=== PATIENT | female | born 1995 | race Caucasian/White ===

== ENCOUNTER 2017-08-14 08:56 | Emergency (ER) | payer BC, SELFPAY ==
[2017-08-14 08:58] VITALS: BP 127/66; PULSE 123; RESP 14; TEMP 36; O2SAT 97; BMI 28.1
[2017-08-14 09:04] VITALS: BP 118/90; PULSE 96; RESP 22; O2SAT 96
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
[2017-08-14] MEDS: HYDROcodone Bitartrate/Apap 5/325 Tablet PO (09:23)
[2017-08-14] MEDS: Diphth,Pertuss(Acell),Tet Vac 0.5 ML Vial IM (09:25)
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
[2017-08-14 10:52] VITALS: BP 116/78; PULSE 70; RESP 14; RESP 16; O2SAT 100
== END 2017-08-14 10:53 | disposition home or self-care (01) ==
LOC: ED 10:16
PROVIDERS: Emergency Provider Emergency Medicine; Family Provider Student in an Organized Health Care Education/Training Program; PCP Student in an Organized Health Care Education/Training Program
DX: S00.03XA Contusion of scalp, initial encounter (principal); S80.12XA Contusion of left lower leg, initial encounter; V48.0XXA Car driver injured in noncollision transport accident in nontraffic accident, initial encounter; Y92.410 Unspecified street and highway as the place of occurrence of the external cause; Y93.89 Activity, other specified
CPT/HCPCS: 70450; 72125; 73590; 90471; 90715; 99283; A4216

== ENCOUNTER 2024-06-26 15:12 | Emergency (ER) | payer BC, SELFPAY ==
[2024-06-26 15:13] VITALS: BP 107/89; PULSE 91; RESP 18; TEMP 36; O2SAT 100; BMI 34.3
[2024-06-26 15:29] LABS: Red Blood Cells-Urine 0 SEEN /hpf (0-5)
[2024-06-26 15:52] LABS: Color, Urine Yellow (Yellow); Glucose, Dipstick Normal (Normal); Ketone-Dipstick 50 mg/dl (Negative); Leukocyte Esterase-Dipstick 25 /ul (Negative); Nitrite-Dipstick Negative (Negative); Occult Blood-Urine Negative /ul (Negative); Protein-Dipstick 30 mg/dl (Negative); Specific Gravity, Urine 1.015 (1.002-1.030); Urine Clarity Sl. Cloudy (Clear); Urine Urobilinogen 8 mg/dl (Normal)
[2024-06-26 15:54] LABS: Urine Bilirubin Dipstick 1 mg/dL (Negative)
[2024-06-26 16:07] LABS: Bacteria 2+ /hpf (None Seen); Mucous, Urine 2+ /hpf (<or=2+); Squamous Epithelial Cells - UA 0-5 SEEN /hpf (5-10)
[2024-06-26 16:08] LABS: White Blood Cells 0-5 SEEN /hpf (0-5)
[2024-06-26] MEDS: Ondansetron 4 MG/2 ML Vial IV (16:52)
[2024-06-26] MEDS: 0.9% Normal Saline (1000mL) 1,000 ML 1000 ML IV (16:53)
[2024-06-26] MEDS: Ceftriaxone 2 GM in 0.9% Normal Saline (50mL MB+) 50 ML IV (16:54)
--- NOTE | 2024-06-26 17:11 | EX.ED.DYSGE1 ---
HPI History of Present Illness Chief Complaint: Back Detail of Chief Complaint: Central low back pain and suprapubic discomfort Informant: patient Onset/Context/Timing Onset: Days and Weeks Timing: Intermittent Quality: Pain/pressure Location: Suprapubic central low back Current Severity: Mild Maximum Severity: Severe Worsened by: Nothing specific Relieved by: Nothing Associated Symptoms Associated Symptoms: Frequency, urgency, first trimester Narrative Narrative: Patient is a 28-year-old Ab0 female who presents with suprapubic discomfort. She also has central back pain. She has frequency and urgency. She denies hematuria. Question of discomfort with urination. She was seen in urgent care and told she does not have an infection. She denies vaginal bleeding or vaginal discharge. There is no history of STI. She has had nausea and vomiting for the past several days. She is not had vomiting today. She endorses thirst and dry mouth. She endorses orthostatic lightheadedness. Mother informed me that she has a relative that had similar presentation with early . There has been no documented fever but she does report chills. She had upper respiratory tract infectious symptoms that started over a week ago. These have essentially resolved. She denies rash. She denies swelling of her joints. Patient has allergy to Bactrim. Prior similar symptoms: No Recent Illness/Hospitalization: No PFSH PFSH Medical History no medical history Home Medications ?Medication ?Instructions ?Recorded ?Last Taken ?Type drospirenone 3 mg-ethinyl 1 tab PO DAILY 08/14/17 Unknown History estradiol 0.02 mg tablet (Loryna (28)) hydrocodone-acetaminophen 5-325mg 1 - 2 tab PO Q4H PRN PRN Pain #12 08/14/17 Unknown Rx 5mg-325mg tabs naproxen 500 mg tablet 500 mg PO BID PRN #20 tabs 08/14/17 Unknown Rx cephalexin 500 mg capsule 500 mg PO Q6 #28 CAPSULES 06/26/24 Unknown Rx ondansetron 4 mg disintegrating 4 mg PO Q8H PRN PRN Nausea #10 tabs 06/26/24 Unknown Rx tablet Allergy/AdvReac Type Severity Reaction Status Date / Time gabapentin Allergy Mild Rash Verified 06/26/24 15:18 sulfamethoxazole (From Allergy Mild Rash Verified 06/26/24 15:18 Bactrim) trimethoprim (From Bactrim) Allergy Mild Rash Verified 06/26/24 15:18 Surgical History no surgical history no surgical history Social History Smoking Status: Never smoker ROS ROS ED Constitutional Constitutional ED: Reports chills; Denies fever(s), subjective or sweats Eyes Eyes: Denies blurry vision or change in vision ENT ENT ED: Reports other Details: Did have symptoms a week ago. ; Denies ear pain, rhinorrhea or sore throat Cardiovascular Cardiovascular: Denies chest pain or palpitations Respiratory/Chest Respiratory/Chest: Denies cough, dyspnea or dyspnea on exertion Gastrointestinal Gastrointestinal: Reports abdominal pain, nausea and vomiting; Denies constipation, diarrhea or melena Genitourinary Genitourinary ED: Reports dysuria and urinary frequency; Denies hematuria Musculoskeletal Musculoskeletal: Reports back pain; Denies arthralgias, myalgias or neck pain Integumentary Denies rash Endocrine Endocrinology: Denies cold intolerance or heat intolerance EXAM Physical Exam Const Vital Signs: 06/26/24 15:13 06/26/24 17:12 06/26/24 18:35 Temperature 96.8 F L Temperature Source Temporal Pulse Rate 91 71 Pulse Rate [Lying] 84 Pulse Rate [Sitting (for 1 minute prior to obtaining)] 72 Pulse Rate [Standing (for 1 minute prior to obtaining)] 94 Respiratory Rate 18 18 Blood Pressure 107/89 H 96/57 L Blood Pressure [Lying] 121/70 H Blood Pressure [Sitting (for 1 minute prior to obtaining)] 114/72 Blood Pressure [Standing (for 1 minute prior to obtaining)] 124/76 H Blood Pressure Mean 95 70 Blood Pressure Mean [Lying] 87 Blood Pressure Mean [Sitting (for 1 minute prior to obtaining)] 86 Blood Pressure Mean [Standing (for 1 minute prior to obtaining)] 92 Pulse Ox 100 99 Oxygen Delivery Method Room Air Room Air 06/26/24 18:53 Temperature 98.2 F Temperature Source Pulse Rate 72 Pulse Rate [Lying] Pulse Rate [Sitting (for 1 minute prior to obtaining)] Pulse Rate [Standing (for 1 minute prior to obtaining)] Respiratory Rate 18 Blood Pressure 112/74 Blood Pressure [Lying] Blood Pressure [Sitting (for 1 minute prior to obtaining)] Blood Pressure [Standing (for 1 minute prior to obtaining)] Blood Pressure Mean 86 Blood Pressure Mean [Lying] Blood Pressure Mean [Sitting (for 1 minute prior to obtaining)] Blood Pressure Mean [Standing (for 1 minute prior to obtaining)] Pulse Ox 99 Oxygen Delivery Method Positive well nourished and well developed Constitutional Narrative: Vital signs are unremarkable. General Appearance ED: well developed, NAD and pallor; Negative for cyanotic or diaphoretic HEENT Reports dry mucous membranes HEENT Narrative: Head is atraumatic normocephalic. Ears normal. Nares patent. Posterior pharynx is normal. Mouth ED: Yes dry mucous membranes Mouth: dry mucous membranes Eyes PERRL and EOMs intact bilaterally General Eye ED: Negative for pale conjunctiva or scleral icterus Neck no lymphadenopathy, supple and no JVD Chest Wall inspection of chest normal and palpation of chest normal Resp normal respiratory effort and clear to auscultation bilaterally Cardio regular rate, regular rhythm, S1 normal heart sound, S2 normal heart sound and no murmurs GI normal to inspection, nondistended, normoactive bowel sounds, non-distended and no masses; Negative for non-tender or hepatosplenomegaly Palpation: tender suprapubic Back/Spine no CVA tenderness Thoracic Spine / Upper Back: Negative for thoracic spinal tenderness Lumbar Spine / Lower Back: Negative for lumbar spinal tenderness Extremity normal to inspection General Extremety ED: Negative for edema General Extremity: Negative for edema Neuro oriented x3 and CN's II-XII intact bilaterally Sensorium / Orientation: alert Psych mental status grossly normal Skin no rashes or lesions noted, no wounds and skin turgor normal General Skin Exam: elasticity normal and pallor; Negative for jaundice MDM MDM MDM Narrative Medical decision making narrative: Clinically patient is dehydrated. 1 L normal saline was ordered. UA was obtained per protocol. Patient does have bacteriuria. Urine culture was obtained. Also BMP was obtained to assess CO2 anion gap and electrolytes as well as renal function and light of the amount of vomiting she has had. She was treated with Zofran for her nausea and vomiting. Because she has bacteria and urine culture was sent and she was treated with antibiotics. She is seen through the [facility]. She mentioned Dr. Jennifer Fortune's name. Lab Data Attestation: I reviewed the patient's lab results. Lab results narrative: Urine macro is positive for ketones, bilirubin, urobilinogen, leukoesterase. Micro revealed 0-5 RBCs and WBCs. There is 2+ bacteria. Labs: Laboratory Results - last 24 hr 06/26/24 06/26/24 15:22 16:55 Sodium 134 L Potassium 3.4 L Chloride 100 Carbon Dioxide 27.0 Anion Gap 7 BUN 6 L Creatinine 0.60 Estim Creat Clear Calc 177.97 Est GFR (MDRD) Af Amer 155 Est GFR (MDRD) Non-Af 128 BUN/Creatinine Ratio 10.0 Glucose 89 Calcium 9.1 Urine Color Yellow Urine Clarity Sl. Cloudy Urine pH 6.0 Ur Specific [place] 1.015 Urine Protein 30 H Urine Glucose (UA) Normal Urine Ketones 50 H Urine Occult Blood Negative Urine Nitrite Negative Urine Bilirubin 1 H Urine Urobilinogen 8 H Ur Leukocyte Esterase 25 H Urine RBC 0 SEEN Urine WBC 0-5 SEEN Ur Squamous Epith Cells 0-5 SEEN Urine Bacteria 2+ Urine Mucus 2+ Treatment and Re-Evaluation :: Patient was reassessed at 181. She had marked improvement. She has color to her face. She states she feels markedly better. Discharge Plan Triage Chief Complaint: Back Other Complaint: ED Provider: Robert Cohn Dx/Rx/DC Orders Clinical Impression: Bacteriuria during in first trimester, Acute dehydration, Hyperemesis gravidarum Instructions: ED Cystitis Female Adult Prescriptions: New cephalexin 500 mg capsule 500 mg PO Q6 Qty: 28 0RF ondansetron 4 mg tablet,disintegrating 4 mg PO Q8H PRN PRN (Reason: Nausea) Qty: 10 0RF No Action drospirenone-ethinyl estradiol [Loryna (28)] 1 EACH tablet 1 tab PO DAILY Patient Comments: TAKE 1 TABLET BY MOUTH ONCE DAILY. naproxen 500 MG tablet 500 mg PO BID PRN Qty: 20 0RF hydrocodone-acetaminophen 1 TABLET tablet 1 - 2 tab PO Q4H PRN PRN (Reason: Pain) Qty: 12 0RF Primary Care Provider: Judson Weber Referrals: Judson Weber DO [Primary Care Provider] - Jennifer Fortune MD [Med Staff - Active Staff] - 3-5 Days Activity Restrictions/Additional Instructions: 1. Take antibiotics until gone. 2. Take Zofran oral dissolvable tablet as needed for nausea and vomiting Print Language: Tajik Disposition Disposition: Home, Self Care Discharge Date/Time: 06/26/24 18:54
[2024-06-26 17:12] VITALS: BP 96/57; PULSE 71; RESP 18; O2SAT 99
[2024-06-26 17:30] LABS: Anion Gap 7 (5-15); BUN 6 mg/dL (7-18); Calcium,Total 9.1 mg/dL (8.5-10.1); Chloride 100 mmol/L (98-107); EST Glomerular Filtration Rate 128 mL/min (>60); Est Glom Filt Rate - Afr Amer 155 mL/min (>60); Estimated Creatinine Clearance 177.97 ml/min; Glucose 89 mg/dL (74-106); Potassium 3.4 mmol/L (3.5-5.1); Sodium Level 134 mmol/L (136-145)
[2024-06-26 18:35] VITALS: BP 114/72; BP 121/70; BP 124/76; PULSE 72; PULSE 84; PULSE 94
[2024-06-26 18:53] VITALS: BP 112/74; PULSE 72; RESP 18; TEMP 36.8; O2SAT 99
== END 2024-06-26 18:54 | disposition home or self-care (01) ==
PROVIDERS: Emergency Provider Emergency Medicine; PCP Student in an Organized Health Care Education/Training Program; Visit Provider Emergency Medicine
DX: O99.891 Other specified diseases and conditions complicating pregnancy (principal); R82.71 Bacteriuria; O21.1 Hyperemesis gravidarum with metabolic disturbance; Z3A.00 Weeks of gestation of pregnancy not specified
CPT/HCPCS: 80048; 81001; 87086; 96365; 96375; 96376; 99285; A4216; J0696; J2405

== ENCOUNTER 2024-09-04 08:06 | Emergency (ER) | payer BC, SELFPAY ==
[2024-09-04 08:07] VITALS: BP 125/83; PULSE 85; RESP 19; TEMP 36.4; O2SAT 100; BMI 33.9
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
--- NOTE | 2024-09-04 08:27 | EDS_ITS ---
HPI History of Present Illness Chief Complaint: Flank Pain Informant: patient and parent Narrative Narrative: 29-year-old female with pain in her right low back/flank that started last night but intensified this morning. She states initially it was colicky but now it is just steady and severe. Associate with nausea and vomiting. She is 17 weeks . She has had no issues with the , has had prior ultrasound documenting IUP. She denies any acute urinary symptoms or fever/chills, cough or congestion or other respiratory symptoms, she denies any abdominal pain right now. Earlier in the , she did have some nonspecific urinary issues according to mom that was treated empirically with some antibiotics, it eventually went away and they are concerned maybe that was a kidney stone and that this may be 1 as well. She is never had any that she knows of. No other abdominal surgeries in the past. [facility] Medical History (Updated 09/04/24 @ 13:[address] Yosi Oliveira MD) Medical History no medical history no medical history Home Medications ?Medication ?Instructions ?Recorded ?Last Taken ?Type aspirin 81 mg tablet,delayed 81 mg PO DAILY 09/04/24 0 09/03/24 History release oxycodone-acetaminophen 5 mg-325 1 tab PO Q6H PRN PRN Pain 3 days 09/04/24 Unknown Rx mg tablet #12 TABLETS vit no.95-ferrous 1 tab PO DAILY 09/04/2404/20 History fumarate 28 mg-folic acid 800 mcg tablet () Allergy/AdvReac Type Severity Reaction Status Date / Time gabapentin Allergy Mild Rash Verified 06/26/24 15:18 sulfamethoxazole (From Allergy Mild Rash Verified 06/26/24 15:18 Bactrim) trimethoprim (From Bactrim) Allergy Mild Rash Verified 06/26/24 15:18 Social History Smoking Status: Never smoker ROS ROS ED Constitutional Constitutional ED: Denies chills or fever(s) Eyes Eyes: Denies change in vision or diplopia ENT ENT ED: Denies rhinorrhea or sore throat Cardiovascular Cardiovascular: Denies chest pain or palpitations Respiratory/Chest Respiratory/Chest: Denies cough or dyspnea Gastrointestinal Gastrointestinal: Reports nausea and vomiting; Denies abdominal pain or diarrhea Genitourinary Genitourinary ED: Denies dysuria or hematuria Musculoskeletal Musculoskeletal: Reports back pain; Denies neck pain Integumentary Denies abscess or rash Neurologic Neurologic: Denies headache(s), paresthesias or weakness EXAM Physical Exam Const Vital Signs: 09/04/24 08:07 09/04/24 10:06 09/04/24 12:00 Temperature 97.5 F L Temperature Source Temporal Pulse Rate 85 Respiratory Rate 19 H Blood Pressure 125/83 H 111/61 113/78 Blood Pressure Mean 97 77 89 Pulse Ox 100 100 Oxygen Delivery Method Room Air Room Air Positive well nourished and well developed Constitutional Narrative: Uncomfortable in pain but no distress General Appearance ED: well developed and NAD HEENT Reports moist mucous membranes normocephalic and atraumatic Eyes PERRL and EOMs intact bilaterally Neck full ROM and supple Resp normal respiratory effort and clear to auscultation bilaterally Cardio regular rate, regular rhythm and no murmurs GI non-tender and non-distended Auscultation: normoactive bowel sounds Palpation: soft Back/Spine General Back: CVA tenderness right and other FROM Extremity normal to inspection General Extremety ED: Negative for edema, pulses abnormal or tenderness General Extremity: Negative for edema or pulses abnormal Neuro oriented x3, CN's II-XII intact bilaterally and no sensory deficits noted Sensorium / Orientation: awake and alert Motor Exam: strength 5/5 throughout Skin no rashes or lesions noted and no wounds MDM MDM MDM Narrative Medical decision making narrative: My suspicion is that this is renal colic based on history and exam as opposed to biliary colic or musculoskeletal back pain. Given that she is , we will obtain an ultrasound of the kidney and bladder, as well as blood work and a urine to evaluate for the possibility of pyelonephritis. Nursing was unable to get an IV in the patient, the patient states she is always been a hard stick so we opted to give the medication to intramuscularly as far as morphine and Zofran which initially was going to be given orally but then she was actively vomiting, so was given intramuscularly. She still has significant pain, so then she was given IM Dilaudid and still was in severe pain later. In the meantime, workup shows normal labs and renal function, urine shows blood but no sign of infection, and ultrasound is consistent with nephrolithiasis and mild hydronephrosis both on the right with several stones being seen in the right kidney and the largest being 7 mm. The obstructing stone was not visualized but assumed to be present in the right ureter. I discussed with urology given all of the pain she was in, and ordered an IV along with a second dose of Dilaudid. Dr. Sifuentes advised a CT given the risks and benefits comparison of going to the OR when . I discussed this with the patient and she wanted to hold off on getting a CT at that time, and see if we can get her pain under better control even if being admitted to the hospital was necessary. I think that is reasonable and I discussed getting a KUB which we did, my interpretation there may be a very small punctate UVJ stone, 1 view, however radiology did not interpret this way. A little later, before she got the second dose of Dilaudid, the patient's pain suddenly became almost completely resolved and she did much better for observation in the next 1 to 2 hours without recurrent significant discomfort or need for other medication. Given this, I do not think she needs to be admitted anymore. I had her strain urine but she did not catch a stone, I suspect she passed it into her bladder. She is given urine strainers to go as well as a prescription for analgesics to use as needed, and to follow-up with urology at some point when she is done with her assuming that she does not have any issues with obstructing stones until then. She and family are comfortable with that plan. Lab Data Attestation: I reviewed the patient's lab results. Labs: Laboratory Results - last 24 hr 09/04/24 09/04/24 08:20 09:35 WBC 9.7 RBC 4.32 Hgb 11.5 L Hct 35.9 L MCV 83.1 MCH 26.6 L MCHC 32.0 RDW Std Deviation 42.3 RDW Coeff of [place]ar[place] 13.8 Plt Count 311 MPV 9.0 Immature Gran % (Auto) 0.400 Neut % (Auto) 72.2 H Lymph % (Auto) 19.6 [place] % (Auto) 5.7 Eos % (Auto) 1.7 Baso % (Auto) 0.4 Absolute Neuts (auto) 7.0 Absolute Lymphs (auto) 1.91 Nucleated RBC % 0 Sodium 136 Potassium 3.5 Chloride 104 Carbon Dioxide 17.4 L Anion Gap 15 BUN 7 Creatinine 0.64 L Estim Creat Clear Calc 164.25 Est GFR (MDRD) Non-Af 124 BUN/Creatinine Ratio 11.6 Glucose 92 Calcium 8.8 Urine Color Yellow Urine Clarity Clear Urine pH 6.0 Ur Specific [place] 1.020 Urine Protein 15 H Urine Glucose (UA) Normal Urine Ketones 5 H Urine Occult Blood 50 H Urine Nitrite Negative Urine Bilirubin Negative Urine Urobilinogen Normal Ur Leukocyte Esterase 25 H Urine RBC 0-5 SEEN Urine WBC 0-5 SEEN Ur Squamous Epith Cells 0-5 SEEN Urine Bacteria 3+ Urine Mucus 1+ Radiography Diagnostic Testing: Clinical Impression(s) from Imaging Studies Renal Ultrasound 09/04/24 08:20 IMPRESSION: Right nephrolithiasis with mild hydronephrosis. Reading Location: [facility] K[facility] X-Ray 09/04/24 11:20 IMPRESSION: Fecal retention in the colon consistent with constipation. Reading Location: [facility] Management Discussion w/another healthcare provider: [facility] (urology) Discharge Plan Triage Chief Complaint: Flank Pain ED Provider: Yosi Oliveira Dx/Rx/DC Orders Clinical Impression: Renal colic on right side, Ureterolithiasis during in second trimester, Right nephrolithiasis Instructions: ED Kidney Stone, Passed, ED Urine Strainer Prescriptions: New oxycodone-acetaminophen 5-325 mg tablet 1 tab PO Q6H PRN PRN (Reason: Pain) 3 Days Qty: 12 0RF No Action aspirin 81 mg tablet,delayed release (DR/EC) 81 mg PO DAILY PNV cmb#95-ferrous fumarate-FA [] 28 mg iron- 800 mcg tablet 1 tab PO DAILY Primary Care Provider: Judson Weber Referrals: Maria M Sifuentes MD [Med Staff - Active Staff] - As Needed Judson Weber DO [Primary Care Provider] - Print Language: [place] Disposition Disposition: Home, Self Care
[2024-09-04] MEDS: Morphine 4 MG/ML Syringe IM (08:31)
[2024-09-04] MEDS: Ondansetron 4 MG/2 ML Vial IM (08:31)
[2024-09-04 08:34] LABS: Absolute Lymphocyte Count 1.91 X10^3/uL (0.83-4.51); Basophil# 0.04 X10^3/uL; Basophil% 0.4 % (0-1); Eosinophil# 0.17 X10^3/uL; Eosinophils% 1.7 % (0-5); Hematocrit 35.9 % (37-47); Hemoglobin 11.5 g/dL (12.0-15.0); Lymphocyte # 1.91 X10^3/ul (0.83-4.51); Lymphocyte % 19.6 % (19-41); Mean Corpuscular Hgb 26.6 pg (27.0-32.0); Mean Corpuscular Volume 83.1 fL (81-99); Monocyte# 0.56 X10^3/uL; Monocyte% 5.7 % (0-10); NRBC Flagged by Analyzer 0 % (0-5); Neutrophil # 7.02 X10^3/uL (2.7-7.7); Neutrophil % 72.2 % (47-70); Platelet Count 311 K/mm3 (150-450); RBC Distribution Width CV 13.8 % (11.6-14.6); RBC Distribution Width SD 42.3 fl (35.1-43.9); Red Blood Count 4.32 M/mm3 (4.2-5.4); White Blood Count 9.7 K/mm3 (4.4-11.0)
[2024-09-04 08:59] LABS: Anion Gap 15 (5-15); BUN 7 mg/dL (4-19); BUN/Creat Ratio 11.6 RATIO (10-20); Calcium,Total 8.8 mg/dL (7.6-11.0); Carbon Dioxide 17.4 mmol/L (21.0-32.0); Chloride 104 mmol/L (98-108); Creatinine, Serum 0.64 mg/dL (0.70-1.20); EST Glomerular Filtration Rate 124 (>60); Estimated Creatinine Clearance 164.25 ml/min (50-250); Glucose 92 mg/dL (70-99); Potassium 3.5 mmol/L (3.3-5.1); Sodium Level 136 mmol/L (133-145)
[2024-09-04] MEDS: HYDROmorphone 1 MG/ML Syringe IM (09:41)
[2024-09-04 09:57] LABS: Color, Urine Yellow (Yellow); Glucose, Dipstick Normal (Normal); Ketone-Dipstick 5 mg/dl (Negative); Leukocyte Esterase-Dipstick 25 /ul (Negative); Nitrite-Dipstick Negative (Negative); Occult Blood-Urine 50 /ul (Negative); Protein-Dipstick 15 mg/dl (Negative); Urine Bilirubin Dipstick Negative (Negative); Urine Clarity Clear (Clear); Urine Urobilinogen Normal (Normal)
[2024-09-04 10:03] LABS: Bacteria 3+ /hpf (None Seen); Mucous, Urine 1+ /hpf (<or=2+); Red Blood Cells-Urine 0-5 SEEN /hpf (0-5); Squamous Epithelial Cells - UA 0-5 SEEN /hpf (5-10); White Blood Cells 0-5 SEEN /hpf (0-5)
[2024-09-04 10:06] VITALS: BP 111/61; O2SAT 100
--- NOTE | 2024-09-04 11:20 | RAD_ITS ---
EXAM: XR Abdomen, 1 View CLINICAL INDICATION: R FLANK PAIN TECHNIQUE: Frontal supine view of the abdomen/pelvis. COMPARISON: No relevant prior studies available. FINDINGS: GASTROINTESTINAL TRACT: Fecal retention in the colon consistent with constipation. No dilation. BONES/JOINTS: Unremarkable. No acute fracture. RAD/Abdomen Single View IMPRESSION: Fecal retention in the colon consistent with constipation. Reading Location: [facility]
[2024-09-04 12:00] VITALS: BP 113/78
[2024-09-04 13:22] VITALS: BP 115/70; PULSE 84; RESP 16; TEMP 36.4; O2SAT 99
== END 2024-09-04 13:27 | disposition home or self-care (01) ==
PROVIDERS: Emergency Provider Emergency Medicine; PCP Student in an Organized Health Care Education/Training Program; Visit Provider Emergency Medicine
DX: O99.891 Other specified diseases and conditions complicating pregnancy (principal); O26.832 Pregnancy related renal disease, second trimester; N23 Unspecified renal colic; N13.2 Hydronephrosis with renal and ureteral calculous obstruction; Z79.82 Long term (current) use of aspirin; Z3A.17 17 weeks gestation of pregnancy
CPT/HCPCS: 74018; 76770; 80048; 81001; 85025; 96372; 99284; A4216; J2405

== ENCOUNTER 2025-02-05 11:40 | Outpatient (CLI) | payer BC, SELFPAY ==
[2025-02-05] VITALS (9 sets, daily range): BP systolic 130–134; BP diastolic 75–92; PULSE 70–90; RESP 18; TEMP 36.4; O2SAT 98; BMI 39.5
[2025-02-05 12:27] LABS: Hematocrit 28.9 % (37-47); Hemoglobin 9.1 g/dL (12.0-15.0); Mean Corp Hgb Conc 31.5 g/dL (32-36); Mean Corpuscular Volume 76.3 fL (81-99); Mean Platelet Vol. 9.9 fl (6.2-12.0); Platelet Count 296 K/mm3 (150-450); RBC Distribution Width CV 15.8 % (11.6-14.6); RBC Distribution Width SD 42.9 fl (35.1-43.9); Red Blood Count 3.79 M/mm3 (4.2-5.4); White Blood Count 7.7 K/mm3 (4.4-11.0)
[2025-02-05 12:47] LABS: Creatinine, Urine (random) 207.00 mg/dL (28.00-217.00); Protein, Urine (Random) 28.1 mg/dL (0.0-12.0); Protein:Creat Ratio 136 mg/g CRE (0-200)
[2025-02-05 13:22] LABS: AST(SGOT) 32 U/L (<=31); Alanine Aminotransfer ALT/SGPT 7 U/L (<=34); Estimated Creatinine Clearance 178.30 ml/min (50-250); Uric Acid 5.1 mg/dL (2.6-6.0)
--- NOTE | 2025-02-06 19:36 | OB.TRI.HP_ITS ---
HPI - General General Date of Admission: 02/05/25 Date of Service: 02/05/25 Chief Complaint: elevated BP HPI Narrative ROBB GONZALEZ, is a 29 F who presents presents from office for evaluation of elevated BP. One BP >140/80s but was initial BP before she had been sitting 5 min. Denies GARNER, visual changes, epigastric pain, ctx, VB or LOF. Maternal Data Information Final [facility]: 02/14/25 Gestational age: 38 5/7 PFSH PENDING SALE TO [facility] Medical History (Updated 02/06/25 @ 19:[address] Jennifer Fortune MD) Home Medications ?Medication ?Instructions ?Recorded ?Last Taken ?Type aspirin 81 mg tablet,delayed 81 mg PO DAILY 09/04/24 0 02/04/25 22:00 History release 81 mg vit no.95-ferrous 1 tab PO DAILY 09/04/2405/21 12:00 History fumarate 28 mg-folic acid 800 mcg 1 TA B tablet () ferrous gluconate 324 mg (37.5 mg 324 mg PO QODAY anem ia 02/05/25 02/03/25 22:00 History iron) tablet 324 mg Allergy/AdvReac Type Severity Reaction Status Date / Time gabapentin Allergy Mild Rash Verified 02/05/25 12:18 sulfamethoxazole (From Allergy Mild Rash Verified 02/05/25 12:18 Bactrim) trimethoprim (From Bactrim) Allergy Mild Rash Verified 02/05/25 12:18 Social History Smoking Status: Never smoker NST FHR Rate Baby A Baseline: 140 Variability:: Moderate Accelerations:: 15 x 15 Decelerations:: None NST Reactive:: Yes Uterine Activity:: rare ctxs Assessment & Plan (1) 38 weeks gestation of : (2) Elevated blood pressure reading without diagnosis of hypertension: PLAN: Plan No evidence of preeclampsia. Only elevated blood pressure in the diagnostic range for gestational hypertension was initial 1 1 patient was somewhat anxious upon arrival. Labs are normal. No laboratory or clinical evidence of preeclampsia. Patient is to return for signs or symptoms of preeclampsia. Follow-up in the office in 3 days for blood pressure check or return as needed. Patient is comfortable with this plan. Recommend induction at 39-40 weeks gestation, patient consents and this is scheduled.
== END 2025-02-05 13:45 | disposition home or self-care (01) ==
LOC: WPOUT 11:43 → WP 11:43
PROVIDERS: Obstetrics & Gynecology; PCP Student in an Organized Health Care Education/Training Program; Referring Provider Obstetrics & Gynecology; Visit Provider Obstetrics & Gynecology
DX: O99.891 Other specified diseases and conditions complicating pregnancy (principal); R03.0 Elevated blood-pressure reading, without diagnosis of hypertension; Z3A.38 38 weeks gestation of pregnancy
CPT/HCPCS: 36415; 59025; 59050; 82565; 82570; 84156; 84450; 84460; 84550; 85027; 99221; G0378

== ENCOUNTER 2025-02-11 07:23 | Inpatient (IN) | payer BC, SELFPAY ==
[2025-02-11] VITALS (52 sets, daily range): BP systolic 121–154; BP diastolic 66–97; PULSE 70–109; RESP 16–19; TEMP 36.2–37; O2SAT 96–100; BMI 39.5
[2025-02-11] MEDS: Lactated Ringers 1,000 ML 50 ML IV (08:00)
[2025-02-11 08:13] LABS: Hematocrit 29.2 % (37-47); Hemoglobin 9.0 g/dL (12.0-15.0); Immature Granulocytes Count 0.040 X10^3/uL (0.0-0.0); Mean Corp Hgb Conc 30.8 g/dL (32-36); Mean Corpuscular Volume 76.4 fL (81-99); Mean Platelet Vol. 10.1 fl (6.2-12.0); NRBC Flagged by Analyzer 0 % (0-5); Platelet Count 319 K/mm3 (150-450); RBC Distribution Width CV 16.1 % (11.6-14.6); RBC Distribution Width SD 44.1 fl (35.1-43.9); Red Blood Count 3.82 M/mm3 (4.2-5.4); White Blood Count 9.1 K/mm3 (4.4-11.0)
[2025-02-11] MEDS: 0.9% Normal Saline Single 100 ML IV.SOLN. INTRA-UTER (08:27)
--- NOTE | 2025-02-11 08:39 | PCM.HP.OB ---
HPI - General General Date of Admission: 02/11/25 HPI Narrative ROBB MURRAY, is a 29 F who presents at [facility] 02/14/25 at 39w4d for induction of labor for increasing BP and pregravid BMI 34. Maternal Data Information [facility] Calculator Estimated Delivery Date Method Current WG Current Estimate 02/14/25 Manual 39w 4d PFSH PFSH Medical History (Updated 02/11/25 @ 08:55 by Molly Gallegos CNM) Thyroid disorder Home Medications ?Medication ?Instructions ?Recorded ?Last Taken ?Type aspirin 81 mg tablet,delayed 81 mg PO DAILY 09/04/24 02/04/25 22:00 History release 81 mg vit no.95-ferrous 1 tab PO DAILY 09/04/24 02/04/25 12:00 History fumarate 28 mg-folic acid 800 mcg 1 TAB tablet () ferrous gluconate 324 mg (37.5 mg 324 mg PO QODAY anemia 02/05/25 02/03/25 22:00 History iron) tablet 324 mg Allergy/AdvReac Type Severity Reaction Status Date / Time gabapentin Allergy Mild Rash Verified 02/05/25 12:18 sulfamethoxazole (From Allergy Mild Rash Verified 02/05/25 12:18 Bactrim) trimethoprim (From Bactrim) Allergy Mild Rash Verified 02/05/25 12:18 Surgical History (Updated 02/11/25 @ 08:38 by Elsie Fernando) Hx of adenoidectomy Hx of tonsillectomy Social History Smoking Status: Never smoker History Elective abortions Hx Para 0 Spontaneous abortions Hx # Term Pregnancies Ectopic pregnancies Hx # Pregnancies Multiple births # of living children NST FHR Rate Baby A Baseline: 140 Variability:: Moderate Accelerations:: 15 x 15 Decelerations:: Variable FHR Category:: Category II Uterine Activity:: None ROS Constitutional Constitutional: Reports systems reviewed and no addt'l complaints, except as documented; Denies headache(s) Eyes Eyes: Denies acute decrease in peripheral vision, blurry vision or change in vision ENT HEENT: Reports systems reviewed and no addt'l complaints, except as documented Cardiovascular Cardiovascular: Denies chest pain or dizziness Respiratory/Chest Respiratory/Chest: Denies cough, dyspnea, dyspnea on exertion, shortness of breath at rest or shortness of breath with exertion Gastrointestinal Gastrointestinal: Denies abdominal pain, diarrhea, nausea or vomiting Genitourinary Genitourinary: Denies abdominal discomfort Musculoskeletal Musculoskeletal: Denies limited range of motion Integumentary Integumentary: Reports systems reviewed and no addt'l complaints, except as documented Neurologic Neurologic: Reports systems reviewed and no addt'l complaints, except as documented Psychiatric Psychiatric: Reports systems reviewed and no addt'l complaints, except as documented Endocrine Endocrinology: Reports systems reviewed and no addt'l complaints, except as documented Hematologic/Lymphatic Hematologic/Lymphatic: Reports systems reviewed and no addt'l complaints, except as documented Allergic/Immunologic Allergic/Immunologic: Reports systems reviewed and no addt'l complaints, except as documented Vital Signs Vital Signs Vital Signs: 02/11/25 08:10 02/11/25 08:10 02/11/25 08:10 Temperature 98.6 F Pulse Rate 92 Blood Pressure 121/83 H BP Systolic 121 BP Diastolic 83 Pulse Ox 02/11/25 08:10 Temperature Pulse Rate Blood Pressure BP Systolic BP Diastolic Pulse Ox 98 Physical Exam Const alert and oriented x3 General Appearance: cooperative Orientation / Consciousness: awake, oriented to person, oriented to place and oriented to time Exam Limitations: no limitations HEENT normocephalic Head and Scalp: normal to inspection, normocephalic and atraumatic Face and Sinus: normal facial exam Eyes General Eye: normal appearance of both eyes Neck full ROM Chest Chest: symmetrical chest wall rise Resp normal respiratory effort and normal air movement Auscultation: clear to auscultation bilaterally Cardio regular rate, regular rhythm, S1 normal heart sound, S2 normal heart sound, no murmurs, no rub, no gallops and no clicks GI normal to inspection, nondistended, normoactive bowel sounds and non-tender appearance of the vagina normal Bladder / Kidney Exam: no CVA tenderness Manual OB Exam: estimated gestational size appropriate, presentation cephalic, dilated 1cm, effaced 50%, station -3 and other IBOW Back/Spine normal ROM Extremity normal to inspection and full ROM Skin no rashes or lesions noted Neuro oriented x3, CN's II-XII intact bilaterally and moves all extremities Sensorium / Orientation: awake, alert and oriented to person Motor Exam: clonus absent Deep Tendon Reflexes: Rt Patellar (L4): 2+ and Lt Patellar (L4): 2+ Labs Labs Labs: Blood Type Pending Antibody Screen Pending Hct 29.2 % (37-47) L Hgb 9.0 g/dL (12.0-15.0) L Syphilis Total Ab Pending GBS negative Rubella Immune RPR non reactive HIV negative HBsAG negative O positive GC/CT negative Assessment & Plan (1) 39 weeks gestation of : (2) Obesity affecting : (3) Category II heart rate tracing during labor and delivery: (4) Elective induction of labor planned: PLAN: Plan 1) Admit to labor and delivery 2) Routine labs 3) Continuous EFM. Uncertain of baseline, appears 140 with prolonged accelerations and variable decelerations. to review strip and ok to proceed with administration of cyctotec. Lynch for cervical ripening. 4) Pain management upon request 5) Dr. Fortune collaborative physician and notified of patient status, above assessment, and plan.
[2025-02-11 09:06] LABS: Syphilis Antibodies Nonreactive (Nonreactive)
[2025-02-11] MEDS: Oxytocin 15 Units/NS 250ml 15 UNITS/250 ML IV.SOLN 2 UNITS IV (13:00)
[2025-02-11] MEDS: Lactated Ringers 1,000 ML 999 ML IV (15:07)
[2025-02-11] MEDS: fentaNYL-bupivacaine (epidural) 100 ML BAG EPIDURAL ×2 (15:33→19:39)
[2025-02-11] MEDS: LACTATED RINGERS 500 ML 999 ML IV (17:42)
[2025-02-11] MEDS: Lactated Ringers 1,000 ML 200 ML IV (18:57)
[2025-02-11] MEDS: 0.9% Saline Lock 10 ML Syringe IV ×2 (19:39→20:38)
--- NOTE | 2025-02-11 22:49 | OB.VAGDELI_ITS ---
Assessment & Plan (1) Obesity affecting : QUALIFIERS: Trimester: third trimester Obesity type affecting : other obesity due to excess calories Qualified Code(s): O99.213 - Obesity complicating , third trimester; E66.09 - Other obesity due to excess calories (2) (spontaneous vaginal delivery): (3) Single live : Maternal Data Information [facility] Calculator Estimated Delivery Date Method Current WG Current Estimate 02/14/25 Manual 39w 4d Final [facility]: 02/14/25 Gestational age: 39 4/7 Vaginal Delivery Maternal Presentation Maternal Presentation: Elective Induction Type of Induction: Pitocin, Lynch Bulb, Amniotomy and Cytotec Vaginal Delivery Information Procedure Performed: Spontaneous Vaginal Delivery Surgeon/Practitioner: Jennifer Fortune Date of Procedure: 02/11/25 Pre-Procedure Diagnosis: labor Post-Procedure Diagnosis: same Type of anesthesia: Epidural Estimated Blood Loss: 300 Time of Delivery: 22:29 Findings Description of procedure: A vigorous female was delivered MARIELA over a second-degree perineal laceration. The remainder the infant was delivered with maternal pushing and gentle traction only in less than 15 seconds. The Pitocin infusion was initiated for active management of the third stage. The cord was clamped and cut after 1 minute. The infant was attended to by the waiting nursing staff. The placenta was delivered spontaneously and intact. The cervix and vagina were intact. The second-degree perineal laceration was repaired with 2-0 Vicryl suture in a running standard fashion. Sponge and needle counts were correct. A vaginal sweep was completed by me. Procedure findings: Vigorous female Presentation: MARIELA Amniotic Membrane Rupture Type: Artificial Amniotic Fluid Description: Moderate meconium Placental Delivery Description: Spontaneous Placenta Disposition: [facility] Specimen collected: No Cord Vessel Description: 3 Vessels Cord Entanglement: None A Gender: Female (Marija) (1 minute): 8 (5 minute): 9 Delayed Cord Clamping: Yes Invasive Cardiovascular Technologist internet site designer: No Post Vaginal Deli Medications given after delivery: IV Pitocin Episiotomy Description: None Laceration: 2nd degree Complication Complications: No
[2025-02-11] MEDS: Oxytocin 15 Units/NS 250ml 15 UNITS/250 ML IV.SOLN 83 UNITS IV (23:00)
[2025-02-12] VITALS (15 sets, daily range): BP systolic 121–152; BP diastolic 65–89; PULSE 70–98; RESP 14–16; TEMP 36.3–37.2; O2SAT 97–99
--- NOTE | 2025-02-12 08:45 | PCM.PN.OB ---
Objective Data Objective Data Vital Signs: Vital Signs Temp Pulse Resp BP Pulse Ox O2 Del Method 97.4 F L 70 16 121/65 H 97 Room Air 02/12/25 07:51 02/12/25 07:51 02/12/25 07:51 02/12/25 07:51 02/12/25 07:51 02/12/25 07:51 Oxygen Delivery Method Room Air Weight: 260 lb 2.327 oz Body Mass Index (BMI) 39.5 Intake & Output: Intake and Output for Last 24 Hours 02/10/25 02/11/25 02/12/25 23:59 23:59 23:59 Intake Total 3372.85 / 3372.85 250 / 250 Output Total 500 / 500 700 / 700 Balance 2872.85 / 2872.85 -450 / -450 Lab / Micro Data 02/11/25 08:00 Labs: Laboratory Results - last 24 hr 02/11/25 08:00: Syphilis Total Ab Nonreactive, Blood Type O POSITIVE, Antibody Screen NEGATIVE Physical Exam Const alert, oriented x3 and no apparent distress HEENT normocephalic GI soft to palpation, non-tender and non-distended GI Narrative: fundus firm, mid & below umbilicus Extremity normal to inspection and no calf tenderness Assessment & Plan (1) (spontaneous vaginal delivery): (2) Elevated blood pressure reading without diagnosis of hypertension: PLAN: Plan Routine PP care
[2025-02-12] MEDS: Senna/Docusate Sodium 1 Tablet PO (16:04)
[2025-02-13 01:42] VITALS: BP 123/91; PULSE 80; RESP 16; TEMP 36.8; O2SAT 98
[2025-02-13 08:22] VITALS: BP 142/98; PULSE 79; RESP 16; TEMP 36.6
--- NOTE | 2025-02-13 08:28 | PCM.DC.SUM ---
Providers Date of Admission: 02/11/25 Primary Care Physician: Dr. Judson Weber DO Reason For Visit: INDUCTION Diagnosis Discharge Diagnosis (1) (spontaneous vaginal delivery): Status: Acute Code(s): O80 - Encounter for full-term uncomplicated delivery (2) Obesity affecting : Status: Acute Code(s): O99.210 - Obesity complicating , unspecified trimester Qualifiers: Trimester: third trimester Obesity type affecting : other obesity due to excess calories Qualified Code(s): O99.213 - Obesity complicating , third trimester; E66.09 - Other obesity due to excess calories (3) Single live : Status: Acute Code(s): Z37.0 - Single live (4) Mother currently breast-feeding: Status: Acute Code(s): Z39.1 - Encounter for care and examination of lactating mother Medications at Discharge Home Medications vit no.95-ferrous fumarate 28 mg-folic acid 800 mcg tablet () 1 tab PO DAILY 09/04/24 ferrous gluconate 324 mg (37.5 mg iron) tablet 324 mg PO QODAY anemia 02/05/25 ibuprofen 600 mg tablet 600 mg PO Q6H PRN PRN Pain Score 1-10 #0 tabs 02/13/25 Hospital Course Operations None Procedures None Summary of Care Provided Minutes Spent on Discharge: 15 Hospital Course: Patient had vaginal delivery. Hospital course was uneventful. Physical Exam Narrative Patient seen at bedside. Denies pain. Ambulating and voiding without difficulty. Lochia decreased. Desires discharge home today. Const alert and oriented x3 General Appearance: Negative for in distress HEENT normocephalic Eyes General Eye: normal appearance of both eyes Neck General: normal visual inspection Chest Chest: symmetrical chest wall rise Resp normal respiratory effort and normal air movement Effort and Inspection: symmetric chest movement; Negative for tachypneic Auscultation: clear to auscultation bilaterally Cardio regular rate and regular rhythm Peripheral Pulses: pulses 2+ throughout GI normal to inspection, nondistended, normoactive bowel sounds Narrative: Ice to perineum OB / External & Speculum: vaginal bleeding and other Lochia decreasing Uterus Palpation: uterus fundus firm (Below U) Extremity normal to inspection, full ROM and normal capillary refill Skin no rashes or lesions noted Neuro oriented x3, CN's II-XII intact bilaterally and gait normal Psych mental status grossly normal, thought process normal and activity/motor behavior normal Weight / BMI Weight Weight: 260 lb 2.327 oz Body Mass Index (BMI) 39.5 ABG / Lab / Microbiology Data 02/11/25 08:00 D/C Instructions Discharge Activity: Return to Normal Activity, No Restrictions, May Drive, May Shower and May Take a Tub Bath (Warm water only. No bath salts, soaps, bubbles) May resume sexual activity in: 6-8 weeks Weight Bearing Status: Weight bearing as tolerated Call your doctor if you observe: Fever of 101 or Higher, Inability to urinate, Using more than 1 pad per hour, Shortness of breath, Dizziness, Chest pain, Calf discomfort and Uncontrolled pain DC O2, CPAP, BIPAP Needs Home O2 Discharge instructions: No Please Follow Up With: [facility] Karen GILLETTE When: 2 weeks in office or virtual Meaningful Use Info Meaningful Use Meaningful Use Diagnoses (Choose all that apply): None applicable Discharge Plan Admission Admit Date/Time: 02/11/25 07:23 Primary Reason for Your Visit: Labor and Delivery Attending Provider: Jennifre Fortune Primary Care Provider: Judson Weber Discharge Orders/Prescriptions Prescriptions: New ibuprofen 600 mg Tablet 600 mg PO Q6H PRN PRN (Reason: Pain Score 1-10) Qty: 0 0RF Continued ferrous gluconate 324 mg (37.5 mg iron) tablet 324 mg PO QODAY PNV cmb#95-ferrous fumarate-FA [] 28 mg iron- 800 mcg tablet 1 tab PO DAILY Discontinued aspirin 81 mg tablet,delayed release (DR/EC) 81 mg PO DAILY Referrals / Follow Up: Judson Weber DO [Primary Care Provider] - Disposition Disposition (needs filled in before D/C Order can be placed): Home, Self Care
== END 2025-02-13 11:25 | disposition home or self-care (01) | DRG 807 ==
PROVIDERS: Admitting Provider Advanced Practice Midwife; PCP Student in an Organized Health Care Education/Training Program; Visit Provider Obstetrics & Gynecology
DX: O76 Abnormality in fetal heart rate and rhythm complicating labor and delivery (principal); Z37.0 Single live birth; E66.09 Other obesity due to excess calories; O99.214 Obesity complicating childbirth; O70.1 Second degree perineal laceration during delivery; O77.0 Labor and delivery complicated by meconium in amniotic fluid; Z3A.39 39 weeks gestation of pregnancy
CPT/HCPCS: 59025; 59050; 85025; 86780; 86850; 86900; 86901; 99221; A4216; G0378; J2405

== ENCOUNTER 2025-05-09 06:55 | Emergency (ER) | payer BC, SELFPAY ==
[2025-05-09 06:55] VITALS: BP 119/69; PULSE 85; RESP 18; TEMP 36.6; O2SAT 99; BMI 35.0
--- NOTE | 2025-05-09 07:09 | EX.ED.DYSGE1 ---
HPI History of Present Illness Chief Complaint: Abd Pain Narrative Narrative: Chief complaint and HPI: 29-year-old female with past medical history of urolithiasis presents for evaluation of right lower abdominal/flank pain. Onset this morning 4 AM. Describes it as sharp. States it slightly similar to her previous kidney stones. Denies any fever, shortness of breath, chest pain, diarrhea, constipation, dysuria. States she is not . Associated symptom is nausea and vomiting. Review of systems: See HPI Medications: As listed on the chart Allergies: As listed on the chart PFSH: Per chart Vital signs: As listed on the chart. Reviewed. Physical exam: Gen: A&O x3, NAD Head: Normocephalic, atraumatic Eyes: No sclera icterus, conjunctiva clear ENT: Moist mucous membranes CV: RRR, no murmurs Resp: Lungs CTA BL, no w/r/c GI: Abd soft, non-distended, mildly tender to palpation in the right lower quadrant/flank, no r/r/g : No CVA tenderness Musc: Full ROM, no deformity Skin: Warm, dry Neuro: Alert, oriented, grossly intact Psych: Cooperative, appropriate mood and affect PFS PFS Medical History (Updated 02/21/25 @ 00:01 by Shannen Riggs) Mother currently breast-feeding Single live (spontaneous vaginal delivery) Obesity affecting Elevated blood pressure reading without diagnosis of hypertension Thyroid disorder Home Medications Medication Instructions Recorded Last Taken Type NK 05/09/25 Unknown History Allergy/AdvReac Type Severity Reaction Status Date / Time gabapentin Allergy Mild Rash Verified 05/09/25 06:55 sulfamethoxazole (From Allergy Mild Rash Verified 05/09/25 06:55 Bactrim) trimethoprim (From Bactrim) Allergy Mild Rash Verified 05/09/25 06:55 Surgical History (Updated 02/11/25 @ 08:38 by Elsie Fernando) Hx of adenoidectomy Hx of tonsillectomy Social History Smoking Status: Never smoker EXAM Physical Exam Const Vital Signs: 05/09/25 06:55 05/09/25 08:55 Temperature 97.9 F Temperature Source Temporal Pulse Rate 85 88 Respiratory Rate 18 18 Blood Pressure 119/69 125/97 H Blood Pressure Mean 85 106 Pulse Ox 99 96 Oxygen Delivery Method Room Air MDM MDM MDM Narrative Medical decision making narrative: 29-year-old female with past medical history of urolithiasis presents for evaluation of right lower abdominal/flank pain. Onset this morning 4 AM States it slightly similar to her previous kidney stones. On presentation, patient no acute distress. Vitals are stable. Afebrile. Differential diagnosis includes but is not limited to acute appendicitis, urolithiasis, gastroenteritis, UTI, electrolyte abnormality, EDITH, , pancreatitis. NS bolus, morphine, Reglan ordered for symptoms. Abdominal pain workup ordered. CBC without leukocytosis. Patient has baseline anemia of 10.7. Platelets unremarkable. CMP unremarkable. Lipase unremarkable. Serum negative. It was reported that patient's IV infiltrated and it was not believed that she received her morphine or Reglan. Dilaudid and Zofran ordered. UA positive for blood and ketones. Negative for UTI. CT abdomen pelvis shows right upper pole and right lower pole renal calculi. Hydronephrosis and hydroureter on the right side related to calculus at the UVJ junction. IUD in place. UVJ stone approximately 3 mm. On reevaluation, patient's pain has improved. Patient is comfortable discharging home. She has history of urolithiasis in the past which she does not follow with a urologist. Will refer her to urology. Return precautions explained. Patient will be given prescription for narcotics, Zofran, Flomax. She confirmed understand the plan. Patient able to discharge home. Impression: 1. Right urolithiasis with hydronephrosis and hydroureter 2. Right kidney stone Lab Data Labs: Laboratory Results - last 24 hr 05/09/25 05/09/25 07:11 08:20 WBC 8.9 RBC 4.30 Hgb 10.7 L Hct 34.3 L MCV 79.8 L MCH 24.9 L MCHC 31.2 L RDW Std Deviation 43.2 RDW Coeff of Yaritza 14.9 H Plt Count 315 MPV 9.2 Immature Gran % (Auto) 0.300 Neut % (Auto) 78.8 H Lymph % (Auto) 15.1 L Emery % (Auto) 4.4 Eos % (Auto) 1.1 Baso % (Auto) 0.3 Absolute Neuts (auto) 7.0 Absolute Lymphs (auto) 1.34 Nucleated RBC % 0 Sodium 139 Potassium 3.3 Chloride 105 Carbon Dioxide 21.0 Anion Gap 13 BUN 14 Creatinine 0.92 Estim Creat Clear Calc 116.21 Est GFR (MDRD) Non-Af 88 BUN/Creatinine Ratio 15.6 Glucose 150 H Calcium 9.5 Total Bilirubin 0.40 AST 17 ALT 11 Alkaline Phosphatase 89 Total Protein 7.7 Albumin 4.4 Globulin 3.3 Albumin/Globulin Ratio 1.3 Lipase 25 Serum , Qual NEGATIVE Urine Color Yellow Urine Clarity Clear Urine pH 8.0 Ur Specific Fellows 1.015 Urine Protein 30 H Urine Glucose (UA) Normal Urine Ketones 5 H Urine Occult Blood 50 H Urine Nitrite Negative Urine Bilirubin 1 H Urine Urobilinogen 4 H Ur Leukocyte Esterase 25 H Urine RBC 5-10 SEEN Urine WBC 0-5 SEEN Ur Squamous Epith Cells 5-10 SEEN Urine Bacteria RARE Urine Mucus 1+ Radiography Diagnostic Testing: Clinical Impression(s) from Imaging Studies Abdomen/Pelvis CT 05/09/25 08:07 IMPRESSION: 1. Right upper pole and right lower pole renal calculi. Hydronephrosis and hydroureter on the right side related to a calculus at the ureterovesical junction, UVJ. 2. [address]UD [address]. Reading Location: [facility] Discharge Plan Triage Chief Complaint: Abd Pain ED Provider: Keyur Soto Dx/Rx/DC Orders Prescriptions: No Action NK Primary Care Provider: Judson Weber Referrals: Judson Weber DO [Primary Care Provider, Medical] Print Language: Kyrgyz D/C Safety Score for UGIB Assessment Susi-Blatchford Bleeding Score (GBS): Stratifies upper GI bleeding patients who are "low-risk" and candidates for outpatient management. Hemoglobin, BUN, Recent Vital Signs: Hgb 10.7 g/dL (12.0-15.0) L 05/09/25 07:11 BUN 14 mg/dL (4-19) 05/09/25 07:11 Pulse Rate 88 Blood Pressure 125/97 Score Interpretation: Score of 0: A GBS of 0 is a “Low Risk” GI bleed, and is highly sensitive (99.6% in a 2007 retrospective study) for predicting which patients did not require any “medical intervention”: blood transfusion, endoscopy, or surgery. This was confirmed in a 2009 Lancet study where patients with a score of 0 were actually discharged and had no GI bleeding mortality at 6 month followup Score above 0: A GBS greater than zero suggests a “High Risk” GI bleed that is likely to require “medical intervention”: transfusion, endoscopy, or surgery. A higher GBS also correlated with a higher likelihood of needing intervention Scores >/= 6 are associated with >50% risk of needing intervention D/C Safety Score for LGIB Assessment Assessment Tool: Readmission and adverse event risk in patients with acute lower GI bleeding. Hemoglobin and Recent Vital Signs: Hgb 10.7 g/dL (12.0-15.0) L 05/09/25 07:11 Pulse Rate 88 05/09/25 08:55 Blood Pressure 125/97 05/09/25 08:55 Score Interpretation: Probability Percentage of safe discharge (absence of rebleeding, blood transfusion, therapeutic intervention, 28 day readmission, or ) Score of 8 or below: Consider discharge, with appropriate precautions. Score of 9 or above: Discharge NOT recommended. Consider admission with further workup and resuscitation as necessary.
[2025-05-09] MEDS: 0.9% Normal Saline (1000mL) 1,000 ML 999 ML IV (07:13)
[2025-05-09 07:20] LABS: Hematocrit 34.3 % (37-47); Hemoglobin 10.7 g/dL (12.0-15.0); Immature Granulocytes Count 0.030 X10^3/uL (0.0-0.0); Mean Corp Hgb Conc 31.2 g/dL (32-36); Mean Corpuscular Volume 79.8 fL (81-99); Mean Platelet Vol. 9.2 fl (6.2-12.0); NRBC Flagged by Analyzer 0 % (0-5); Platelet Count 315 K/mm3 (150-450); RBC Distribution Width CV 14.9 % (11.6-14.6); RBC Distribution Width SD 43.2 fl (35.1-43.9); Red Blood Count 4.30 M/mm3 (4.2-5.4); White Blood Count 8.9 K/mm3 (4.4-11.0)
[2025-05-09 07:35] LABS: Internal QC Validated? YES +Cl - CLEAR BKGD; Pregnancy, Serum, hCG Quali. NEGATIVE Negative; Record Kit Lot#, Serum Preg. 980607
--- OUTSIDE RECORDS SUMMARY | 2025-05-09 07:41 | XMS RPT_ITS | CCD ---
Author Organization [facility] Care Team Providers [place] Name Role Phone Judson Weber DO Primary Care Provider MOLLY TRAN PA-C Attending Unavailabl e Judson Weber DO Primary Care Provider [place] BOBBIN TRUCKER.OFFSET PRESS OPERATOR APPRENTICEStephanie Unavailable Batsheva BOBBIN TRUCKER.Franci LO Unavailable Dr. Judson Weber DO Primary Care Provider Dr. Robert Cohn MD Attending Provider Dr. Robert Cohn MD Emergency Provider Tee GARDNER, Dr. Deluca Emergency Provider [place] BOBBIN TRUCKER.OFFSET PRESS OPERATOR APPRENTICEStephanie Unavailable Ankit BOBBIN TRUCKER.Lisette LO Unavailable Dr. Judson Weber DO Primary Care Provider Dr. Morena Limon MD Attending Provider Dr. Morena Limon MD Referring Provider Molly Gallegos CNM Admit Provider Tong GARDNER, Dr. Rodriguez Attending Provider Judson Weber Primary Care Unavailable Morena Limon Attending Unavailable Morena Limon Referring Unavailable Judson Weber Primary Care Unavailable Robert Cohn Attending Unavailable Judson Weber Primary Care Unavailable Yosi Oliveira Attending Unavailable Judson Weber Primary Care Unavailable Molly Gallegos Admitting Unavailable Molly Gallegos Referring Unavailable Марина Hebert Attending Unavailable WEBER, JUDSON L Primary Care Unavailable МАРИНА HEBERT Attending Unavailable WEBER, JUDSON L Primary Care Unavailable JESSIE SANTOS Attending Unavailable WEBER, JUDSON L Primary Care Unavailable STEPHANIE TIDWELL Referring Unavailabl e WEBER, JUDSON L Primary Care Unavailable PLOTLEONARDA, SRAVANI Attending Unavailable WEBER, JUDSON L Primary Care Unavailable STEPHANIE TIDWELL Referring Unavailabl e WEBER, JUDSON L Primary Care Unavailable SELF Referring Unavailable WEBER, JUDSON L Attending Unavailable WEBER, JUDSON L Primary Care Unavailable МАРИНА HEBERT Attending Unavailable WEBER, JUDSON L Primary Care Unavailable STEPHANIE TIDWELL Attending Unavailabl e WEBER, JUDSON L Primary Care Unavailable JESSIE SANTOS Attending Unavailable WEBER, JUDSON L Primary Care Unavailable МАРИНА HEBERT Attending Unavailable MORENA LIMON Attending Unavailable WEBER, JUDSON L Primary Care Unavailable WEBER, JUDSON L Primary Care Unavailable JOSÉ MIGUEL DELCID Attending Unavailable WEBER, JUDSON L Primary Care Unavailable PLOTLEONARDA, SRAVANI Attending Unavailable WEBER, JUDSON L Primary Care Unavailable МАРИНА HEBERT Attending Unavailable WEBER, JUDSON L Primary Care Unavailable SELF Referring Unavailable WEBER, JUDSON L Primary Care Unavailable JESSIE SANTOS Attending Unavailable WEBER, JUDSON L Primary Care Unavailable PLOTLEONARDA, SRAVANI Referring Unavailable WEBER, JUDSON L Primary Care Unavailable МАРИНА HEBERT Attending Unavailable WEBER, JUDSON L Primary Care Unavailable МАРИНА HEBERT Attending Unavailable WEBER, JUDSON L Primary Care Unavailable MORENA LIMON Attending Unavailable WEBER, JUDSON L Primary Care Unavailable PLOTLEONARDA, SRAVANI Referring Unavailable JOSÉ MIGUEL DELCID Attending Unavailable WEBER, JUDSON L Primary Care Unavailable МАРИНА HEBERT Referring Unavailable WEBER, JUDSON L Primary Care Unavailable JESSIE SANTOS Attending Unavailable WEBER, JUDSON L Primary Care Unavailable МАРИНА HEBERT Attending Unavailable WEBER, JUDSON L Primary Care Unavailable PLOTTS, SRAVANI Referring Unavailable WEBER, JUDSON L Primary Care Unavailable PLOTTS, SRAVANI Referring Unavailable PLOTTS, SRAVANI Attending Unavailable WEBER, JUDSON L Primary Care Unavailable МАРИНА HEBERT Referring Unavailable МАРИНА HEBERT Attending Unavailable WEBER, JUDSON L Primary Care Unavailable МАРИНА HEBERT Referring Unavailable WEBER, JUDSON L Primary Care Unavailable МАРИНА HEBERT Referring Unavailable JUDSON WEBER Primary Care Unavailable SRAVANI SORIA Referring Unavailable Allergies Allergy Classification Reported Allergen(s) Allergy Type Date of Onset Reaction(s) Facility (20 sources) gabapentin; Translations: [GABAPENTIN] Drug Allergy 9 [facility] (20 sources) Sulfamethoxazole / Trimethoprim; Translations: [SULFAMETHOXAZOLE-TR IMETHOPRIM] Drug Allergy 9 [facility] (20 sources) Sulfamethoxazole; Translations: [SULFAMETHOXAZOLE] Drug Allergy 4 [facility] (3 sources) Trimethoprim Drug Allergy 4 [facility] (1 source) gabapentin Drug Allergy 5 [facility] (1 source) Sulfamethoxazole Drug Allergy 5 [facility] (1 source) Trimethoprim Drug Allergy 5 [facility] Medications Current Medications Medication Drug Class(es) Dates Sig (Normalized) Sig (Original) amoxicillin 875 mg / clavulanate 125 mg oral tablet (3 sources) Penicillin-class Antibacterial Start: 02-21-2025 End: 03-03-2025 take 1 tablet by mouth twice daily amoxicillin-clavula benja potassium (AUGMENTIN) 875-125 mg per tablet Take 1 tablet by mouth two times a day for 10 days. 20 tablet 02/21/2025 03/03/2025 Active ferrous gluconate 324 mg oral tablet (2 sources) Start: 02-05-2025 take 1 tablet by mouth every other day Ferrous Gluconate 324 mg (37.5 mg iron) tablet Active 324 mg PO EVERY OTHER DAY February 05, 2025 12:00am anemia ibuprofen 600 mg oral tablet (1 source) Nonsteroidal Anti-inflammatory Drug Start: 02-13-2025 take 1 tablet by mouth every six hours as needed for pain Ibuprofen 600 mg Tablet Active 600 mg PO EVERY 6 HOURS NEEDED as needed for Pain Score 1-10 0 0 February 13, 2025 12:00am nitrofurantoin, macrocrystals 25 mg / nitrofurantoin, monohydrate 75 mg oral capsule (9 sources) Nitrofuran Antibacterial Start: 07-02-2024 End: 07-09-2024 take 1 capsule by mouth twice daily nitrofurantoin monohydrate and macrocrystal (MACROBID) 100 mg capsule Indications: Urinary tract infection without hematuria, site unspecified Take 1 capsule by mouth two times a day for 7 days. 14 capsule 07/02/2024 07/09/2024 Active Start: 06-23-2024 End: 06-30-2024 take 1 capsule by mouth twice daily nitrofurantoin monohydrate and macrocrystal (MACROBID) 100 mg capsule Indications: Urinary tract infection without hematuria, site unspecified Take 1 capsule by mouth two times a day for 7 days. 14 capsule 06/23/2024 06/30/2024 Active ondansetron 4 mg oral tablet (11 sources) Serotonin-3 Receptor Antagonist Start: 06-26-2024 End: 2024 take 1 tablet by mouth every eight hours as needed ondansetron (ZOFRAN) 4 mg tablet Take 1 tablet by mouth every 8 hours as needed for nausea/vomiting. 90 tablet 1 06/26/2024 2024 Discontinued (Discontinued by Patient) Start: 06-26-2024 End: 09-04-2024 take 1 tablet by mouth every eight hours as needed for nausea Ondansetron 4 mg tablet,disintegrating Discontinued 4 mg PO EVERY 8 HOURS NEEDED as needed for Nausea 10 June 26, 2024 1:00am September 04, 2024 11:00am Pnv Cmb#95-Ferrous Fumarate- Fa () 28 mg iron- 800 mcg tablet (3 sources) Start: 09-04-2024 Pnv Cmb#95-Jordan jose Fumarate-Fa () 28 mg iron- 800 mcg tablet Active 1 {tbl} PO DAILY September 04, 2024 12:00am no115/iron/folic ac id ( 19 ORAL) (20 sources) no115/i adam/folic acid ( 19 ORAL) Take by mouth once daily. Active Completed/Discontinued Medications Medication Drug Class(es) Dates Sig (Normalized) Sig (Original) acetaminophen 325 mg / HYDROcodone bitartrate 5 mg oral tablet (3 sources) Opioid Agonist Start: 08-14-2017 End: 09-04-2024 Hydrocodone-Acetam inophen 1 TABLET tablet Discontinued 1 - 2 {tbl} PO EVERY 4 HOURS NEEDED as needed for Pain 12 August 14, 2017 1:00am September 04, 2024 10:59am Pain in left leg acetaminophen 325 mg / oxyCODONE hydrochloride 5 mg oral tablet (3 sources) Opioid Agonist Start: 09-04-2024 End: 02-05-2025 Oxycodone-Acetamin ophen 5-325 mg tablet Discontinued 1 {tbl} PO EVERY 6 HOURS NEEDED as needed for Pain 12 3 0 September 04, 2024 February 05, 2025 12:22pm Renal colic on right side Unspecified renal colic aspirin 81 mg delayed release oral tablet (20 sources) Platelet Aggregation Inhibitor, Nonsteroidal Anti-inflammatory Drug Start: 07-05-2024 End: 02-26-2025 take 1 tablet by mouth once daily aspirin, enteric coated (ECOTRIN LOW STRENGTH) 81 mg EC tablet Indications: with uncertain dates, antepartum (HCC) Take 1 tablet by mouth once daily. 90 tablet 3 07/05/2024 02/26/2025 Discontinued cephalexin 500 mg oral capsule (3 sources) Cephalosporin Antibacterial Start: 06-26-2024 End: 09-04-2024 take 1 capsule by mouth every six hours Cephalexin 500 mg capsule Discontinued 500 mg PO EVERY 6 HOURS 28 0 June 26, 2024 1:00am September 04, 2024 10:59am Drospirenone-Ethinyl Estradiol (3 sources) Progestin, Estrogen Start: 08-14-2017 End: 09-04-2024 take 3 tablets by mouth once daily Drospirenone-Ethin yl Estradiol (Loryna 3 Mg-0.02 Mg Tablet) 1 EACH tablet Discontinued 1 {tbl} PO DAILY August 14, 2017 1:00am September 04, 2024 10:59am Ethinyl Estradiol / Levonorgestrel (17 sources) Progestin, Estrogen, Progestin-containin g Intrauterine Device Start: 11-11-2022 End: 07-02-2024 take 1 tablet by mouth once daily L-Norgest and E Estradiol-E Estrad 0.15 mg-30 mcg (84)/10 mcg (7) Indications: Encounter for surveillance of contraceptive pills Take 1 tablet by mouth once daily. 91 tablet 2 11/11/2022 07/02/2024 Discontinued Start: 11-11-2022 take 1 tablet by constanza th once daily L-Norgest and E Estradiol-E Estrad 0.15 mg-30 mcg (84)/10 mcg (7) Indications: Encounter for surveillance of contraceptive pills Take 1 tablet by mouth once daily. 91 tablet 2 11/11/2022 Active Start: 06-04-2022 take 1 tablet by constanza th once daily L-Norgest and E Estradiol-E Estrad 0.15 mg-30 mcg (84)/10 mcg (7) Indications: Encounter for surveillance of contraceptive pills Take 1 tablet by mouth once daily. 91 tablet 2 06/04/2022 Active Start: 05-07-2022 End: 06-04-2022 take 1 tablet by mouth once daily L-Norgest and E Estradiol-E Estrad 0.15 mg-30 mcg (84)/10 mcg (7) Take 1 tablet by mouth once daily. 91 tablet 2 05/07/2022 06/04/2022 Discontinued Start: 05-07-2022 take 1 tablet by constanza th once daily L-Norgest and E Estradiol-E Estrad 0.15 mg-30 mcg (84)/10 mcg (7) Take 1 tablet by mouth once daily. 91 tablet 2 05/07/2022 Active Start: 07-13-2021 End: 05-06-2022 take 1 tablet by mouth once daily L-Norgest and E Estradiol-E Estrad 0.15 mg-30 mcg (84)/10 mcg (7) TAKE 1 TABLET BY MOUTH EVERY DAY 91 tablet 2 07/13/2021 05/06/2022 Discontinued Start: 07-13-2021 take 1 tablet by constanza th once daily L-Norgest and E Estradiol-E Estrad 0.15 mg-30 mcg (84)/10 mcg (7) TAKE 1 TABLET BY MOUTH EVERY DAY 91 tablet 2 07/13/2021 Active Comment on above: TAKE 1 TABLET BY CONSTANZA TH EVERY DAY Take 1 tablet by constanza th once daily. famotidine 20 mg oral tablet (6 sources) Histamine-2 Receptor Antagonist Start: End: take 1 tablet by mouth twice daily famotidine (PEPCID) 20 mg tablet Indications: 12 weeks gestation of (HCC) , related nausea, antepartum (HCC) Take 1 tablet by mouth two times a day. 60 tablet 1 08/02/2024 09/27/2024 Discontinued ferrous sulfate 325 mg delayed release oral tablet (13 sources) End: ferrous sulfate 325 mg (65 mg iron) EC tablet Take 325 mg by mouth. 02/26/2025 Discontinued metoclopramide 5 mg oral tablet (9 sources) Dopamine-2 Receptor Antagonist Start: End: take 1 tablet by mouth four times daily metoclopramide HCl (REGLAN) 5 mg tablet Take 1 tablet by mouth four times daily. 30 tablet 07/26/2024 09/27/2024 Discontinued metroNIDAZOLE 500 mg oral tablet (3 sources) Nitroimidazole Antimicrobial Start: End: take 1 tablet by mouth twice daily metroNIDAZOLE (FLAGYL) 500 mg tablet Take 1 tablet by mouth two times a day for 7 days. 14 tablet 02/22/2025 02/26/2025 Discontinued naproxen 500 mg oral tablet (3 sources) Nonsteroidal Anti-inflammatory Drug Start: 018 End: take 1 tablet by mouth twice daily as needed Naproxen 500 MG tablet Discontinued 500 mg PO TWICE DAILY NEEDED August 14, 2017 1:00am September 04, 2024 11:00am Problems Active Problems Problem Classification Problem Date Documented Date Episodic/Chronic Calculus of urinary tract (6 sources) Renal colic; Translations: [Unspecified renal colic] 09-04-2024 Episodic Contraceptive and procreative management (2 sources) Oral contraception; Translations: [Encounter for surveillance of contraceptive pills] Onset: 03-28-2025 Episodic Fluid and electrolyte disorders (3 sources) Dehydration; Translations: [Dehydration] 07-04-2024 Episodic Genitourinary symptoms and ill-defined conditions (9 sources) Vesical tenesmus; Translations: [Vesical tenesmus] Onset: 07-05-2024 07-05-2024 Episodic Nausea and vomiting (1 source) Nausea and vomiting; Translations: [Nausea with vomiting, unspecified] 07-02-2024 Episodic Other circulatory disease (5 sources) Elevated blood-pressure reading without diagnosis of hypertension; Translations: [Elevated blood-pressure reading, without diagnosis of hypertension] 02-05-2025 Episodic Other circulatory disease (1 source) Elevated blood-pressure reading, without diagnosis of hypertension; Translations: [Elevated blood pressure reading without diagnosis of hypertension] Onset: 02-08-2025 Episodic Other complications of ; puerperium affecting management of mother (2 sources) Cardiotochogram finding; Translations: [Abnormality in heart rate and rhythm complicating labor and delivery] 02-11-2025 Episodic Other complications of ; puerperium affecting management of mother (1 source) Complication of , childbirth and/or the puerperium; Translations: [Other complications of the puerperium, not elsewhere classified] 02-21-2025 Episodic Other complications of ; puerperium affecting management of mother (2 sources) Puerperal endometritis; Translations: [Endometritis following delivery] 02-21-2025 Episodic Other complications of ; puerperium affecting management of mother (1 source) Other complications of the puerperium, not elsewhere classified; Translations: [ pain (HCC)] Onset: 02-21-2025 Episodic Other complications of ; puerperium affecting management of mother (1 source) Endometritis following delivery; Translations: [ endometritis (HCC)] Onset: 02-21-2025 Episodic Other complications of (1 source) Anemia complicating , third trimester; Translations: [Anemia during in third trimester (HCC)] Onset: 01-24-2025 Chronic Other complications of (1 source) Pain in female pelvis; Translations: [Other specified related conditions, unspecified trimester] 06-26-2024 Episodic Other complications of (1 source) Morning sickness; Translations: [Other specified related conditions, unspecified trimester] 08-02-2024 Episodic Other complications of (3 sources) Hyperemesis gravidarum; Translations: [Mild hyperemesis gravidarum] 07-04-2024 Episodic Other complications of (3 sources) Bacteriuria; Translations: [Bacteriuria during in first trimester] 07-04-2024 Episodic Other complications of (3 sources) Ureteric stone; Translations: [Calculus of ureter during in second trimester] 09-04-2024 Episodic Other complications of (1 source) High risk ; Translations: [Supervision of high risk , unspecified, third trimester] 02-08-2025 Episodic Other complications of (1 source) Supervision of high risk , unspecified, third trimester; Translations: [Supervision of high risk in third trimester (HCC)] Onset: 02-08-2025 Episodic Other diseases of bladder and urethra (20 sources) Painful bladder spasm; Translations: [Other specified disorders of bladder] Onset: 07-05-2024 07-05-2024 Chronic Other female genital disorders (1 source) Vaginal odor; Translations: [Other specified noninflammatory disorders of vagina] 02-21-2025 Episodic Other female genital disorders (1 source) Other specified noninflammatory disorders of vagina; Translations: [Vaginal odor] Onset: 02-21-2025 Episodic Other and delivery including normal (20 sources) with uncertain dates; Translations: [Encounter for supervision of normal , unspecified, unspecified trimester] Onset: 07-05-2024 Resolved: 02-21-2025 07-05-2024 Episodic Other screening for suspected conditions (not mental disorders or infectious disease) (14 sources) Patient encounter status; Translations: [Encounter for screening for diabetes mellitus] Onset: 08-02-2024 Episodic Residual codes; unclassified (1 source) First trimester ; Translations: [Less than 8 weeks gestation of ] 07-02-2024 Episodic Residual codes; unclassified (1 source) Gestation period, 8 weeks; Translations: [8 weeks gestation of ] 07-05-2024 Episodic Residual codes; unclassified (2 sources) Gestation period, 12 weeks; Translations: [12 weeks gestation of ] 08-02-2024 Episodic Residual codes; unclassified (1 source) Gestation period, 16 weeks; Translations: [16 weeks gestation of ] 08-30-2024 Episodic Residual codes; unclassified (2 sources) Gestation period, 20 weeks; Translations: [20 weeks gestation of ] 09-27-2024 Episodic Residual codes; unclassified (1 source) Gestation period, 24 weeks; Translations: [24 weeks gestation of ] 10-25-2024 Episodic Residual codes; unclassified (1 source) Gestation period, 27 weeks; Translations: [27 weeks gestation of ] 11-20-2024 Episodic Residual codes; unclassified (1 source) Gestation period, 30 weeks; Translations: [30 weeks gestation of ] 12-06-2024 Episodic Residual codes; unclassified (1 source) Gestation period, 32 weeks; Translations: [32 weeks gestation of ] 12-20-2024 Episodic Residual codes; unclassified (1 source) Gestation period, 34 weeks; Translations: [34 weeks gestation of ] 01-03-2025 Episodic Residual codes; unclassified (1 source) Gestation period, 36 weeks; Translations: [36 weeks gestation of ] 01-17-2025 Episodic Residual codes; unclassified (1 source) Gestation period, 37 weeks; Translations: [37 weeks gestation of ] 01-24-2025 Episodic Residual codes; unclassified (3 sources) Gestation period, 38 weeks; Translations: [38 weeks gestation of ] 02-05-2025 Episodic Residual codes; unclassified (3 sources) Gestation period, 39 weeks; Translations: [39 weeks gestation of ] 02-08-2025 Episodic Residual codes; unclassified (1 source) Pain, unspecified; Translations: [ pain (HCC)] Onset: 02-21-2025 Episodic Residual codes; unclassified (1 source) 39 weeks gestation of ; Translations: [39 weeks gestation of (HCC)] Onset: 02-08-2025 Episodic Residual codes; unclassified (1 source) 38 weeks gestation of ; Translations: [38 weeks gestation of (HCC)] Onset: 02-01-2025 Episodic Residual codes; unclassified (1 source) 37 weeks gestation of ; Translations: [37 weeks gestation of (HCC)] Onset: 01-24-2025 Episodic Residual codes; unclassified (1 source) 36 weeks gestation of ; Translations: [36 weeks gestation of (HCC)] Onset: 01-17-2025 Episodic Screening and history of mental health and substance abuse codes (2 sources) Encounter for screening for depression; Translations: [Encounter for screening examination for other mental health and behavioral disorders] Onset: 02-01-2025 Episodic Thyroid disorders (1 source) Goiter; Translations: [Nontoxic goiter, unspecified] Chronic Unclassified (20 sources) [facility] - [facility]ON Onset: 07-05-2024 07-05-2024 Unclassified (20 sources) Education - [place] Onset: 07-05-2024 07-05-2024 Unclassified (2 sources) Planned procedure 02-11-2025 Unclassified (1 source) Other specified diseases and conditions complicating ; Translations: [Other specified diseases and conditions complicating ] Onset: 02-15-2025 Unclassified (1 source) Low back pain, unspecified; Translations: [Low back pain, unspecified] Onset: 07-17-2024 Urinary tract infections (2 sources) Urinary tract infectious disease; Translations: [Urinary tract infection, site not specified] 06-23-2024 Episodic Past or Other Problems Problem Classification Problem Date Documented Da te Episodic/Chronic Abdominal pain (4 sources) Lower abdominal pain; Translations: [Lower abdominal pain, unspecified] Onset: 07-02-2024 07-02-2024 Episodic Immunizations and screening for infectious disease (8 sources) Vaccination needed; Translations: [Encounter for immunization] Onset: 11-20-2024 Episodic Menstrual disorders (20 sources) Dysmenorrhea; Translations: [Dysmenorrhea, unspecified] Onset: 05-08-2013 Resolved: 07-27-2017 07-27-2017 Chronic Other complications of (20 sources) Maternal obesity complicating , childbirth and the puerperium, antepartum; Translations: [Obesity complicating , first trimester] Onset: 07-05-2024 Resolved: 02-21-2025 07-05-2024 Chronic Other complications of (20 sources) Anemia of ; Translations: [Anemia complicating , third trimester] Onset: 11-21-2024 Resolved: 02-21-2025 11-21-2024 Chronic Other complications of (20 sources) Vomiting of , unspecified; Translations: [Unspecified vomiting of , unspecified as to episode of care or not applicable] Onset: 07-05-2024 Resolved: 12-20-2024 06-26-2024 Episodic Other complications of (20 sources) Heartburn; Translations: [Other specified related conditions, second trimester] Onset: 08-02-2024 Resolved: 12-20-2024 08-02-2024 Episodic Other skin disorders (20 sources) Acne; Translations: [Acne, unspecified] Onset: 05-08-2013 Resolved: 07-27-2017 07-27-2017 Episodic Residual codes; unclassified (1 source) 34 weeks gestation of ; Translations: [34 weeks gestation of (HCC)] Onset: 01-03-2025 Episodic Residual codes; unclassified (1 source) 32 weeks gestation of ; Translations: [32 weeks gestation of (HCC)] Onset: 12-20-2024 Episodic Residual codes; unclassified (1 source) 30 weeks gestation of ; Translations: [30 weeks gestation of (HCC)] Onset: 12-06-2024 Episodic Residual codes; unclassified (1 source) 27 weeks gestation of ; Translations: [27 weeks gestation of (HCC)] Onset: 11-20-2024 Episodic Residual codes; unclassified (1 source) 12 weeks gestation of ; Translations: [12 weeks gestation of ] Onset: 08-02-2024 Episodic NEGATED: Highlighted row has been ruled out!Unclassified (3 sources) No known active problems 07-02-2024 Results Test Name Value Interpretation Reference Range Facility OV 04-10-2025 CNOV Office Visit (OBGYWM ) ROBB WASHINGTON ([id number]) 1995 F Date Time Provider Department 04/10/25 11:10 AM МАРИНА HEBERT [facility]BG[facility]ie During your visit today, we recorded the following information about you: Blood pressure Weight 106/60 102.5 kg Марина Hebert MD 04/10/2025 11:39 AM Signed Robb presents today for IUD insertion for contraception. Patient's last menstrual period was 05/10/2024 (exact date). GC/chlamydia: Not done: no risk factors and/or patient declines screening test: negative Side effects including irregular bleeding were discussed with the patient. The patient understands that it should be removed in 8 years or sooner if the patient desires a . IUD source: office provided IUD lot #: [id number] Exp date: 04/26/2027 [facility] [id number] UNIVERSAL PROTOCOL / SAFETY CHECKLIST Procedure to be Performed: Mirena IUD insertion Sign In: A Moment of CARE was completed. Appropriate PPE (Personal Protective Equipment) worn by all providers involved with the procedure. Special equipment not required. Patient/Surrogate Stated/Verified: Patient name, Date of , Relevant allergies, and The intended procedure Time Out: Relevant labs, photos, and/or imaging studies have been reviewed. Intended patient and procedure match the source document(s) (e.g. consent, HANDP, associated studies [imaging, pathology]) are not applicable. Consent obtained and matches the intended procedure. Yes. Correct side/site is not applicable. Medications required for this procedure are verified. Fire risk assessed and interventions discussed. Implants: are not applicable. Sign Out: Specimens are all correctly labeled and sent. All instruments, equipment, possible retained foreign bodies are accounted for. Yes. The post-procedure plan of care has been communicated to the patient or surrogate. The cervix was prepped with betadine. The uterus sounded to 8 cm and the uterus is Anteverted.. Using sterile technique, the Mirena IUD was inserted without difficulty and the string was cut to 2cm from the external os of the cervix. Patient tolerated procedure well. PLAN: Patient was advised to observe for signs and symptoms of infection including but not limited to fever, malodorous vaginal discharge and/or pain. The patient was told to check the string monthly for accurate placement. Bleeding expectations were reviewed. Follow up for next annual exam or sooner as needed. Марина Hebert MD [place], [place] 04/10/2025 11:21 AM Signed POST IUD INSTRUCTIONS You may have irregular bleeding during the first 3 months of use. You may have mild-severe cramping for the next 48 hours. You may use over the counter medication (Motrin, Tylenol) as needed. Your IUD must be removed or replaced based on the following table: IUD Type Removed or replaced within: Lizzy 3 years Kyleena 5 years Mirena 8 years Liletta 8 years Paragard 10 years Call the office for signs/symptoms of infection such as severe cramping, fever, or unusual bleeding. Check for string placement as instructed by your doctor. If you have any additional questions, please contact the office. Referring Provider: МАРИНА HEBERT [[id number]] Allergies As of Date: 04/10/2025 Noted Allergy Reaction BACTRIM (SULFAMETHOXAZOLE-TRI METH*08/17/2018 2 - Rash GABAPENTIN 08/11/2018 2 - Rash SULFAMETHOXAZOLE 06/26/2024 2 - Rash Date Reviewed: 04/10/2025 Reviewed by: Марина Hebert MD - Fully Assessed Reason for Visit: Insertion Of IUD [291] Primary Visit Diagnosis:Encounter for IUD insertion [Z30.430] Order(s):UA DIP,URINE HCG (POC) [2811075] Order #: [id number]. #:[id number] [] levonorgestrel 21 mcg/24hr (up to 8 yrs) 52 mg 1 each intrauterine device ([facility])Disp: Rfl: levonorgestrel (MIRENA) 21 mcg/24hr (up to 8 yrs) 52 mg IUD1 each by INTRAUTERINE route as directed.Disp: 1 eachRfl: 0 Prescriptions as of 04/10/2025 - levonorgestrel (MIRENA) 21 mcg/24hr (up to 8 yrs) 52 mg IUD 1 each by INTRAUTERINE route as directed. - no115/iron/folic acid ( 19 ORAL) Take by mouth once daily. Problem List As Of Date 04/10/2025 Noted Resolved Acne [L70.9] 05/08/2013 07/27/2017 Dysmenorrhea [N94.6] 05/08/2013 07/27/2017 Nausea/vomiting in (HCC) [O21.9] 07/05/2024 12/20/2024 Painful bladder spasm [N32.89, R39.89] 07/05/2024 Obesity complicating , first trimester*07/05/2024 02/21/2025 Encounter for supervision of normal first pregn*07/05/2024 02/21/2025 Heartburn during (HCC) [O26.899, R12] 08/02/2024 12/20/2024 Anemia during in third trimester (HCC*11/21/2024 02/21/2025 Other instructions from your clinician: POST IUD INSTRUCTIONS You may have irregular bleeding during the first 3 months of use. You may have mild-severe cramp (more content not included)... Normal [facility] PAP TESTon 03-28-2025 ADEQUACY Normal [facility] Comment on above: Order Comment: Speci men Type: FLUID SPECIMEN Ordering Facility: [facility] Address: [address] [place] [address] Result Comment: Sati sfactory for interpretation. No endocervical component Performed By: #### L [id number] #### [facility] CLIA [id number] [address] [place] [address] [place] CASE REPORT Normal [facility] Comment on above: Order Comment: Speci men Type: FLUID SPECIMEN Ordering Facility: [facility] Address: [address] [place] [address] Result Comment: Gyne cologic Cytology Report Case: [id number] Authorizing Provider: Марина Hebert MD Collected: 03/28/2025 11:19 AM Ordering Location: OB/Gynecology Received: 03/28/2025 04:35 PM First Screen: Workman, Liv, CT, ASCP Specimen: Pap Test, ThinPrep, Cervix Performed By: #### L [id number] #### [facility] CLIA [id number] [address] [place] [address] [place] CLINICAL HISTORY, CYTOLOGY, JACQUARD CARD CUTTER Routine Exam Normal [facility] Comment on above: Order Comment: Speci men Type: FLUID SPECIMEN Ordering Facility: [facility] Address: [address] [place] [address] Result Comment: No M enses, Other (Specify) recently Performed By: #### L [id number] #### [facility] CLIA [id number] [address] [place], [place] [id number] [place] FINAL PERFORMING LAB Normal [facility] Comment on above: Order Comment: Speci men Type: FLUID SPECIMEN Ordering Facility: [facility] Address: [address] [place] [address] Result Comment: Tech nical component, embossing press operator screening performed at: [facility], [address] [place], [place] [id number] CLIA: [id number] Diagnostic interpretation performed at: [facility], [address] [place] [address] CLIA# [id number] Straightedge Machine Operator Helper: Immanuel Moran MD Performed By: #### L [id number] #### [facility] CLIA [id number] [address] [place] [address] [place] INTERPRETATION, CYTOLOGY, JACQUARD CARD CUTTER Normal [facility] Comment on above: Order Comment: Speci men Type: FLUID SPECIMEN Ordering Facility: [facility] Address: [address] [place] [address] Result Comment: Nega tive for intraepithelial lesion or malignancy. at 0912 EDT Performed By: #### L [id number] #### [facility] CLIA [id number] [address] [place] [address] [place] PAP DISCLAIMER COMMENT The Pap Smear is a screening test for cervical cancer. False negative results occur with all screening tests, emphasizing the need for rescreening at recommended intervals, and clinical correlation. Normal [facility] Comment on above: Order Comment: Speci men Type: FLUID SPECIMEN Ordering Facility: [facility] Address: [address] [place] [address] Performed By: #### L [id number] #### [facility] CLIA [id number] [address] [place] [address] [place] PAP FEATURES EDITOR COMMENT This specimen has been analyzed by the FDA-approved ThinkHR System, which uses digital imaging and an enhanced artificial intelligence image analysis algorithm to identify chapa of interest on the microscopic slide, to assist the body joiner and pathologist in evaluating cells on ThinPrep Pap tests. Following analysis, chapa of interest on the microscopic slide selected by the algorithm are reviewed by a body joiner. If a sample requires hierarchical review, the pathologist will review the same chapa of interest selected by the algorithm prior to final interpretation. Normal [facility] Comment on above: Order Comment: Speci men Type: FLUID SPECIMEN Ordering Facility: [facility] Address: [address] [place] [address] Performed By: #### L [id number] #### [facility] CLIA [id number] [address] [place] [address] [place] BACTERIAL VAGINOSIS NAATon 0 02-21-2025 Lactobacillus crispatus+gasseri+jense ashley + Gardnerella vaginalis + Atopobium vaginae rRNA ROSA+probe Ql (Vag fld) Detected Abnormal Not detected [facility] Comment on above: Order Comment: Speci men Type: SWABOrdering Facility: [facility] Address: [address] [place] [address] Performed By: #### C VTV, BVAMP ####[facility] [id number] [place] [address] [place] MARIAN/TRICHOMONAS NAATon 0 02-21-2025 C. glabrata RNA ROSA+probe Ql (Vag fld) Not detected Normal Not detected [facility] Comment on above: Order Comment: Speci men Type: SWABOrdering Facility: [facility] Address: [address] [place] [address] Performed By: #### C VTV, BVAMP ####[facility] [id number] [place] [address] [place] Marian sp DNA ROSA+probe Ql (Vag fld) Not detected Normal Not detected [facility] Comment on above: Order Comment: Speci men Type: SWABOrdering Facility: [facility] Address: [address] [place] [address] Result Comment: The Marian species group target includes C. albicans, C. tropicalis, C. parapsilosis, and C. dubliniensis. Performed By: #### C VTV, BVAMP ####[facility] [id number] [place] [address] [place] T. vaginalis DNA ROSA+probe Ql (Unsp spec) Not detected Normal Not detected [facility] Comment on above: Order Comment: Speci men Type: SWABOrdering Facility: [facility] Address: [address] [place] [address] Performed By: #### C CURLY MUÑOZ ####[facility] [id number] [facility] [place] [address] [place] UA DIP, URINE (POC)on 2024 BILIRUBIN UA (POCT) Small Abnormal Negative [facility] CLARITY UA (POCT) Clear [facility] COLOR UA (POCT) Yellow [facility] GLUCOSE UA (POCT) Negative Negative mg/dL [facility] Hemoglobin Ql (U) Moderate Abnormal Negative [facility] Interpretation and review of laboratory results Abnormal [facility] KETONE UA (POCT) Negative Negative mg/dL [facility] LEUKOCYTES UA (POCT) Trace Abnormal Negative [facility] NITRITE UA (POCT) Negative Negative [facility] PH UA (POCT) 6.0 4.5 - 8.0 [facility] Protein Ql (U) 100 mg/dL Abnormal Negative [facility] SPECIFIC GRAVITY UA (POCT) >=1.030 1.005 - 1.030 [facility] UROBILINOGEN UA (POCT) 1.0 Normal E.U./d L [facility] Location:[facility], [address] [facility], [place], [place], [id number] [place] [address] POINT OF CARE [facility] Ad 02-12-2025 WALLYN Telephone (FAMWinnieWS) ROBB WASHINGTON ([id number]) 1995 F Date Time Provider Department 02/12/[facility] your visit today, we recorded the following information about you: Judson Weber, 02/12/2025 4:22 PM Signed Please call patient to make a patient chart and appt for her She just gave yesterday to a baby girl Marija Washington on 02/11/2025 at 10:29 pm. I need to add her to my schedule on Tuesday at 11 am please for visit for the baby Judson DO Elda Singer Stephanie 02/12/2025 4:43 PM Signed Left message for patient to return call. When patient calls, please create new chart for patient's daughter and schedule with Dr. Weber for a appointment on 02/15/25 at 11:00 AM. Maame Rivas 02/13/2025 8:22 AM Signed Patient returned call and scheduled as directed. Allergies As of Date: 02/12/2025 Noted Allergy Reaction BACTRIM (SULFAMETHOXAZOLE-TRI METH*08/17/2018 2 - Rash GABAPENTIN 08/11/2018 2 - Rash SULFAMETHOXAZOLE 06/26/2024 2 - Rash Date Reviewed: 02/08/2025 Reviewed by: Jessie Santos MD - Fully Assessed Prescriptions as of 02/13/2025 - ferrous sulfate 325 mg (65 mg iron) EC tablet Take 325 mg by mouth. - no115/iron/folic acid ( 19 ORAL) Take by mouth once daily. - aspirin, enteric coated (ECOTRIN LOW STRENGTH) 81 mg EC tablet Take 1 tablet by mouth once daily. Problem List As Of Date 02/12/2025 Noted Resolved Acne [L70.9] 05/08/2013 07/27/2017 Dysmenorrhea [N94.6] 05/08/2013 07/27/2017 Nausea/vomiting in (HCC) [O21.9] 07/05/2024 12/20/2024 Painful bladder spasm [N32.89, R39.89] 07/05/2024 Obesity complicating , first trimester*07/05/2024 Encounter for supervision of normal first pregn*07/05/2024 Heartburn during (HCC) [O26.899, R12] 08/02/2024 12/20/2024 Anemia during in third trimester (HCC*11/21/2024 Encounter Status:Closed by MAAME GANN on 02/13/25 Normal [facility] Absolute lymphocyte countOrd ered By: Molly Gallegos on 02-11-2025 Lymphocytes Auto (Unsp spec) [#/Vol] 2.15 10*3/uL 0.83-4.51 [facility] Absolute neutrophil countOrd ered By: Molly Gallegos on 02-11-2025 Neutrophils (Bld) [#/Vol] 6.3 10*3/uL 2.0-7.7 [facility] Automated blood erythrocyte countOrdered By: Molly Gallegos on 02-11-2025 RBC (Bld) [#/Vol] 3.82 10*6/uL Low 4.2-5.4 [facility] Comment on above: Performed By: #### Prakash HOLGUIN, L100.0100 #### [facility] [address] [place], [place], [id number] Automated blood hematocrit ( percentage)Ordered By: Molly Gallegos on 02-11-2025 Hematocrit (Bld) [Volume fraction] 29.2 % Low 37-47 [facility] Comment on above: Performed By: #### Prakash TS, L100.0100 #### [facility] [address] [place], [address] Automated lymphocyte count a s percentage of total leukocytesOrdered By: Molly Gallegos on 02-11-2025 Lymphocytes/100 WBC Auto (Unsp spec) 23.5 % 19-41 [facility] Basophil percentageOrdered B y: Molly Gallegos on 02-11-2025 Basophils/100 WBC (Bld) 0.2 % Normal 0-[address] [facility] Comment on above: Performed By: #### Prakash TS, L100.0100 #### [facility] [address] [place], [address] CBC W/Diff, Automatedon 01-25 Absolute Lymph 2.15 X10 3/uL Normal 0.83-4.51 [facility] Comment on above: Performed By: #### Prakash TS, L100.0100 #### [facility] [address] [place], [address] Absolute Neut 6.3 X10 3/uL Normal 2.0-7.7 [facility] Comment on above: Performed By: #### Prakash HOLGUIN, L100.0100 #### [facility] [address] [place], [address] IG% 0.400 Normal 0.0-0.9 [facility] Comment on above: Result Comment: IG% - Immature Granulocytes (promyelocytes, myelocytes and metamyelocytes) > 1% indicates that a LEFT SHIFT is Present. Performed By: #### Prakash HOLGUIN, L100.0100 #### [facility] [address] [place], [address] Lymphocytes/100 WBC (Bld) 23.5 % Normal 19-41 [facility] Comment on above: Performed By: #### Prakash HOLGUIN, L100.0100 #### [facility] [address] [place], [address] Nucleated RBC (Bld) [#/Vol] 0 10*3/uL Normal 0-5 [facility] Comment on above: Performed By: #### Prakash HOLGUIN, L100.0100 #### [facility] [address] [place], [address] RDW SD 44.1 fl High 35.1-43.9 [facility] Comment on above: Performed By: #### Prakash HOLGUIN, L100.0100 #### [facility] [address] [place], [address] Eosinophil percentageOrdered By: Molly Gallegos on 02-11-2025 Eosinophils/100 WBC (Bld) 1.3 % Normal 0-5 [facility] Comment on above: Performed By: #### Prakash HOLGUIN, L100.0100 #### [facility] [address] [place], [address] Erythrocyte distribution wid th ratioOrdered By: Molly Gallegos on 02-11-2025 Erythrocyte distribution width (RBC) [Ratio] 16.1 % High 11.6-14.6 [facility] Comment on above: Performed By: #### B TS, L100.0100 #### [facility] [address] [place], [address] Erythrocyte distribution wid th standard deviationOrdered By: Molly Gallegos on 02-11-2025 Erythrocyte distribution width (RBC) [Ratio] 44.1 fl High 35.1-43.9 [facility] H AND P Exam - OB/GYNon 01-25 H&P Exam - INSTRUMENT MECHANICS SUPERVISOR [facility] Medical Records Department [address] [place] [address] H P Exam - INSTRUMENT MECHANICS SUPERVISOR 02/11/25 0839 MR#: [id number] Acct: [id number] Name: ROBB WASHINGTON BRITTA Rep #: [id number] : 1995 29 From: Molly Gallegos CNM PCP: Dr. Judson Weber, DO Status:ADM IN Location: [id number] HPI - General General Date of Admission: 02/11/25 HPI Narrative ROBB WASHINGTON, is a 29 F who presents at [facility] 02/14/25 at 39w4d for induction of labor for increasing BP and pregravid BMI 34. Maternal Data Information [facility] Calculator Estimated Delivery Date Method Current WG Current Estimate 02/14/25 Manual 39w 4d PFSH PFSH Medical History (Updated 02/11/25 @ 08:55 by Molly Gallegos CNM) Thyroid disorder Home Medications ???Medication ???Instructions ???Recorded ???Last Taken ???Type aspirin 81 mg tablet,delayed 81 mg PO DAILY 09/04/24 02/04/25 2 2:00 History release 81 mg vit no.95-ferrous 1 tab PO DAILY 09/04/24 02/04/25 1 2:00 History fumarate 28 mg-folic acid 800 mcg 1 TAB tablet () ferrous gluconate 324 mg (37.5 mg 324 mg PO QODAY anemia 02/05/25 0 02/03/25 22:00 History iron) tablet 324 mg Allergy/AdvReac Type Severity Reaction Status Date / Time gabapentin Allergy Mild Rash Verified 02/05/25 12:18 sulfamethoxazole (From Allergy Mild Rash Verified 02/05/25 12:18 Bactrim) trimethoprim (From Bactrim) Allergy Mild Rash Verified 02/05/25 12:18 Surgical History (Updated 02/11/25 @ 08:38 by Elsie Fernando) Hx of adenoidectomy Hx of tonsillectomy Social History Smoking Status: Never smoker History Elective abortions Hx Para 0 Spontaneous abortions Hx # Term Pregnancies Ectopic pregnancies Hx # Pregnancies Multiple births # of living children NST FHR Rate Baby A Baseline: 140 Variability:: Moderate Accelerations:: 15 x 15 Decelerations:: Variable FHR Category:: Category II Uterine Activity:: None ROS Constitutional Constitutional: Reports systems reviewed and no addt'l complaints, except as documented; Denies headache(s) Eyes Eyes: Denies acute decrease in peripheral vision, blurry vision or change in vision ENT HEENT: Reports systems reviewed and no addt'l complaints, except as documented Cardiovascular Cardiovascular: Denies chest pain or dizziness Respiratory/Chest Respiratory/Chest: Denies cough, dyspnea, dyspnea on exertion, shortness of breath at rest or shortness of breath with exertion Gastrointestinal Gastrointestinal: Denies abdominal pain, diarrhea, nausea or vomiting Genitourinary Genitourinary: Denies abdominal discomfort Musculoskeletal Musculoskeletal: Denies limited range of motion Integumentary Integumentary: Reports systems reviewed and no addt'l complaints, except as documented Neurologic Neurologic: Reports systems reviewed and no addt'l complaints, except as documented Psychiatric Psychiatric: Reports systems reviewed and no addt'l complaints, except as documented Endocrine Endocrinology: Reports systems reviewed and no addt'l complaints, except as documented Hematologic/Lymphatic Hematologic/Lymphatic : Reports systems reviewed and no addt'l complaints, except as documented Allergic/Immunologic Allergic/Immunologic: Reports systems reviewed and no addt'l complaints, except as documented Vital Signs Vital Signs Vital Signs: 02/11/25 08:10 02/11/25 08:10 02/11/25 08:10 Temperature 98.6 F Pulse Rate 92 Blood Pressure 121/83 H BP Systolic 121 BP Diastolic 83 Pulse Ox 08/18/25 08:10 Temperature Pulse Rate Blood Pressure BP Systolic BP Diastolic Pulse Ox 98 Physical Exam Const alert and oriented x3 General Appearance: cooperative Orientation / Consciousness: awake, oriented to person, oriented to place and oriented to time Exam Limitations: no limitations HEENT normocephalic Head and Scalp: normal to inspection, normocephalic and atraumatic Face and Sinus: normal facial exam Eyes General Eye: normal appearance of both eyes Neck full ROM Chest Chest: symmetrical chest wall rise Resp normal respiratory effort and normal air movement Auscultation: clear to auscultation bilaterally Cardio regular rate, regular rhythm, S1 normal heart sound, S2 normal heart sound, no murmurs, no rub, no gallops and no clicks GI normal to inspection, nondistended, normoactive bowel sounds and non-tender appearance of the vagina normal Bladder / Kidney Exam: no CVA tenderness Manual OB Exam: estimated gestational size appropriate, presentation cephalic, dilated 1cm, effaced 50%, station -3 and other IBOW Back/Spine normal ROM Extremity (more content not included)... Normal [facility] Hemoglobin measurementOrdere d By: Molly Gallegos on 02-11-2025 Hemoglobin (Bld) [Mass/Vol] 9.0 g/dL Low 12.0-15.0 [facility] Comment on above: Performed By: #### B LEONARDA, L100.0100 #### [facility] [address] [place], [address] Immature granulocytes/100 WB C Auto (Bld)Ordered By: Molly Gallegos on 02-11-2025 Immature granulocytes/100 WBC (Bld) 0.400 % 0.0-0.9 [facility] Comment on above: IG% - Immature Granu locytes (promyelocytes, myelocytes and metamyelocytes) > 1% indicates that a LEFT SHIFT is Present. MCV (mean corpuscular volume ) determinationOrdered By: Molly Gallegos on 02-11-2025 MCV (RBC) [Entitic vol] 76.4 fL Low 81-[address] [facility] Comment on above: Performed By: #### B LEONARDA, L100.0100 #### [facility] [address] [place], [address] MR/OB.VAGDELIon 02-11-2025 MR/OB.LOUI [facility] Medical Records Department [address] [place] [id number] OB Vaginal Delivery 02/11/25 2249 MR#: [id number] Acct: [id number] Name: ROBB WASHINGTON Rep #: [id number] : 1995 29 From: Марина Hebert MD PCP: Dr. Judson Weber, DO Status:ADM IN Location: [id number] Assessment Plan (1) Obesity affecting : QUALIFIERS: Trimester: third trimester Obesity type affecting : other obesity due to excess calories Qualified Code(s): O99.213 - Obesity complicating , third trimester; E66.09 - Other obesity due to excess calories (2) (spontaneous vaginal delivery): (3) Single live : Maternal Data Information [facility] Calculator Estimated Delivery Date Method Current WG Current Estimate 02/14/25 Manual 39w 4d Final [facility]: 02/14/25 Gestational age: 39 4/7 Vaginal Delivery Maternal Presentation Maternal Presentation: Elective Induction Type of Induction: Pitocin, Lynch Bulb, Amniotomy and Cytotec Vaginal Delivery Information Procedure Performed: Spontaneous Vaginal Delivery Surgeon/Practitioner: Марина Hebert Date of Procedure: 02/11/25 Pre-Procedure Diagnosis: labor Post-Procedure Diagnosis: same Type of anesthesia: Epidural Estimated Blood Loss: 300 Time of Delivery: 22:29 Findings Description of procedure: A vigorous female infant was delivered MARIELA over a second-degree perineal laceration. The remainder the was delivered with maternal pushing and gentle traction only in less than 15 seconds. The Pitocin infusion was initiated for active management of the third stage. The cord was clamped and cut after 1 minute. The was attended to by the waiting nursing staff. The placenta was delivered spontaneously and intact. The cervix and vagina were intact. The second- degree perineal laceration was repaired with 2-0 Vicryl suture in a running standard fashion. Sponge and needle counts were correct. A vaginal sweep was completed by me. Procedure findings: Vigorous female Presentation: MARIELA Amniotic Membrane Rupture Type: Artificial Amniotic Fluid Description: Moderate meconium Placental Delivery Description: Spontaneous Placenta Disposition: [facility] Specimen collected: No Cord Vessel Description: 3 Vessels Cord Entanglement: None A Gender: Female (Marija) (1 minute): 8 (5 minute): 9 Delayed Cord Clamping: Yes Front Desk Team Member psychologist: No Post Vaginal Deli Medications given after delivery: IV Pitocin Episiotomy Description: None Laceration: 2nd degree Complication Complications: No 02/11/252251 Cosigner Signature (if applicable): CC: Dr. Judson Weber DO; Dr. аМрина Hebert MD Signed Normal [facility] Mean corpuscular hemoglobin (MCH) determinationOrdered By: Molly Gallegos on 02-11-2025 MCH (RBC) [Entitic mass] 23.6 pg Low 27.0-32.0 [facility] Comment on above: Performed By: #### B TS, L100.0100 #### [facility] [address] [place], [address] Mean corpuscular hemoglobin concentration (MCHC) determinationOrdered By: Molly Gallegos on 02-11-2025 MCHC (RBC) [Mass/Vol] 30.8 g/dL Low 32-36 [facility] Comment on above: Performed By: #### B TS, L100.0100 #### [facility] [address] [place], [address] Mean platelet volume determi nationOrdered By: Molly Gallegos on 02-11-2025 Platelet mean volume (Bld) [Entitic vol] 10.1 fL Normal 6.2-12.0 [facility] Comment on above: Performed By: #### B TS, L100.0100 #### [facility] [address] [place], [address] Monocyte percentageOrdered B y: Molly Gallegos on 02-11-2025 Monocytes/100 WBC (Bld) 5.5 % Normal 0-[address] [facility] Comment on above: Performed By: #### B TS, L100.0100 #### [facility] [address] [place], [address] Neutrophil percentageOrdered By: Molly Gallegos on 02-11-2025 Neutrophils/100 WBC (Bld) 69.1 % Normal 47-70 [facility] Comment on above: Performed By: #### Prakash HOLGUIN, L100.0100 #### [facility] [address] [place], [address] Nucleated red blood cell per centageOrdered By: Molly Gallegos on 02-11-2025 Nucleated RBC/100 WBC (Bld) [Ratio] 0 % 0-5 [facility] Platelet countOrdered By: Krystian Gallegos on 02-11-2025 Platelets (Bld) [#/Vol] 319 10*3/uL Normal 150-450 [facility] Comment on above: Performed By: #### Prakash HOLGUIN, L100.0100 #### [facility] [address] [place], [address] Syphilis Antibodieson 2024 Syphilis Abs Non-Reactive Normal Nonreactive [facility] Comment on above: Performed By: #### L 509.8002 #### [facility] [address] [place], [address] Type AND Screenon 02-11-2025 Ab SCREEN GEL Negative Normal [facility] Comment on above: Order Comment: Labor Performed By: #### Prakash HOLGUIN, L100.0100 #### [facility] [address] [place], [address] White blood cell (WBC) count Ordered By: Molly Gallegos on 02-11-2025 WBC (Bld) [#/Vol] 9.1 10*3/uL Normal 4.4-11.0 [facility] Comment on above: Performed By: #### Prakash HOLGUIN, L100.0100 #### [facility] [address] [place], [address] URINE OB DIP B/Oon Glucose Ql (U) Negative Neg mg/dL [facility] Protein.monoclonal (U) [Mass/Vol] 30 mg/dL Neg [facility] OB Triage Physician Noteon 0 02-06-2025 OB Triage Physician Note [facility] Medical Records Department [address] [place] [address] OB Triage Physician Note 02/06/25 1936 MR#: [id number] Acct: [id number] Name: ROBB ULRICH Rep #: [id number] : 1995 29 From: Марина Hebert MD PCP: Dr. Judson Weber, DO Status:DEP CLI Y Location: [facility] HPI - General General Date of Admission: 02/05/25 Date of Service: 02/05/25 Chief Complaint: elevated BP HPI Narrative ROBB ULRICH, is a 29 F who presents presents from office for evaluation of elevated BP. One BP >140/80s but was initial BP before she had been sitting 5 min. Denies GARNER, visual changes, epigastric pain, ctx, VB or LOF. Maternal Data Information Final VIVIANA: 02/14/25 Gestational age: 38 5/7 [facility] Medical History (Updated 02/06/25 @ 19:[address] Марина Hebert MD) Home Medications ???Medication ???Instructions ???Recorded ???Last Taken ???Type aspirin 81 mg tablet,delayed 81 mg PO DAILY 09/04/24 02/04/25 2 2:00 History release 81 mg vit no.95-ferrous 1 tab PO DAILY 09/04/24 02/04/25 1 2:00 History fumarate 28 mg-folic acid 800 mcg 1 TAB tablet () ferrous gluconate 324 mg (37.5 mg 324 mg PO QODAY anemia 02/05/25 0 02/03/25 22:00 History iron) tablet 324 mg Allergy/AdvReac Type Severity Reaction Status Date / Time gabapentin Allergy Mild Rash Verified 02/05/25 12:18 sulfamethoxazole (From Allergy Mild Rash Verified 02/05/25 12:18 Bactrim) trimethoprim (From Bactrim) Allergy Mild Rash Verified 02/05/25 12:18 Social History Smoking Status: Never smoker NST FHR Rate Baby A Baseline: 140 Variability:: Moderate Accelerations:: 15 x 15 Decelerations:: None NST Reactive:: Yes Uterine Activity:: rare ctxs Assessment Plan (1) 38 weeks gestation of : (2) Elevated blood pressure reading without diagnosis of hypertension: PLAN: Plan No evidence of preeclampsia. Only elevated blood pressure in the diagnostic range for gestational hypertension was initial 1 1 patient was somewhat anxious upon arrival. Labs are normal. No laboratory or clinical evidence of preeclampsia. Patient is to return for signs or symptoms of preeclampsia. Follow-up in the office in 3 days for blood pressure check or return as needed. Patient is comfortable with this plan. Recommend induction at 39-40 weeks gestation, patient consents and this is scheduled. 02/06/251940 Date Марина Hebert MD Cosigner Signature (if applicable): Date CC: Dr. Judson Weber DO; Dr. Марина Hebert MD Signed Normal [facility] AST(SGOT)on 02-05-2025 AST [Catalytic activity/Vol] 32 U/L Normal <=31 [facility] Comment on above: Performed By: #### B TS, L100.0100 #### [facility] [address] [place], [place], [address] Alanine Aminotransferas (SGP T)on 02-05-2025 ALT [Catalytic activity/Vol] 7 U/L Normal <=34 [facility] Comment on above: Performed By: #### Prakash HOLGUIN, L100.0100 #### [facility] [address] [place], [place], [address] CBC-Complete Blood Cnt No Di ffon 02-05-2025 Erythrocyte distribution width (RBC) [Ratio] 15.8 % High 11.6-14.6 [facility] Comment on above: Performed By: #### L 100.0500, L501.1400, L501.1105, L501.4405, L501.0900, L501.4100 #### [facility] [address] [place], [address] Hematocrit (Bld) [Volume fraction] 28.9 % Low 37-47 [facility] Comment on above: Performed By: #### L 100.0500, L501.1400, L501.1105, L501.4405, L501.0900, L501.4100 #### [facility] [address] [place], [address] Hemoglobin (Bld) [Mass/Vol] 9.1 g/dL Low 12.0-15.0 [facility] Comment on above: Performed By: #### L 100.0500, L501.1400, L501.1105, L501.4405, L501.0900, L501.4100 #### [facility] [address] [place], [address] MCH (RBC) [Entitic mass] 24.0 pg Low 27.0-32.0 [facility] Comment on above: Performed By: #### L 100.0500, L501.1400, L501.1105, L501.4405, L501.0900, L501.4100 #### [facility] [address] [place], [address] MCHC (RBC) [Mass/Vol] 31.5 g/dL Low 32-36 [facility] Comment on above: Performed By: #### L 100.0500, L501.1400, L501.1105, L501.4405, L501.0900, L501.4100 #### [facility] [address] [place], [address] MCV (RBC) [Entitic vol] 76.3 fL Low 81-[address] [facility] Comment on above: Performed By: #### L 100.0500, L501.1400, L501.1105, L501.4405, L501.0900, L501.4100 #### [facility] [address] [place], [address] Platelet mean volume (Bld) [Entitic vol] 9.9 fL Normal 6.2-12.0 [facility] Comment on above: Performed By: #### L 100.0500, L501.1400, L501.1105, L501.4405, L501.0900, L501.4100 #### [facility] [address] [place], [address] Platelets (Bld) [#/Vol] 296 10*3/uL Normal 150-450 [facility] Comment on above: Performed By: #### L 100.0500, L501.1400, L501.1105, L501.4405, L501.0900, L501.4100 #### [facility] [address] [place], [address] RBC (Bld) [#/Vol] 3.79 10*6/uL Low 4.2-5.4 [facility] Comment on above: Performed By: #### L 100.0500, L501.1400, L501.1105, L501.4405, L501.0900, L501.4100 #### [facility] [address] [place], [address] RDW SD 42.9 fl Normal 35.1-43.9 [facility] Comment on above: Performed By: #### L 100.0500, L501.1400, L501.1105, L501.4405, L501.0900, L501.4100 #### [facility] [address] [place], [address] WBC (Bld) [#/Vol] 7.7 10*3/uL Normal 4.4-11.0 [facility] Comment on above: Performed By: #### L 100.0500, L501.1400, L501.1105, L501.4405, L501.0900, L501.4100 #### [facility] [address] [place], [address] Erythrocyte distribution wid th ratioOrdered By: Марина Hebert on 02-05-2025 Erythrocyte distribution width (RBC) [Ratio] 15.8 % High 11.6-14.6 [facility] Erythrocyte distribution wid th standard deviationOrdered By: Марина Hebert on 02-05-2025 Erythrocyte distribution width (RBC) [Ratio] 42.9 fl 35.1-43.9 [facility] Glomerular filtration rate ( GFR) estimation/1.73 sq m using serum, plasma, or whole bOrdered By: Марина Hebert on 02-05-2025 GFR/1.73 sq M.predicted among non-blacks MDRD (S/P/Bld) [Vol rate/Area] 124 mL/min/{1.73_m2} >60 [facility] Comment on above: mL/min/1.73m2 CKD-EP I Creatinine Equation (2020) Hematocrit Auto (Bld) [Volum e fraction]Ordered By: Марина Hebert on 02-05-2025 Hematocrit (Bld) [Volume fraction] 28.9 % Low 37-47 [facility] Hemoglobin measurementOrdere d By: Марина Hebert on 02-05-2025 Hemoglobin (Bld) [Mass/Vol] 9.1 g/dL Low 12.0-15.0 [facility] - Chemistry and C hemistry - challengeOrdered By: Марина Hebert on 02-05-2025 AST [Catalytic activity/Vol] 32 U/L <32 [facility] MCV (mean corpuscular volume ) determinationOrdered By: Марина Hebert on 02-05-2025 MCV (RBC) [Entitic vol] 76.3 fL Low 81-[address] [facility] Mean corpuscular hemoglobin (MCH) determinationOrdered By: Марина Hebert on 02-05-2025 MCH (RBC) [Entitic mass] 24.0 pg Low 27.0-32.0 [facility] Mean corpuscular hemoglobin concentration (MCHC) determinationOrdered By: Марина Hebert on 02-05-2025 MCHC (RBC) [Mass/Vol] 31.5 g/dL Low 32-36 [facility] Mean platelet volume determi nationOrdered By: Марина Hebert on 02-05-2025 Platelet mean volume (Bld) [Entitic vol] 9.9 fL 6.2-12.0 [facility] Platelet countOrdered By: Corinne Hebert on 02-05-2025 Platelets (Bld) [#/Vol] 296 10*3/uL 150-450 [facility] Protein+Creatinine Ratio,Uri neon 02-05-2025 PROT:CRE RATIO 136 mg/g CRE Normal 0-200 [facility] Comment on above: Performed By: #### Prakash , L100.0100 #### [facility] [address] [place], [address] Protein (U) [Mass/Vol] 28.1 mg/dL High 0.0-12.0 [facility] Comment on above: Performed By: #### Prakash HOLGUIN, L100.0100 #### [facility] [address] [place], [address] UR CREAT 207.00 mg/dL Normal 28.00-217.00 [facility] Comment on above: Performed By: #### Prakash HOLGUIN, L100.0100 #### [facility] [address] [place], [address] RBC Auto (Bld) [#/Vol]Ordere d By: Марина Hebert on 02-05-2025 RBC (Bld) [#/Vol] 3.79 10*6/uL Low 4.2-5.4 [facility] Random urine creatinine janice urement (mass/volume)Ordered By: Марина Hebert on 02-05-2025 Creatinine Unsp time (U) [Mass/Vol] 207.00 mg/dL 28.00-217.00 [facility] Serum Creatinine AND GFRon 0 02-05-2025 Creatinine [Mass/Vol] 0.64 mg/dL Low 0.70-1.20 [facility] Comment on above: Performed By: #### B TS, L100.0100 #### [facility] [address] [place], [address] ECRCL 178.30 ml/min Normal 50-250 [facility] Comment on above: Performed By: #### B TS, L100.0100 #### [facility] [address] [place], [address] GFR/1.73 sq M.predicted among non-blacks MDRD (S/P/Bld) [Vol rate/Area] 124 mL/min/{1.73_m2} Normal >60 [facility] Comment on above: Result Comment: mL/m in/1.73m2 CKD-EPI Creatinine Equation (2020) Performed By: #### B TS, L100.0100 #### [facility] [address] [place], [address] Serum creatinine measurement (mass/volume)Ordered By: Марина Hebert on 02-05-2025 Creatinine [Mass/Vol] 0.64 mg/dL Low 0.70-1.20 [facility] Serum or plasma alanine mock otransferase (ALT) measurementOrdered By: Марина Hebert on 02-05-2025 ALT [Catalytic activity/Vol] 7 U/L <35 [facility] Serum or plasma uric acid me asurement (mass/volume)Ordered By: Марина Hebert on 02-05-2025 Urate [Mass/Vol] 5.1 mg/dL 2.6-6.0 [facility] Comment on above: The drugs N-Acetylcy steine and Metamizole may falsely depress this assay. Uric Acidon 02-05-2025 URIC 5.1 mg/dL Normal 2.6-6.0 [facility] Comment on above: Result Comment: The drugs N-Acetylcysteine and Metamizole may falsely depress this assay. Performed By: #### B TS, L100.0100 #### [facility] [place], [address] Urine protein measurement (m ass/volume)Ordered By: Марина Hebert on 02-05-2025 Protein (U) [Mass/Vol] 28.1 mg/dL High 0.0-12.0 [facility] Urine protein/creatinine mas s ratioOrdered By: Марина Hebert on 02-05-2025 Protein/Creatinine (U) [Mass ratio] 136 mg/g CRE 0-200 [facility] White blood cell (WBC) count Ordered By: Марина Hbeert on 02-05-2025 WBC (Bld) [#/Vol] 7.7 10*3/uL 4.4-11.0 [facility] CNOVon 02-01-2025 CNOV Office Visit (FAMPWS ) ROBB ULRICH Kimmy ([id number]) 1995 F Date Time Provider Department 02/01/25 7:40 [facility] today, we recorded the following information about you: Pulse Respiration Blood pressure Weight 101/minute 18/minute 134/78 119.3 kg Height 1.74 m Judson Weber DO 02/01/2025 8:26 AM Signed CC: Robb Kimmy Serg is a 29 year old female who presents to the office for physical HPI: She is currently 38 weeks , seeing OBGYN for care. Needing breast pump, planning to breast feed. Anemia, iron deficiency, taking supplements No other concerns. PAST MEDICAL HISTORY Diagnosis Date Acne 05/08/2013 Anemia Thyroid enlarged all blood work came back WNL PAST SURGICAL HISTORY Procedure Laterality Date TONSILLECTOMY AND ADENOIDECTOMY Social History: Social History Tobacco Use Smoking status: Never Smokeless tobacco: Never Vaping Use Vaping status: Never Used Substance Use Topics Alcohol use: No Drug use: No FAMILY HISTORY Problem Relation Age of Onset Breast Cancer Mother Thyroid Mother No Known Problems Father Thyroid Sister Thyroid Maternal Grandmother Diabetes Maternal Grandfather Adult on-set Cancer Paternal Grandmother No Known Problems Paternal Grandfather other (schizophrenia) Maternal Aunt Current Outpatient prescriptions: ferrous sulfate 325 mg (65 mg iron) EC tablet Take 325 mg by mouth. no115/iron/folic acid ( 19 ORAL) Take by mouth once daily. aspirin, enteric coated (ECOTRIN LOW STRENGTH) 81 mg EC tablet Take 1 tablet by mouth once daily. Allergies: ALLERGIES Allergen Reactions Bactrim [Sulfametho* Rash Gabapentin Rash Sulfamethoxazole Rash ROS: See HPI PE: 02/01/25 0738 BP: 134/78 Pulse: 101 Resp: 18 SpO2: 100% Weight: 119.3 kg (263 lb) Height: 174 cm (5' 8.5") Gen: AANDO, NAD, non-toxic appearing, Pleasant, cooperative HEENT: NT/AC, PERRLA, EOMs intact b/l, nares clear and patent b/l, pharynx without erythema, exudate or lesions. MMM, Uvula midline. EACs without erythema or debris. TMs pearly alvarado with intact landmarks b/l. Neck: supple, No cervical LAD, no thyromegaly, no carotid bruits CV: RRR, normal S1 and S2, no murmurs, no gallops, no rubs, Pulses 2+ and symmetric in UE and LE b/l Lungs: normal respiratory effort, CTA b/l, no wheezing or rhonchi or rales Abd: soft, gravid uterus, NT, ND, +BS, no hepatosplenomegaly MS: FROM all 4 extremities Neuro: CN II-XII intact b/l, strength 5/5 b/l UE and LE, DTRs 2/4 UE and LE, sensation intact. Skin: warm, dry, intact, No rashes or lesions on exposed skin. No edema, normal pulses ASSESSMENT/PLAN: 1. Well adult exam - ICD9: V70.0, ICD10: Z00.00 (primary diagnosis) - Counseled on healthy diet and regular exercise - f/u with OBGYN for care 2. Screening for depression - ICD9: V79.0, ICD10: Z13.31 - DEPRESSION SCREENING 3. Encounter for screening examination for other mental health and behavioral disorders - ICD9: V79.8, ICD10: Z13.39 - ANXIETY SCREENING 4. 38 weeks gestation of (HCC) - ICD9: V22.2, ICD10: Z3A.38 - Counseled on healthy diet and regular exercise - f/u with OBGYN for care - BREAST PUMP Judson Weber DO To ER if develops chest pain, shortness of breath, or severe worsening of symptoms. Discussed risks, benefits, alternatives, and potential side effects of medications. Patient expressed understanding and agreed with the plan. Judson Weber DO [address] [place] [address] Referring Provider: SELF [200] Allergies As of Date: 02/01/2025 Noted Allergy Reaction BACTRIM (SULFAMETHOXAZOLE-TRI METH*08/17/2018 2 - Rash GABAPENTIN 08/11/2018 2 - Rash SULFAMETHOXAZOLE 06/26/2024 2 - Rash Date Reviewed: 02/01/2025 Reviewed by: Jessica Macias MA - Fully Assessed Reason for Visit: Physical [83] Primary Visit Diagnosis:Well adult exam [Z00.00] Other Visit Diagnoses:Screening for depression [Z13.31] Encounter for screening examination for other mental health and behavioral disorders [Z13.39] 38 weeks gestation of (HCC) [Z3A.38] Order(s):DEPRESSION SCREENING [[id number]] Order #: [id number]: 1 ANXIETY SCREENING [[id number]] Order #: [id number]: 1 BREAST PUMP [[id number]] Order #: [id number] Prescriptions as of 02/01/2025 - ferrous sulfate 325 mg (65 mg iron) EC tablet Take 325 mg by mouth. - no115/iron/folic acid ( 19 ORAL) Take by mouth once daily. - aspirin, enteric coated (ECOTRIN LOW STRENGTH) 81 mg EC tablet Take 1 tablet by mouth once daily. Problem List As Of Date 02/01/2025 Noted Resolved Acne [L70.9] 05/08/2013 07/27/2017 Dysmenorrhea [N94.6] 05/08/2013 07/27/2017 Nausea/vomiting in (HCC) [O21.9] 07/05/2024 12/20/2024 Painfu (more content not included)... Normal [facility] CBC panel Auto (Bld)on 01-31 Erythrocyte distribution width (RBC) [Ratio] 15.5 % High 11.5-15.0 [facility] Comment on above: Order Comment: Speci men Type: BLOOD SPECIMENOrdering Facility: [facility] Address: [address] [place] [address] Performed By: #### 5 8410-2 ####[facility] [id number] [place] [address] [place] Hematocrit (Bld) [Volume fraction] 29.3 % Low 36.0-46.0 [facility] Comment on above: Order Comment: Speci men Type: BLOOD SPECIMENOrdering Facility: [facility] Address: [address] [place] [address] Performed By: #### 5 8410-2 ####[facility] [id number] [place] [address] [place] Hemoglobin (Bld) [Mass/Vol] 9.1 g/dL Low 11.5-15.5 [facility] Comment on above: Order Comment: Speci men Type: BLOOD SPECIMENOrdering Facility: [facility] Address: [address] [place] [address] Performed By: #### 5 8410-2 ####[facility] [id number] [place] [address] [place] MCH (RBC) [Entitic mass] 23.9 pg Low 26.0-34.0 [facility] Comment on above: Order Comment: Speci men Type: BLOOD SPECIMENOrdering Facility: [facility] Address: [address] [place] [address] Performed By: #### 5 8410-2 ####[facility] [id number] [place] [address] [place] MCHC (RBC) [Mass/Vol] 31.1 g/dL Normal 30.5-36.0 [facility] Comment on above: Order Comment: Speci men Type: BLOOD SPECIMENOrdering Facility: [facility] Address: [address] [place] [address] Performed By: #### 5 8410-2 ####[facility] [id number] [place] [address] [place] MCV (RBC) [Entitic vol] 77.1 fL Low 80.0-100.0 [facility] Comment on above: Order Comment: Speci men Type: BLOOD SPECIMENOrdering Facility: [facility] Address: [address] [place] [address] Performed By: #### 5 8410-2 ####[facility] [id number] [place] [address] [place] Nucleated RBC (Bld) [#/Vol] 10*3/uL Normal <0.01 [facility] Comment on above: Order Comment: Speci men Type: BLOOD SPECIMENOrdering Facility: [facility] Address: [address] [place] [address] Performed By: #### 5 8410-2 ####[facility] [id number] [place] [address] [place] Platelet mean volume (Bld) [Entitic vol] 10.0 fL Normal 9.0-12.7 [facility] Comment on above: Order Comment: Speci men Type: BLOOD SPECIMENOrdering Facility: [facility] Address: [address] [place] [address] Performed By: #### 5 8410-2 ####[facility] [id number] [place] [address] [place] Platelets (Bld) [#/Vol] 316 10*3/uL Normal 150-400 [facility] Comment on above: Order Comment: Speci men Type: BLOOD SPECIMENOrdering Facility: [facility] Address: [address] [place] [address] Performed By: #### 5 8410-2 ####[facility] [id number] [place] [address] [place] RBC (Bld) [#/Vol] 3.80 10*6/uL Low 3.90-5.20 [facility] Comment on above: Order Comment: Speci men Type: BLOOD SPECIMENOrdering Facility: [facility] Address: [address] [place] [address] Performed By: #### 5 8410-2 ####[facility] [id number] [place] [address] [place] WBC (Bld) [#/Vol] 8.41 10*3/uL Normal 3.70-11.00 [facility] Comment on above: Order Comment: Speci men Type: BLOOD SPECIMENOrdering Facility: [facility] Address: [address] [place] [address] Performed By: #### 5 8410-2 ####[facility] [id number] [place] [address] [place] Comprehensive metabolic 2000 panelon 01-31-2025 Albumin [Mass/Vol] 3.5 g/dL Low 3.9-4.9 [facility] Comment on above: Order Comment: Speci men Type: BLOOD SPECIMEN [facility] Address: [address] [place] [address] Performed By: #### 2 4323-8 #### [facility] CLIA [id number] [address] [place] [address] [place] ALP [Catalytic activity/Vol] 144 U/L High 34-123 [facility] Comment on above: Order Comment: Speci men Type: BLOOD SPECIMEN [facility] Address: [address] [place] [address] Performed By: #### 2 4323-8 #### [facility] CLIA [id number] [address] [place] [address] [place] ALT [Catalytic activity/Vol] 6 U/L Low 7-38 [facility] Comment on above: Order Comment: Speci men Type: BLOOD SPECIMEN [facility] Address: [address] [place] [address] Performed By: #### 2 4323-8 #### [facility] CLIA [id number] [address] [place] [address] [place] Anion gap [Moles/Vol] 11 mmol/L Normal 8-15 [facility] Comment on above: Order Comment: Speci men Type: BLOOD SPECIMEN [facility] Address: [address] [place] [address] Performed By: #### 2 4323-8 #### [facility] CLIA [id number] [address] [place] [address] [place] AST [Catalytic activity/Vol] 14 U/L Normal 13-35 [facility] Comment on above: Order Comment: Speci men Type: BLOOD SPECIMEN [facility] Address: [address] [place] [address] Performed By: #### 2 4323-8 #### [facility] CLIA [id number] [address] [place] [address] [place] Bilirubin [Mass/Vol] 0.3 mg/dL Normal 0.2-1.3 [facility] Comment on above: Order Comment: Speci men Type: BLOOD SPECIMEN [facility] Address: [address] [place] [address] Performed By: #### 2 4323-8 #### [facility] CLIA [id number] [address] [place] [address] [place] Calcium [Mass/Vol] 9.0 mg/dL Normal 8.5-10.2 [facility] Comment on above: Order Comment: Speci men Type: BLOOD SPECIMEN [facility] Address: [address] [place] [address] Performed By: #### 2 4323-8 #### [facility] CLIA [id number] [address] [place] [address] [place] Chloride [Moles/Vol] 105 mmol/L Normal 98-107 [facility] Comment on above: Order Comment: Speci men Type: BLOOD SPECIMEN [facility] Address: [address] [place] [address] Performed By: #### 2 4323-8 #### [facility] CLIA [id number] [address] [place] [address] [place] CO2 [Moles/Vol] 19 mmol/L Low 22-30 [facility] Comment on above: Order Comment: Speci men Type: BLOOD SPECIMEN [facility] Facility[facility] Address: [address] [place] [address] Performed By: #### 2 4323-8 #### [facility] CLIA [id number] [address] [place] [address] [place] Creatinine [Mass/Vol] 0.67 mg/dL Normal 0.58-0.96 [facility] Comment on above: Order Comment: Speci men Type: BLOOD SPECIMEN [facility] Facility: [facility] Address: [address] [place] [address] Performed By: #### 2 4323-8 #### [facility] CLIA [id number] [address] [place] [address] [place] eGFRcr SerPlBld CKD-EPI 2020 123 mL/min/1.73m??? Normal >=60 [facility] Comment on above: Order Comment: Hien juarez Type: BLOOD SPECIMEN [facility]ing Facility: [facility] Address: [address] [place] [address] Result Comment: Freda mated Glomerular Filtration Rate (eGFR) is calculated using the 2020 CKD-EPI creatinine equation. This equation utilizes serum creatinine, sex, and age as parameters. The creatinine assay has traceable calibration to isotope dilution-mass spectrometry. Refer to KDIGO guidelines for clinical interpretation. In patients with unstable renal function, e.g. those with acute kidney injury, the eGFR may not accurately reflect actual GFR. Performed By: #### 2 4323-8 #### [id number] [address] [place] [address] [place] Glucose [Mass/Vol] 70 mg/dL Low 74-99 [facility] Comment on above: Order Comment: Hien juarez Type: BLOOD SPECIMEN [facility] Facility: [facility] Address: [address] [place] [address] Result Comment: The [place] [employer] Association (ADA) provides guidance for cutoff values for fasting glucose and random glucose. The ADA defines fasting as no caloric intake for at least 8 hours. Fasting plasma glucose results between 100 to 125 mg/dL indicate increased risk for diabetes (prediabetes). Fasting plasma glucose results greater than or equal to 126 mg/dL meet the criteria for diagnosis of diabetes. In the absence of unequivocal hyperglycemia, results should be confirmed by repeat testing. In a patient with classic symptoms of hyperglycemia or hyperglycemic crisis, random plasma glucose results greater than or equal to 200 mg/dL meet the criteria for diagnosis of diabetes. Reference: Standards of Medical Care in Diabetes 2016, [place] [employer]. Diabetes Care. 2016.39(Suppl 1). Performed By: #### 2 4323-8 #### [facility] [id number] [address] [place] [address] [place] Potassium [Moles/Vol] 4.3 mmol/L Normal 3.7-5.1 [facility] Comment on above: Order Comment: Hien juarez Type: BLOOD SPECIMEN [facility] Facility[facility] Address: [address] [place], [place] [address] Performed By: #### 2 4323-8 #### [facility] CLIA [id number] [address] [place] [address] [place] Protein [Mass/Vol] 6.7 g/dL Normal 6.3-8.0 [facility] Comment on above: Order Comment: Speci men Type: BLOOD SPECIMEN [facility] Facility: [facility] Address: [address] [place] [address] Performed By: #### 2 4323-8 #### [facility] CLIA [id number] [address] [place] [address] [place] Sodium [Moles/Vol] 135 mmol/L Low 136-144 [facility] Comment on above: Order Comment: Speci men Type: BLOOD SPECIMEN [facility] Facility: [facility] Address: [address] [place] [address] Performed By: #### 2 4323-8 #### [facility] CLIA [id number] [address] [place] [address] [place] Urea nitrogen [Mass/Vol] 9 mg/dL Normal 7-21 [facility] Comment on above: Order Comment: Speci men Type: BLOOD SPECIMEN [facility] Facility: [facility] Address: [address] [place] [address] Performed By: #### 2 4323-8 #### [facility] CLIA [id number] [address] [place] [address] [place] Prot/Creat Uron 01-31-2025 Protein/Creatinine (U) [Mass ratio] 0.11 mg/mg Normal <0.15 [facility] Comment on above: Order Comment: Speci men Type: URINE SPECIMENOrdering Facility: [facility] Address: [address] [place], [place] [address] Result Comment: Adul t Proteinuria Categories: <0.15 mg/mg is considered normal to mildly increased 0.15 - 0.50 mg/mg is considered moderately increased >0.50 mg/mg is considered severely increased KDIGO. (2013). KDIGO 2012 Clinical Practice Guideline for the Evaluation and Management of Chronic Kidney Disease. Official Journal of the International Society of Nephrology, 3(1), 1-150. Performed By: #### 2 890-2 ####[facility] LABCLIA [id number] [address] [address] [place] Protein/Creatinine (U) [Mass ratio]on 01-31-2025 Creatinine (U) [Mass/Vol] 180.9 mg/dL Normal 20.0-300.0 [facility] Comment on above: Order Comment: Speci men Type: URINE SPECIMENOrdering Facility: [facility] Address: [address] [place] [address] Performed By: #### 2 890-2 ####[facility] LABIA [id number] [place] [id number] [place] [facility] Protein (U) [Mass/Vol] 19 mg/dL Normal 0-20 [facility] Comment on above: Order Comment: Speci men Type: URINE SPECIMENOrdering Facility: [facility] Address: [address] [place] [address] Performed By: #### 2 890-2 ####[facility] LABIA [id number] [address] [address] [place] ROUTINE, GROUP B ST REPTOCOCCUS BY PCRon 01-17-2025 ROUTINE, GROUP B STREPTOCOCCUS BY PCR Not detected Normal [facility] Comment on above: Performed By: #### G BPCR ####[facility] LABCLIA [id number] [address] [place] [address] [place] URINE OB DIP B/Oon Glucose Ql (U) Negative Neg mg/dL [facility] Interpretation and review of laboratory results Normal [facility] Protein.monoclonal (U) [Mass/Vol] Negative Neg mg/dL [facility] CBC panel Auto (Bld)on 01-03 Erythrocyte distribution width (RBC) [Ratio] 15.1 % High 11.5 - 15.0 % [facility] Hematocrit (Bld) [Volume fraction] 31.5 % Low 36.0 - 46.0 % [facility] Hemoglobin (Bld) [Mass/Vol] 10 g/dL Low 11.5 - 15.5 g/dL [facility] Interpretation and review of laboratory results Abnormal [facility] MCH (RBC) [Entitic mass] 24.9 pg Low 26.0 - 34.0 pg [facility] MCHC (RBC) [Mass/Vol] 31.7 g/dL 30.5 - 36.0 g/dL [facility] MCV (RBC) [Entitic vol] 78.4 fL Low 80.0 - 100.0 fL [facility] Nucleated RBC (Bld) [#/Vol] NINF [facility] Platelet mean volume (Bld) [Entitic vol] 9.2 fL 9.0 - 12.7 fL [facility] Platelets (Bld) [#/Vol] 356 10*3/uL [facility] RBC (Bld) [#/Vol] 4.02 10*6/uL 3.90 - 5.2 0 m/uL [facility] WBC (Bld) [#/Vol] 9.57 10*3/uL [facility] Erythrocyte distribution width (RBC) [Ratio] 15.1 % High 11.5-15.0 [facility] Comment on above: Order Comment: Speci men Type: BLOOD SPECIMENOrdering Facility: [facility] Address: [address] [place] [address] Performed By: #### 5 8410-2 ####[facility] [id number] [place] [address] [place] Hematocrit (Bld) [Volume fraction] 31.5 % Low 36.0-46.0 [facility] Comment on above: Order Comment: Speci men Type: BLOOD SPECIMENOrdering Facility: [facility] Address: [address] [place] [address] Performed By: #### 5 8410-2 ####[facility] [id number] [place] [address] [place] Hemoglobin (Bld) [Mass/Vol] 10.0 g/dL Low 11.5-15.5 [facility] Comment on above: Order Comment: Speci men Type: BLOOD SPECIMENOrdering Facility: [facility] Address: [address] [place] [address] Performed By: #### 5 8410-2 ####[facility] [id number] [place] [address] [place] MCH (RBC) [Entitic mass] 24.9 pg Low 26.0-34.0 [facility] Comment on above: Order Comment: Speci men Type: BLOOD SPECIMENOrdering Facility: [facility] Address: [address] [place] [address] Performed By: #### 5 8410-2 ####[facility] [id number] [place] [address] [place] MCHC (RBC) [Mass/Vol] 31.7 g/dL Normal 30.5-36.0 [facility] Comment on above: Order Comment: Speci men Type: BLOOD SPECIMENOrdering Facility: [facility] Address: [address] [place] [address] Performed By: #### 5 8410-2 ####[facility] [id number] [place] [address] [place] MCV (RBC) [Entitic vol] 78.4 fL Low 80.0-100.0 C [facility] Comment on above: Order Comment: Speci men Type: BLOOD SPECIMENOrdering Facility: [facility] Address: [address] [place] [address] Performed By: #### 5 8410-2 ####[facility] [id number] [place] [address] [place] Nucleated RBC (Bld) [#/Vol] 10*3/uL Normal <0.01 [facility] Comment on above: Order Comment: Speci men Type: BLOOD SPECIMENOrdering Facility: [facility] Address: [address] [place] [address] Performed By: #### 5 8410-2 ####[facility] [id number] [place] [address] [place] Platelet mean volume (Bld) [Entitic vol] 9.2 fL Normal 9.0-12.7 [facility] Comment on above: Order Comment: Speci men Type: BLOOD SPECIMENOrdering Facility: [facility] Address: [address] [place] [address] Performed By: #### 5 8410-2 ####[facility] [id number] [place] [address] [place] Platelets (Bld) [#/Vol] 356 10*3/uL Normal 150-400 [facility] Comment on above: Order Comment: Speci men Type: BLOOD SPECIMENOrdering Facility: [facility] Address: [address] [place] [address] Performed By: #### 5 8410-2 ####[facility] [id number] [place] [address] [place] RBC (Bld) [#/Vol] 4.02 10*6/uL Normal 3.90-5.20 [facility] Comment on above: Order Comment: Speci men Type: BLOOD SPECIMENOrdering Facility: [facility] Address: [address] [place] [address] Performed By: #### 5 8410-2 ####[facility]CL[facility] [id number] [place] [address] [place] WBC (Bld) [#/Vol] 9.57 10*3/uL Normal 3.70-11.00 [facility] Comment on above: Order Comment: Speci men Type: BLOOD SPECIMENOrdering Facility: [facility] Address: [address] [place] [address] Performed By: #### 5 8410-2 ####[facility] KAREN CASAREZ [id number] [place] [id number] [place] [address] [place] CNPNon 11-30-2024 CNPN Telephone (OBGYWM) ROBB ULRICH ([id number]) 1995 F Date Time Provider Department 11/30/24 SRAVANI SORIA During your visit today, we recorded the following information about you: Yumiko Leiva, GIA 11/30/2024 9:30 AM Signed 29w1d Pt's mother called stating Pt has had lower right back pain radiating around to right side front-started this AM after 7am- nothing seems to help. Pt's mother states Pt has kidney has kidney stones [See ED visit from 09/04/24]. Pt's mother states they don't want to go to ER because all they do is give her pain medication and sent her home, she would like to have Pt seen in office today to assess baby. Informed Pt's mother that unfortunately, we have limited providers in office today, but that this RN will call PT to assess Pt and determine what would be best and Pt will call mother after speaking with RN. Pt's mother voiced understanding. Called Pt. Pt states does state the above having pain to ower right back pain radiating around to right side front-started this AM after 7am- nothing seems to help. Has not seen specialist- feels she needs to see Urologist. C/o nausea/ vomited x2 this AM-advised to take Unisom AND Vitamin B6 as well as Danni. Has taken tylenol-1000mg and didn't help, denies dysuriaAND denies vaginal bleeding. Pt states pain 8/10 constant. Pt states has tried warm bath and did not help. Advised Pt that if her pain is 8/10 and constant and nothing is helping that she needs to return to the ER. Also advised her that it is important to stay hydrated, and also if she is unable to keep any liquids down > 24 hours that she also needs to go to ER. Pt voiced understanding and will call her mother. GIA Gonzalez Sara, MD 11/30/2024 12:09 PM Signed Unfortunately does sound like a kidney stone. Agree with going to [facility] for further eval with likely labs and a renal ultrasound, and hydration and pain control if appropriate thanks Allergies As of Date: 11/30/2024 Noted Allergy Reaction BACTRIM (SULFAMETHOXAZOLE-TRI METH*08/17/2018 2 - Rash GABAPENTIN 08/11/2018 2 - Rash SULFAMETHOXAZOLE 06/26/2024 2 - Rash Date Reviewed: 11/20/2024 Reviewed by: Jessie Santos MD - Fully Assessed Reason for Visit: Lower right back pain/radiating around to right front [Other] Prescriptions as of 11/30/2024 - no115/iron/folic acid ( 19 ORAL) Take by mouth once daily. - aspirin, enteric coated (ECOTRIN LOW STRENGTH) 81 mg EC tablet Take 1 tablet by mouth once daily. Problem List As Of Date 11/30/2024 Noted Resolved Acne [L70.9] 05/08/2013 07/27/2017 Dysmenorrhea [N94.6] 05/08/2013 07/27/2017 Nausea/vomiting in [O21.9] 07/05/2024 Painful bladder spasm [N32.89, R39.89] 07/05/2024 Obesity complicating , first trimester*07/05/2024 Encounter for supervision of normal first pregn*07/05/2024 Heartburn during [O26.899, R12] 08/02/2024 Anemia during in third trimester ([facility]*11/21/2024 Encounter Status:Closed by SULLY COLLADO on 11/30/24 Normal [facility] CBC W Auto Differential pane l (Bld)on 11-20-2024 Basophils (Bld) [#/Vol] 0.03 10*3/uL Normal <0.11 [facility] Comment on above: Order Comment: Speci men Type: BLOOD SPECIMENOrdering Facility: [facility] Address: [address] [place] [address] Performed By: #### 5 7021-8 ####[facility]ITALWNCLIA [id number] [place] [address] [place] Basophils/100 WBC (Bld) 0.3 % Normal [facility] Comment on above: Order Comment: Speci men Type: BLOOD SPECIMENOrdering Facility: [facility] Address: [address] [place] [address] Performed By: #### 5 7021-8 ####[facility] [id number] [place] [address] [place] Differential cell count method Nom (Bld) Auto Normal [facility] Comment on above: Order Comment: Speci men Type: BLOOD SPECIMENOrdering Facility: [facility] Address: [address] [place] [address] Performed By: #### 5 7021-8 ####[facility] [id number] [place] [address] [place] Eosinophils (Bld) [#/Vol] 0.13 10*3/uL Normal <0.46 [facility] Comment on above: Order Comment: Speci men Type: BLOOD SPECIMENOrdering Facility: [facility] Address: [address] [place] [address] Performed By: #### 5 7021-8 ####[facility] [id number] [place] [address] [place] Eosinophils/100 WBC (Bld) 1.5 % Normal [facility] Comment on above: Order Comment: Speci men Type: BLOOD SPECIMENOrdering Facility: [facility] Address: [address] [place] [address] Performed By: #### 5 7021-8 ####[facility]LESNCL[facility] [id number] [place] [address] [place] Erythrocyte distribution width (RBC) [Ratio] 13.6 % Normal 11.5-15.0 [facility] Comment on above: Order Comment: Speci men Type: BLOOD SPECIMENOrdering Facility: [facility] Address: [address] [place] [address] Performed By: #### 5 7021-8 ####[facility] [id number] [place] [address] [place] Hematocrit (Bld) [Volume fraction] 28.8 % Low 36.0-46.0 [facility] Comment on above: Order Comment: Speci men Type: BLOOD SPECIMENOrdering Facility: [facility] Address: [address] [place] [address] Performed By: #### 5 7021-8 ####[facility] [id number] [place] [address] [place] Hemoglobin (Bld) [Mass/Vol] 9.2 g/dL Low 11.5-15.5 [facility] Comment on above: Order Comment: Speci men Type: BLOOD SPECIMENOrdering Facility: [facility] Address: [address] [place] [address] Performed By: #### 5 7021-8 ####[facility] [id number] [place] [address] [place] Immature granulocytes (Bld) [#/Vol] 0.03 10*3/uL Normal <0.10 [facility] Comment on above: Order Comment: Speci men Type: BLOOD SPECIMENOrdering Facility: [facility] Address: [address] [place] [address] Performed By: #### 5 7021-8 ####[facility] [id number] [place] [address] [place] Immature granulocytes/100 WBC (Bld) 0.3 % Normal [facility] Comment on above: Order Comment: Speci men Type: BLOOD SPECIMENOrdering Facility: [facility] Address: [address] [place] [address] Performed By: #### 5 7021-8 ####[facility] [id number] [place] [address] [place] Lymphocytes (Bld) [#/Vol] 1.64 10*3/uL Normal 1.00-4.00 [facility] Comment on above: Order Comment: Speci men Type: BLOOD SPECIMENOrdering Facility: [facility] Address: [address] [place] [address] Performed By: #### 5 7021-8 ####[facility] NAPLESNCJudy [id number] [place] [address] [place] Lymphocytes/100 WBC (Bld) 18.7 % Normal [facility] Comment on above: Order Comment: Speci men Type: BLOOD SPECIMENOrdering Facility: [facility] Address: [address] [place] [address] Performed By: #### 5 7021-8 ####[facility] NAPLESNCLIJudy [id number] [place] [address] [place] MCH (RBC) [Entitic mass] 25.7 pg Low 26.0-34.0 [facility] Comment on above: Order Comment: Speci men Type: BLOOD SPECIMENOrdering Facility: [facility] Address: [address] [place] [address] Performed By: #### 5 7021-8 ####[facility]LESNCLI [id number] [place] [address] [place] MCHC (RBC) [Mass/Vol] 31.9 g/dL Normal 30.5-36.0 [facility] Comment on above: Order Comment: Speci men Type: BLOOD SPECIMENOrdering Facility: [facility] Address: [address] [place] [address] Performed By: #### 5 7021-8 ####[facility] [id number] [place] [address] [place] MCV (RBC) [Entitic vol] 80.4 fL Normal 80.0-100.0 C [facility] Comment on above: Order Comment: Speci men Type: BLOOD SPECIMENOrdering Facility: [facility] Address: [address] [place] [address] Performed By: #### 5 7021-8 ####[facility] NAPLESNCKRISTOPHER [id number] [place] [address] [place] Monocytes (Bld) [#/Vol] 0.42 10*3/uL Normal <0.87 [facility] Comment on above: Order Comment: Speci men Type: BLOOD SPECIMENOrdering Facility: [facility] Address: [address] [place] [address] Performed By: #### 5 7021-8 ####[facility] NAPLESNCLIA [id number] [place] [address] [place] Monocytes/100 WBC (Bld) 4.8 % Normal C [facility] Comment on above: Order Comment: Speci men Type: BLOOD SPECIMENOrdering Facility: [facility] Address: [address] [place] [address] Performed By: #### 5 7021-8 ####[facility] NAPLESNCLIA [id number] [place] [address] [place] Neutrophils (Bld) [#/Vol] 6.54 10*3/uL Normal 1.45-7.50 [facility] Comment on above: Order Comment: Speci men Type: BLOOD SPECIMENOrdering Facility: [facility] Address: [address] [place] [address] Performed By: #### 5 7021-8 ####[facility]YLERBROWNSVILLEJANICELIA [id number] [place] [address] [place] Neutrophils/100 WBC (Bld) 74.4 % Normal [facility] Comment on above: Order Comment: Speci men Type: BLOOD SPECIMENOrdering Facility: [facility] Address: [address] [place] [address] Performed By: #### 5 7021-8 ####[facility] [id number] [place] [address] [place] Nucleated RBC (Bld) [#/Vol] 10*3/uL Normal <0.01 [facility] Comment on above: Order Comment: Speci men Type: BLOOD SPECIMENOrdering Facility: [facility] Address: [address] [place] [address] Performed By: #### 5 7021-8 ####[facility] [id number] [place] [address] [place] Nucleated RBC/100 WBC (Bld) [Ratio] 0.0 /100 WBC Normal [facility] Comment on above: Order Comment: Speci men Type: BLOOD SPECIMENOrdering Facility: [facility] Address: [address] [place] [address] Performed By: #### 5 7021-8 ####[facility] [id number] [place] [address] [place] Platelet mean volume (Bld) [Entitic vol] 8.8 fL Low 9.0-12.7 [facility] Comment on above: Order Comment: Speci men Type: BLOOD SPECIMENOrdering Facility: [facility] Address: [address] [place] [address] Performed By: #### 5 7021-8 ####[facility] [id number] [place] [address] [place] Platelets (Bld) [#/Vol] 342 10*3/uL Normal 150-400 [facility] Comment on above: Order Comment: Speci men Type: BLOOD SPECIMENOrdering Facility: [facility] Address: [address] [place] [address] Performed By: #### 5 7021-8 ####[facility] NAPLESNCMARCELLAA [id number] [place] [address] [place] RBC (Bld) [#/Vol] 3.58 10*6/uL Low 3.90-5.20 [facility] Comment on above: Order Comment: Speci men Type: BLOOD SPECIMENOrdering Facility: [facility] Address: [address] [place] [address] Performed By: #### 5 7021-8 ####[facility] [id number] [place] [address] [place] WBC (Bld) [#/Vol] 8.79 10*3/uL Normal 3.70-11.00 [facility] Comment on above: Order Comment: Speci men Type: BLOOD SPECIMENOrdering Facility: [facility] Address: [address] [place] [address] Performed By: #### 5 7021-8 ####[facility] NAPLESNCLIA [id number] [place] [address] [place] Ferritin SerPl-mCncon 2024 Ferritin [Mass/Vol] 11.8 ng/mL Low 14.7-205.1 [facility] Comment on above: Order Comment: Speci men Type: BLOOD SPECIMENOrdering Facility: [facility] Address: [address] [place] [address] Performed By: #### 5 0190-8, 2276-4 ####[facility] LABCLIA [id number] [address] [id number] [address] [place] GESTATIONAL GLUCOSE SCREEN, 1-HOUR, 50 GRAM, NON-FASTINGon 11-20-2024 Glucose [Mass/Vol] 117 mg/dL Normal 74-134 [facility] Comment on above: Order Comment: Speci men Type: BLOOD SPECIMENOrdering Facility: [facility] Address: [address] [place] [address] Result Comment: [facility] Congress of Obstetricians and Gynecologists (Cristian/Abdiel) guidelines state a gestational diabetes mellitus positive screen is made, in women not previously diagnosed with overt diabetes, when the 1 hr plasma glucose level is equal to or above 140 mg/dL. [facility] [employer] [facility] [place] recommends a 135 mg/dL cutoff. Performed By: #### G LTGST ####[facility] [id number] [place] [address] [place] Iron and Iron binding capaci ty panelon 11-20-2024 Iron [Mass/Vol] 23 ug/dL Low 41-186 [facility] Comment on above: Order Comment: Speci men Type: BLOOD SPECIMENOrdering Facility: [facility] Address: [address] [place] [address] Performed By: #### 5 0190-8, 6-4 ####[facility] LABIA [id number] [place] [id number] [place] Iron binding capacity [Mass/Vol] 464 ug/dL High 232-386 [facility] Comment on above: Order Comment: Speci men Type: BLOOD SPECIMENOrdering Facility: [facility] Address: [address] [place], [place] [id number] Performed By: #### 5 0190-8, 6-4 ####[facility] LABCLIA [id number] [place] [id number] [place] Iron/TIBC [Molar ratio] 5.0 % Low 15.0-57.0 C [facility] Comment on above: Order Comment: Speci men Type: BLOOD SPECIMENOrdering Facility: [facility] Address: [address] [place] [address] Performed By: #### 5 0190-8, 2276-4 ####[facility] LABIA [id number] [address] [place] Reagin and Treponema pallidu m IgG and IgM [Interp]on 11-20-2024 T. pallidum IgG+IgM IA Ql (S) Non-Reactive Normal Nonreactive [facility] Comment on above: Order Comment: Speci men Type: BLOOD SPECIMENOrdering Facility: [facility] Address: [address] [place] [address] Performed By: #### 7 3752-8 ####[facility] LABIA [id number] [address] [place] Reagin+T pallidum IgG+IgM Se rPl-Impon 11-20-2024 Reagin and Treponema pallidum IgG and IgM [Interp] Cannot exclude recent Treponemal infection if specimen collected within 7-10 days after appearance of suspect lesions or 2-3 weeks after an exposure. Clinical correlation is required. Normal [facility] Comment on above: Order Comment: Speci men Type: BLOOD SPECIMENOrdering Facility: [facility] Address: [address] [place] [address] Performed By: #### 7 3752-8 ####[facility] [id number] [place] [address] [place] Examination level ultrasound on 09-27-2024 Indication Detailed anatomic survey Maternal obesity, BMI >30 Impression REMOTE READ The patient is referred for a detailed anatomic survey. - Single, live, intrauterine . - biometry is consistent with the established gestational age. - No malformations were visualized on a complete detailed anatomic survey. - The amniotic fluid volume is normal amount. - The placenta is posterior, fundal. - The Transabdominal cervical length measures 33.2 mm with no evidence of funneling or other dynamic changes. - Not all structural malformations can be detected by ultrasound examination. Recommendations Additional follow-up as clinically indicated. Maternal Assessment Height 173 cm Height (ft) 5 ft Height (in) 8 in Physical Exam Initial weight (lb) 225 lb Initial BMI 34.21 kg/m Maternal assessment other: 1 Para 0 Method Transabdominal ultrasound examination. View: Adequate visualization Santiago . Number of fetuses: 1 Dating LMP on: 05/10/2024 GA by LMP 20 w + 0 d VIVIANA by LMP: 02/14/2025 GA by prior assessment 20 w + 0 d VIVIANA by prior assessment: 02/14/2025 Ultrasound examination on: 09/27/2024 GA by U/S based upon: AC, BPD, Femur, HC GA by U/S 20 w + 2 d VIVIANA by U/S: 02/12/2025 Assigned: based on stated VIVIANA, selected on 09/27/2024 Assigned GA 20 w + 0 d Assigned VIVIANA: 02/14/2025 General Evaluation Cardiac activity present. FHR 157 bpm. movements: present. Presentation: breech Placenta: Placental site: posterior, fundal Umbilical cord: Cord vessels: 3 vessel cord Amniotic fluid: Amount of AF: normal amount. MVP 4.8 cm Growth Overview Exam date GA BPD (mm) HC (mm) AC (mm) FL (mm) HL (mm) EFW (g) 09/27/2024 20w 0d 44.2 24% 169.7 36% 167.2 91% 32.5 69% 32.3 83% 377 85% Biometry Standard BPD 44.2 mm 19w 3d 24% Hadlock OFD 61.5 mm 19w 6d 65% Nicolaides HC 169.7 mm 19w 4d 36% Radha Cerebellum tr 22.3 mm 20w 6d 94% Hill Nuchal fold 3.4 mm AC 167.2 mm 21w 5d 91% Hadlock Femur 32.5 mm 20w 2d 69% Radha Humerus 32.3 mm 20w 6d 83% Radha EFW 377 g 20w 5d 85% Hadlock EFW (lb) 0 lb EFW (oz) 13 oz EFW by: Hadlock (HC-AC-FL) Extended Steam Station Supervisor 5.9 mm CM 5.1 mm 55% Nicolaides Extremities / Bony Struc FL / HC 0.19 65% Hadlock Other Structures FHR 157 bpm Anatomy Cranium: normal Lateral ventricles: normal Choroid plexus: normal Midline falx: normal Cavum septi pellucidi: normal Cerebellum: normal Cisterna magna: normal Head / Neck Vermis: normal Neck: normal Nuchal fold: normal Lips: normal Profile: normal Nose: normal Face Maxilla: normal Mandible: normal Orbits: normal Lens: normal 4-chamber view: normal RVOT view: normal LVOT view: normal 3-vessel view: normal [id number] view: normal Heart / Thorax Situs: situs solitus (normal) Aortic arch view: normal SVC: normal IVC: normal Cardiac axis: normal Rt lung: normal Lt lung: normal Diaphragm: normal Cord insertion: normal Stomach: normal Kidneys: normal Bladder: normal Genitals: normal Abdomen Abdom. wall: normal Cervical spine: normal Thoracic spine: normal Lumbar spine: normal Sacral spine: normal Arms: normal Legs: normal Rt upper arm: normal Rt forearm: normal Rt hand: normal Rt fingers: normal Lt upper arm: normal Lt forearm: normal Lt hand: normal Lt fingers: normal Rt upper leg: normal Rt lower leg: normal Rt foot: normal Lt upper leg: normal Lt lower leg: normal Lt foot: normal sex: female Wants to know sex: yes Maternal Structures Uterus / Cervix Uterus: Visualized Cervix: Visualized Approach: Transabdominal Cervical length 33.2 mm Other: Patient declined transvaginal ultrasound for cervical length. Ovaries / Tubes / Adnexa Rt ovary: Not visualized Lt ovary: Visualized Performed By: Millie Coley RDMS, RVT Read By: Vannessa Wallace M.D. MATERNAL MEDICINE [facility] Radiology Study observation (narrative) [facility] Abdomen Single Viewon 2024 Abdomen Single View [facility] Imaging Services [address] [place] [id number] Abdomen Single View MR#: [id number] Acct: [id number] Name: ROBB ULRICH Rep #: [id number] : 1995 F 29 From: Dillon Banks MD PCP: Dr. Judson Weber, DO Status: REG ER Study: Abdomen Single View Date of Exam: 09/04/24 Exam# [id number] Ordering Dr: Yois Oliveira MD EXAM: XR Abdomen, 1 View CLINICAL INDICATION: R FLANK PAIN TECHNIQUE: Frontal supine view of the abdomen/pelvis. COMPARISON: No relevant prior studies available. FINDINGS: GASTROINTESTINAL TRACT: Fecal retention in the colon consistent with constipation. No dilation. BONES/JOINTS: Unremarkable. No acute fracture. RAD/Abdomen Single View IMPRESSION: Fecal retention in the colon consistent with constipation. Reading Location: [facility]-- CC: Dr. Yosi Oliveira MD; Dr. 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 Normal [facility] Absolute neutrophil countOrd ered By: Yosi Oliveira on 09-04-2024 Neutrophils (Bld) [#/Vol] 7.0 10*3/uL 2.0-7.7 [facility] Anion gap in Serum or Plasma Ordered By: Yosi Oliveira on 09-04-2024 Anion gap [Moles/Vol] 15 mmol/L 5-15 [facility] BUN/creatinine ratioOrdered By: Yosi Oliveira on 09-04-2024 Urea nitrogen/Creatinine [Mass ratio] 11.6 mg/mg 10- [facility] Basic Metabolic Profile (BMP )on 09-04-2024 BUN/CRE 11.6 RATIO Normal - [facility] Comment on above: Performed By: #### L 100.0100, L500.2500 #### [facility] [address] [place], [address] Calcium [Mass/Vol] 8.8 mg/dL Normal 7.6-11.0 [facility] Comment on above: Performed By: #### L 100.0100, L500.2500 #### [facility] [address] [place], [address] Chloride [Moles/Vol] 104 mmol/L Normal 98-108 [facility] Comment on above: Performed By: #### L 100.0100, L500.2500 #### [facility] [address] [place], [address] CO2 [Moles/Vol] 17.4 mmol/L Low 21.0-32.0 [facility] Comment on above: Performed By: #### L 100.0100, L500.2500 #### [facility] [address] [place], [address] Creatinine [Mass/Vol] 0.64 mg/dL Low 0.70-1.20 [facility] Comment on above: Performed By: #### L 100.0100, L500.2500 #### [facility] [address] [place], [address] ECRCL 164.25 ml/min Normal 50-250 [facility] Comment on above: Performed By: #### L 100.0100, L500.2500 #### [facility] [address] [place], [address] GAP 15 Normal 5-15 [facility] Comment on above: Performed By: #### L 100.0100, L500.2500 #### [facility] [address] [place], [address] GFR/1.73 sq M.predicted among non-blacks MDRD (S/P/Bld) [Vol rate/Area] 124 mL/min/{1.73_m2} Normal >60 [facility] Comment on above: Result Comment: mL/m in/1.73m2 CKD-EPI Creatinine Equation (2020) Performed By: #### L 100.0100, L500.2500 #### [facility] [address] [place], [address] Glucose [Mass/Vol] 92 mg/dL Normal 70-99 [facility] Comment on above: Performed By: #### L 100.0100, L500.2500 #### [facility] [address] [place], [address] Potassium [Moles/Vol] 3.5 mmol/L Normal 3.3-5.1 [facility] Comment on above: Result Comment: Hemo lysis present, Results??could be affected. ?? Performed By: #### L 100.0100, L500.2500 #### [facility] [address] [place], [address] Sodium [Moles/Vol] 136 mmol/L Normal 133-145 [facility] Comment on above: Performed By: #### L 100.0100, L500.2500 #### [facility] [address] [place], [address] Urea nitrogen [Mass/Vol] 7 mg/dL Normal 4-19 [facility] Comment on above: Performed By: #### L 100.0100, L500.2500 #### [facility] [address] [place], [address] Basophil percentageOrdered B y: Yosi Oliveira on 09-04-2024 Basophils/100 WBC (Bld) 0.4 % 0-[address] [facility] Bilirubin Test strip Ql (U)O rdered By: Yosi Oliveira on 09-04-2024 Bilirubin Ql (U) Negative Negative [facility] CBC W/Diff, Automatedon 08-25 Absolute Lymph 1.91 X10 3/uL Normal 0.83-4.51 [facility] Comment on above: Performed By: #### L 100.0100, L500.2500 #### [facility] [address] [place], [address] Absolute Neut 7.0 X10 3/uL Normal 2.0-7.7 [facility] Comment on above: Performed By: #### L 100.0100, L500.2500 #### [facility] [address] [place], [address] Basophils/100 WBC (Bld) 0.4 % Normal 0-[address] [facility] Comment on above: Performed By: #### L 100.0100, L500.2500 #### [facility] [address] [place], [address] Eosinophils/100 WBC (Bld) 1.7 % Normal 0-5 [facility] Comment on above: Performed By: #### L 100.0100, L500.2500 #### [facility] [address] [place], [address] Erythrocyte distribution width (RBC) [Ratio] 13.8 % Normal 11.6-14.6 [facility] Comment on above: Performed By: #### L 100.0100, L500.2500 #### [facility] [address] [place], [address] Hematocrit (Bld) [Volume fraction] 35.9 % Low 37-47 [facility] Comment on above: Performed By: #### L 100.0100, L500.2500 #### [facility] [address] [place], [address] Hemoglobin (Bld) [Mass/Vol] 11.5 g/dL Low 12.0-15.0 [facility] Comment on above: Performed By: #### L 100.0100, L500.2500 #### [facility] [address] [place], [address] IG% 0.400 Normal 0.0-0.9 [facility] Comment on above: Result Comment: IG% - Immature Granulocytes (promyelocytes, myelocytes and metamyelocytes) > 1% indicates that a LEFT SHIFT is Present. Performed By: #### L 100.0100, L500.2500 #### [facility] [address] [place], [address] Lymphocytes/100 WBC (Bld) 19.6 % Normal 19-41 [facility] Comment on above: Performed By: #### L 100.0100, L500.2500 #### [facility] [address] [place], [address] MCH (RBC) [Entitic mass] 26.6 pg Low 27.0-32.0 [facility] Comment on above: Performed By: #### L 100.0100, L500.2500 #### [facility] [address] [place], [address] MCHC (RBC) [Mass/Vol] 32.0 g/dL Normal 32-36 [facility] Comment on above: Performed By: #### L 100.0100, L500.2500 #### [facility] [address] [place], [address] MCV (RBC) [Entitic vol] 83.1 fL Normal 81-[address] [facility] Comment on above: Performed By: #### L 100.0100, L500.2500 #### [facility] [address] [place], [address] Monocytes/100 WBC (Bld) 5.7 % Normal 0-10 [facility] Comment on above: Performed By: #### L 100.0100, L500.2500 #### [facility] [address] [place], [address] Neutrophils/100 WBC (Bld) 72.2 % High 47-70 [facility] Comment on above: Performed By: #### L 100.0100, L500.2500 #### [facility] [address] [place], [address] Nucleated RBC (Bld) [#/Vol] 0 10*3/uL Normal 0-5 [facility] Comment on above: Performed By: #### L 100.0100, L500.2500 #### [facility] [address] [place], [address] Platelet mean volume (Bld) [Entitic vol] 9.0 fL Normal 6.2-12.0 [facility] Comment on above: Performed By: #### L 100.0100, L500.2500 #### [facility] [address] [place], [address] Platelets (Bld) [#/Vol] 311 10*3/uL Normal 150-450 [facility] Comment on above: Performed By: #### L 100.0100, L500.2500 #### [facility] [address] [place], [address] RBC (Bld) [#/Vol] 4.32 10*6/uL Normal 4.2-5.4 [facility] Comment on above: Performed By: #### L 100.0100, L500.2500 #### [facility] [address] [place], [address] RDW SD 42.3 fl Normal 35.1-43.9 [facility] Comment on above: Performed By: #### L 100.0100, L500.2500 #### [facility] [address] [place], [address] WBC (Bld) [#/Vol] 9.7 10*3/uL Normal 4.4-11.0 [facility] Comment on above: Performed By: #### L 100.0100, L500.2500 #### [facility] [address] [place], [address] CNPNon 09-04-2024 [facility] ROBB ULRICH ([id number]) 1995 F Date Time Provider Department 09/04/24 JESSIE SANTOS During your visit today, we recorded the following information about you: Jessie Mg, RN 09/04/2024 2:03 PM Signed 16w5d Patient seen at [facility] ER today. Below is the ER report. Next OB visit is 09/27/24. Scan on 09/04/2024 1:35 PM by Provider, External, PACindiC: [facility] Jessie Santos MD 09/04/2024 2:18 PM Signed Looks like she passed the stone. As long as her pain has improved she can keep her appointment as scheduled Allergies As of Date: 09/04/2024 Noted Allergy Reaction BACTRIM (SULFAMETHOXAZOLE-TRI METH*08/17/2018 2 - Rash GABAPENTIN 08/11/2018 2 - Rash SULFAMETHOXAZOLE 06/26/2024 2 - Rash Date Reviewed: 08/30/2024 Reviewed by: Марина Hebert MD - Fully Assessed Reason for Visit: ER Visit [Other] Prescriptions as of 09/04/2024 - no115/iron/folic acid ( 19 ORAL) Take by mouth once daily. - famotidine (PEPCID) 20 mg tablet Take 1 tablet by mouth two times a day. - metoclopramide HCl (REGLAN) 5 mg tablet Take 1 tablet by mouth four times daily. - aspirin, enteric coated (ECOTRIN LOW STRENGTH) 81 mg EC tablet Take 1 tablet by mouth once daily. Problem List As Of Date 09/04/2024 Noted Resolved Acne [L70.9] 05/08/2013 07/27/2017 Dysmenorrhea [N94.6] 05/08/2013 07/27/2017 Nausea/vomiting in [O21.9] 07/05/2024 Painful bladder spasm [R30.1] 07/05/2024 Obesity complicating , first trimester*07/05/2024 Encounter for supervision of normal first pregn*07/05/2024 Heartburn during [O26.899, R12] 08/02/2024 Encounter Status:Closed by JESSIE MG on 09/04/24 Normal [facility] Carbon dioxide, total [Moles /volume] in Central venous bloodOrdered By: Yosi Oliveira on 09-04-2024 CO2 [Moles/Vol] 17.4 mmol/L Low 21.0-32.0 [facility] Chloride assayOrdered By: Juan Manuel Oliveira on 09-04-2024 Chloride [Moles/Vol] 104 mmol/L 98-108 [facility] Emergency Department Summary on 09-04-2024 Emergency Department Summary [facility] Medical Records Department [address] [place] [address] Emergency Department Summary 09/04/24 MR#: [id number] Acct: [id number] Name: ROBB ULRICH Rep #: [id number] : 1995 29 From: Yosi Oliveira MD PCP: Dr. Judson Weber, DO Status:REG ER Location: ED HPI History of Present Illness Chief Complaint: Flank Pain Informant: patient and parent Narrative Narrative: 29-year-old female with pain in her right low back/flank that started last night but intensified this morning. She states initially it was colicky but now it is just steady and severe. Associate with nausea and vomiting. She is 17 weeks . She has had no issues with the , has had prior ultrasound documenting IUP. She denies any acute urinary symptoms or fever/chills, cough or congestion or other respiratory symptoms, she denies any abdominal pain right now. Earlier in the , she did have some nonspecific urinary issues according to mom that was treated empirically with some antibiotics, it eventually went away and they are concerned maybe that was a kidney stone and that this may be 1 as well. She is never had any that she knows of. No other abdominal surgeries in the past. [facility] Medical History (Updated 09/04/24 @ 13:[address] Yosi Oliveira MD) Medical History no medical history no medical history Home Medications ???Medication ???Instructions ???Recorded ???Last Taken ???Type aspirin 81 mg tablet,delayed 81 mg PO DAILY 09/04/24 09/03/24 H istory release oxycodone-acetaminoph en 5 mg-325 1 tab PO Q6H PRN PRN Pain 3 days 0 09/04/24 Unknown Rx mg tablet #12 TABLETS vit no.95-ferrous 1 tab PO DAILY 09/04/24 09/03/24 H istory fumarate 28 mg-folic acid 800 mcg tablet () Allergy/AdvReac Type Severity Reaction Status Date / Time gabapentin Allergy Mild Rash Verified 06/26/24 15:18 sulfamethoxazole (From Allergy Mild Rash Verified 12/31/24 15:18 Bactrim) trimethoprim (From Bactrim) Allergy Mild Rash Verified 06/26/24 15:18 Social History Smoking Status: Never smoker ROS ROS ED Constitutional Constitutional ED: Denies chills or fever(s) Eyes Eyes: Denies change in vision or diplopia ENT ENT ED: Denies rhinorrhea or sore throat Cardiovascular Cardiovascular: Denies chest pain or palpitations Respiratory/Chest Respiratory/Chest: Denies cough or dyspnea Gastrointestinal Gastrointestinal: Reports nausea and vomiting; Denies abdominal pain or diarrhea Genitourinary Genitourinary ED: Denies dysuria or hematuria Musculoskeletal Musculoskeletal: Reports back pain; Denies neck pain Integumentary Denies abscess or rash Neurologic Neurologic: Denies headache(s), paresthesias or weakness EXAM Physical Exam Const Vital Signs: 09/04/24 08:07 09/04/24 10:06 09/04/24 12:00 Temperature 97.5 F L Temperature Source Temporal Pulse Rate 85 Respiratory Rate 19 H Blood Pressure 125/83 H 111/61 113/78 Blood Pressure Mean 97 77 89 Pulse Ox 100 100 Oxygen Delivery Method Room Air Room Air Positive well nourished and well developed Constitutional Narrative: Uncomfortable in pain but no distress General Appearance ED: well developed and NAD HEENT Reports moist mucous membranes normocephalic and atraumatic Eyes PERRL and EOMs intact bilaterally Neck full ROM and supple Resp normal respiratory effort and clear to auscultation bilaterally Cardio regular rate, regular rhythm and no murmurs GI non-tender and non-distended Auscultation: normoactive bowel sounds Palpation: soft Back/Spine General Back: CVA tenderness right and other FROM Extremity normal to inspection General Extremety ED: Negative for edema, pulses abnormal or tenderness General Extremity: Negative for edema or pulses abnormal Neuro oriented x3, CN's II-XII intact bilaterally and no sensory deficits noted Sensorium / Orientation: awake and alert Motor Exam: strength 5/5 throughout Skin no rashes or lesions noted and no wounds MDM MDM MDM Narrative Medical decision making narrative: My suspicion is that this is renal colic based on history and exam as opposed to biliary colic or musculoskeletal back pain. Given that she is , we will obtain an ultrasound of the kidney and bladder, as well as blood work and a urine to evaluate for the possibility of pyelonephritis. Nursing was unable to get an IV in the patient, the patient states she is always been a hard stick so we opted to give the medication to intramuscularly as far as morphine and Zofran which initially was going to be given orally but then she was actively vomiting, so was given intramuscularly. She still has significant (more content not included)... Normal [facility] Eosinophil percentageOrdered By: Yosi Oliveira on 09-04-2024 Eosinophils/100 WBC (Bld) 1.7 % 0-5 [facility] Epithelial cells.squamous LM Ql (Urine sed)Ordered By: Yosi Oliveira on 09-04-2024 Epithelial cells.squamous LM.HPF (Urine sed) [#/Area] 0 /[HPF] 5-10 [facility] Erythrocyte distribution wid th ratioOrdered By: Yosi Oliveira on 09-04-2024 Erythrocyte distribution width (RBC) [Ratio] 13.8 % 11.6-14.6 [facility] Erythrocyte distribution wid th standard deviationOrdered By: Yosi Oliveira on 09-04-2024 Erythrocyte distribution width (RBC) [Entitic vol] 42.3 fL 35.1-43.9 [facility] Estimation of creatinine radha aranceOrdered By: Yosi Oliveira on 09-04-2024 Estimated Creatinine Clearance Calc 164.25 ml/min 50-250 [facility] GFR/1.73 sq M.predicted sandie g non-blacks MDRD (S/P/Bld) [Vol rate/Area]Ordered By: Yosi Oliveira on 09-04-2024 Estimated GFR (MDRD) Non-Af Amer 124 >60 [facility] Comment on above: mL/min/1.73m2 CKD-EP I Creatinine Equation (2020) Glucose Ql (U)Ordered By: Juan Manuel Oliveira on 09-04-2024 Urine Glucose (UA) Normal mg/dl Normal [facility] Hematocrit Auto (Bld) [Volum e fraction]Ordered By: Yosi Oliveira on 09-04-2024 Hematocrit (Bld) [Volume fraction] 35.9 % Low 37-47 [facility] Hemoglobin measurementOrdere d By: Yosi Oliveira on 09-04-2024 Hemoglobin (Bld) [Mass/Vol] 11.5 g/dL Low 12.0-15.0 [facility] Immature granulocytes/100 WB C Auto (Bld)Ordered By: Yosi Oliveira on 09-04-2024 Immature granulocytes/100 WBC (Bld) 0.400 % 0.0-0.9 [facility] Comment on above: IG% - Immature Granu locytes (promyelocytes, myelocytes and metamyelocytes) > 1% indicates that a LEFT SHIFT is Present. Ketones Test strip Ql (U)Ord ered By: Yosi Oliveira on 09-04-2024 Ketones Ql (U) 5 mg/dl High Negative [facility] Kidney and Bladderon 025 Kidney and Bladder [facility] Imaging Services [address] [place], [place] [address] Kidney and Bladder MR#: [id number] Acct: [id number] Name: ROBB ULRICH Rep #: [id number] : 1995 F 29 From: Dillon Banks MD PCP: Dr. Judson Weber DO Status: REG ER Study: Kidney and Bladder Date of Exam: 09/04/24 Exam# [id number] Ordering Dr: Yosi Oliveira MD EXAM: US Retroperitoneal Limited, Renal CLINICAL INDICATION: R FLANK PAIN, 2ND TRIMESTER PREG TECHNIQUE: Real-time limited ultrasound of the retroperitoneum with image documentation. COMPARISON: No relevant prior studies available. FINDINGS: RIGHT KIDNEY: Right renal pelvic calculi measuring up to 7 mm. Mild hydronephrosis. The right kidney measures 11.4 x 5.3 x 5.7 cm. LEFT KIDNEY: Unremarkable. No stones. No hydronephrosis. The left kidney measures 10.6 x 5.1 x 5.4 cm. BLADDER: Contracted urinary bladder. Prevoid volume 12 cc. US/Kidney and Bladder IMPRESSION: Right nephrolithiasis with mild hydronephrosis. Reading [facility] CC: Dr. Yosi Oliveira MD; Dr. 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 Mean corpuscular hemoglobin (MCH) determinationOrdered By: Yosi Oliveira on 09-04-2024 MCH (RBC) [Entitic mass] 26.6 pg Low 27.0-32.0 [facility] Mean corpuscular hemoglobin concentration (MCHC) determinationOrdered By: Yosi Oliveira on 09-04-2024 MCHC (RBC) [Mass/Vol] 32.0 g/dL 32-36 [facility] Mean platelet volume determi nationOrdered By: Yosi Oliveira on 09-04-2024 Platelet mean volume (Bld) [Entitic vol] 9.0 fL 6.2-12.0 [facility] Microscopic analysis of urin e for red blood cells (RBC)Ordered By: Yosi Oliveira on 09-04-2024 Urine RBC 0-5 SEEN /hpf 0-5 [facility] Monocyte percentageOrdered B y: Yosi Oliveira on 09-04-2024 Monocytes/100 WBC (Bld) 5.7 % 0-[address] [facility] Mucus LM Ql (Urine sed)Order ed By: Yosi Oliveira on 09-04-2024 Mucus Ql (Urine sed) 1+ /hpf [facility] Neutrophil percentageOrdered By: Yosi Oliveira on 09-04-2024 Neutrophils/100 WBC (Bld) 72.2 % High 47-70 [facility] Nitrite Test strip Ql (U)Ord ered By: Yosi Oliveira on 09-04-2024 Nitrite Ql (U) Negative Negative [facility] Nucleated red blood cell per centageOrdered By: Yosi Oliveira on 09-04-2024 Nucleated RBC/100 WBC (Bld) [Ratio] 0 % 0-5 [facility] Platelet countOrdered By: Juan Manuel Oliveira on 09-04-2024 Platelets (Bld) [#/Vol] 311 10*3/uL 150-450 [facility] Potassium (Unsp spec) [Mass/ Vol]Ordered By: Yosi Oliveira on 09-04-2024 Potassium [Moles/Vol] 3.5 mmol/L 3.3-5.1 [facility] Comment on above: Hemolysis present, R esults could be affected. Protein Test strip Ql (U)Ord ered By: Yosi Oliveira on 09-04-2024 Protein Ql (U) 15 mg/dl High Negative [facility] RBC Auto (Bld) [#/Vol]Ordere d By: Yosi Oliveira on 09-04-2024 RBC (Bld) [#/Vol] 4.32 10*6/uL 4.2-5.4 [facility] Serum creatinine measurement (mass/volume)Ordered By: Yosi Oliveira on 09-04-2024 Creatinine [Mass/Vol] 0.64 mg/dL Low 0.70-1.20 [facility] Serum glucose measurement (m ass/volume)Ordered By: Yosi Oliveira on 09-04-2024 Glucose [Mass/Vol] 92 mg/dL 70-99 [facility] Serum or plasma calcium janice urement (mass/volume)Ordered By: Yosi Oliveira on 09-04-2024 Calcium [Mass/Vol] 8.8 mg/dL 7.6-11.0 [facility] Serum or plasma urea nitroge n measurement (mass/volume)Ordered By: Yosi Oliveira on 09-04-2024 Urea nitrogen [Mass/Vol] 7 mg/dL 4-19 [facility] Sodium levelOrdered By: Reid Oliveira on 09-04-2024 Sodium [Moles/Vol] 136 mmol/L 133-145 [facility] Urinalysis, Completeon 09-04 BACTERIA 3+ /hpf Normal None Seen [facility] Comment on above: Order Comment: COLLE CTOR TO SPECIFY Performed By: #### L 400.0001 #### [facility] [address] [place], [address] EPI,SQUAMOUS 0-5 SEEN Normal 5-10 [facility] Comment on above: Order Comment: KONG CTOR TO SPECIFY Performed By: #### L 400.0001 #### [facility] [address] [place], [address] Mucus Ql (Urine sed) 1+ /hpf Normal [facility] Comment on above: Order Comment: KONG CTOR TO SPECIFY Performed By: #### L 400.0001 #### [facility] [address] [place], [address] RBC 0-5 SEEN Normal 0-5 [facility] Comment on above: Order Comment: KONG CTOR TO SPECIFY Performed By: #### L 400.0001 #### [facility] [address] [place], [address] WBC 0-5 SEEN Normal 0-5 [facility] Comment on above: Order Comment: KONG CTOR TO SPECIFY Performed By: #### L 400.0001 #### [facility] [address] [place], [address] Urine blood detectionOrdered By: Yosi Oliveira on 09-04-2024 Urine Occult Blood 50 /ul High Negative [facility] Urine clarityOrdered By: Adina Oliveira on 09-04-2024 Clarity (U) Clear Clear [facility] Urine color determinationOrd ered By: Yosi Oliveira on 09-04-2024 Color (U) Yellow Yellow [facility] Urine leukocyte esterase det ection by dipstickOrdered By: Yosi Oliveira on 09-04-2024 Leukocyte esterase Test strip Ql (U) 25 /ul High Negative [facility] Urine pHOrdered By: Yosi Oliveira on 09-04-2024 pH (U) 6.0 [pH] 5.0 - 8.0 [facility] Urine sediment bacteria coun t by microscopy (number/high power field)Ordered By: Yosi Oliveira on 09-04-2024 Bacteria LM.HPF (Urine sed) [#/Area] 3 /[HPF] None Seen [facility] Urine specific gravity measu rementOrdered By: Yois Oliveira on 09-04-2024 Specific gravity (U) [Rel density] 1.020 1.002-1.030 [facility] Urobilinogen Ql (U)Ordered B y: Yosi Oliveira on 09-04-2024 Urine Urobilinogen Normal mg/dl Normal [facility] White blood cell (WBC) count Ordered By: Yosifiorella Oliveira on 09-04-2024 WBC (Bld) [#/Vol] 9.7 10*3/uL 4.4-11.0 [facility] White blood cell countOrdere d By: Yosi Harveyone on 09-04-2024 Urine WBC 0-5 SEEN /hpf 0-5 [facility] CBC W Auto Differential pane l (Bld)on 08-02-2024 Basophils (Bld) [#/Vol] 10*3/uL Normal <0.11 [facility] Comment on above: Order Comment: Speci men Type: BLOOD SPECIMENOrdering Facility: [facility] Address: [address] [place] [address] Performed By: #### 5 7021-8 ####[facility] [id number] [place] [address] [place] Basophils/100 WBC (Bld) 0.2 % Normal [facility] Comment on above: Order Comment: Speci men Type: BLOOD SPECIMENOrdering Facility: [facility] Address: [address] [place] [address] Performed By: #### 5 7021-8 ####[facility] [id number] [place] [address] [place] Differential cell count method Nom (Bld) Auto Normal [facility] Comment on above: Order Comment: Speci men Type: BLOOD SPECIMENOrdering Facility: [facility] Address: [address] [place] [address] Performed By: #### 5 7021-8 ####[facility] [id number] [place] [address] [place] Eosinophils (Bld) [#/Vol] 0.11 10*3/uL Normal <0.46 [facility] Comment on above: Order Comment: Speci men Type: BLOOD SPECIMENOrdering Facility: [facility] Address: [address] [place] [address] Performed By: #### 5 7021-8 ####[facility] [id number] [place] [address] [place] Eosinophils/100 WBC (Bld) 1.4 % Normal [facility] Comment on above: Order Comment: Speci men Type: BLOOD SPECIMENOrdering Facility: [facility] Address: [address] [place] [address] Performed By: #### 5 7021-8 ####[facility] [id number] [place] [address] [place] Erythrocyte distribution width (RBC) [Ratio] 14.0 % Normal 11.5-15.0 [facility] Comment on above: Order Comment: Speci men Type: BLOOD SPECIMENOrdering Facility: [facility] Address: [address] [place] [address] Performed By: #### 5 7021-8 ####[facility] [id number] [place] [address] [place] Hematocrit (Bld) [Volume fraction] 36.5 % Normal 36.0-46.0 [facility] Comment on above: Order Comment: Speci men Type: BLOOD SPECIMENOrdering Facility: [facility] Address: [address] [place] [address] Performed By: #### 5 7021-8 ####[facility] [id number] [place] [address] [place] Hemoglobin (Bld) [Mass/Vol] 12.3 g/dL Normal 11.5-15.5 [facility] Comment on above: Order Comment: Speci men Type: BLOOD SPECIMENOrdering Facility: [facility] Address: [address] [place] [address] Performed By: #### 5 7021-8 ####[facility] [id number] [place] [address] [place] Immature granulocytes (Bld) [#/Vol] 10*3/uL Normal <0.10 [facility] Comment on above: Order Comment: Speci men Type: BLOOD SPECIMENOrdering Facility: [facility] Address: [address] [place] [address] Performed By: #### 5 7021-8 ####[facility] [id number] [place] [address] [place] Immature granulocytes/100 WBC (Bld) 0.1 % Normal [facility] Comment on above: Order Comment: Speci men Type: BLOOD SPECIMENOrdering Facility: [facility] Address: [address] [place] [address] Performed By: #### 5 7021-8 ####[facility] [id number] [place] [address] [place] Lymphocytes (Bld) [#/Vol] 1.82 10*3/uL Normal 1.00-4.00 [facility] Comment on above: Order Comment: Speci men Type: BLOOD SPECIMENOrdering Facility: [facility] Address: [address] [place] [address] Performed By: #### 5 7021-8 ####[facility] [id number] [place] [address] [place] Lymphocytes/100 WBC (Bld) 22.4 % Normal [facility] Comment on above: Order Comment: Speci men Type: BLOOD SPECIMENOrdering Facility: [facility] Address: [address] [place] [address] Performed By: #### 5 7021-8 ####[facility] [id number] [place] [address] [place] MCH (RBC) [Entitic mass] 27.6 pg Normal 26.0-34.0 [facility] Comment on above: Order Comment: Speci men Type: BLOOD SPECIMENOrdering Facility: [facility] Address: [address] [place] [address] Performed By: #### 5 7021-8 ####[facility] [id number] [place] [address] [place] MCHC (RBC) [Mass/Vol] 33.7 g/dL Normal 30.5-36.0 [facility] Comment on above: Order Comment: Speci men Type: BLOOD SPECIMENOrdering Facility: [facility] Address: [address] [place] [address] Performed By: #### 5 7021-8 ####[facility] [id number] [place] [address] [place] MCV (RBC) [Entitic vol] 81.8 fL Normal 80.0-100.0 C [facility] Comment on above: Order Comment: Speci men Type: BLOOD SPECIMENOrdering Facility: [facility] Address: [address] [place] [address] Performed By: #### 5 7021-8 ####[facility] [id number] [place] [address] [place] Monocytes (Bld) [#/Vol] 0.55 10*3/uL Normal <0.87 [facility] Comment on above: Order Comment: Speci men Type: BLOOD SPECIMENOrdering Facility: [facility] Address: [address] [place] [address] Performed By: #### 5 7021-8 ####[facility] [id number] [place] [address] [place] Monocytes/100 WBC (Bld) 6.8 % Normal [facility] Comment on above: Order Comment: Speci men Type: BLOOD SPECIMENOrdering Facility: [facility] Address: [address] [place] [address] Performed By: #### 5 7021-8 ####[facility]DL[facility] [id number] [place] [address] [place] Neutrophils (Bld) [#/Vol] 5.60 10*3/uL Normal 1.45-7.50 [facility] Comment on above: Order Comment: Speci men Type: BLOOD SPECIMENOrdering Facility: [facility] Address: [address] [place] [address] Performed By: #### 5 7021-8 ####[facility] [id number] [place] [address] [place] Neutrophils/100 WBC (Bld) 69.1 % Normal [facility] Comment on above: Order Comment: Speci men Type: BLOOD SPECIMENOrdering Facility: [facility] Address: [address] [place] [address] Performed By: #### 5 7021-8 ####[facility] [id number] [place] [address] [place] Nucleated RBC (Bld) [#/Vol] 10*3/uL Normal <0.01 [facility] Comment on above: Order Comment: Speci men Type: BLOOD SPECIMENOrdering Facility: [facility] Address: [address] [place] [address] Performed By: #### 5 7021-8 ####[facility] [id number] [place] [address] [place] Nucleated RBC/100 WBC (Bld) [Ratio] 0.0 /100 WBC Normal [facility] Comment on above: Order Comment: Speci men Type: BLOOD SPECIMENOrdering Facility: [facility] Address: [address] [place] [address] Performed By: #### 5 7021-8 ####[facility] [id number] [place] [address] [place] Platelet mean volume (Bld) [Entitic vol] 8.8 fL Low 9.0-12.7 [facility] Comment on above: Order Comment: Speci men Type: BLOOD SPECIMENOrdering Facility: [facility] Address: [address] [place] [address] Performed By: #### 5 7021-8 ####[facility] [id number] [place] [address] [place] Platelets (Bld) [#/Vol] 320 10*3/uL Normal 150-400 [facility] Comment on above: Order Comment: Speci men Type: BLOOD SPECIMENOrdering Facility: [facility] Address: [address] [place] [address] Performed By: #### 5 7021-8 ####[facility] [id number] [place] [address] [place] RBC (Bld) [#/Vol] 4.46 10*6/uL Normal 3.90-5.20 [facility] Comment on above: Order Comment: Speci men Type: BLOOD SPECIMENOrdering Facility: [facility] Address: [address] [place] [address] Performed By: #### 5 7021-8 ####[facility] [id number] [place] [address] [place] WBC (Bld) [#/Vol] 8.11 10*3/uL Normal 3.70-11.00 [facility] Comment on above: Order Comment: Speci men Type: BLOOD SPECIMENOrdering Facility: [facility] Address: [address] [place], [place] [address] Performed By: #### 5 7021-8 ####[facility] KAREN BAEZABOUCHRA [id number] [place] [id number] [place] Ad 08-02-2024 CNPN Telephone (OBGYWM) ROBB ULRICH ([id number]) 1995 F Date Time Provider Department 08/02/24 SRAVANI SORIA OBJOSE FWAddie During your visit today, we recorded the following information about you: Yumiko Leiva RN 08/02/2024 2:37 PM Signed ----- Message from Sravani Soria APRN.CNM sent at 08/02/2024 2:23 PM EST ----- First trimester anatomy US reviewed. Can offer early anatomy US at 16 weeks. Order placed . MARYBETH Peterson Tara, RN 08/02/2024 2:38 PM Signed Tried reaching patient by phone; however, mailbox is full and unable to leave message at this time. GIA Gonzalez Tara, RN 08/30/2024 3:20 PM Signed Pt had appt with RR 08/30/24. See OV note. Yumiko Leiva RN Allergies As of Date: 08/02/2024 Noted Allergy Reaction BACTRIM (SULFAMETHOXAZOLE-TRI METH*08/17/2018 2 - Rash GABAPENTIN 08/11/2018 2 - Rash Date Reviewed: 08/02/2024 Reviewed by: Sravani Soria APRN.CNM - Fully Assessed Reason for Visit: Offer 16 week ultrasound [Other] Prescriptions as of 08/30/2024 - no115/iron/folic acid ( 19 ORAL) Take by mouth once daily. - famotidine (PEPCID) 20 mg tablet Take 1 tablet by mouth two times a day. - metoclopramide HCl (REGLAN) 5 mg tablet Take 1 tablet by mouth four times daily. - aspirin, enteric coated (ECOTRIN LOW STRENGTH) 81 mg EC tablet Take 1 tablet by mouth once daily. Problem List As Of Date 08/02/2024 Noted Resolved Acne [L70.9] 05/08/2013 07/27/2017 Dysmenorrhea [N94.6] 05/08/2013 07/27/2017 Nausea/vomiting in [O21.9] 07/05/2024 Painful bladder spasm [R30.1] 07/05/2024 Obesity complicating , first trimester*07/05/2024 Encounter for supervision of normal first pregn*07/05/2024 Heartburn during [O26.899, R12] 08/02/2024 Encounter Status:Closed by YUMIKO LEIVA on 08/30/24 Normal [facility] nuchal translucency me asured by Cindy 08-02-2024 Indication First trimester anatomic survey Maternal obesity, BMI >30 Impression REMOTE READ The patient is referred for a first trimester anatomy scan including nuchal translucency measurement as clinically indicated. - Single, live, intrauterine . - Quinton rump length measurement is consistent with the established gestational age. - A qualitative screen of the nuchal translucency and other anatomic structures was unremarkable on a complete first trimester anatomic assessment. - Not all structural malformations can be detected by ultrasound examination. Maternal Structures: Right Ovary: Size 22 mm x 17 mm x 14 mm Recommendations - A standard anatomic survey at 16 weeks can be offered and a detailed exam at 20 weeks is recommended for increased risk. Maternal Assessment Height 173 cm Height (ft) 5 ft Height (in) 8 in Physical Exam Initial weight (lb) 225 lb Initial BMI 34.21 kg/m Maternal assessment other: 1 Para 0 Method Transabdominal ultrasound examination Santiago . Number of fetuses: 1 Dating LMP on: 05/10/2024 GA by LMP 12 w + 0 d VIVIANA by LMP: 02/14/2025 GA by prior assessment 12 w + 0 d VIVIANA by prior assessment: 02/14/2025 Ultrasound examination on: 08/02/2024 GA by U/S based upon: CRL GA by U/S 12 w + 5 d VIVIANA by U/S: 02/09/2025 Assigned: based on stated VIVIANA, selected on 08/02/2024 Assigned GA 12 w + 0 d Assigned VIVIANA: 02/14/2025 General Evaluation Cardiac activity present Placenta: posterior Cord vessels: 3 vessel cord Amniotic fluid: normal amount Biometry Standard FHR 158 bpm CRL 63.4 mm 12w 5d 89% [facility] First Trimester Anatomy Calvarium: normal Falx cerebri: normal Choroid plexus: normal Profile: normal Nasal bone: normal Retronasal triangle: normal Maxilla: normal Mandible: normal Nuchal translucency: Unremarkable Situs: normal Cardiac position: normal Cardiac axis: normal 4-chamber view: visualized 4-chamber view with color: normal 2-onusva-cmmnvse view: suboptimal Abdominal cord insertion: normal Stomach: normal Kidneys: visualized Bladder: normal Color doppler of perivesical umbilical arteries: normal Vertebral alignment: normal Arms: normal Hands: normal Legs: normal Feet: normal Maternal Structures Uterus / Cervix Uterus: Visualized Uterus length 127 mm Uterus width 113 mm Uterus height 96 mm Uterus Vol 720.5 cm Ovaries / Tubes / Adnexa Rt ovary: Visualized Rt ovary D1 22 mm Rt ovary D2 17 mm Rt ovary D3 14 mm Rt ovary Vol 2.7 cm Lt ovary: Not visualized Performed By: Millie Coley, JASMINE, RVT Read By: Vannessa Wallace M.D. MATERNAL MEDICINE [facility] Radiology Study observation (narrative) [facility] HBV surface Ag Ser Qlon 02-0 HBV surface Ag Ql (S) Negative Normal Negative [facility] Comment on above: Order Comment: Speci men Type: BLOOD SPECIMENOrdering Facility: [facility] Address: [address] [place] [address] Performed By: #### 5 195-3, 50045-5, 96893-9 ####[facility] LABCLIA [id number] [place] [address] [place] HCV Ab Ser Qlon 08-02-2024 HCV Ab Ql (S) Negative Normal Negative [facility] Comment on above: Order Comment: Speci men Type: BLOOD SPECIMENOrdering Facility: [facility] Address: [address] [place] [address] Result Comment: The result suggests no evidence of active infection with Hepatitis C virus. Should recent infection be suspected, repeat testing may be considered 4-6 weeks after this draw. Performed By: #### 1 6128-1 ####[facility] [id number] [place] [address] [place] HIV 1+2 Ab IA Qlon 5 HIV 1 and 2 Ab IA.rapid Nom (S/P/Bld) Normal [facility] Comment on above: Order Comment: Speci men Type: BLOOD SPECIMENOrdering Facility: [facility] Address: [address] [place] [address] Result Comment: Test not indicated. Performed By: #### 5 195-3, 84875-6, 87374-7 ####[facility] LABIA [id number] [place] [address] [place] HIV 1+2 Ab+HIV1 p24 Ag IA Ql Non-Reactive Normal Nonreactive [facility] Comment on above: Order Comment: Speci men Type: BLOOD SPECIMENOrdering Facility: [facility] Address: [address] [place] [address] Performed By: #### 5 195-3, 76058-1, 63907-7 ####[facility] [id number] [place] [address] [place] HIV immunoassay testing algorithm interpretation (S/P/Bld) [Interp] Normal [facility] Comment on above: Order Comment: Speci men Type: BLOOD SPECIMENOrdering Facility: [facility] Address: [address] [place] [address] Result Comment: No e vidence of HIV-1 or HIV-2 infection. Should recent infection be suspected, repeat testing may be considered 2-3 weeks after this draw. [place] Rev. Code 3701.243(E): This information has been disclosed to you from confidential records protected from disclosure by state law. ???You shall make no further disclosure of this information without the specific, written, and informed release of the individual to whom it pertains or as otherwise permitted by state law. A general authorization for the release of medical or other information is not sufficient for the purpose of the release of HIV test results or diagnoses. Performed By: #### 5 195-3, 18629-3, 79141-7 ####[facility] LABIA [id number] [place] HbA1c (Bld)on 08-02-2024 Average glucose Estimated from glycated hemoglobin (Bld) [Mass/Vol] 97 mg/dL Normal [facility] Comment on above: Order Comment: Speci men Type: BLOOD SPECIMENOrdering Facility: [facility] Address: [address] [place] [address] Result Comment: eAG: (Estimated average glucose) is a calculated value from HgbA1c and is associate sales representative of the average blood glucose level in the last 2-3 month period. Performed By: #### 5 5454-3 ####[facility] LABIA [id number] HbA1c (Bld) [Mass fraction] 5.0 % Normal 4.3-5.6 [facility] Comment on above: Order Comment: Speci men Type: BLOOD SPECIMENOrdering Facility: [facility] Address: [address] [place] [address] Result Comment: [place] Diabetes Association guidelines indicate that patients with HgbA1c in the range 5.7-6.4% are at increased risk for development of diabetes, and intervention by lifestyle modification may be beneficial. HgbA1c greater or equal to 6.5% is considered diagnostic of diabetes. Performed By: #### 5 5454-3 ####[facility] [id number] [place] [id number] PLUSon 08-02-2024 Cell-free DNA./Cell-free DNA.total Dosage of chromosome-specific cfDNA (cfDNA) [Molar fraction] 22% Normal [facility] Comment on above: Order Comment: Speci men Type: BLOOD SPECIMENOrdering Facility: [facility] Address: [address] [place], [place] [address] Performed By: #### M AT21 ####[facility] LABCLIA [id number] [place] [address] Chr 13+18+21+X+Y aneuploidy Dosage of chromosome-specific cfDNA Ql (cfDNA) Negative Normal [facility] Comment on above: Order Comment: Speci men Type: BLOOD SPECIMENOrdering Facility: [facility] Address: [address] [place] [address] Performed By: #### M AT21 ####[facility] LABCLIA [id number] [place] [address] Chr 21 trisomy Dosage of chromosome-specific cfDNA Ql (cfDNA) Negative Normal [facility] Comment on above: Order Comment: Speci men Type: BLOOD SPECIMENOrdering Facility: [facility] Address: [address] [place] [address] Performed By: #### M AT21 ####[facility] LABCLIA [id number] [place] [address] Chr X and Y aneuploidy risk Sequencing Ql (cfDNA) [Interp] Not detected Normal [facility] Comment on above: Order Comment: Speci men Type: BLOOD SPECIMENOrdering Facility: [facility] Address: [address] [place] [address] Result Comment: Not Detected Not Detected Performed By: #### M AT21 ####[facility] LABCLIA [id number] [place] [address] Citation Juan Carlos (Reference lab test) Comment Normal [facility] Comment on above: Order Comment: Speci men Type: BLOOD SPECIMENOrdering Facility: [facility] Address: [address] [place] [address] Result Comment: 1. P ignacio JASON, et al. Mariela Med. 2012;14(3):296-305. 2. Barbra WHITE et al. Prenat Diag. 2013;33(6):591-597. 3. Gen C, et al. Clin Chem. 2015 Apr;61(4):608-616. 4. Dulce Maria JASON et al. Mariela Med. 2011;13(11):913-920. 5. ACOG/[facility] Practice Bulletin No. 226, Mar 2020. Performed By: #### M AT21 ####[facility] LABCLIA [id number] [place] [address] Gestational age Estimated from conception date Santiago Normal [facility] Comment on above: Order Comment: Speci men Type: BLOOD SPECIMENOrdering Facility: [facility] Address: [address] [place] [address] Performed By: #### M AT21 ####[facility] LABCLIA [id number] [place] [id number] GESTATIONALAGE AGE > OR = 9W Yes Normal [facility] Comment on above: Order Comment: Speci men Type: BLOOD SPECIMENOrdering Facility: [facility] Address: [address] [place] [address] Performed By: #### M AT21 ####[facility] LABCLIA [id number] [place] [id number] Laboratory comment Juan Carlos (Report) Comment Normal [facility] Comment on above: Order Comment: Speci ann Type: BLOOD SPECIMENOrdering Facility: [facility] Address: [address] [place] [address] Result Comment: The MaterniT(R) 21 PLUS laboratory-developed test (LDT) analyzes circulating cell-free DNA from a maternal blood sample. This test is used for screening purposes and not diagnostic. Clinical correlation is recommended. Validation data on twin pregnancies is limited and the ability of this test to detect aneuploidy in higher multiple gestations has not yet been validated. Performed By: #### M AT21 ####[facility] LABCLIA [id number] [place] [id number] civil engineering director name Nom (Provider) Comment Normal [facility] Comment on above: Order Comment: Speci men Type: BLOOD SPECIMENOrdering Facility: [facility] Address: [address] [place] [address] Result Comment: This specimen showed an expected representation of chromosome 21, 18 and 13 material. Clinical correlation is suggested. Comment Rogelio Parsons MD, PhD, Director, [employer] Performed By: #### M AT21 ####[facility] LABCLIA [id number] [place] [address] LIMITATIONS OF THE TEST Comment Normal C [facility] Comment on above: Order Comment: Speci men Type: BLOOD SPECIMENOrdering Facility: [facility] Address: [facility] [place] [address] Result Comment: Eben lance the results of these tests are highly reliable, discordant results, including inaccurate sex prediction, may occur due to placental, maternal, or mosaicism or neoplasm; vanishing twin; prior maternal organ transplant; or other causes. These tests are screening tests and not diagnostic; they do not replace the accuracy and precision of diagnosis with CVS or amniocentesis. A patient with a positive test result should be referred for genetic counseling and offered invasive diagnosis for confirmation of test results.[5] The results of this testing, including the benefits and limitations, should be discussed with a qualified healthcare provider. management decisions, including termination of the , should not be based on the results of these tests alone. The healthcare provider is responsible for the use of this information in the management of their patient. Sex chromosomal aneuploidies are not reportable for known multiple gestations. A negative result does not ensure an unaffected nor does it exclude the possibility of other chromosomal abnormalities or defects which are not a part of these tests. An uninformative result may be reported, the causes of which may include, but are not limited to, insufficient sequencing coverage, noise or artifacts in the region, amplification or sequencing bias, or insufficient fraction. These tests are not intended to identify pregnancies at risk for neural tube defects or ventral wall defects. Testing for whole chromosome abnormalities (including sex chromosomes) and for subchromosomal abnormalities could lead to the potential discovery of both and maternal genomic abnormalities that could have major, minor, or no, clinical significance. Evaluating the significance of a positive or a non-reportable result may involve both invasive testing and additional studies on the mother. Such investigations may lead to a diagnosis of maternal chromosomal or subchromosomal abnormalities, which on occasion may be associated with benign or malignant maternal neoplasms. These tests may not accurately identify triploidy, balanced rearrangements, or the precise location of subchromosomal duplications or deletions; these may be detected by diagnosis with CVS or amniocentesis. The ability to report results may be impacted by maternal BMI, maternal weight, maternal systemic lupus erythematosus (SLE) and/or by certain pharmaceutical agents such as low molecular weight heparin (for example: Lovenox(R), Xaparin(R), Clexane(R) and Fragmin(R)). Performed By: #### M AT21 ####[employer] WolinakIA [id number] [place] [id number] Monosomy X risk Dosage of chromosome-specific cfDNA Ql (Plasma cell-free+WBC DNA) [Interp] Not detected Normal [facility] Comment on above: Order Comment: Hien juarez Type: BLOOD SPECIMENOrdering Facility: [facility] Address: [address] [place] [address] Performed By: #### M AT21 ####[employer] LABZingfinIA [id number] [place] [address] NEGATIVE PREDICTIVE VALUE Note Normal [facility] Comment on above: Order Comment: Hien juarez Type: BLOOD SPECIMENOrdering Facility: [facility] Address: [address] [place] [address] Result Comment: The Negative Predictive Value (NPV) for trisomy 21, 18, and 13 is greater than 99%. The NPV for SCA and ESS cannot be calculated as SCA and ESS are only reported when an abnormality is detected. Performed By: #### M AT21 ####[employer] LABZingfinIA [id number] [place] [address] PERFORMANCE CHARACTERISTICS Note Normal [facility] Comment on above: Order Comment: Hien juarez Type: BLOOD SPECIMENOrdering Facility: [facility] Address: [address] [place] [address] Result Comment: ! Sex ! Accuracy: 99.4% ! ! ! ! Region (associated syndrome) ! Est. Sens# ! Est. Spec ! ! ! ! Trisomy 21 (Down Syndrome) ! 99.1% ! 99.9% ! ! ! ! Trisomy 18 (Jones Syndrome) ! >99.9% ! 99.6% ! ! ! ! Trisomy 13 (Patau Syndrome) ! 91.7% ! 99.7% ! ! ! ! Sex Chromosome Aneuploidies## ! 96.2% ! 99.7% ! ! ! * As reported in [facility] database nstd37 [https://www.ncbi.nlm.nih.gov/dbvar/studies/nstd37/ ] # Estimated Sensitivity. Sensitivity estimated across the observed size distribution of each syndrome [per [employer] database nstd37] and across the range of fractions observed in routine clinical NIPT. Actual sensitivity can also be influenced by other factors such as the size of the event, total sequence counts, amplification bias, or sequence bias. ## Santiago gestation only. Performed By: #### M AT21 ####[facility] LABCLIA [id number] [place] [address] POSITIVE PREDICTIVE VALUE N/A Normal [facility] Comment on above: Order Comment: Speci men Type: BLOOD SPECIMENOrdering Facility: [facility] Address: [address] [place] [address] Performed By: #### M AT21 ####[facility] LABCLIA [id number] [place] [address] Reference Lab Test Method Comment Normal [facility] Comment on above: Order Comment: Speci men Type: BLOOD SPECIMENOrdering Facility: [facility] Address: [address] [place] [address] Result Comment: See Notes Circulating cell-free DNA was purified from the plasma component of maternal blood. The extracted DNA was then converted into a genomic DNA library for aneuploidy analysis of chromosomes 21, 18, and 13 via next generation sequencing.[1] Optional findings based on the test order include sex chromosome aneuploidy (SCA)[2], and enhanced sequencing series (ESS)[3], which will only be reported on as an additional finding when an abnormality is detected. SCA testing includes information on X and Y representation, while ESS testing includes deletions in selected regions (22q, 15q, 11q, 8q, 5p, 4p, 1p) and trisomy of chromosomes 16 and 22. Performed By: #### M AT21 ####[facility] LABCLIA [id number] [place] [address] Service comment (Unsp spec) [Interp] Comment Normal [facility] Comment on above: Order Comment: Speci men Type: BLOOD SPECIMENOrdering Facility: [facility] Address: [address] [place] [address] Result Comment: See Notes [employer] is a subsidiary of [employer], using the brand [employer]. This test was developed and its performance characteristics determined by [employer]. It has not been cleared or approved by the Food and Drug Administration. This laboratory is certified under the Clinical Laboratory Improvement Amendments (CLIA) as qualified to perform high complexity clinical laboratory testing and accredited by the [employer] (CAP). If there is future clinical need for adding MaterniT GENOME testing, this specimen will be available until term. [facility] samples will not be retained beyond 60 days. [facility] patients will have to send a new sample for re-sequencing ([facility] Test Code: 953866). Performed By: #### M AT21 ####[facility] LABCLIA [id number] [place] [address] Sex Dosage of chromosome-specific cfDNA Nom (cfDNA) Comment Normal [facility] Comment on above: Order Comment: Speci men Type: BLOOD SPECIMENOrdering Facility: [facility] Address: [address] [place] [address] Result Comment: Cons istent with Female Performed By: #### M AT21 ####[facility] LABCLIA [id number] [place] [address] Test performance information Juan Carlos (Unsp spec) Comment Normal [facility] Comment on above: Order Comment: Speci men Type: BLOOD SPECIMENOrdering Facility: [facility] Address: [address] [place] [address] Result Comment: The performance characteristics of the MaterniT(R) 21 PLUS laboratory-developed test (LDT) have been determined in a clinical validation study with women at increased risk for chromosomal aneuploidy.[1-4] Performed By: #### M AT21 ####[facility] LABCLIA [id number] [place] [address] Trisomy 13 risk Dosage of chromosome-specific cfDNA Ql (cfDNA) [Interp] Negative Normal [facility] Comment on above: Order Comment: Speci men Type: BLOOD SPECIMENOrdering Facility: [facility] Address: [address] [place] [address] Performed By: #### M AT21 ####[facility] LABCLIA [id number] [place] [address] Trisomy 18 risk Dosage of chromosome-specific cfDNA Ql (Plasma cell-free+WBC DNA) [Interp] Negative Normal [facility] Comment on above: Order Comment: Speci ann Type: BLOOD SPECIMENOrdering Facility: [facility] Address: [address] [place] [address] Performed By: #### M AT21 ####[facility] LABCLIA [id number] [place] [address] RUBELLA IGG ANTIBODYon 08-02 RUBELLA IGG AB, QUAL Positive Normal Positive [facility] Comment on above: Order Comment: Bhartii [facility] Type: BLOOD SPECIMENOrdering Facility: [facility] Address: [address] [place] [address] Result Comment: The result suggests recent or past exposure to Rubella virus or history of Rubella vaccination. Positive result may also be seen due to presence of passively-transferred antibodies. Please correlate with patient's history. Performed By: #### R UBIGG ####[facility] LABCLIA [id number] [place] [address] [place] Reagin and Treponema pallidu m IgG and IgM [Interp]on 08-02-2024 T. pallidum IgG+IgM IA Ql (S) Non-Reactive Normal Nonreactive [facility] Comment on above: Order Comment: Hien ann Type: BLOOD SPECIMENOrdering Facility: [facility] Address: [address] [place] [address] Performed By: #### 5 195-3, 33468-9, 06711-9 ####[facility] LABCLIA [id number] [place] [address] [place] Reagin+T pallidum IgG+IgM Se rPl-Impon 08-02-2024 Reagin and Treponema pallidum IgG and IgM [Interp] Cannot exclude recent Treponemal infection if specimen collected within 7-10 days after appearance of suspect lesions or 2-3 weeks after an exposure. Clinical correlation is required. Normal [facility] Comment on above: Order Comment: Speci [facility] Type: BLOOD SPECIMENOrdering Facility: [facility] Address: [address] [place] [address] Performed By: #### 5 195-3, 76878-1, 62649-4 ####[facility] LABCLIA [id number] [place] [address] [place] TYPE + SCREEN PRENATALon ABO O Normal [facility] Comment on above: Order Comment: Speci men Type: FLUID SPECIMEN [facility] Address: [address] [place] [address] Performed By: #### L [id number] #### [facility] CLIA [id number] [address] [place] [address] [place] Rh Nom (Bld) Positive Normal [facility] Comment on above: Order Comment: Speci men Type: FLUID SPECIMEN [facility] Address: [address] [place] [address] Performed By: #### L [id number] #### [facility] CLIA [id number] [address] [place] [address] [place] TYPE AND SCREEN EXPIRATION 08/05/2024 23:59 Normal [facility] Comment on above: Order Comment: Speci men Type: FLUID SPECIMEN [facility] Address: [address] [place] [address] Performed By: #### L [id number] #### [facility] CLIA [id number] [address] [place] [address] [place] Bacteria Ur Culton 5 Bacteria identified Cx Nom (U) ORGANISM ID: 1 10,000 -<50,000 CFU/ml Normal urogenital marisol Normal [facility] Comment on above: Performed By: #### 6 30-4 ####[facility] LABCLIA [id number] [place] [address] [place] C. trachomatis+N. gonorrhoea e DNA ROSA+probe Ql (Unsp spec)on 07-05-2024 C. trachomatis rRNA ROSA+probe Ql (Unsp spec) Not detected Normal Not detected [facility] Comment on above: Order Comment: Speci men Type: SWABOrdering Facility: [facility] Address: [address] [place] [address] Performed By: #### 3 6902-5 ####[facility] LABCLIA [id number] [address] [place] [facility] N. gonorrhoeae rRNA ROSA+probe Ql (Unsp spec) Not detected Normal Not detected [facility] Comment on above: Order Comment: Speci men Type: SWABOrdering Facility: [facility] Address: [address] [place] [address] Performed By: #### 3 6902-5 ####[facility] LABCLIA [id number] [address] [place] POC INSOLE BUFFER ULTRASOUNDon 07-05-19 Indication Viability; confirm cardiac activity Impression Single intrauterine gestational sac, CRL is appropriate for clinical dates, corresponding to VIVIANA cardiac activity is visualized Recommendations Follow up for NT scan if desired Method Transvaginal ultrasound examination Santiago . Number of embryos: 1 Dating LMP on: 05/10/2024 GA by LMP 8 w + 0 d VIVIANA by LMP: 02/14/2025 Ultrasound examination on: 07/05/2024 GA by U/S based upon: CRL GA by U/S 8 w + 2 d VIVIANA by U/S: 02/12/2025 Assigned: based on the LMP, selected on 07/05/2024 Assigned GA 8 w + 0 d Assigned VIVIANA: 02/14/2025 Biometry Standard CRL 18.1 mm 8w 2d >99% Hadlock Assessment Gestational sac: visualized Location: intrauterine Yolk sac: visualized Embryo: visualized CRL 18.1 mm 8w 2d >99% Hadlock Cardiac activity: present General Evaluation Cardiac activity present Performed By: Sravani Soria CNM Read By: Sravani Soria CNM MATERNAL MEDICINE [facility] Radiology Study observation (narrative) Gus Duong 07-04-2024 CNPN Telephone (FAMPWS) ROBB [place] ([id number]) 1995 F Date Time Provider Department 07/04/24 STEPHANIE TIDWELLWS During your visit today, we recorded the following information about you: Stephanie Tidwell APRN.WALLY 07/04/2024 8:45 AM Signed Please call patient and let her know that lab work results look fantastic! No acute concerns. UA does look concerning for UTI (as it has in ER and express care) however, urine culture remains negative with no growth. I would still like her to continue antibiotic to completion as discussed. Please continue with complete abd ultrasound as ordered. Please see how she is feeling. Continue with OB appointment tomorrow. Thank you, Stephanie Tidwell APRN.Mariya Delgado LPN 07/04/2024 9:22 AM Signed Spoke with pt gave information provided. Pt voices understanding. Pt states feels ok but needs to say up on the zofran and meds otherwise in pain. Stephanie Tidwell APRN.WALLY 07/04/2024 10:11 AM Signed Noted. Thank you, Stephanie Tidwell APRN.OFFSET PRESS OPERATOR APPRENTICE Allergies As of Date: 07/04/2024 Noted Allergy Reaction BACTRIM (SULFAMETHOXAZOLE-TRI METH*08/17/2018 2 - Rash GABAPENTIN 08/11/2018 2 - Rash Date Reviewed: 07/03/2024 Reviewed by: Ana Harley MA - Fully Assessed Reason for Visit: Results [95] Prescriptions as of 07/04/2024 - nitrofurantoin monohydrate and macrocrystal (MACROBID) 100 mg capsule Take 1 capsule by mouth two times a day for 7 days. - ondansetron (ZOFRAN) 4 mg tablet Take 1 tablet by mouth every 8 hours as needed for nausea/vomiting. Problem List As Of Date 07/04/2024 Noted Resolved Acne [L70.9] 05/08/2013 07/27/2017 Dysmenorrhea [N94.6] 05/08/2013 07/27/2017 Encounter Status:Closed by STEPHANIE TIDWELL on 07/04/24 Normal [facility] CNPN Telephone (FAMPWS) ROBB ULRICH ([id number]) 1995 F Date Time Provider Department 07/04/24 [facility] During your visit today, we recorded the following information about you: Stephanie Tidwell APRN.OFFSET PRESS OPERATOR APPRENTICE 07/04/2024 2:25 PM Signed Please call patient and let her know that ultrasound of abd was normal besides mild fatty liver -- adjusting diet to include increase in veggies and decrease in fried or fatty foods will help this. Otherwise, continue with OBGYN. Thank you, Stephanie Tidwell APRN.OFFSET PRESS OPERATOR APPRENTICE Mariya Hu LPN 07/04/2024 4:03 PM Signed Spoke with pt gave information provided. Pt voices understanding. Allergies As of Date: 07/04/2024 Noted Allergy Reaction BACTRIM (SULFAMETHOXAZOLE-TRI METH*08/17/2018 2 - Rash GABAPENTIN 08/11/2018 2 - Rash Date Reviewed: 07/03/2024 Reviewed by: Ana Harley MA - Fully Assessed Reason for Visit: Results [95] Prescriptions as of 07/04/2024 - nitrofurantoin monohydrate and macrocrystal (MACROBID) 100 mg capsule Take 1 capsule by mouth two times a day for 7 days. - ondansetron (ZOFRAN) 4 mg tablet Take 1 tablet by mouth every 8 hours as needed for nausea/vomiting. Problem List As Of Date 07/04/2024 Noted Resolved Acne [L70.9] 05/08/2013 07/27/2017 Dysmenorrhea [N94.6] 05/08/2013 07/27/2017 Encounter Status:Closed by MARIYA HU on 07/04/24 Normal [facility] US ABDOMEN COMPLETEon 2024 US ABDOMEN COMPLETE * * *Final Report* * * DATE OF EXAM: Jul 04 2024 10:20AM [facility] 1040 - US ABDOMEN COMPLETE / PROCEDURE REASON: Lower abdominal pain * * * * Physician Interpretation * * * * EXAMINATION: COMPLETE ABDOMINAL ULTRASOUND CLINICAL HISTORY: Abdominal pain TECHNIQUE: Sonography of the abdomen was performed. Images were obtained and stored in a permanent archive and interpreted remotely. MQ: UAbC_2 COMPARISON: None RESULT: Pancreas: Normal sonographic appearance. Portions obscured: Tail Lesions: None Liver: Echotexture: Normal, homogeneous. Echogenicity: Mildly increased Surface contour: Smooth Lesions: None. Biliary: No intrahepatic biliary duct dilation. CBD: 0.4 cm at the hilum. Gallbladder: Normal caliber -Contents: No cholelithiasis -Wall: Normal -Other: No pericholecystic fluid. Spleen: Length: 11.7 cm Lesions: None Right Kidney: -Renal length: 11.1 cm -Parenchyma: Normal parenchymal echogenicity. Normal parenchymal thickness. -Collecting system: No hydronephrosis. -Calculus: No echogenic, shadowing calculus. -Lesion: None. Left Kidney: -Renal length: 10.7 cm -Parenchyma: Normal parenchymal echogenicity. Normal parenchymal thickness. -Collecting system: No hydronephrosis. -Calculus: No echogenic, shadowing calculus. -Lesion: None. Bladder: Incompletely distended. IVC: Imaged segment is patent. Abdominal Aorta: Imaged segment is patent. Maximum Diameter: 1.4 cm Ascites: none IMPRESSION: Mild hepatic steatosis. [employer] Machine Setter: [id number] Transcribe Date/Time: Jul 04 2024 10:35A Dictated by : ALTON ROLLINS MD This examination was interpreted and the report reviewed and electronically signed by: ALTON ROLLINS MD on Jul 04 2024 10:39AM EST [id number] Normal [facility] US Abdomenon 07-04-2024 IMPRESSION: Mild hepatic steatosis. [employer] Production Machine Setter: [id number] Transcribe Date/Time: Jul 04 2024 10:35A Dictated by : ALTON ROLLINS MD This examination was interpreted and the report reviewed and electronically signed by: ALTON ROLLINS MD on Jul 04 2024 10:39AM [facility] DIV[facility] OF RADIOLOGY * * *Final Report* * * DATE OF EXAM: Jul 04 2024 10:20AM [facility] 1040 - US ABDOMEN COMPLETE / PROCEDURE REASON: Lower abdominal pain * * * * Physician Interpretation * * * * EXAMINATION: COMPLETE ABDOMINAL ULTRASOUND CLINICAL HISTORY: Abdominal pain TECHNIQUE: Sonography of the abdomen was performed. Images were obtained and stored in a permanent archive and interpreted remotely. MQ: UAbC_2 COMPARISON: None RESULT: Pancreas: Normal sonographic appearance. Portions obscured: Tail Lesions: None Liver: Echotexture: Normal, homogeneous. Echogenicity: Mildly increased Surface contour: Smooth Lesions: None. Biliary: No intrahepatic biliary duct dilation. CBD: 0.4 cm at the hilum. Gallbladder: Normal caliber -Contents: No cholelithiasis -Wall: Normal -Other: No pericholecystic fluid. Spleen: Length: 11.7 cm Lesions: None Right Kidney: -Renal length: 11.1 cm -Parenchyma: Normal parenchymal echogenicity. Normal parenchymal thickness. -Collecting system: No hydronephrosis. -Calculus: No echogenic, shadowing calculus. -Lesion: None. Left Kidney: -Renal length: 10.7 cm -Parenchyma: Normal parenchymal echogenicity. Normal parenchymal thickness. -Collecting system: No hydronephrosis. -Calculus: No echogenic, shadowing calculus. -Lesion: None. Bladder: Incompletely distended. IVC: Imaged segment is patent. Abdominal Aorta: Imaged segment is patent. Maximum Diameter: 1.4 cm Ascites: none DIVISION OF RADIOLOGY Provider, [facility] 07/04/[facility]24 * * *Final Report* * * DATE OF EXAM: Jul 04 2024 10:20AM WRU 1040 - US ABDOMEN COMPLETE / PROCEDURE REASON: Lower abdominal pain * * * * Physician Interpretation * * * * EXAMINATION: COMPLETE ABDOMINAL ULTRASOUND CLINICAL HISTORY: Abdominal pain TECHNIQUE: Sonography of the abdomen was performed. Images were obtained and stored in a permanent archive and interpreted remotely. MQ: UAbC_2 COMPARISON: None RESULT: Pancreas: Normal sonographic appearance. Portions obscured: Tail Lesions: None Liver: Echotexture: Normal, homogeneous. Echogenicity: Mildly increased Surface contour: Smooth Lesions: None. Biliary: No intrahepatic biliary duct dilation. CBD: 0.4 cm at the hilum. Gallbladder: Normal caliber -Contents: No cholelithiasis -Wall: Normal -Other: No pericholecystic fluid. Spleen: Length: 11.7 cm Lesions: None Right Kidney: -Renal length: 11.1 cm -Parenchyma: Normal parenchymal echogenicity. Normal parenchymal thickness. -Collecting system: No hydronephrosis. -Calculus: No echogenic, shadowing calculus. -Lesion: None. Left Kidney: -Renal length: 10.7 cm -Parenchyma: Normal parenchymal echogenicity. Normal parenchymal thickness. -Collecting system: No hydronephrosis. -Calculus: No echogenic, shadowing calculus. -Lesion: None. Bladder: Incompletely distended. IVC: Imaged segment is patent. Abdominal Aorta: Imaged segment is patent. Maximum Diameter: 1.4 cm Ascites: none IMPRESSION IMPRESSION: Mild hepatic steatosis. Plastic Production Machine Setter: ZULEMA Transcribe Date/Time: Jul 04 2024 10:35A Dictated by : ALTON ROLLINS MD This examination was interpreted and the report reviewed and electronically signed by: ALTON ROLLINS MD on Jul 04 2024 10:39AM EST [facility] Radiology Study observation (narrative) [facility] US AbdomenOrdered By: Cctea garcia on 07-04-2024 [facility] Bacteria Ur Culton Bacteria identified Cx Nom (U) CULTURE, URINE: No growth (<1,000 CFU/ml) Normal [facility] Comment on above: Performed By: #### 6 30-4 ####[facility] LABCLIA [id number] [place] [address] [place] CBC W Auto Differential pane l (Bld)on 07-02-2024 Basophils (Bld) [#/Vol] 0.05 10*3/uL Normal <0.11 [facility] Comment on above: Order Comment: Speci men Type: BLOOD SPECIMENOrdering Facility: [facility] Address: [address] [place] [address] Performed By: #### 5 7021-8 ####[facility] LABCLIA [id number] [place] [address] [place] Basophils/100 WBC (Bld) 0.6 % Normal C [facility] Comment on above: Order Comment: Speci men Type: BLOOD SPECIMENOrdering Facility: [facility] Address: [address] [place] [address] Performed By: #### 5 7021-8 ####[facility] LABCLIA [id number] [place] [address] [place] Differential cell count method Nom (Bld) Auto Normal [facility] Comment on above: Order Comment: Speci men Type: BLOOD SPECIMENOrdering Facility: [facility] Address: [address] [place] [address] Performed By: #### 5 7021-8 ####[facility] LABCLIA [id number] [place] [address] [place] Eosinophils (Bld) [#/Vol] 0.09 10*3/uL Normal <0.46 [facility] Comment on above: Order Comment: Speci men Type: BLOOD SPECIMENOrdering Facility: [facility] Address: [address] [place] [address] Performed By: #### 5 7021-8 ####[facility] LABCLIA [id number] [address] [place] Eosinophils/100 WBC (Bld) 1.1 % Normal [facility] Comment on above: Order Comment: Speci men Type: BLOOD SPECIMENOrdering Facility: [facility] Address: [address] [place] [address] Performed By: #### 5 7021-8 ####[facility] LABCLIA [id number] [place] [address] [place] Erythrocyte distribution width (RBC) [Ratio] 13.7 % Normal 11.5-15.0 [facility] Comment on above: Order Comment: Speci men Type: BLOOD SPECIMENOrdering Facility: [facility] Address: [address] [place] [address] Performed By: #### 5 7021-8 ####[facility] LABCLIA [id number] [place] [address] [place] Hematocrit (Bld) [Volume fraction] 38.1 % Normal 36.0-46.0 [facility] Comment on above: Order Comment: Speci men Type: BLOOD SPECIMENOrdering Facility: [facility] Address: [address] [place] [address] Performed By: #### 5 7021-8 ####[facility] LABIA [id number] [place] [address] [place] Hemoglobin (Bld) [Mass/Vol] 12.5 g/dL Normal 11.5-15.5 [facility] Comment on above: Order Comment: Speci men Type: BLOOD SPECIMENOrdering Facility: [facility] Address: [address] [place] [address] Performed By: #### 5 7021-8 ####[facility] LABIA [id number] [place] [address] [place] Immature granulocytes (Bld) [#/Vol] 10*3/uL Normal <0.10 [facility] Comment on above: Order Comment: Speci men Type: BLOOD SPECIMENOrdering Facility: [facility] Address: [address] [place] [address] Performed By: #### 5 7021-8 ####[facility] LABIA [id number] [place] [address] [place] Immature granulocytes/100 WBC (Bld) 0.2 % Normal [facility] Comment on above: Order Comment: Speci men Type: BLOOD SPECIMENOrdering Facility: [facility] Address: [address] [place] [address] Performed By: #### 5 7021-8 ####[facility] LABCLIA [id number] [place] [address] [place] Lymphocytes (Bld) [#/Vol] 1.95 10*3/uL Normal 1.00-4.00 [facility] Comment on above: Order Comment: Speci men Type: BLOOD SPECIMENOrdering Facility: [facility] Address: [address] [place] [address] Performed By: #### 5 7021-8 ####[facility] LABCLIA [id number] [place] [address] [place] Lymphocytes/100 WBC (Bld) 22.8 % Normal [facility] Comment on above: Order Comment: Speci men Type: BLOOD SPECIMENOrdering Facility: [facility] Address: [address] [place] [address] Performed By: #### 5 7021-8 ####[facility] LABIA [id number] [place] [address] [place] MCH (RBC) [Entitic mass] 27.7 pg Normal 26.0-34.0 [facility] Comment on above: Order Comment: Speci men Type: BLOOD SPECIMENOrdering Facility: [facility] Address: [address] [place] [address] Performed By: #### 5 7021-8 ####[facility] LABCLIA [id number] [place] [address] [place] MCHC (RBC) [Mass/Vol] 32.8 g/dL Normal 30.5-36.0 [facility] Comment on above: Order Comment: Speci men Type: BLOOD SPECIMENOrdering Facility: [facility] Address: [address] [place] [address] Performed By: #### 5 7021-8 ####[facility] LABCLIA [id number] [place] [address] [place] MCV (RBC) [Entitic vol] 84.5 fL Normal 80.0-100.0 C [facility] Comment on above: Order Comment: Speci men Type: BLOOD SPECIMENOrdering Facility: [facility] Address: [address] [place] [address] Performed By: #### 5 7021-8 ####[facility] LABCLIA [id number] [place] [address] [place] Monocytes (Bld) [#/Vol] 0.71 10*3/uL Normal <0.87 [facility] Comment on above: Order Comment: Speci men Type: BLOOD SPECIMENOrdering Facility: [facility] Address: [address] [place] [address] Performed By: #### 5 7021-8 ####[facility] LABCLIA [id number] [place] [address] [place] Monocytes/100 WBC (Bld) 8.3 % Normal C [facility] Comment on above: Order Comment: Speci men Type: BLOOD SPECIMENOrdering Facility: [facility] Address: [address] [place] [address] Performed By: #### 5 7021-8 ####[facility] LABCLIA [id number] [place] [address] [place] Neutrophils (Bld) [#/Vol] 5.73 10*3/uL Normal 1.45-7.50 [facility] Comment on above: Order Comment: Speci men Type: BLOOD SPECIMENOrdering Facility: [facility] Address: [address] [place] [address] Performed By: #### 5 7021-8 ####[facility] LABCLIA [id number] [place] [address] [place] Neutrophils/100 WBC (Bld) 67.0 % Normal [facility] Comment on above: Order Comment: Speci men Type: BLOOD SPECIMENOrdering Facility: [facility] Address: [address] [place] [address] Performed By: #### 5 7021-8 ####[facility] LABCLIA [id number] [place] [address] [place] Nucleated RBC (Bld) [#/Vol] 10*3/uL Normal <0.01 [facility] Comment on above: Order Comment: Speci men Type: BLOOD SPECIMENOrdering Facility: [facility] Address: [address] [place] [address] Performed By: #### 5 7021-8 ####[facility] LABCLIA [id number] [place] [address] [place] Nucleated RBC/100 WBC (Bld) [Ratio] 0.0 /100 WBC Normal [facility] Comment on above: Order Comment: Speci men Type: BLOOD SPECIMENOrdering Facility: [facility] Address: [address] [place] [address] Performed By: #### 5 7021-8 ####[facility] LABIA [id number] [place] [address] [place] Platelet mean volume (Bld) [Entitic vol] 9.6 fL Normal 9.0-12.7 [facility] Comment on above: Order Comment: Speci men Type: BLOOD SPECIMENOrdering Facility: [facility] Address: [address] [place] [address] Performed By: #### 5 7021-8 ####[facility] LABCLIA [id number] [place] [address] [place] Platelets (Bld) [#/Vol] 371 10*3/uL Normal 150-400 [facility] Comment on above: Order Comment: Speci men Type: BLOOD SPECIMENOrdering Facility: [facility] Address: [address] [place] [address] Performed By: #### 5 7021-8 ####[facility] LABCLIA [id number] [place] [address] [place] RBC (Bld) [#/Vol] 4.51 10*6/uL Normal 3.90-5.20 [facility] Comment on above: Order Comment: Speci men Type: BLOOD SPECIMENOrdering Facility: [facility] Address: [address] [place] [address] Performed By: #### 5 7021-8 ####[facility] LABCLIA [id number] [place] [address] [place] WBC (Bld) [#/Vol] 8.55 10*3/uL Normal 3.70-11.00 [facility] Comment on above: Order Comment: Speci men Type: BLOOD SPECIMENOrdering Facility: [facility] Address: [address] [place] [address] Performed By: #### 5 7021-8 ####[facility] LABCLIA [id number] [address] [place] CNOVon 07-02-2024 CNOV Office Visit (FAMPWS ) ROBB ULRICH ([id number]) 1995 F Date Time Provider Department 07/02/24 1:20 PM STEPHANIE TIDWELL FAMPWS During your visit today, we recorded the following information about you: Temperature Pulse Respiration Blood pressure 98.1 degrees 84/minute 16/minute 104/64 Weight 105.6 kg Stephanie Tidwell, BOBBIN TRUCKER.OFFSET PRESS OPERATOR APPRENTICE 07/02/2024 2:15 PM Signed Chief Complaint Patient presents with: ED Follow-up: STOMACH CRAMPING ON AND OFF VOMITTING SINCE YESTERDAY MORNING. UNABLE TO KEEP ANYTHING JENNIFER HPI Robb Oneal Serg is a 28 year old female who presents here today for Above Complaints. Robb is an established patient of Dr. Gus DO. She is a new patient to me today. Concerns today... Per TE from 06/29/24: Mother phoned to report pt is about 7 weeks , and for the last 9 days, pt has been having horrible cramping in groin and back. Was seen in a UC on 06-22-24 and told she had UTI and prescribed AB then UC called her to tell her Cx was negative for UTI and to stop the AB. On pt was seen in [facility]OT MACHINE REPAIR[facility] office - had pelvic US done and was told everything looked good. While at that appt pt developed severe abdominal pain and instructed to go to ER. Pt went to [facility] ER and was told she had UTI- given IV AB and sent home with Rx. ER called her after and told her Cx showed no growth so pt stopped the AB. Mother reports pt having cramping again today. Mother reports pt is not constipated, pt hasn't vomited since , pt is nauseous. Reports SLOT MACHINE REPAIRER couldn't find anything wrong, UC couldn't find anything wrong, and ER couldn't find anything wrong. Mother scheduled ER f/u in pcp office for Tuesday." In office today... Pt reports illness off and on since 06/17. First was dx with COVID from at home test on 06/17. Symptoms resolved and now having intermittent n/v and episodes of 10/10 severe back/kidney pain that radiates around to middle/lower abdominal pain lasting 15-20 minutes at a time. Episodes occur a few times per day. No pain besides nausea in between these episodes. Express care thought UTI, started antibiotic but then culture was negative so she stopped antibiotic. OBGYN did pelvic/uterus US and everything looked normal with the baby. No concern for ectopic. Then went to ER from OB appointment d/t concern for dehydration -- was told she definitely has UTI and started on IV and PO antibiotics. Again was told to stop these antibiotic a few days later d/t culture being negative. Has not finished an entire round of antibiotics for UTI at this time. Pt reports no changes in symptoms now. No urinary symptoms besides mild dribbling when trying to urinate. No dysuria, frequency or urgency. No hx of kidney stones or UTI in the past. Vomiting and unable to keep anything down since yesterday morning. Able to drink some small amounts of water. Tried to use ODT anti-nausea medication but threw this up as well. Pt reports sister with hyperemesis during her pregnancies as well. Next OB appointment on . Pt reports pain as a cramping. Pt does still have gallbladder and appendix. Pt denies any constipation or diarrhea. No other sick contacts in the house, is not vomiting. No other concerns or complaints. Past medical history, appointments, medications, allergies reviewed. Previous Medical History PAST MEDICAL HISTORY Diagnosis Date Acne 05/08/2013 Anemia Thyroid enlarged all blood work came back WNL Previous Surgical History PAST SURGICAL HISTORY Procedure Laterality Date TONSILLECTOMY AND ADENOIDECTOMY Family History FAMILY HISTORY Problem Relation Age of Onset Breast Cancer Mother Thyroid Mother No Known Problems Father Thyroid Sister Thyroid Maternal Grandmother Diabetes Maternal Grandfather Adult on-set Cancer Paternal Grandmother No Known Problems Paternal Grandfather other (schizophrenia) Maternal Aunt Patient Allergies ALLERGIES Allergen Reactions Bactrim [Sulfametho* Rash Gabapentin Rash Current Medications Current Outpatient Medications on File Prior to Visit Medication Sig ondansetron (ZOFRAN) 4 mg tablet Take 1 tablet by mouth every 8 hours as needed for nausea/vomiting. L-Norgest and E Estradiol-E Estrad 0.15 mg-30 mcg (84)/10 mcg (7) Take 1 tablet by mouth once daily. (Patient not taking: Reported on 06/23/2024) No current facility-administered medications on file prior to visit. Social History Social History Tobacco Use Smoking status: Never Smokeless tobacco: Never Vaping Use Vaping status: Never Used Substance Use Topics Alcohol use: No Drug use: No REVIEW OF SYSTEMS: as above Reviewed relevant PMHx, PSHx, Social Hx, current medications and allergies. Review of Symptoms REVIEW OF SYSTEMS See HPI. EXAM: BP 104/64 (BP Site: Left Arm, BP Position: Sitting, BP Cuff Size: La (more content not included)... Normal [facility] Comprehensive metabolic 2000 panelon 07-02-2024 Albumin [Mass/Vol] 4.7 g/dL Normal 3.9-4.9 [facility] Comment on above: Order Comment: Speci men Type: BLOOD SPECIMENOrdering Facility: [facility] Address: [address] [place] [address] Performed By: #### 3 053-6, 61227-5, 3024-7, 3016-3 ####[facility] LABIA [id number] [place] [address] [place] ALP [Catalytic activity/Vol] 54 U/L Normal 34-123 [facility] Comment on above: Order Comment: Speci men Type: BLOOD SPECIMENOrdering Facility: [facility] Address: [address] [place] [address] Performed By: #### 3 053-6, 72387-2, 3024-7, 3016-3 ####[facility] LABIA [id number] [place] [address] [place] ALT [Catalytic activity/Vol] 15 U/L Normal 7-38 [facility] Comment on above: Order Comment: Speci men Type: BLOOD SPECIMENOrdering Facility: [facility] Address: [address] [place] [address] Performed By: #### 3 053-6, 14569-8, 3024-7, 3016-3 ####[facility] LABIA [id number] [place] [address] [place] Anion gap [Moles/Vol] 14 mmol/L Normal 8-15 [facility] Comment on above: Order Comment: Speci men Type: BLOOD SPECIMENOrdering Facility: [facility] Address: [address] [place] [address] Performed By: #### 3 053-6, 26596-6, 3024-7, 3016-3 ####[facility] LABIA [id number] [place] [address] [place] AST [Catalytic activity/Vol] 16 U/L Normal 13-35 [facility] Comment on above: Order Comment: Speci men Type: BLOOD SPECIMENOrdering Facility: [facility] Address: [address] [place] [address] Performed By: #### 3 053-6, 60612-0, 3024-7, 3016-3 ####[facility] LABCLIA [id number] [place] [id number] [place] Bilirubin [Mass/Vol] 0.6 mg/dL Normal 0.2-1.3 [facility] Comment on above: Order Comment: Speci men Type: BLOOD SPECIMENOrdering Facility: [facility] Address: [address] [place] [address] Performed By: #### 3 053-6, 13200-9, 3024-7, 3016-3 ####[facility] LABCLIA [id number] [place] [address] [place] Calcium [Mass/Vol] 9.6 mg/dL Normal 8.5-10.2 [facility] Comment on above: Order Comment: Speci men Type: BLOOD SPECIMENOrdering Facility: [facility] Address: [address] [place] [address] Performed By: #### 3 053-6, 11707-8, 3024-7, 3016-3 ####[facility] LABIA [id number] [place] [address] [place] Chloride [Moles/Vol] 100 mmol/L Normal 98-107 [facility] Comment on above: Order Comment: Speci men Type: BLOOD SPECIMENOrdering Facility: [facility] Address: [address] [place] [address] Performed By: #### 3 053-6, 25796-9, 3024-7, 3016-3 ####[facility] LABIA [id number] [place] [address] [place] CO2 [Moles/Vol] 22 mmol/L Normal 22-30 [facility] Comment on above: Order Comment: Speci men Type: BLOOD SPECIMENOrdering Facility: [facility] Address: [address] [place] [address] Performed By: #### 3 053-6, 76540-7, 3024-7, 3016-3 ####[facility] LABIA [id number] [place] [address] [place] Creatinine [Mass/Vol] 0.55 mg/dL Low 0.58-0.96 [facility] Comment on above: Order Comment: Speci men Type: BLOOD SPECIMENOrdering Facility: [facility] Address: [address] [place] [address] Performed By: #### 3 053-6, 69800-2, 3024-7, 6-3 ####[facility] [id number] [place] [address] [place] Creatinine and Glomerular filtration rate.predicted panel (S/P/Bld) 130 mL/min/1.73m??? Normal >=60 [facility] Comment on above: Order Comment: Hien men Type: BLOOD SPECIMENOrdering Facility: [facility] Address: [address] [place] [address] Result Comment: Freda mated Glomerular Filtration Rate (eGFR) is calculated using the 2020 CKD-EPI creatinine equation. This equation utilizes serum creatinine, sex, and age as parameters. The creatinine assay has traceable calibration to isotope dilution-mass spectrometry. Refer to KDIGO guidelines for clinical interpretation. In patients with unstable renal function, e.g. those with acute kidney injury, the eGFR may not accurately reflect actual GFR. Performed By: #### 3 053-6, 45028-6, 3024-7, 6-3 ####[facility] LABIA [id number] [place] [id number] [place] Glucose [Mass/Vol] 92 mg/dL Normal 74-99 [facility] Comment on above: Order Comment: Bhartii men Type: BLOOD SPECIMENOrdering Facility: [facility] Address: [address] [place] [address] Result Comment: The [place] [employer] (ADA) provides guidance for cutoff values for fasting glucose and random glucose. The ADA defines fasting as no caloric intake for at least 8 hours. Fasting plasma glucose results between 100 to 125 mg/dL indicate increased risk for diabetes (prediabetes). Fasting plasma glucose results greater than or equal to 126 mg/dL meet the criteria for diagnosis of diabetes. In the absence of unequivocal hyperglycemia, results should be confirmed by repeat testing. In a patient with classic symptoms of hyperglycemia or hyperglycemic crisis, random plasma glucose results greater than or equal to 200 mg/dL meet the criteria for diagnosis of diabetes. Reference: Standards of Medical Care in Diabetes 2016, [place] [employer]. Diabetes Care. 2016.39(Suppl 1). Performed By: #### 3 053-6, 25861-0, 3024-7, 3016-3 ####[facility] LABIA [id number] [place] [address] [place] Potassium [Moles/Vol] 4.1 mmol/L Normal 3.7-5.1 [facility] Comment on above: Order Comment: Hien men Type: BLOOD SPECIMENOrdering Facility: [facility] Address: [address] [place] [address] Performed By: #### 3 053-6, 41412-0, 3024-7, 3016-3 ####[facility] LABIA [id number] [place] [address] [place] Protein [Mass/Vol] 7.6 g/dL Normal 6.3-8.0 [facility] Comment on above: Order Comment: Hien juarez Type: BLOOD SPECIMENOrdering Facility: [facility] Address: [address] [place] [address] Performed By: #### 3 053-6, 25893-6, 3024-7, 3016-3 ####[facility] LABIA [id number] [place] [address] [place] Sodium [Moles/Vol] 136 mmol/L Normal 136-144 [facility] Comment on above: Order Comment: Bhartii men Type: BLOOD SPECIMENOrdering Facility: [facility] Address: [address] [place] [address] Performed By: #### 3 053-6, 52618-8, 3024-7, 3016-3 ####[facility] LABIA [id number] [place] [address] [place] Urea nitrogen [Mass/Vol] 5 mg/dL Low 7-21 [facility] Comment on above: Order Comment: Speci men Type: BLOOD SPECIMENOrdering Facility: [facility] Address: [address] [place] [address] Performed By: #### 3 053-6, 39979-9, 3024-7, 3016-3 ####[facility] LABIA [id number] [place] [address] [place] Lipase SerPl-cCncon 07-02-19 25 Lipase [Catalytic activity/Vol] 20 U/L Normal 16-61 [facility] Comment on above: Order Comment: Speci men Type: BLOOD SPECIMENOrdering Facility: [facility] Address: [address] [place] [address] Performed By: #### 3 040-3 ####[facility] [id number] [place] [address] [place] T3 SerPl-mCncon 07-02-2024 T3 [Mass/Vol] 133 ng/dL Normal 79-165 [facility] Comment on above: Order Comment: Speci men Type: BLOOD SPECIMENOrdering Facility: [facility] Address: [address] [place] [address] Performed By: #### 3 053-6, 86365-7, 3024-7, 3016-3 ####[facility] LABIA [id number] [place] [address] [place] T4 Free SerPl-mCncon 025 Free T4 [Mass/Vol] 1.7 ng/dL Normal 0.9-1.7 [facility] Comment on above: Order Comment: Speci men Type: BLOOD SPECIMENOrdering Facility: [facility] Address: [address] [place] [address] Performed By: #### 3 053-6, 91722-7, 3024-7, 3016-3 ####[facility] LABCLIA [id number] [place] [id number] [place] TSH SerPl-aCncon 07-02-2024 TSH Qn 0.459 m[IU]/L Normal 0.270-4.200 [facility] Comment on above: Order Comment: Speci men Type: BLOOD SPECIMENOrdering Facility: [facility] Address: [address] [place] [address] Result Comment: If t he patient is , TSH reference range varies by gestational period: First Trimester (weeks 9-12): 0.180-2.990 mIU/L Second Trimester: 0.110-3.980 mIU/L Third Trimester: 0.480-4.710 mIU/L Franc Sanchez et al. A Practical Approach for the Verifications and Determination of Site- and Trimester-Specific Reference Intervals for Thyroid Function tests in . Thyroid, 2019:29:3:412-420. James E, et al. 2017 Guidelines of the [place] Thyroid Association for the Diagnosis and Management of Thyroid Disease during and the . Thyroid, 2017:27:3:315-389. Performed By: #### 3 053-6, 09363-8, 3024-7, 3016-3 ####[facility] LABCLIA [id number] [place] [id number] [place] Urinalysis complete panel (U )on 07-02-2024 BACTERIA UL 2831.6 uL High Negative [facility] Comment on above: Order Comment: Speci men Type: URINE SPECIMENOrdering Facility: [facility] Address: [address] [place] [address] Performed By: #### 2 4356-8 ####[facility] LABCLIA [id number] [place] [id number] [place] Bilirubin Ql (U) Negative Normal Negative [facility] Comment on above: Order Comment: Speci men Type: URINE SPECIMENOrdering Facility: [facility] Address: [address] [place] [address] Performed By: #### 2 4356-8 ####[facility] LABCLIA [id number] [place] [address] [place] Clarity (Unsp spec) Clear Normal Clear [facility] Comment on above: Order Comment: Speci men Type: URINE SPECIMENOrdering Facility: [facility] Address: [address] [place] [address] Performed By: #### 2 4356-8 ####[facility] LABCLIA [id number] [place] [address] [place] Color (U) Dark Yellow Abnormal Yellow [facility] Comment on above: Order Comment: Speci men Type: URINE SPECIMENOrdering Facility: [facility] Address: [address] [place] [address] Performed By: #### 2 4356-8 ####[facility] LABCLIA [id number] [place] [address] [place] Epithelial cells LM.HPF (Urine sed) [#/Area] Moderate Normal [facility] Comment on above: Order Comment: Speci men Type: URINE SPECIMENOrdering Facility: [facility] Address: [address] [place] [address] Performed By: #### 2 4356-8 ####[facility] LABCLIA [id number] [place] [address] [place] Glucose Test strip (U) [Mass/Vol] Negative Normal Negative [facility] Comment on above: Order Comment: Speci men Type: URINE SPECIMENOrdering Facility: [facility] Address: [address] [place] [address] Performed By: #### 2 4356-8 ####[facility] LABCLIA [id number] [address] [id number] [address] [place] Hemoglobin Ql (U) Negative Normal Negative [facility] Comment on above: Order Comment: Speci men Type: URINE SPECIMENOrdering Facility: [facility] Address: [address] [place] [address] Performed By: #### 2 4356-8 ####[facility] LABCLIA [id number] [place] [address] [place] Hyaline casts (Urine sed) [#/Area] 1-3 /LPF Abnormal 0 /LPF [facility] Comment on above: Order Comment: Speci men Type: URINE SPECIMENOrdering Facility: [facility] Address: [address] [place] [address] Performed By: #### 2 4356-8 ####[facility] LABCLIA [id number] [place] [address] [place] Ketones Ql (U) Negative Normal Negative [facility] Comment on above: Order Comment: Speci men Type: URINE SPECIMENOrdering Facility: [facility] Address: [address] [place] [address] Performed By: #### 2 4356-8 ####[facility] LABCLIA [id number] [place] [address] [place] Leukocyte esterase Test strip Ql (U) Negative Normal Negative [facility] Comment on above: Order Comment: Speci men Type: URINE SPECIMENOrdering Facility: [facility] Address: [address] [place] [address] Performed By: #### 2 4356-8 ####[facility] LABCLIA [id number] [place] [address] [place] Nitrite Ql (U) Negative Normal Negative [facility] Comment on above: Order Comment: Speci men Type: URINE SPECIMENOrdering Facility: [facility] Address: [address] [place] [address] Performed By: #### 2 4356-8 ####[facility] LABCLIA [id number] [place] [address] [place] pH (U) 7.0 [pH] Normal <8.5 [facility] Comment on above: Order Comment: Speci men Type: URINE SPECIMENOrdering Facility: [facility] Address: [address] [place] [address] Performed By: #### 2 4356-8 ####[facility] LABIA [id number] [place] [address] [place] Protein (U) [Mass/Vol] Trace Abnormal Negative [facility] Comment on above: Order Comment: Speci men Type: URINE SPECIMENOrdering Facility: [facility] Address: [address] [place] [address] Performed By: #### 2 4356-8 ####[facility] LABIA [id number] [place] [address] [place] RBC LM.HPF (Urine sed) [#/Area] 3-5 /HPF Abnormal 0-2 /HPF [facility] Comment on above: Order Comment: Speci men Type: URINE SPECIMENOrdering Facility: [facility] Address: [address] [place] [address] Performed By: #### 2 4356-8 ####[facility] LABIA [id number] [place] [address] [place] Specific gravity (U) [Rel density] 1.029 Normal 1.005-1.030 [facility] Comment on above: Order Comment: Speci men Type: URINE SPECIMENOrdering Facility: [facility] Address: [address] [place] [address] Performed By: #### 2 4356-8 ####[facility] LABIA [id number] [place] [address] [place] Urobilinogen Ql (U) 2.0 EU/dL Abnormal 0.2-1.0 EU/dL [facility] Comment on above: Order Comment: Speci men Type: URINE SPECIMENOrdering Facility: [facility] Address: [address] [place] [address] Performed By: #### 2 4356-8 ####[facility] [id number] [place] [address] [place] WBC LM.HPF (Urine sed) [#/Area] 0-5 /HPF Normal 0-5 /HPF [facility] Comment on above: Order Comment: Speci men Type: URINE SPECIMENOrdering Facility: [facility] Address: [address] [place] [address] Performed By: #### 2 4356-8 ####[facility] [id number] [place] [address] [place] Yeast.budding LM.HPF (Urine sed) [#/Area] Present Abnormal None Seen [facility] Comment on above: Order Comment: Speci men Type: URINE SPECIMENOrdering Facility: [facility] Address: [address] [place] [address] Performed By: #### 2 4356-8 ####[facility] [id number] [address] [place] CNPRaven 06-29-2024 [facility] ROBB ULRICH ([id number]) 1995 F Date Time Provider Department [facility] your visit today, we recorded the following information about you: Addie Barney, RN 06/29/2024 11:57 AM Signed Mother phoned to report pt is about 7 weeks , and for the last 9 days, pt has been having horrible cramping in groin and back. Was seen in a UC on 06-22-24 and told she had UTI and prescribed AB then UC called her to tell her Cx was negative for UTI and to stop the AB. On pt was seen in [facility] office - had pelvic US done and was told everything looked good. While at that appt pt developed severe abdominal pain and instructed to go to ER. Pt went to [facility] ER and was told she had UTI- given IV AB and sent home with Rx. ER called her after and told her Cx showed no growth so pt stopped the AB. Mother reports pt having cramping again today. Mother reports pt is not constipated, pt hasn't vomited since xmas joe, pt is nauseous. Reports [facility] couldn't find anything wrong, UC couldn't find anything wrong, and ER couldn't find anything wrong. Mother scheduled ER f/u in pcp office for Tuesday. Judson Weber DO 06/29/2024 11:59 AM Signed Patient honestly needs assessed for further recommendations Make sure she goes to EMERGENCY DEPARTMENT if symptoms worsen over the weekend DO Carolynn Hassan [place], MA 06/29/2024 1:58 PM Signed Left message to return call CHRIS Medellin Amanda, RN 06/29/2024 3:15 PM Signed Pt called and is notified of providers message and instructions. Pt voices understanding. She states right now she is doing better, she hasn't had any super painful sessions. She said if it got worse she would go to the ER. Ira Lopes RN Allergies As of Date: 06/29/2024 Noted Allergy Reaction BACTRIM (SULFAMETHOXAZOLE-TRI METH*08/17/2018 2 - Rash GABAPENTIN 08/11/2018 2 - Rash Date Reviewed: 06/26/2024 Reviewed by: Jessie Santos MD - Fully Assessed Reason for Visit: Patient Update [1234] Prescriptions as of 06/29/2024 - ondansetron (ZOFRAN) 4 mg tablet Take 1 tablet by mouth every 8 hours as needed for nausea/vomiting. - nitrofurantoin monohydrate and macrocrystal (MACROBID) 100 mg capsule Take 1 capsule by mouth two times a day for 7 days. - L-Norgest and E Estradiol-E Estrad 0.15 mg-30 mcg (84)/10 mcg (7) Take 1 tablet by mouth once daily. Problem List As Of Date 06/29/2024 Noted Resolved Acne [L70.9] 05/08/2013 07/27/2017 Dysmenorrhea [N94.6] 05/08/2013 07/27/2017 Encounter Status:Closed by Addie BARNEY on 06/29/24 Normal [facility] Urine Cultureon 06-27-2024 URC Culture exhibits no growth. Normal [facility] Comment on above: Performed By: #### B TS, L100.0100 #### [facility] [address] [place], [address] Basic Metabolic Profile (BMP )on 06-26-2024 BUN/CRE 10.0 RATIO Normal 10-20 [facility] Comment on above: Performed By: #### L 500.2500 #### [facility] [address] [place], [address] CA,Total 9.1 mg/dL Normal 8.5-10.1 [facility] Comment on above: Performed By: #### L 500.2500 #### [facility] [address] [place], [address] Chloride [Moles/Vol] 100 mmol/L Normal 98-107 [facility] Comment on above: Performed By: #### L 500.2500 #### [facility] [address] [place], [address] CO2 [Moles/Vol] 27.0 mmol/L Normal 21.0-32.0 [facility] Comment on above: Performed By: #### L 500.2500 #### [facility] [address] [place], [address] Creatinine [Mass/Vol] 0.60 mg/dL Normal 0.55-1.02 [facility] Comment on above: Result Comment: The validity of the calculated GFR GFRAA in patients over 70 years has not been determined. Clinical correlation is essential. Performed By: #### L 500.2500 #### [facility] [address] [place], [address] ECRCL 177.97 ml/min Normal [facility] Comment on above: Performed By: #### L 500.2500 #### [facility] [address] [place], [address] EST GFR - AA 155 mL/min Normal >60 [facility] Comment on above: Result Comment: Afri can [place] GFR Calc Performed By: #### L 500.2500 #### [facility] [address] [place], [address] GAP 7 Normal 5-15 [facility] Comment on above: Performed By: #### L 500.2500 #### [facility] [address] [place], [address] GFR/1.73 sq M.predicted among non-blacks MDRD (S/P/Bld) [Vol rate/Area] 128 mL/min/{1.73_m2} Normal >60 [facility] Comment on above: Result Comment: Non- GFR Calc Performed By: #### L 500.2500 #### [facility] [address] [place], [address] Glucose [Mass/Vol] 89 mg/dL Normal 74-106 [facility] Comment on above: Performed By: #### L 500.2500 #### [facility] [address] [place], [address] Potassium [Moles/Vol] 3.4 mmol/L Low 3.5-5.1 [facility] Comment on above: Performed By: #### L 500.2500 #### [facility] [address] [place], [address] Sodium [Moles/Vol] 134 mmol/L Low 136-145 [facility] Comment on above: Performed By: #### L 500.2500 #### [facility] [address] [place], [place], [address] Urea nitrogen [Mass/Vol] 6 mg/dL Low 7-18 [facility] Comment on above: Performed By: #### L 500.2500 #### [facility] [address] [place], [place], [id number] Bilirubin Test strip Ql (U)O rdered By: ED PROVIDER on 06-26-2024 Bilirubin Ql (U) 1 mg/dL High Negative [facility] Comment on above: COLOR OF URINE MAY A FFECT DIPSTICK RESULTS. Blood urea nitrogen (BUN)/cr eatinine ratioOrdered By: Robert Cohn on 06-26-2024 Urea nitrogen/Creatinine [Mass ratio] 10.0 mg/mg 10-20 [facility] CNOVon 06-26-2024 CNOV Office Visit (OBGYWM ) ROBB ULRICH ([id number]) 1995 F Date Time Provider Department 06/26/24 1:30 PM JESSIE SANTOS OBGUALBERTO During your visit today, we recorded the following information about you: Blood pressure Weight Last Period 110/70 103.6 kg 05/10/24 Jessie Santos MD 06/26/2024 3:23 PM Signed Insurance Licensing Supervisor offered: Patient declines. Robb Ulrich is a 28 year old female who presents for problem visit pelvic pain HPI: Positive test. 5+5 by dates. Random cramping lasting 15 minutes sometimes 6-7 times a day. No bleeding. Nausea on and off. And vomiting when the pain is bad. Went to [facility] and UTI ruled out. Sister had similar problems when . IUP with FHR 160s on POCUS. Consistent with LMP. No obvious ovarian masses OB History T0 L0 SAB0 IAB0 Ectopic0 Multiple0 Live Births0 [place] History LMP: 05/10/2024 (Exact Date), Having periods Age at Menarche: Age at First : Age at Menopause: [place] History Comments: Sexual Activity: Yes; Male Contraception: Pill, Condom PAST MEDICAL HISTORY Diagnosis Date Acne 05/08/2013 Anemia Thyroid enlarged all blood work came back WNL PAST SURGICAL HISTORY Procedure Laterality Date TONSILLECTOMY AND ADENOIDECTOMY FAMILY HISTORY Problem Relation Age of Onset Breast Cancer Mother Thyroid Mother No Known Problems Father Thyroid Sister Thyroid Maternal Grandmother Diabetes Maternal Grandfather Adult on-set Cancer Paternal Grandmother No Known Problems Paternal Grandfather other (schizophrenia) Maternal Aunt Social History Tobacco Use Smoking status: Never Smokeless tobacco: Never Vaping Use Vaping status: Never Used Substance Use Topics Alcohol use: No Drug use: No Current Outpatient Medications Medication Sig nitrofurantoin monohydrate and macrocrystal (MACROBID) 100 mg capsule Take 1 capsule by mouth two times a day for 7 days. (Patient not taking: Reported on 06/26/2024) L-Norgest and E Estradiol-E Estrad 0.15 mg-30 mcg (84)/10 mcg (7) Take 1 tablet by mouth once daily. (Patient not taking: Reported on 06/23/2024) No current facility-administered medications for this visit. Allergies As of Date: 06/26/2024 Allergen Noted Reaction BACTRIM [SULFAMETHOXAZOLE-TRI METH*08/17/2018 Rash GABAPENTIN 08/11/2018 Rash Fully Assessed 06/26/2024 REVIEW OF SYSTEMS Abdomen: SEE HPI Bladder: No dysuria, gross hematuria, urinary frequency, urinary urgency, or incontinence. Breast: No breast lumps, nipple d/c, overlying skin changes, redness or skin retraction. Expanded ROS: N/A Allergies and current medication updated:Yes SENSITIVE EXAM: The sensitive examination was discussed with the Patient or Patient's Authorized Carrot Grader Inspector. As applicable, any other physician, advance practice provider, medical student, or other health professional student that will be observing or involved in the sensitive examination for educational or training purposes was discussed with the Patient or Authorized Carrot Grader Inspector. The Patient or Authorized Carrot Grader Inspector has agreed to proceed with the sensitive examination. (Sensitive examination includes inspection and/or palpation of the breasts, pelvis, prostate and anorectal regions). EXAM: BP 110/70 Wt 228 lb 6.4 oz (103.6kg) LMP 05/10/2024 GENERAL: emotional, female in moderate distress HEENT: Normocephalic, atraumatic, mucus membranes moist, and no lesions NECK: Supple, full range of motion, no adenopathy, and thyroid normal DERMATOLOGY: Normal, without lesions, non-icteric, and non-hirsute BREAST: deferred CHEST: Normal inspiratory effort ABDOMEN: soft, non-tender, and no masses PELVIC: external genitalia normal, normal Bartholin's glands, urethra, [place]'s glands, no vulvar lesions, normal appearing perineal body and perianal region BIMANUAL: deferred NEURO: alert and oriented x3,exam grossly non-focal EXTREMITIES: normal ASSESSMENT AND PLAN: Assessment AND Plan Nausea/vomiting in Planning to go to ED for IV. Feels she may be dehydrated and the cramping made worse as a result. Scheduled for initial OB next week. Pelvic pain in Jessie Santos MD Allergies As of Date: 06/26/2024 Noted Allergy Reaction BACTRIM (SULFAMETHOXAZOLE-TRI METH*08/17/2018 2 - Rash GABAPENTIN 08/11/2018 2 - Rash Date Reviewed: 06/26/2024 Reviewed by: Jessie Santos MD - Fully Assessed Reason for Visit: Follow Up [171] Cmt: Abdominal pain, positive test, r/o ectopic. Primary Visit Diagnosis:Nausea/vomi ting in [O21.9] Other Visit Diagnosis:Pelvic pain in [O26.899, R10.2] Order(s):ondansetron (ZOFRAN) 4 mg tabletTake 1 tablet by mouth every 8 hours as needed for nausea/vomiting.Disp: 90 tabletRfl: 1 Prescriptions as of 06/26/2024 - ondansetron (ZOFRAN) 4 mg tablet Take (more content not included)... Normal [facility] Carbon dioxide measurementOr dered By: Robert Cohn on 06-26-2024 CO2 [Moles/Vol] 27.0 mmol/L 21.0-32.0 [facility] Chloride measurementOrdered By: Robert Cohn on 06-26-2024 Chloride [Moles/Vol] 100 mmol/L 98-107 [facility] Emergency Department Summary on 06-26-2024 Emergency Department Summary [facility] Medical Records Department [address] [place] [address] Emergency Department Summary 06/26/24 MR#: [id number] Acct: [id number] Name: ROBB ULRICH Rep #: [id number] : 1995 28 From: Robert Cohn MD PCP: Dr. Judson Weber, DO Status:DEP ER Location: ED HPI History of Present Illness Chief Complaint: Back Detail of Chief Complaint: Central low back pain and suprapubic discomfort Informant: patient Onset/Context/Timing Onset: Days and Weeks Timing: Intermittent Quality: Pain/pressure Location: Suprapubic central low back Current Severity: Mild Maximum Severity: Severe Worsened by: Nothing specific Relieved by: Nothing Associated Symptoms Associated Symptoms: Frequency, urgency, first trimester Narrative Narrative: Patient is a 28-year-old Ab0 female who presents with suprapubic discomfort. She also has central back pain. She has frequency and urgency. She denies hematuria. Question of discomfort with urination. She was seen in urgent care and told she does not have an infection. She denies vaginal bleeding or vaginal discharge. There is no history of STI. She has had nausea and vomiting for the past several days. She is not had vomiting today. She endorses thirst and dry mouth. She endorses orthostatic lightheadedness. Mother informed me that she has a relative that had similar presentation with early . There has been no documented fever but she does report chills. She had upper respiratory tract infectious symptoms that started over a week ago. These have essentially resolved. She denies rash. She denies swelling of her joints. Patient has allergy to Bactrim. Prior similar symptoms: No Recent Illness/Hospitalizati on: No PFSH PFSH Medical History no medical history Home Medications ???Medication ???Instructions ???Recorded ???Last Taken ???Type drospirenone 3 mg-ethinyl 1 tab PO DAILY 08/14/17 Unknown History estradiol 0.02 mg tablet (Loryna (28)) hydrocodone-acetamino phen 5-325mg 1 - 2 tab PO Q4H PRN PRN Pain #12 08/14/17 Unknown Rx 5mg-325mg tabs naproxen 500 mg tablet 500 mg PO BID PRN #20 tabs 08/14/17 Unknown Rx cephalexin 500 mg capsule 500 mg PO Q6 #28 CAPSULES 06/26/24 Unknown Rx ondansetron 4 mg disintegrating 4 mg PO Q8H PRN PRN Nausea #10 tabs 06/26/24 Unknown Rx tablet Allergy/AdvReac Type Severity Reaction Status Date / Time gabapentin Allergy Mild Rash Verified 06/26/24 15:18 sulfamethoxazole (From Allergy Mild Rash Verified 06/26/24 15:18 Bactrim) trimethoprim (From Bactrim) Allergy Mild Rash Verified 06/26/24 15:18 Surgical History no surgical history no surgical history Social History Smoking Status: Never smoker ROS ROS ED Constitutional Constitutional ED: Reports chills; Denies fever(s), subjective or sweats Eyes Eyes: Denies blurry vision or change in vision ENT ENT ED: Reports other Details: Did have symptoms a week ago. ; Denies ear pain, rhinorrhea or sore throat Cardiovascular Cardiovascular: Denies chest pain or palpitations Respiratory/Chest Respiratory/Chest: Denies cough, dyspnea or dyspnea on exertion Gastrointestinal Gastrointestinal: Reports abdominal pain, nausea and vomiting; Denies constipation, diarrhea or melena Genitourinary Genitourinary ED: Reports dysuria and urinary frequency; Denies hematuria Musculoskeletal Musculoskeletal: Reports back pain; Denies arthralgias, myalgias or neck pain Integumentary Denies rash Endocrine Endocrinology: Denies cold intolerance or heat intolerance EXAM Physical Exam Const Vital Signs: 06/26/24 15:13 06/26/24 17:12 06/26/24 18:35 Temperature 96.8 F L Temperature Source Temporal Pulse Rate 91 71 Pulse Rate [Lying] 84 Pulse Rate [Sitting (for 1 minute prior to obtaining)] 72 Pulse Rate [Standing (for 1 minute prior to obtaining)] 94 Respiratory Rate 18 18 Blood Pressure 107/89 H 96/57 L Blood Pressure [Lying] 121/70 H Blood Pressure [Sitting (for 1 minute prior to obtaining)] 114/72 Blood Pressure [Standing (for 1 minute prior to obtaining)] 124/76 H Blood Pressure Mean 95 70 Blood Pressure Mean [Lying] 87 Blood Pressure Mean [Sitting (for 1 minute prior to obtaining)] 86 Blood Pressure Mean [Standing (for 1 minute prior to obtaining)] 92 Pulse Ox 100 99 Oxygen Delivery Method Room Air Room Air 06/26/24 18:53 Temperature 98.2 F Temperature Source Pulse Rate 72 Pulse Rate [Lying] Pulse Rate [Sitting (for 1 minute prior to obtaining)] Pulse Rate [Standing (for 1 minute prior to obtaining)] Respiratory Rate 18 Blood Pressure 112/74 Blood Pressure [Lying] Blood Pressure [Sitting (for 1 minute prior to ob (more content not included)... Normal [facility] Epithelial cells.squamous LM Ql (Urine sed)Ordered By: ED PROVIDER on 06-26-2024 Epithelial cells.squamous LM.HPF (Urine sed) [#/Area] 0 /[HPF] 5-10 [facility] Estimated glomerular filtrat ion rate (GFR) AmericanOrdered By: Robert Cohn on 06-26-2024 Estimated GFR (MDRD) Amer 155 mL/min >60 [facility] Comment on above: GFR Calc Estimation of creatinine radha aranceOrdered By: Robert Cohn on 06-26-2024 Estimated Creatinine Clearance Calc 177.97 ml/min [facility] Glomerular filtration rate ( GFR) estimationOrdered By: Robert Cohn on 06-26-2024 Estimated GFR (MDRD) Non-Af Amer 128 mL/min >60 [facility] Comment on above: Non- GFR Calc Glucose Ql (U)Ordered By: ED PROVIDER on 06-26-2024 Urine Glucose (UA) Normal mg/dl Normal [facility] Glucose measurementOrdered B y: Robert Cohn on 06-26-2024 Glucose [Mass/Vol] 89 mg/dL 74-106 [facility] Ketones Test strip Ql (U)Ord ered By: ED PROVIDER on 06-26-2024 Ketones Ql (U) 50 mg/dl High Negative [facility] Microscopic analysis of urin e for red blood cells (RBC)Ordered By: ED PROVIDER on 06-26-2024 Urine RBC 0 SEEN /hpf 0-5 [facility] Mucus LM Ql (Urine sed)Order ed By: ED PROVIDER on 06-26-2024 Mucus Ql (Urine sed) 2+ /hpf [facility] Nitrite Test strip Ql (U)Ord ered By: ED PROVIDER on 06-26-2024 Nitrite Ql (U) Negative Negative [facility] Potassium measurementOrdered By: Robert Cohn on 06-26-2024 Potassium [Moles/Vol] 3.4 mmol/L Low 3.5-5.1 [facility] Protein Test strip Ql (U)Ord ered By: ED PROVIDER on 06-26-2024 Protein Ql (U) 30 mg/dl High Negative [facility] Serum anion gap measurementO rdered By: Robert Cohn on 06-26-2024 Anion gap [Moles/Vol] 7 mmol/L 5-15 [facility] Serum or plasma calcium janice urement (mass/volume)Ordered By: Robertmarli Cohn on 06-26-2024 Calcium [Mass/Vol] 9.1 mg/dL 8.5-10.1 [facility] Serum or plasma creatinine m easurement (mass/volume)Ordered By: Robertmarli Cohn on 06-26-2024 Creatinine [Mass/Vol] 0.60 mg/dL 0.55-1.02 [facility] Comment on above: The validity of the calculated GFR & GFRAA in patients over 70 years has not been determined. Clinical correlation is essential. Serum or plasma urea nitroge n measurement (mass/volume)Ordered By: Robert Cohn on 06-26-2024 Urea nitrogen [Mass/Vol] 6 mg/dL Low 7-18 [facility] Sodium levelOrdered By: Robert Cohn on 06-26-2024 Sodium [Moles/Vol] 134 mmol/L Low 136-145 [facility] Urinalysis, Completeon 06-26 WBC 0-5 SEEN Normal 0-5 [facility] Comment on above: Order Comment: CLEAN CATCH Performed By: #### L 400.0001 #### [facility] [address] [place], [place], [id number] BACTERIA 2+ /hpf Normal None Seen [facility] Comment on above: Order Comment: CLEAN CATCH Performed By: #### L 400.0001 #### [facility] [address] [place], [place], [id number] EPI,SQUAMOUS 0-5 SEEN Normal 5-10 [facility] Comment on above: Order Comment: CLEAN CATCH Performed By: #### L 400.0001 #### [facility] [address] [place], [place], [id number] Mucus Ql (Urine sed) 2+ /hpf Normal [facility] Comment on above: Order Comment: CLEAN CATCH Performed By: #### L 400.0001 #### [facility] [address] [place], [address] RBC 0 SEEN Normal 0-5 [facility] Comment on above: Order Comment: CLEAN CATCH Performed By: #### L [id number] #### [facility] [address] [place], [place], [id number] Urine blood detectionOrdered By: ED PROVIDER on 06-26-2024 Urine Occult Blood Negative Negative [facility] Urine clarityOrdered By: ED PROVIDER on 06-26-2024 Clarity (U) Sl. Cloudy Clear [facility] Urine color determinationOrd ered By: ED PROVIDER on 06-26-2024 Color (U) Yellow Yellow [facility] Urine cultureOrdered By: Robert Cohn on 06-26-2024 Bacteria identified Cx Nom (U) Culture exhibits no growth. [facility] Urine leukocyte esterase det ection by dipstickOrdered By: ED PROVIDER on 06-26-2024 Leukocyte esterase Test strip Ql (U) 25 /ul High Negative [facility] Urine pHOrdered By: ED PROVI RADHA on 06-26-2024 pH (U) 6.0 [pH] 5.0 - 8.0 [facility] Urine sediment bacteria coun t by microscopy (number/high power field)Ordered By: ED PROVIDER on 06-26-2024 Bacteria LM.HPF (Urine sed) [#/Area] 2 /[HPF] None Seen [facility] Urine specific gravity measu rementOrdered By: ED PROVIDER on 06-26-2024 Specific gravity (U) [Rel density] 1.015 1.002-1.030 [facility] Urobilinogen Ql (U)Ordered B y: ED PROVIDER on 06-26-2024 Urobilinogen (U) [Mass/Vol] 8 mg/dL High Normal [facility] White blood cell countOrdere d By: ED PROVIDER on 06-26-2024 Urine WBC 0-5 SEEN /hpf 0-5 [facility] CNPNon 06-25-2024 CNPN Telephone (OBGYWM) ORBB ULRICH ([id number]) 1995 F Date Time Provider Department 06/25/24 SRAVANI SORIA OBGYWM During your visit today, we recorded the following information about you: Millie Machuca RN 06/25/2024 8:47 AM Signed Patient calling with concerns of nausea and vomiting and early . LMP is 05/10/24, approx 6w4d. She has upcoming New OB appointment on 07/05. Patient states she has had intermittent nausea and vomiting since finding out she was , but in the last 24 hours vomiting has increased. Patient states she has throw up around 8-10 times in the last day. States no vomiting in the last 8 hours and she is drinking water. Patient having lower abdominal cramping that is intermittent and when occurs lasts 10-15 minutes. Currently rates pain at a 7/10. Patient was seen in urgent care on 06/23, negative for UTI. Denies any fever or bleeding. Nausea/Vomiting precautions and recommendations along with Vitamin B6/Unisom regimen sent to patient via [employer]. Do you want patient to be seen prior to New OB to evaluate N/V? GIA Segura Courtney, APRN.CN 06/25/2024 8:51 AM Signed She does not need seen prior to NOB. She has not had any emesis for past 8 hours and is just starting the Vitamin B 6/ Unisom. She can notify office if unable to keep any food or liquids down for 24 hours. We can send in suppository antiemetic to help if she would like one! Sravani Soria APRN.CNM Yumiko Leiva RN 06/25/2024 9:32 AM Signed Pt notified and denies need for suppository at this time. GIA Gonzalez Lindsey, RN 07/02/2024 2:13 PM Signed Patient calling back and states she has been unable to keep any fluids down except a few sips of water since Tuesday morning. Patient states she has vomited at least 8 times since yesterday morning. Denies fever, cramping or bleeding. She is approximately 7w4d. Patient was prescribed Zofran on 06/26 and states she has not picked it up yet. Patient states she is doing Vitamin B6/Unisom regimen. Instructed patient to crab picker Zofran Rx. Patient does have New OB appointment this , 07/05. Please addresss. GIA Segura Sara, MD 07/02/2024 2:24 PM Signed Agree with picking up zofran rx to try. To go to ER if cannot tolerate PO for 24 hours or more for IV fluid hydration Millie Machuca RN 07/02/2024 2:30 PM Signed Patient notified and voiced understanding. Millie Machuca RN Allergies As of Date: 06/25/2024 Noted Allergy Reaction BACTRIM (SULFAMETHOXAZOLE-TRI METH*08/17/2018 2 - Rash GABAPENTIN 08/11/2018 2 - Rash Date Reviewed: 06/23/2024 Reviewed by: Ryan Paris - Fully Assessed Reason for Visit: Nausea AND Vomiting [237] Prescriptions as of 07/02/2024 - nitrofurantoin monohydrate and macrocrystal (MACROBID) 100 mg capsule Take 1 capsule by mouth two times a day for 7 days. - ondansetron (ZOFRAN) 4 mg tablet Take 1 tablet by mouth every 8 hours as needed for nausea/vomiting. Problem List As Of Date 06/25/2024 Noted Resolved Acne [L70.9] 05/08/2013 07/27/2017 Dysmenorrhea [N94.6] 05/08/2013 07/27/2017 Encounter Status:Closed by SRAVANI SORIA on 06/25/24 Normal [facility] Bacteria Ur Culton Bacteria identified Cx Nom (U) CULTURE, URINE: No growth (<1,000 CFU/ml) Normal [facility] Comment on above: Performed By: #### 6 30-4 ####[facility] LABCLIA [id number] [address]IC[address]DA [address] [place] CNOVon 06-23-2024 CNOV Office Visit (WALKWA ) ROBB ULRICH ([id number]) 1995 F Date Time Provider Department 06/23/24 9:30 AM DONNA KYLE WALKWA During your visit today, we recorded the following information about you: Temperature Pulse Respiration Blood pressure 97.4 degrees 83/minute 18/minute 133/84 Weight Height 106.1 kg 1.727 m Donna Kyle PA-C 06/23/2024 10:02 AM Signed 06/23/2024 Patient presents with: UTI: Uti started Tuesday/Tuesday, frequency, cramping in front and back, urgency, pain level 8/10 feeling like that she is being stabbed, has tried increasing fluids and cranberry juice, nausea/vomiting, pt is also , SUBJECTIVE: This is a 28 year old that is here today for possible UTI symptoms. HPI per the patient. The patient complains of dysuria, urinary urgency, and urinary frequency x 6 days. LMP 2 weeks late. + test at home. So, maybe 4-5 weeks . The patient denies fever, chills, abominal pain, lower abdominal pressure, bladder spasms, back pain, or n/v. The patient denies any discharge, lesions, odor, change in sexual partners, or concern for STIs. Dysuria pain: yes out of 10 with 10 being the worst pain. The lower abdominal pain is 0 out of 10 with 10 being the worst pain. The back/flank pain is 0 out of 10 with 10 being the worst pain. Self-treatment:. Azo The severity is mild and the symptoms are not improving. The patient has not had similar symptoms in the last 3 months. The patient has not had an antibiotic in the last 3 months. LMP:. 2 weeks late + test at home. So, maybe 4-5 weeks . Reviewed meds, OTCs and supplements. Meds reviewed. Allergies and medications reviewed. Reviewed allergies, medications, social history, and past medical history. Barriers to learning: none. PAST MEDICAL HISTORY Diagnosis Date Acne 05/08/2013 Anemia Thyroid enlarged all blood work came back WNL ALLERGIES Bactrim [Sulfamethoxazole-Tri methoprim] and Gabapentin MEDICATIONS Current Outpatient Medications Medication Sig nitrofurantoin monohydrate and macrocrystal (MACROBID) 100 mg capsule Take 1 capsule by mouth two times a day for 7 days. L-Norgest and E Estradiol-E Estrad 0.15 mg-30 mcg (84)/10 mcg (7) Take 1 tablet by mouth once daily. (Patient not taking: Reported on 06/23/2024) No current facility-administered medications for this visit. Medications and allergies reviewed by this provider. SOCIAL HISTORY Social History Tobacco Use Smoking status: Never Smokeless tobacco: Never Vaping Use Vaping status: Never Used Substance Use Topics Alcohol use: No Drug use: No REVIEW OF SYSTEMS ROS: constitutional-neg, heent-neg, heart-neg, respiratory-neg, GI-neg, -concern for UTI, skin-neg, lymph-neg, neuro-neg, psych-neg- All systems neg except as noted above in HPI. OBJECTIVE: BP 133/84 (BP Site: Left Arm, BP Position: Sitting, BP Cuff Size: Regular Adult) Pulse 83 Temp 36.3 ?C (97.4 ?F) (Right Tympanic) Resp 18 Ht 172.7 cm (5' 8") Wt 106.1 kg (233 lb 14.5 oz) LMP 05/10/2022 (Exact Date) SpO2 98% BMI 35.57 kg/m? . Vital signs reviewed by this provider. Physical Exam Vitals reviewed. Constitutional: General: She is not in acute distress. Appearance: Normal appearance. She is well-developed and normal weight. She is not ill-appearing, toxic-appearing or diaphoretic. Cardiovascular: Rate and Rhythm: Normal rate and regular rhythm. Heart sounds: Normal heart sounds. Pulmonary: Effort: Pulmonary effort is normal. Breath sounds: Normal breath sounds and air entry. Abdominal: General: Abdomen is flat. Bowel sounds are normal. Palpations: Abdomen is soft. Tenderness: There is no abdominal tenderness. There is no right CVA tenderness, left CVA tenderness, guarding or rebound. Neurological: Mental Status: She is alert. Psychiatric: Behavior: Behavior is cooperative. Taking Azo Latest Ref Rng 06/23/2024 GLUCOSE UA (POCT) Negative mg/dL 100 ! BILIRUBIN UA (POCT) Negative Small ! KETONE UA (POCT) Negative mg/dL Trace SPECIFIC GRAVITY UA (POCT) 1.005 - 1.030 1.015 HEMOGLOBIN/BLOOD UA (POCT) Negative Negative PH UA (POCT) 4.5 - 8.0 7.0 PROTEIN UA (POCT) Negative mg/dL 100 ! UROBILINOGEN UA (POCT) Normal E.U./dL 4.0 ! NITRITE UA (POCT) Negative Positive ! LEUKOCYTES UA (POCT) Negative Negative COLOR UA (POCT) [place] CLARITY UA (POCT) Clear ASSESSMENT/PLAN: 1. Urinary tract infection without hematuria, site unspecified - ICD9: 599.0, ICD10: N39.0 - UA DIP, URINE (POC)- taking Azo, urine is orange. - URINE CULTURE - NITROFURANTOIN MONOHYDRATE AND MACROCRYSTAL 100 MG ORAL CAP Urine culture sent to the lab. Will contact in 2-3 days with results. Discussed OTC care: Increase fluids, rest. Tylenol May use Cranberry juice or cranberry pills. Avoid constipation. Maintain regula (more content not included)... Normal [facility] UA DIP, URINE (POC)on 2023 BILIRUBIN UA (POCT) Small Abnormal Negative [facility] CLARITY UA (POCT) Clear [facility] COLOR UA (POCT) [place] [facility] GLUCOSE UA (POCT) 100 mg/dL Abnormal Negative [facility] Hemoglobin Ql (U) Negative Negative [facility] Interpretation and review of laboratory results Abnormal [facility] KETONE UA (POCT) Trace Negative mg/dL [facility] LEUKOCYTES UA (POCT) Negative Negative [facility] NITRITE UA (POCT) Positive Abnormal Negative [facility] PH UA (POCT) 7.0 4.5 - 8.0 [facility] Protein Ql (U) 100 mg/dL Abnormal Negative [facility] SPECIFIC GRAVITY UA (POCT) 1.015 1.005 - 1.030 [facility] UROBILINOGEN UA (POCT) 4.0 Abnormal Normal E.U./d L [facility] Location:[facility], [address] [place] [address], [address] [place] [address] POINT OF CARE [facility] Vital Signs Date Time Vital Sign Value Performing Clinician Facility 02-26-2025 11:17-0400 Body mass index (BMI) [Ratio] 34.76 kg/m2 Марина Hebert MD Work Phone: [facility] 02-26-2025 11:17-0400 Body weight 105.23 kg Марина Hebert MD Work Phone: [facility] 02-26-2025 11:17-0400 Diastolic blood pressure 78 mm[Hg] Марина Hebert MD Work Phone: [facility] 02-26-2025 11:17-0400 Systolic blood pressure 122 mm[Hg] Марина Hebert MD Work Phone: [facility] 02-21-2025 10:15-0400 Body mass index (BMI) [Ratio] 35.21 kg/m2 Jessie Santos MD Work Phone: [facility] 02-21-2025 10:15-0400 Body weight 106.59 kg Jessie Santos MD Work Phone: [facility] 02-21-2025 10:15-0400 Diastolic blood pressure 78 mm[Hg] Jessie Santos MD Work Phone: [facility] 02-21-2025 10:15-0400 Systolic blood pressure 110 mm[Hg] Jessie Santos MD Work Phone: [facility] 02-13-2025 08:22-0400 Body temperature 98 [degF] Dr. Judson Weber DO Work Phone: [facility] 02-13-2025 08:22-0400 Diastolic blood pressure 98 mm[Hg] Dr. Judson Weber DO Work Phone: 7(488)475-270837 [place] [address] 02-13-2025 08:22-0400 Heart rate 79 /min Dr. Judson Weber DO Work Phone: 1(339)577-893682 [place] [address] 02-13-2025 08:22-0400 Respiratory rate 16 /min Dr. Judson Weber DO Work Phone: 1(229)652-345182 [place] [address] 02-13-2025 08:22-0400 Systolic blood pressure 142 mm[Hg] Dr. Judson Weber DO Work Phone: 4(838)435-623982 [place] [address] 02-13-2025 01:42-0400 SaO2% (BldA) [Mass fraction] 98 % Dr. Judson Weber DO Work Phone: 2(206)496-800882 [place] [address] 02-11-2025 08:34-0400 Body height 172.[address] Judson Weber DO Work Phone: 4(348)089-155682 [place] [address] 02-11-2025 08:34-0400 Body mass index (BMI) [Ratio] 39.5 kg/m2 Dr. Judson Weber DO Work Phone: 9(720)832-377282 [place] [address] 02-11-2025 08:34-0400 Body weight [address] Judson Weber DO Work Phone: 4(255)279-759982 [place] [address] 02-08-2025 08:45-0400 Body mass index (BMI) [Ratio] 39.7 kg/m2 Jessie Santos MD Work Phone: 7(162)987-165441 [place] [address] 02-08-2025 08:45-0400 Body weight 120.2 kg Jessie Santos MD Work Phone: [facility] 02-08-2025 08:45-0400 Diastolic blood pressure 89 mm[Hg] Jessie Santos MD Work Phone: [facility] 02-08-2025 08:45-0400 Systolic blood pressure 142 mm[Hg] Jessie Santos MD Work Phone: 2(698)522-814341 [place] [address] 02-05-2025 13:24-0400 Diastolic blood pressure 79 mm[Hg] Dr. Judson Weber DO Work Phone: 8(423)352-806037 [place] [address] 02-05-2025 13:24-0400 Heart rate 83 /min Dr. Judson Weber DO Work Phone: 8(050)533-977082 [place] [address] 02-05-2025 13:24-0400 Systolic blood pressure 132 mm[Hg] Dr. Judson Weber DO Work Phone: 1(540)751-980582 [place] [address] 02-05-2025 12:26-0400 Body height 172.[address] Judson Weber DO Work Phone: 1(266)212-149282 [place] [address] 02-05-2025 12:26-0400 Body mass index (BMI) [Ratio] 39.5 kg/m2 Dr. Judson Weber DO Work Phone: 9(464)626-619582 [place] [address] 02-05-2025 12:26-0400 Body weight [address] Judson Weber DO Work Phone: 0(712)579-938682 [place] [address] 02-05-2025 11:55-0400 Body temperature 97.6 [degF] Dr. Judson Weber DO Work Phone: 0(055)471-102282 [place] [address] 02-05-2025 11:55-0400 Respiratory rate 18 /min Dr. Judson Weber DO Work Phone: 4(247)992-839382 [place] [address] 02-05-2025 11:49-0400 SaO2% (BldA) [Mass fraction] 98 % Dr. Judson Weber DO Work Phone: [facility] 02-05-2025 11:17-0400 Diastolic blood pressure 88 mm[Hg] Марина Hebert MD Work Phone: [facility] Comment on above: CARLOS BP average 02-05-2025 11:17-0400 Systolic blood pressure 127 mm[Hg] Марина Hebert MD Work Phone: [facility] Comment on above: CARLOS BP average 02-05-2025 10:47-0400 Body mass index (BMI) [Ratio] 39.7 kg/m2 Марина Hebert MD Work Phone: [facility] 02-05-2025 10:47-0400 Body weight 120.2 kg Марина Hebert MD Work Phone: [facility] 01-24-2025 08:06-0400 Body mass index (BMI) [Ratio] 40.14 kg/m2 Sravani Plotts BOBBIN TRUCKER.CNM Work Phone: [facility] 01-24-2025 08:06-0400 Body weight 119.75 kg Sravani Soria BOBBIN TRUCKER.CNM Work Phone: [facility] 01-24-2025 08:06-0400 Diastolic blood pressure 86 mm[Hg] Sravani Plotts BOBBIN TRUCKER.CNM Work Phone: [facility] 01-24-2025 08:06-0400 Systolic blood pressure 128 mm[Hg] Sravani Zimmermants BOBBIN TRUCKER.CNM Work Phone: [facility] 01-17-2025 10:46-0400 Body mass index (BMI) [Ratio] 39.38 kg/m2 José Miguel Delcid MD Work Phone: [facility] 01-17-2025 10:46-0400 Body weight 117.48 kg José Miguel Delcid MD Work Phone: [facility] 01-17-2025 10:46-0400 Diastolic blood pressure 62 mm[Hg] José Miguel Delcid MD Work Phone: [facility] 01-17-2025 10:46-0400 Systolic blood pressure 106 mm[Hg] José Miguel Delcid MD Work Phone: [facility] 01-03-2025 08:28-0400 Body mass index (BMI) [Ratio] 38.32 kg/m2 Марина Hebert MD Work Phone: [facility] 01-03-2025 08:28-0400 Body weight 114.31 kg Марина Hebert MD Work Phone: [facility] 01-03-2025 08:28-0400 Diastolic blood pressure 72 mm[Hg] Марина Hebert MD Work Phone: [facility] 01-03-2025 08:28-0400 Systolic blood pressure 116 mm[Hg] Марина Hebert MD Work Phone: [facility] 12-20-2024 10:18-0400 Body mass index (BMI) [Ratio] 37.86 kg/m2 Morena Limon MD Work Phone: [facility] 12-20-2024 10:18-0400 Body weight 112.95 kg Morena Limon MD Work Phone: [facility] 12-20-2024 10:18-0400 Diastolic blood pressure 72 mm[Hg] Morena Limon MD Work Phone: [facility] 12-20-2024 10:18-0400 Systolic blood pressure 114 mm[Hg] Morena Limon MD Work Phone: [facility] 12-06-2024 13:24-0400 Body mass index (BMI) [Ratio] 37.07 kg/m2 Morena Limon MD Work Phone: [facility] 12-06-2024 13:24-0400 Body weight 110.59 kg Morena Limon MD Work Phone: [facility] 12-06-2024 13:24-0400 Diastolic blood pressure 70 mm[Hg] Morena Limon MD Work Phone: [facility] 12-06-2024 13:24-0400 Systolic blood pressure 102 mm[Hg] Morena Limon MD Work Phone: [facility] 11-20-2024 09:20-0400 Body mass index (BMI) [Ratio] 37.56 kg/m2 Jessie Santos MD Work Phone: [facility] 11-20-2024 09:20-0400 Body weight 112.04 kg Jessie Santos MD Work Phone: [facility] 11-20-2024 09:20-0400 Diastolic blood pressure 64 mm[Hg] Jessie Santos MD Work Phone: [facility] 11-20-2024 09:20-0400 Systolic blood pressure 122 mm[Hg] Jessie Santos MD Work Phone: [facility] 10-25-2024 09:04-0400 Body mass index (BMI) [Ratio] 36.64 kg/m2 Марина Hebert MD Work Phone: [facility] 10-25-2024 09:04-0400 Body weight 109.32 kg Марина Hebert MD Work Phone: [facility] 10-25-2024 09:04-0400 Diastolic blood pressure 64 mm[Hg] Марина Hebert MD Work Phone: [facility] 10-25-2024 09:04-0400 Systolic blood pressure 118 mm[Hg] Марина Hebert MD Work Phone: [facility] 09-27-2024 09:29-0400 Body mass index (BMI) [Ratio] 35.12 kg/m2 José Miguel Delcid MD Work Phone: [facility] 09-27-2024 09:29-0400 Body weight 104.78 kg José Miguel Delcid MD Work Phone: [facility] 09-27-2024 09:29-0400 Diastolic blood pressure 70 mm[Hg] José Miguel Delcid MD Work Phone: [facility] 09-27-2024 09:29-0400 Systolic blood pressure 112 mm[Hg] José Miguel Delcid MD Work Phone: [facility] 09-04-2024 13:22-0400 Body temperature 97.5 [degF] Dr. Judson Weber DO Work Phone: [facility] 09-04-2024 13:22-0400 Diastolic blood pressure 70 mm[Hg] Dr. Judson Weber DO Work Phone: [facility] 09-04-2024 13:22-0400 Heart rate 84 /min Dr. Judson Weber DO Work Phone: [facility] 09-04-2024 13:22-0400 Respiratory rate 16 /min Dr. Judson Weber DO Work Phone: [facility] 09-04-2024 13:22-0400 SaO2% (BldA) [Mass fraction] 99 % Dr. Judson Weber DO Work Phone: [facility] 09-04-2024 13:22-0400 Systolic blood pressure 115 mm[Hg] Dr. Judson Weber DO Work Phone: [facility] 09-04-2024 08:07-0400 Body height 172.[address] Judson Weber DO Work Phone: 3(848)248-162837 [place] [address] 09-04-2024 08:07-0400 Body mass index (BMI) [Ratio] 33.9 kg/m2 Dr. Judson Weber DO Work Phone: [facility] 09-04-2024 08:07-0400 Body weight 101.[address] Judson Weber DO Work Phone: [facility] 08-30-2024 08:37-0500 Body mass index (BMI) [Ratio] 33.97 kg/m2 Марина Hebert MD Work Phone: [facility] [facility] 08-30-2024 08:37-0500 Body weight 101.33 kg Марина Hebert MD Work Phone: [facility] 08-30-2024 08:37-0500 Diastolic blood pressure 64 mm[Hg] Марина Hebert MD Work Phone: [facility] 08-30-2024 08:37-0500 Systolic blood pressure 112 mm[Hg] Марина Hebert MD Work Phone: [facility] 08-02-2024 10:02-0500 Body mass index (BMI) [Ratio] 33.6 kg/m2 Sravani Soria APRN.CNM Work Phone: [facility] 08-02-2024 10:02-0500 Body weight 100.25 kg Sravani Soria BOBBIN TRUCKER.CNM Work Phone: [facility] 08-02-2024 10:02-0500 Diastolic blood pressure 66 mm[Hg] Sravani Plotts BOBBIN TRUCKER.CNM Work Phone: [facility] 08-02-2024 10:02-0500 Systolic blood pressure 110 mm[Hg] Sravani Plotts BOBBIN TRUCKER.CNM Work Phone: [facility] 07-05-2024 08:42-0500 Body height 172.7 cm Sravani Plotts BOBBIN TRUCKER.CNM Work Phone: [facility] 07-05-2024 08:42-0500 Body mass index (BMI) [Ratio] 34.21 kg/m2 Sravani Plotts BOBBIN TRUCKER.CNM Work Phone: [facility] 07-05-2024 08:42-0500 Body weight 102.06 kg Sravani Plotts BOBBIN TRUCKER.CNM Work Phone: [facility] 07-05-2024 08:42-0500 Diastolic blood pressure 64 mm[Hg] Sravani Plotts BOBBIN TRUCKER.CNM Work Phone: [facility] 07-05-2024 08:42-0500 Systolic blood pressure 112 mm[Hg] Sravani Plotts BOBBIN TRUCKER.CNM Work Phone: [facility] 07-02-2024 13:18-0500 Body mass index (BMI) [Ratio] 35.4 kg/m2 Stephanie Tidwell BOBBIN TRUCKER.OFFSET PRESS OPERATOR APPRENTICE Work Phone: [facility] 07-02-2024 13:18-0500 Body temperature 98.1 [degF] Stephanie Tidwell BOBBIN TRUCKER.OFFSET PRESS OPERATOR APPRENTICE Work Phone: [facility] 07-02-2024 13:18-0500 Body weight 105.6 kg Stephanie Tidwell BOBBIN TRUCKER.OFFSET PRESS OPERATOR APPRENTICE Work Phone: [facility] 07-02-2024 13:18-0500 Diastolic blood pressure 64 mm[Hg] Stephanie Tdiwell BOBBIN TRUCKER.OFFSET PRESS OPERATOR APPRENTICE Work Phone: [facility] 07-02-2024 13:18-0500 Heart rate 84 /min Stephanie Tidwell BOBBIN TRUCKER.OFFSET PRESS OPERATOR APPRENTICE Work Phone: [facility] 07-02-2024 13:18-0500 Respiratory rate 16 /min Stephaniejannette Tidwell BOBBIN TRUCKER.OFFSET PRESS OPERATOR APPRENTICE Work Phone: [facility] 07-02-2024 13:18-0500 SaO2% (BldA) [Mass fraction] 100 % Stephaniejannette Tidwell BOBBIN TRUCKER.OFFSET PRESS OPERATOR APPRENTICE Work Phone: [facility] 07-02-2024 13:18-0500 Systolic blood pressure 104 mm[Hg] Stephaniejannette Tidwell BOBBIN TRUCKER.OFFSET PRESS OPERATOR APPRENTICE Work Phone: [facility] 06-26-2024 18:53-0500 Body temperature 98.2 [degF] Dr. Judson Weber DO Work Phone: 1(060)725-428437 [place] [address] 06-26-2024 18:53-0500 Diastolic blood pressure 74 mm[Hg] Dr. Judson Weber DO Work Phone: 8(703)181-024637 [place] [address] 06-26-2024 18:53-0500 Heart rate 72 /min Dr. Judson Weber DO Work Phone: 9(214)429-827037 [place] [address] 06-26-2024 18:53-0500 Respiratory rate 18 /min Dr. Judson Weber DO Work Phone: 7(155)098-156037 [place] [address] 06-26-2024 18:53-0500 SaO2% (BldA) [Mass fraction] 99 % Dr. Judson Weber DO Work Phone: [facility] 06-26-2024 18:53-0500 Systolic blood pressure 112 mm[Hg] Dr. Judson Weber DO Work Phone: 9(659)708-724437 [place] [address] 06-26-2024 15:13-0500 Body mass index (BMI) [Ratio] 34.3 kg/m2 Dr. Judson Weber DO Work Phone: 4(127)399-510837 [place] [address] 06-26-2024 15:13-0500 Body weight 102.[address] Judson Weber DO Work Phone: 6(082)000-193737 [place] [address] 06-26-2024 13:40-0500 Body mass index (BMI) [Ratio] 34.73 kg/m2 Jessie Santos MD Work Phone: [facility] 06-26-2024 13:40-0500 Body weight 103.6 kg Jessie Santos MD Work Phone: [facility] 06-26-2024 13:40-0500 Diastolic blood pressure 70 mm[Hg] Jessie Santos MD Work Phone: [facility] 06-26-2024 13:40-0500 Systolic blood pressure 110 mm[Hg] Jessie Santos MD Work Phone: [facility] 06-23-2024 09:42-0500 Body height 172.7 cm Donna Slabaugh PA-C Work Phone: [facility] 06-23-2024 09:42-0500 Body mass index (BMI) [Ratio] 35.57 kg/m2 Donna Slabaugh PA-C Work Phone: [facility] 06-23-2024 09:42-0500 Body temperature 97.39 [degF] Donna Slabaugh PA-C Work Phone: [facility] 06-23-2024 09:42-0500 Body weight 106.1 kg Donna Slabaugh PA-C Work Phone: [facility] 06-23-2024 09:42-0500 Diastolic blood pressure 84 mm[Hg] Donna Slabaugh PA-C Work Phone: [facility] 06-23-2024 09:42-0500 Heart rate 83 /min Donna Slabaugh PA-C Work Phone: [facility] 06-23-2024 09:42-0500 Respiratory rate 18 /min Donna Slabaugh PA-C Work Phone: [facility] 06-23-2024 09:42-0500 SaO2% (BldA) [Mass fraction] 98 % Donna Slabaugh PA-C Work Phone: [facility] 06-23-2024 09:42-0500 Systolic blood pressure 133 mm[Hg] Donna Kyle PA-C Work Phone: [facility] 06-04-2022 09:53-0500 Body height 175.3 cm José Miguel Delcid MD Work Phone: [facility] 06-04-2022 09:53-0500 Body weight 98.61 kg José Miguel Delcid MD Work Phone: [facility] 06-04-2022 09:53-0500 Diastolic blood pressure 70 mm[Hg] José Miguel Delcid MD Work Phone: [facility] 06-04-2022 09:53-0500 Systolic blood pressure 112 mm[Hg] José Miguel Delcid MD Work Phone: [facility] 10-12-2021 11:42-0400 Body height 176 cm Franci Batsheva BOBBIN TRUCKER.OFFSET PRESS OPERATOR APPRENTICE Work Phone: [facility] 10-12-2021 11:42-0400 Body weight 98.88 kg Franci Batsheva BOBBIN TRUCKER.OFFSET PRESS OPERATOR APPRENTICE Work Phone: [facility] 10-12-2021 11:42-0400 Diastolic blood pressure 74 mm[Hg] Franci Batsheva BOBBIN TRUCKER.OFFSET PRESS OPERATOR APPRENTICE Work Phone: [facility] 10-12-2021 11:42-0400 Heart rate 90 /min Franci Batsheva BOBBIN TRUCKER.OFFSET PRESS OPERATOR APPRENTICE Work Phone: [facility] 10-12-2021 11:42-0400 Respiratory rate 16 /min Franci Batsheva BOBBIN TRUCKER.OFFSET PRESS OPERATOR APPRENTICE Work Phone: [facility] 10-12-2021 11:42-0400 SaO2% (BldA) [Mass fraction] 100 % Franci Batsheva BOBBIN TRUCKER.OFFSET PRESS OPERATOR APPRENTICE Work Phone: [facility] 10-12-2021 11:42-0400 Systolic blood pressure 108 mm[Hg] Franci Batsheva BOBBIN TRUCKER.OFFSET PRESS OPERATOR APPRENTICE Work Phone: [facility] Encounters Encounter Date Encounter Type Care Provider Facility Start: 04-10-2025 End: 04-10-2025 ambulatory JUDSON L WEBER Facility:[facility] Start: 03-28-2025 End: 03-28-2025 ambulatory JUDSON L WEBER Facility:[facility] Start: 02-26-2025 End: 02-26-2025 Patient encounter procedure Марина Hebert MD Work Phone: OB/Gynecology Comment on above: Routine f ollow-up (HCC) (Primary Dx); endometritis (HCC) Start: 02-26-2025 End: 02-26-2025 ambulatory JUDSON SINGERON Facility:[facility] Start: 02-22-2025 End: 02-22-2025 Follow-up encounter Марина Hebert MD Work Phone: OB/Gynecology Start: 02-21-2025 End: 02-21-2025 Patient encounter procedure Jessie Santos MD Work Phone: OB/Gynecology Comment on above: pain (HCC ) (Primary Dx); Vaginal odor; endometritis (HCC) Start: 02-21-2025 End: 02-21-2025 ambulatory JUDSON WEBER Facility:[facility] Start: 02-12-2025 End: 02-12-2025 ambulatory Марина Hebert MD Work Phone: OB/Gynecology Comment on above: Ob Delivery Note Start: 02-12-2025 End: 02-13-2025 Telephone encounter Judson Weber DO Work Phone: [facility] Start: 02-11-2025 End: 02-13-2025 Evaluation and management of inpatient Dr. Марина Hebert MD [facility] Work Phone: Start: 02-08-2025 End: 02-08-2025 Patient encounter procedure Jessie Santos MD Work Phone: OB/Gynecology Comment on above: Elevated blood press ure reading without diagnosis of hypertension (Primary Dx); Anemia during in third trimester (HCC); 39 weeks gestation of (HCC); Supervision of high risk in third trimester (HCC) Start: 02-08-2025 End: 02-08-2025 ambulatory JUDSON WEBER Facility:[facility] Start: 02-05-2025 End: 02-05-2025 E-mail encounter from caregiver Марина Hebert MD Work Phone: OB/Gynecology Start: 02-05-2025 End: 02-05-[address] Judson Weber DO Work Phone: -[facility] Comment on above: Induction of Labor Start: 02-05-2025 End: 02-05-[address] Morena Limon MD -[facility] Work Phone: Comment on above: Population Health Na vigation Outreach (Ob/peds ) Encounter for superv ision of normal first in third trimester (HCC) (Primary Dx); Elevated blood pressure reading without diagnosis of hypertension; 38 weeks gestation of ([facility]) Start: 02-05-2025 End: 02-05-2025 ambulatory JUDSON L WEBER Facility:[facility] Start: 02-01-2025 End: 02-01-2025 ambulatory JUDSON L WEBER Facility:[facility] Start: 01-31-2025 End: 01-31-2025 ambulatory JUDSON L WEBER Facility:[facility] Start: 01-31-2025 End: 01-31-2025 ambulatory JUDSON L WEBER Facility:[facility] Start: 01-24-2025 End: 01-24-2025 Patient encounter procedure Sravani Soria APRN.CNM Work Phone: OB/Gynecology Comment on above: 37 weeks gestation o f (HCC) (Primary Dx); Anemia during in third trimester (HCC); Encounter for supervision of normal first in third trimester ([facility]) Start: 01-24-2025 End: 01-24-2025 ambulatory JUDSON WEBER Facility:[facility] Start: 01-17-2025 End: 01-17-2025 Patient encounter procedure José Miguel Delcid MD Work Phone: OB/Gynecology Comment on above: Anemia during pregna ncy in third trimester (HCC) (Primary Dx); 36 weeks gestation of (HCC); Encounter for supervision of normal first in third trimester (HCC) Start: 01-17-2025 End: 01-17-2025 ambulatory JUDSON L WEBER Facility:[facility] Start: 01-03-2025 End: 03-05-2025 Follow-up encounter Марина Hebert MD Work Phone: OB/Gynecology Start: 01-03-2025 End: 01-03-2025 Patient encounter procedure Марина Hebert MD Work Phone: OB/Gynecology Comment on above: Encounter for superv ision of normal first in third trimester (HCC) (Primary Dx); Anemia during in third trimester ([facility]); 34 weeks gestation of ([facility]) Start: 01-03-2025 End: 01-03-2025 ambulatory JUDSON TALBERTRISON Facility:[facility] Start: 12-20-2024 End: 12-20-2024 Patient encounter procedure Morena Limon MD Work Phone: OB/Gynecology Comment on above: Anemia during pregna ncy in third trimester ([facility]) (Primary Dx); Encounter for supervision of normal first in third trimester ([facility]); 32 weeks gestation of ([facility]) Start: 12-20-2024 End: 12-20-2024 ambulatory JUDSON TALBERTRISON Facility:[facility] Start: 12-06-2024 End: 12-06-2024 Patient encounter procedure Morena Limon MD Work Phone: OB/Gynecology Comment on above: 30 weeks gestation o f ([facility]) (Primary Dx); Anemia during in third trimester ([facility]); Encounter for supervision of normal first in third trimester ([facility]) Start: 12-06-2024 End: 12-06-2024 ambulatory MORENA LIMON Facility:[facility] Start: 11-30-2024 End: 11-30-2024 Telephone encounter Sravani Soria APRN.CNM Work Phone: OB/Gynecology Comment on above: Lower right back fartun n/radiating around to right front Start: 11-21-2024 End: 01-21-2025 Follow-up encounter Марина Hebert MD Work Phone: OB/Gynecology Start: 11-20-2024 End: 11-20-2024 ambulatory JUDSON WEBER Facility:[facility] Start: 11-20-2024 End: 11-20-2024 Patient encounter procedure Jessie Santos MD Work Phone: OB/Gynecology Comment on above: Encounter for superv ision of normal first in second trimester (HCC) (Primary Dx); Screening for diabetes mellitus; 27 weeks gestation of (HCC); Need for vaccination Start: 10-25-2024 End: 10-25-2024 Patient encounter procedure Марина Hebert MD Work Phone: OB/Gynecology Comment on above: Screening for diabet es mellitus (Primary Dx); Encounter for supervision of other normal in second trimester (HCC); 24 weeks gestation of (HCC) Start: 10-25-2024 ambulatory JUDSON WEBER Facil ity:[facility] Start: 09-27-2024 End: 11-27-2024 Follow-up encounter Sravani Soria APRN.CNM Work Phone: OB/Gynecology Start: 09-27-2024 End: 09-27-2024 Patient encounter procedure José Miguel Delcid MD Work Phone: OB/Gynecology Comment on above: Encounter for superv ision of other normal in second trimester (HCC) (Primary Dx); 20 weeks gestation of (HCC) Start: 09-27-2024 End: 09-27-2024 ambulatory JUDSON TALBERTRISON Facility:[facility] Start: 09-27-2024 End: 09-27-2024 ambulatory JUDSON L WEBER Facility:[facility] Start: 09-27-2024 End: 09-27-2024 Patient encounter procedure [employer] 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 Judson Weber DO Work Phone: -Emergency Department Work Phone: Start: 08-30-2024 End: 08-30-2024 ambulatory JUDSON WEBER Facility:[facility] Start: 08-30-2024 End: 08-30-2024 Patient encounter procedure Марина Hebert MD Work Phone: OB/Gynecology Comment on above: 16 weeks gestation o f (Primary Dx); Nausea/vomiting in ; Encounter for supervision of other normal in second trimester Start: 08-06-2024 End: 10-06-2024 Follow-up encounter Mary Britton APRN.CNP Work Phone: OB/Gynecology Start: 08-02-2024 End: 08-30-2024 Telephone encounter Sravani Soria APRN.CNM Work Phone: OB/Gynecology Comment on above: Offer 16 week ultras ound Start: 08-02-2024 End: 08-02-2024 ambulatory JUDSON WEBER Facility:[facility] Start: 08-02-2024 End: 08-02-2024 Patient encounter procedure Sravani Soria APRN.CNM Work Phone: OB/Gynecology Comment on above: 12 weeks gestation o f (Primary Dx); related nausea, antepartum; Heartburn during in second trimester; Nausea/vomiting in ; Encounter for supervision of normal first in first trimester Encounter for antena alma rosa screening for malformation using ultrasound (Primary Dx); 12 weeks gestation of Start: 08-02-2024 End: 08-02-2024 ambulatory JUDSON WEBER Facility:[facility] Start: 07-26-2024 End: 07-26-2024 Refill Sravani Soria APRN.CNM Work Phone: OB/Gynecology Comment on above: Refill Request Start: 07-09-2024 End: 2024 ambulatory Sravani Soria APRN.CNM Work Phone: OB/Gynecology Comment on above: Nausea medication Start: 07-05-2024 End: 07-05-2024 ambulatory JUDSON L WEBER Facility:[facility] Start: 07-05-2024 End: 07-05-2024 Patient encounter procedure Sravani Soria OSWALDO.CNM Work Phone: OB/Gynecology Comment on above: with uncer tain dates, antepartum (Primary Dx); 8 weeks gestation of ; Nausea/vomiting in ; Encounter for supervision of normal first in first trimester; Painful bladder spasm; Obesity affecting in first trimester, unspecified obesity type Start: 07-04-2024 End: 07-04-2024 Telephone encounter Stephanie Tidwell APRN.OFFSET PRESS OPERATOR APPRENTICE Work Phone: [facility] [place] Comment on above: Results Start: 07-04-2024 End: 07-04-2024 ambulatory JUDSON L WEBER Facility:[facility] Start: 07-04-2024 End: 07-04-2024 Subsequent hospital visit by physician [facility] Work Phone: Radiology Comment on above: Lower abdominal pain [R10.30] Start: 07-02-2024 End: 07-02-2024 ambulatory JUDSON L WEBER Facility:[facility] Start: 07-02-2024 End: 07-02-2024 Office outpatient visit 25 minutes Stephanie Tidwell APRN.OFFSET PRESS OPERATOR APPRENTICE Work Phone: [facility] Comment on above: Lower abdominal pain (Primary Dx); Urinary tract infection without hematuria, site unspecified; Less than 8 weeks gestation of ; Nausea and vomiting, unspecified vomiting type Start: 06-29-2024 End: 06-29-2024 Telephone encounter Judson L Weber DO Work Phone: [facility] [place] Comment on above: Patient Update Start: 06-26-2024 End: 06-26-2024 Emergency department patient visit Dr. Robert Cohn MD -Emergency Department Work Phone: Start: 06-26-2024 End: 06-26-2024 ambulatory JUDSON L WEBER Facility:[facility] Start: 06-26-2024 End: 06-26-2024 Office outpatient visit 25 minutes Jessie Santos MD Work Phone: OB/Gynecology Comment on above: Nausea/vomiting in p regnancy (Primary Dx); Pelvic pain in Start: 06-25-2024 End: 06-25-2024 Telephone encounter Sravani Estella CHACON.CNM Work Phone: OB/Gynecology Comment on above: Nausea & Vomiting Start: 06-23-2024 End: 06-23-2024 ambulatory JUDSON WEBER Facility:[facility] Start: 06-23-2024 End: 06-23-2024 Patient encounter procedure Donna Kyle PA-C Work Phone: [facility] Comment on above: Urinary tract infect ion without hematuria, site unspecified (Primary Dx) Start: 07-20-2023 End: 07-20-2023 ambulatory MOLLY TRAN PA-C Facility: Start: 07-01-2022 End: 07-01-2022 Nursing evaluation of patient and report Mi Nurse Work Phone: [facility] [place] Comment on above: Screening examinatio n for pulmonary tuberculosis (Primary Dx) Start: 06-24-2022 End: 06-24-2022 Nursing evaluation of patient and report Mi Nurse Work Phone: [facility] [place] Comment on above: Screening examinatio n for pulmonary tuberculosis (Primary Dx) Start: 06-24-2022 Telephone encounter Franci Hector APRN.OFFSET PRESS OPERATOR APPRENTICE Work Phone: [facility] [place] Comment on above: Orders Start: 06-22-2022 End: 06-22-2022 Nursing evaluation of patient and report Mi Nurse Work Phone: [facility] [place] Comment on above: Screening examinatio n for pulmonary tuberculosis (Primary Dx) Start: 06-10-2022 Telephone encounter Judson galloway DO Work Phone: [facility] [place] Comment on above: Orders Start: 06-04-2022 End: 06-04-2022 Patient encounter procedure José Miguel Delcid MD Work Phone: OB/Gynecology Comment on above: Encounter for gyneco logical examination (general) (routine) without abnormal findings (Primary Dx); Screening for cervical cancer; Encounter for screening for human papillomavirus (HPV); Screen for STD (sexually transmitted disease); Encounter for surveillance of contraceptive pills Start: 06-04-2022 End: 06-04-2022 Patient encounter status José Miguel Delcid MD Work Phone: OB/Gynecology Start: 05-14-2022 Refill Марина zheng MD Work Phone: OB/Gynecology Comment on above: Refill Request Start: 05-06-2022 Refill Марина zheng MD Work Phone: OB/Gynecology Comment on above: Refill Request Start: 10-14-2021 Telephone encounter Franci Hector APRN.OFFSET PRESS OPERATOR APPRENTICE Work Phone: [facility] Comment on above: Results Start: 10-12-2021 End: 10-12-2021 Patient encounter procedure Franci Batsheva SAINIOFFSET PRESS OPERATOR APPRENTICE Work Phone: [facility] Comment on above: Well adult exam ([facility] Dx); Enlarged thyroid; Screening for diabetes mellitus; Screening for lipid disorders; Encounter for vitamin deficiency screening Start: 10-12-2021 End: 10-12-2021 Patient encounter status Franci Batsheva SAINIOFFSET PRESS OPERATOR APPRENTICE Work Phone: [facility] Procedures Date Procedure Procedure Detail Performing Clinician Start: 02-21-2025 Urnls dip stick/tabl et rgnt auto w/o microscopy Jessie Santos MD Work Phone: Start: 02-11-2025 Serologic test for syphilis Dr. Judson Weber DO Work Phone: Start: 02-08-2025 Urnls dip stick/tabl et rgnt non-auto w/o micrscp Jessie Santos MD Work Phone: Start: 02-05-[address] Judson Weber DO Work Phone: Start: 02-01-2025 Adult depression scr eening assessment Ira Quiros MA Start: 01-17-2025 Urnls dip stick/tabl et rgnt non-auto w/o micrscp José Miguel Delcid MD Work Phone: Start: 09-27-2024 Us preg uterus after 1st trimest 1/ gestation Sravani Zimmermanleonarda BOBBIN TRUCKER.CNM Work Phone: Start: 09-04-2024 Plain X-ray abdomen Dr. Judson Weber DO Work Phone: Start: 09-04-2024 Complete ultrasound of kidneys and bladder Dr. Judson Weber DO Work Phone: Start: 08-02-2024 Antibody screen JUDSON WEBER Comment on above: Order Comment: Speci men Type: FLUID SPECIMEN Ordering Facility: [facility] Address: [address] [place] [address] Performed By: #### L [id number] #### [facility] CLIA [id number] [address] [place] [address] [place] [address] [place] Start: 08-02-2024 Us nuchal translucency 1st gestation Sravani Zimmermanleonarda BOBBIN TRUCKER.CNM Work Phone: Start: 07-05-2024 Us uterus l imited 1/> fetuses Sravani Plotleonarda BOBBIN TRUCKER.CNM Work Phone: Start: 07-04-2024 Us abdominal real ti me w/image documentation Stephanie Tidwell BOBBIN TRUCKER.OFFSET PRESS OPERATOR APPRENTICE Work Phone: Start: 06-26-[address] Lucero Weber DO Work Phone: Start: 06-23-2024 Urnls dip stick/tabl et rgnt auto w/o microscopy [facility] Provider Start: 06-24-2022 Skin test tuberculos is intradermal Stephanie Arriaga BOBBIN TRUCKER.OFFSET PRESS OPERATOR APPRENTICE Work Phone: Start: 07-27-2017 Adult depression scr eening assessment Franci Herman BOBBIN TRUCKER.OFFSET PRESS OPERATOR APPRENTICE Work Phone: Plan of Treatment Date Care Activity Detail Author Start: 11-20-2034 Urine microalbumin profile DTaP,Tdap,Td Vaccine (9 - Td or Tdap) [facility] Start: 08-14-2027 Urine microalbumin profile DTaP,Tdap,Td Vaccine (8 - Td or Tdap) [facility] Start: 02-01-2026 Anxiety Screening Anxiety Screening [facility] Start: 02-01-2026 Depression Screening Depression Scre ening [facility] Start: 06-04-2025 PAP TESTING PAP TESTING [facility] Start: 06-04-2025 Screening for malign ant neoplasm of cervix Cervical Cancer Screening [facility] Start: 03-28-2025 End: 03-28-2025 Patient encounter procedure 03/28/2025 10:50 AM EDT Office Visit OB/Gynecology [address] [place] [address] Марина Hebert MD [address] [place] [address] control OB/Gynecology Comment on above: control Start: 02-26-2025 End: 02-26-2025 Patient encounter procedure 02/26/2025 11:10 AM EDT Office Visit OB/Gynecology [address] [place] [address] Марина Hebert MD [address] [place] [address] Post healing OB/Gynecology Comment on above: Post healing Start: 02-25-2025 Influenza vaccination [facility] Start: 02-13-2025 Patient discharge [facility] Start: 02-12-2025 End: 02-12-2025 Patient encounter procedure 02/12/2025 10:10 AM EDT Routine Office Visit OB/Gynecology [address] [place] [address] Morena Limon MD [address] [place] [id number] ob OB/Gynecology Comment on above: ob Start: 02-11-2025 Administration of bl ood product [facility] Start: 02-11-2025 Administration of medication [facility] Start: 02-11-2025 Application of ice collar, cap or bag [facility] Start: 02-11-2025 Catheterization of vein [facility] Start: 02-11-2025 Introduction of urin fidel catheter [facility] Start: 02-11-2025 Measuring intake and output [facility] Start: 02-11-2025 Notification of physician [facility] Start: 02-11-2025 Procedure discontinued [facility] Start: 02-11-2025 Provision of activit y privileges [facility] Start: 02-11-2025 Vital signs measurements [facility] Start: 02-11-2025 End: 02-11-2025 [facility] Start: 02-11-2025 Documentation procedure [facility] Start: 02-11-2025 Admission procedure [facility] Start: 02-08-2025 End: 02-08-2025 Patient encounter procedure 02/08/2025 8:30 AM EDT Routine Office Visit OB/Gynecology [address] [place] [address] Jessie Santos MD [address] [place] [address] OB and NST per RR, NST at 0830 OB/Gynecology Comment on above: OB and NST per RR, N ST at 0830 Start: 02-07-2025 End: 02-07-2025 Patient encounter procedure 02/07/2025 11:40 AM EDT Routine Office Visit OB/Gynecology [address] [place] [address] Morena Limon MD [address] [place] [id number] OB OB/Gynecology Comment on above: OB Start: 02-05-2025 Nonstress test [facility] Start: 02-05-2025 Obstetric monitoring [facility] Start: 02-05-2025 Vital signs measurements [facility] Start: 02-05-2025 [facility] Start: 02-05-2025 End: 02-05-2025 Patient encounter procedure 02/05/2025 10:40 AM EDT Routine Office Visit OB/Gynecology [address] [place] [address] Марина Hebert MD [address] [place] [address] OB OB/Gynecology Comment on above: OB Start: 02-05-2025 [facility] Start: 02-01-2025 End: 02-01-2025 Patient encounter procedure 02/01/2025 7:40 AM EDT Office Visit Family Medicine Karen [address] [place] [address] Judson Weber DO [address] [place] [address] Annual physical [facility] [place] Comment on above: Annual physical Start: 01-31-2025 End: 01-31-2025 Patient encounter procedure OB/Gynecology Comment on above: OB Start: 01-24-2025 End: 01-24-2025 Patient encounter procedure 01/24/2025 8:00 AM EDT Routine Office Visit OB/Gynecology [address] [place] [address] Sravani Soria APRN.[facility] [address] [place] [address] (Fax) OB OB/Gynecology Comment on above: OB Start: 01-17-2025 End: 01-17-2025 Patient encounter procedure 01/17/2025 10:40 AM EDT Routine Office Visit OB/Gynecology [address] [place] [address] José Miguel Delcid MD [address] [place] [address] (Fax) ob OB/Gynecology Comment on above: ob Start: 01-03-2025 End: 01-03-2025 Patient encounter procedure 01/03/2025 8:30 AM EDT Routine Office Visit OB/Gynecology [address] [place] [address] Марина Hebert MD [address] [place] [address] OB OB/Gynecology Comment on above: OB Start: 12-20-2024 End: 12-20-2024 Patient encounter procedure 12/20/2024 10:20 AM EDT Routine Office Visit OB/Gynecology [address] [place] [address] Morena Limon MD [address] [place] [address] OB OB/Gynecology Comment on above: OB Start: 12-06-2024 End: 12-06-2024 Patient encounter procedure 12/06/2024 1:30 PM EDT Routine Office Visit OB/Gynecology [address] [place] [address] José Miguel Delcid MD [address] [place] [address] Ob OB/Gynecology Comment on above: Ob Start: 11-20-2024 End: 11-20-2024 Patient encounter procedure 11/20/2024 9:10 AM EDT Routine Office Visit OB/Gynecology [address] [place] [address] Jessie Santos MD [address] [place] [address] OB Routine OB/Gynecology Comment on above: OB Routine Start: 10-25-2024 End: 01-24-2025 ANEMIA REFLEX PANEL ANEMIA REFLEX PANEL Lab Routine Screening for diabetes mellitus Expected: 10/25/2024, Expires: 01/24/2025 [facility] Comment on above: Expected: 10/25/2024 , Expires: 01/24/2025 Start: 10-25-2024 End: 10-25-2025 GESTATIONAL GLUCOSE SCREEN, 1-HOUR, 50 GRAM, NON-FASTING GESTATIONAL GLUCOSE SCREEN, 1-HOUR, 50 GRAM, NON-FASTING Lab Routine Screening for diabetes mellitus Expected: 10/25/2024, Expires: 10/25/2025 [facility] Work Phone: Comment on above: Expected: 10/25/2024 , Expires: 10/25/2025 Start: 10-25-2024 End: 10-25-2025 SYPHILIS TREPONEMAL W/REFLEX SYPHILIS TREPONEMAL W/REFLEX Lab Routine Screening for diabetes mellitus Expected: 10/25/2024, Expires: 10/25/2025 [facility] Comment on above: Expected: 10/25/2024 , Expires: 10/25/2025 Start: 10-25-2024 End: 10-25-2024 Patient encounter procedure 10/25/2024 9:10 AM EDT Routine Office Visit OB/Gynecology [address] [place] [address] Марина Hebert MD [address] [place] [address] Ob OB/Gynecology Comment on above: Ob Start: 09-27-2024 End: 09-27-2024 Patient encounter procedure OB/Gynecology Comment on above: Anatomy/OB Start: 09-27-2024 End: 09-27-2024 Patient encounter procedure 09/27/2024 8:30 AM EDT Routine Office Visit Maternal Medicine [address] [place] [address] Anatomy [facility] Comment on above: Anatomy Start: 09-04-2024 [facility] Start: 09-04-2024 [facility] Start: 08-30-2024 End: 08-30-2024 Patient encounter procedure OB/Gynecology Comment on above: OB Start: 08-02-2024 End: 11-01-2024 Chromosome 21 trisomy [Presence] in Blood or Tissue by Cytogenetics [facility] Work Phone: Comment on above: Expected: 08/02/2024 , Expires: 11/01/2024 Start: 08-02-2024 End: 08-02-2024 Patient encounter procedure Maternal Medicine Comment on above: Nuchal Nuchal/Est New OB Start: 07-12-2024 End: 07-12-2024 Patient encounter procedure 07/12/2024 9:00 AM EST Office Visit OB/Gynecology [address] [place] [address] José Miguel Delcid MD [address] [place] [id number] Annual visit OB/Gynecology Comment on above: Annual visit Start: 07-05-2024 End: 10-04-2024 ANEMIA REFLEX PANEL ANEMIA REFLEX PANEL Lab Routine with uncertain dates, antepartum Expected: 07/05/2024, Expires: 10/04/2024 [facility] Work Phone: Comment on above: Expected: 07/05/2024 , Expires: 10/04/2024 Start: 07-05-2024 End: 10-04-2024 Hemoglobin A1c in Blood HEMOGLOBIN A1C Lab Routine with uncertain dates, antepartum Expected: 07/05/2024, Expires: 10/04/2024 [facility] Comment on above: Expected: 07/05/2024 , Expires: 10/04/2024 Start: 07-05-2024 End: 10-04-2024 Hepatitis B virus surface Ag [Presence] in Serum HEPATITIS B SURFACE ANTIGEN Lab Routine with uncertain dates, antepartum Expected: 07/05/2024, Expires: 10/04/2024 [facility] Comment on above: Expected: 07/05/2024 , Expires: 10/04/2024 Start: 07-05-2024 End: 10-04-2024 Hepatitis C virus Ab [Presence] in Serum HEPATITIS C ANTIBODY IA WITH CONFIRMATION Lab Routine with uncertain dates, antepartum Expected: 07/05/2024, Expires: 10/04/2024 [facility] Comment on above: Expected: 07/05/2024 , Expires: 10/04/2024 Start: 07-05-2024 End: 10-04-2024 HIV 1+2 Ab [Presence] in Serum or Plasma by Immunoassay HIV 1/2 COMBO WITH REFLEX TO DIFFERENTIATION Lab Routine with uncertain dates, antepartum Expected: 07/05/2024, Expires: 10/04/2024 [facility] Comment on above: Expected: 07/05/2024 , Expires: 10/04/2024 Start: 07-05-2024 End: 07-05-2025 NUCHAL TRANSLUCENCY WHI NUCHAL TRANSLUCENCY WHI Anc Imaging Routine with uncertain dates, antepartum Expected: 07/05/2024, Expires: 07/05/2025 [facility] Comment on above: Expected: 07/05/2024 , Expires: 07/05/2025 Start: 07-05-2024 End: 07-05-2025 OBSTETRIC ULTRASOUND WHI OBSTETRIC ULTRASOUND WHI Anc Imaging Routine with uncertain dates, antepartum Expected: 07/05/2024, Expires: 07/05/2025 [facility] Comment on above: Expected: 07/05/2024 , Expires: 07/05/2025 Start: 07-05-2024 End: 10-04-2024 RUBELLA IGG ANTIBODY RUBELLA IGG ANTIBODY Lab Routine with uncertain dates, antepartum Expected: 07/05/2024, Expires: 10/04/2024 [facility] Comment on above: Expected: 07/05/2024 , Expires: 10/04/2024 Start: 07-05-2024 End: 10-04-2024 SYPHILIS TREPONEMAL W/REFLEX SYPHILIS TREPONEMAL W/REFLEX Lab Routine with uncertain dates, antepartum Expected: 07/05/2024, Expires: 10/04/2024 [facility] Comment on above: Expected: 07/05/2024 , Expires: 10/04/2024 Start: 07-05-2024 End: 10-04-2024 TYPE + SCREEN TYPE + SCREEN Blood Bank Routine with uncertain dates, antepartum Expected: 07/05/2024, Expires: 10/04/2024 [facility] Comment on above: Expected: 07/05/2024 , Expires: 10/04/2024 Start: 07-05-2024 End: 07-05-2024 Patient encounter procedure OB/Gynecology Comment on above: ob lmp 11/14 8 weeks gestation of (Primary Dx) Start: 07-04-2024 End: 07-04-2024 Patient encounter procedure 07/04/2024 10:00 AM EST Appointment Radiology [address] [place] [address] Lower abdominal pain [R10.30] Radiology Comment on above: Lower abdominal pain [R10.30] Start: 07-02-2024 End: 10-01-2024 Bacteria identified in Urine by Culture [facility] Comment on above: Expected: 07/02/2024 , Expires: 10/01/2024 Start: 07-02-2024 End: 10-01-2024 CBC W Auto Differential panel - Blood [facility] Comment on above: Expected: 07/02/2024 , Expires: 10/01/2024 Start: 07-02-2024 End: 10-01-2024 Comprehensive metabolic 2000 panel - Serum or Plasma [facility] Comment on above: Expected: 07/02/2024 , Expires: 10/01/2024 Start: 07-02-2024 End: 10-01-2024 Lipase [Enzymatic activity/volume] in Serum or Plasma [facility] Comment on above: Expected: 07/02/2024 , Expires: 10/01/2024 Start: 07-02-2024 End: 10-01-2024 Thyrotropin [Units/volume] in Serum or Plasma [facility] Comment on above: Expected: 07/02/2024 , Expires: 10/01/2024 Start: 07-02-2024 End: 10-01-2024 Thyroxine (T4) free [Mass/volume] in Serum or Plasma [facility] Comment on above: Expected: 07/02/2024 , Expires: 10/01/2024 Start: 07-02-2024 End: 10-01-2024 Triiodothyronine (T3) [Mass/volume] in Serum or Plasma [facility] Comment on above: Expected: 07/02/2024 , Expires: 10/01/2024 Start: 07-02-2024 End: 10-01-2024 Urinalysis complete panel - Urine [facility] Work Phone: Comment on above: Expected: 07/02/2024 , Expires: 10/01/2024 Start: 07-02-2024 End: 07-02-2024 Patient encounter procedure 07/02/2024 1:20 PM EST Office Visit [facility] [place] [address] [facility] [place] [id number] Stephanie Tidwell, [email or web address] PRESS OPERATOR APPRENTICE [address] [place] [id number] [facility] ER f/u abdominal cramping 06-26-24. (see 06/29/24 phone note) Family Medicine [place] Comment on above: [facility] ER f/u abdominal cramping 06-26-24. (see 06/29/24 phone note) Start: 02-26-2024 Covid-19 Vaccine () Covid-19 Vaccine () [facility] Start: 02-26-2024 Influenza vaccination Influenza Vacc ine (#1) [facility] Start: 10-12-2022 COVID-19 VACCINE (#1) COVID-19 VACCI NE (#1) [facility] Comment on above: Postponed from 01/07 (Declined at this time) Start: 10-12-2022 COVID-19 VACCINE (1) COVID-19 VACCIN E (1) [facility] Comment on above: Postponed from 07/10 (Declined at this time) Start: 06-27-2022 DEPRESSION ASSESSMENT DEPRESSION ASS ESSMENT [facility] Start: 06-04-2022 End: 08-04-2022 Hepatitis B virus surface Ag [Presence] in Serum HEP B SURF AG SCRN Lab Routine Screen for STD (sexually transmitted disease) Expected: 06/04/2022, Expires: 08/04/2022 [facility] Work Phone: Comment on above: Expected: 06/04/2022 , Expires: 08/04/2022 Start: 06-04-2022 End: 08-04-2022 Hepatitis C virus Ab [Presence] in Serum HEP C AB IA W/CONF SCRN Lab Routine Screen for STD (sexually transmitted disease) Expected: 06/04/2022, Expires: 08/04/2022 [facility] Work Phone: Comment on above: Expected: 06/04/2022 , Expires: 08/04/2022 Start: 06-04-2022 End: 08-04-2022 HIV 1+2 Ab [Presence] in Serum or Plasma by Immunoassay HIV 1 2 COMBO(AG/AB),WITH REFLEX TO DIFFERENTIATION Lab Routine Screen for STD (sexually transmitted disease) Expected: 06/04/2022, Expires: 08/04/2022 [facility] Work Phone: Comment on above: Expected: 06/04/2022 , Expires: 08/04/2022 Start: 06-04-2022 End: 08-04-2022 SYPHILIS TOTAL W/REFLEX SYPHILIS TOTAL W/REFLEX Lab Routine Screen for STD (sexually transmitted disease) Expected: 06/04/2022, Expires: 08/04/2022 [facility] Work Phone: Comment on above: Expected: 06/04/2022 , Expires: 08/04/2022 Start: 02-25-2022 Influenza vaccination C [facility] Start: 10-12-2021 End: 12-12-2021 CBC panel - Blood by Automated count [facility] Work Phone: Comment on above: Expected: 10/12/2021 , Expires: 12/12/2021 Start: 10-12-2021 End: 12-12-2021 Comprehensive metabolic 2000 panel - Serum or Plasma [facility] Work Phone: Comment on above: Expected: 10/12/2021 , Expires: 12/12/2021 Start: 10-12-2021 End: 12-12-2021 Hemoglobin A1c/Hemoglobin.total in Blood [facility] Work Phone: Comment on above: Expected: 10/12/2021 , Expires: 12/12/2021 Start: 10-12-2021 End: 12-12-2021 LIPID PANEL BASIC [facility] Work Phone: Comment on above: Expected: 10/12/2021 , Expires: 12/12/2021 Start: 10-12-2021 End: 12-12-2021 T3 BLD [facility] Work Phone: Comment on above: Expected: 10/12/2021 , Expires: 12/12/2021 Start: 10-12-2021 End: 12-12-2021 T4 FREE/FREE THYROX [facility] Work Phone: Comment on above: Expected: 10/12/2021 , Expires: 12/12/2021 Start: 10-12-2021 End: 12-12-2021 Thyroglobulin Ab [Units/volume] in Serum or Plasma [facility] Work Phone: Comment on above: Expected: 10/12/2021 , Expires: 12/12/2021 Start: 10-12-2021 End: 12-12-2021 THYROID PEROXIDASE ANTIBODY BLOOD [facility] Work Phone: Comment on above: Expected: 10/12/2021 , Expires: 12/12/2021 Start: 10-12-2021 End: 12-12-2021 Thyrotropin [Units/volume] in Serum or Plasma [facility] Work Phone: Comment on above: Expected: 10/12/2021 , Expires: 12/12/2021 Start: 10-12-2021 End: 12-12-2021 VITAMIN D 25 HYDROXY [facility] Work Phone: Comment on above: Expected: 10/12/2021 , Expires: 12/12/2021 Start: 08-11-2021 PAP TESTING PAP TESTING [facility] Start: 06-27-2021 DEPRESSION ASSESSMENT DEPRESSION ASS ESSMENT [facility] Start: 01-27-2020 Urine microalbumin profile DTAP,TDAP,TD (7 - Td or Tdap) [facility] Start: 07-27-2018 Adult depression screening assessment DEPRESSION SCREENING [facility] Start: 2015 Anxiety Screening Anxiety Screening [facility] Start: 2015 Depression Screening Depression Scre ening [facility] Start: 2015 HEPATITIS C SCREENING HEPATITIS C [facility] Start: 2015 Hepatitis C screening Hepatitis C [facility] Start: 2015 HIV SCREENING HIV SCREENING [facility] Start: 2015 HIV screening HIV Screening [facility] Start: 2011 PEDS TO ADULT TRANSI TION ANNUAL ASSESSMENT PEDS TO ADULT TRANSITION ANNUAL ASSESSMENT [facility] Start: 2009 PEDS TO ADULT TRANSI TION INITIAL DISCUSSION PEDS TO ADULT TRANSITION INITIAL DISCUSSION [facility] Start: 2007 MENINGOCOCCAL B: Con commercial intelligence manager based on risk (1 of 2 - Risk Bexsero 2-dose series) MENINGOCOCCAL B: Consider based on risk (1 of 2 - Risk Bexsero 2-dose series) [facility] Bacteria identified in Urine by Culture URINE CULTURE Microbiology Routine Urinary tract infection without hematuria, site unspecified Ordered: 06/23/2024 [facility] Comment on above: Ordered: 06/23/2024 Bacteria identified in Urine by Culture BACTERIAL CULTURE, URINE Microbiology Routine with uncertain dates, antepartum 07/05/2024 9:35 AM [facility] BACTERIAL VAGINOSIS NAAT BACTERI AL VAGINOSIS NAAT Lab Routine Vaginal odor pain (HCC) 02/21/2025 11:00 AM EDT [facility] MARIAN/TRICHOMONAS NAAT MARIAN /TRICHOMONAS NAAT Lab Routine Vaginal odor pain (HCC) 02/21/2025 11:00 AM T [facility] Work Phone: Chlamydia trachomatis+Neisseria gonorrhoeae DNA [Presence] in Unspecified specimen by ROSA with probe detection GC/CHLAMYDIA DNA DET Lab Routine Screen for STD (sexually transmitted disease) 06/04/2022 10:49 AM [facility] Work Phone: Chlamydia trachomatis+Neisseria gonorrhoeae DNA [Presence] in Unspecified specimen by ROSA with probe detection GONORRHEA/CHLAMYDIA NAAT Lab Routine with uncertain dates, antepartum 07/05/2024 9:35 AM [facility] PAP FLUID CERVICAL SCREENING PAP FLUID CERVICAL SCREENING Lab Routine Encounter for gynecological examination (general) (routine) without abnormal findings Screening for cervical cancer Encounter for screening for human papillomavirus (HPV) 06/04/2022 10:49 AM [facility] Work Phone: Patient Education [facility] Work Phone: Patient referral [facility] Work Phone: PPD (TB INTRADERMAL [id number]) B/O PPD (TB INTRADERMAL [id number]) B/O Procedures Routine Screening examination for pulmonary tuberculosis Ordered: 06/10/2022 [facility] Work Phone: Comment on above: Ordered: 06/10/2022 ROUTINE, GR OUP B STREPTOCOCCUS BY PCR ROUTINE, GROUP B STREPTOCOCCUS BY PCR Microbiology Routine 36 weeks gestation of ([facility]) Anemia during in third trimester ([facility]) Encounter for supervision of normal first in third trimester ([facility]) 01/17/2025 11:09 AM EDT [facility] Work Phone: UA DIP, URINE (POC) UA DIP, URIN E (POC) Lab Routine Urinary tract infection without hematuria, site unspecified Ordered: 06/23/2024 [facility] Work Phone: Comment on above: Ordered: 06/23/2024 URINE OB DIP B/O URINE OB DIP B/ O Lab Routine Anemia during in third trimester ([facility]) Encounter for supervision of normal first in third trimester ([facility]) 34 weeks gestation of ([facility]) Ordered: 01/03/2025 [facility] Work Phone: Comment on above: Ordered: 01/03/2025 URINE OB DIP B/O URINE OB DIP B/ O Lab Routine 37 weeks gestation of ([facility]) Anemia during in third trimester ([facility]) Encounter for supervision of normal first in third trimester ([facility]) Ordered: 01/24/2025 [facility] Work Phone: Comment on above: Ordered: 01/24/2025 URINE OB DIP B/O URINE OB DIP B/ O Lab Routine Elevated blood pressure reading without diagnosis of hypertension 38 weeks gestation of ([facility]) Encounter for supervision of normal first in third trimester ([facility]) Ordered: 02/05/2025 [facility] Work Phone: Comment on above: Ordered: 02/05/2025 End: 08-01-2025 US Abdomen US ABDOMEN COMPLETE Radiology Routine Lower abdominal pain 1 Occurrences starting 07/02/2024 until 08/01/2025 [facility] Comment on above: 1 Occurrences starti ng 07/02/2024 until 08/01/2025 End: 11-11-2022 Us soft tissue head & neck real time imge docm US THYROID/PARATHYROID Radiology Routine Enlarged thyroid Well adult exam 1 Occurrences starting 10/12/2021 until 11/11/2022 [facility] Work Phone: Comment on above: 1 Occurrences starti ng 10/12/2021 until 11/11/2022 [facility] Immunizations Immunization Date Immunization Notes Care Provider Fa cility 11-20-2024 tetanus toxoid, redu nubia diphtheria toxoid, and acellular pertussis vaccine, adsorbed Jessie Santos MD Work Phone: [facility] 06-29-2022 tuberculin skin test ; purified protein derivative solution, intradermal Donna Slabaugh PA-C Work Phone: [facility] 06-22-2022 tuberculin skin test ; purified protein derivative solution, intradermal Donna Slabaugh PA-C Work Phone: [facility] 03-11-2019 Influenza, injectabl e, Madin Luba Canine Kidney, preservative free, quadrivalent Марина Hebert MD Work Phone: [facility] 03-11-2019 influenza, seasonal, injectable Franci Herman BOBBIN TRUCKER.OFFSET PRESS OPERATOR APPRENTICE Work Phone: [facility] 03-11-2019 influenza virus vaccine, unspecified formulation Donna Kyle PA-C Work Phone: [facility] 08-23-2018 tuberculin skin test ; purified protein derivative solution, intradermal Donna Slabaugh PA-C Work Phone: [facility] Work Phone: 03-23-2018 influenza, injectabl e, quadrivalent, preservative free Марина Hebert MD Work Phone: [facility] 08-14-2017 tetanus toxoid, redu nubia diphtheria toxoid, and acellular pertussis vaccine, adsorbed Марина Hebert MD Work Phone: [facility] 08-10-2017 varicella virus vaccine Verito rupali Herman BOBBIN TRUCKER.OFFSET PRESS OPERATOR APPRENTICE Work Phone: [facility] Work Phone: 08-08-2017 tuberculin skin test ; purified protein derivative solution, intradermal Blue RoosterauTelinet PA-C Work Phone: [facility] 07-27-2017 influenza, injectabl e, quadrivalent, contains preservative Franci Batsheva BOBBIN TRUCKER.[facility] Work Phone: [facility] 07-27-2017 tuberculin skin test ; purified protein derivative solution, intradermal Blue RoosterauTelinet PA-C Work Phone: [facility] 11-20-2013 human papilloma viru s vaccine, quadrivalent Franci Batsheva BOBBIN TRUCKER.[facility] Work Phone: [facility] Work Phone: 07-26-2013 human papilloma viru s vaccine, quadrivalent Franci Batsheva BOBBIN TRUCKER.[facility] Work Phone: [facility] 05-08-2013 human papilloma viru s vaccine, quadrivalent Franci Batsheva BOBBIN TRUCKER.[facility] Work Phone: [facility] Work Phone: 01-26-2010 Meningococcal, MCV4, unspecified conjugate formulation(groups A, C, Y and W-135) Franci Batsheva BOBBIN TRUCKER.[facility] Work Phone: [facility] Work Phone: 01-26-2010 tetanus toxoid, redu nubia diphtheria toxoid, and acellular pertussis vaccine, adsorbed Franci Batsheva BOBBIN TRUCKER.OFFSET PRESS OPERATOR APPRENTICE Work Phone: [facility] Work Phone: 01-09-2003 diphtheria, tetanus toxoids and acellular pertussis vaccine Franci Batsheva BOBBIN TRUCKER.[facility] Work Phone: [facility] Work Phone: 01-09-2003 measles, mumps and rubella virus vaccine Franci Batsheva BOBBIN TRUCKER.OFFSET PRESS OPERATOR APPRENTICE Work Phone: [facility] Work Phone: 01-09-2003 poliovirus vaccine, inactivated Franci Batsheva BOBBIN TRUCKER.OFFSET PRESS OPERATOR APPRENTICE Work Phone: [facility] Work Phone: 02-17-2001 varicella virus vaccine Verito rupali Dowlingman [employer].[facility] Work Phone: [facility] Work Phone: 10-21-1998 diphtheria, tetanus toxoids and acellular pertussis vaccine Franci Batsheva [employer].[facility] Work Phone: [facility] Work Phone: 10-21-1998 haemophilus influenz ae type b vaccine, HbOC conjugate Franci Batsheva [employer].[facility] Work Phone: [facility] Work Phone: 10-21-1998 measles, mumps and rubella virus vaccine Franci Batsheva [employer].[facility] Work Phone: [facility] Work Phone: 10-21-1998 poliovirus vaccine, inactivated Franci Dowlingman [employer].[facility] Work Phone: [facility] Work Phone: 04-08-1998 hepatitis B vaccine, pediatric or pediatric/adolescent dosage Franci Batsheva [employer].[facility] Work Phone: [facility] Work Phone: 01-08-1998 diphtheria, tetanus toxoids and acellular pertussis vaccine Franci Batsheva [employer].[facility] Work Phone: [facility] Work Phone: 01-08-1998 haemophilus influenz ae type b vaccine, HbOC conjugate Franci Batsheva [employer].[facility] Work Phone: [facility] Work Phone: 1995 diphtheria, tetanus toxoids and acellular pertussis vaccine Franci Batsheva [employer].[facility] Work Phone: [facility] Work Phone: 1995 haemophilus influenz ae type b vaccine, HbOC conjugate Franci Batsheva [employer] Work Phone: [facility] Work Phone: 1995 poliovirus vaccine, inactivated Franci Batsheva [employer] Work Phone: [facility] Work Phone: 1995 diphtheria, tetanus toxoids and acellular pertussis vaccine Franci Batsheva [employer].[facility] Work Phone: [facility] Work Phone: 1995 haemophilus influenz ae type b vaccine, HbOC conjugate Franci Batsheva [employer].[facility] Work Phone: [facility] Work Phone: 1995 poliovirus vaccine, inactivated Franci Batsheva [employer].[facility] Work Phone: [facility] Work Phone: 1995 hepatitis B vaccine, pediatric or pediatric/adolescent dosage Franci Batsheva [employer].[facility] Work Phone: [facility] Work Phone: 1995 hepatitis B vaccine, pediatric or pediatric/adolescent dosage Franci Batsheva [employer].[facility] Work Phone: [facility] Work Phone: Payers Date Payer Category Payer [facility] [id number] 2024 Unknown [id number] 2023 Self-pay 2015 Unknown [employer] P[employer] OOS [id number] 2015-Present [phone] [address] [place] [address] PPO [id number] 2015 Unknown [id number] 1997 Unknown [id number] Unknown [id number] Unknown [id number] Unknown [id number] Unknown [id number] Social History Date Type Detail Facility Start: 05-08-2013 End: 06-04-2022 Tobacco smoking status NHIS Never smoked tobacco [facility] Work Phone: Start: 10-12-2021 End: 01-03-2025 Alcohol intake Current non-drinker of alcohol (finding) [facility] Start: 1995 Sex Assigned At Not on file [facility] Start: 10-02-2021 End: 10-12-2021 Exposure to SARS-CoV-2 (event) Not sure [facility] Start: 05-08-2013 End: 06-04-2022 Tobacco use and exposure Smokeless tobacco non-user [facility] Work Phone: Start: 06-23-2024 End: 07-02-2024 History of Social function [facility] Start: 06-23-2024 End: 07-02-2024 Tobacco use panel [facility] Start: 05-28-2012 National Score (1-100), lower number is lower risk 64 [facility] Start: 07-03-2024 Education 15 [facility] Start: 05-24-2024 [facility] Start: 1995 Sex assigned at Female [facility] Start: 07-03-2024 Gender identity Identifies as female gender (finding) [facility] Start: 07-03-2024 Sexual orientation Heterosexual (finding) [facility] Start: 09-04-2024 Sex Female (finding) [facility] Do you belong to any clubs or organizations such as orthodox groups, [place], [employer] or athletic groups, or school groups? No [facility] Are you now , , , , never or living with a partner? [facility] How often to you hav e a drink containing alcohol? Never [facility] Do you feel stress - tense, restless, nervous, or anxious, or unable to sleep at night because your mind is troubled all the time - these days [OSQ] Only a little [facility] (I/We) worried wheth er (my/our) food would run out before (I/we) got money to buy more. Never true [facility] Goals Date Patient Goal Desired Activity /State Personal health goal Functional Status Date Assessment Result Facility 01-31-2025 Total score [AUDIT-C] 0 02/01/20 10:04 AM EDT UserBradley [facility] 01-31-2025 How often to you hav e a drink containing alcohol? Never 01/31/2025 10:04 AM EDT User, Bradley Never [facility] 01-31-2025 Functional status Patient does n ot drink 01/31/2025 10:04 AM EDT User, Bradley Patient does not drink [facility] 01-31-2025 How often do you hav e 6 or more drinks on 1 occasion? Never 01/31/2025 10:04 AM EDT User, Bradley Never [facility] 05-14-2014 Are you deaf, or do you have serious difficulty hearing No 05/14/2014 2:56 PM Lore Stewart MA No [facility] 05-14-2014 Are you blind, or do you have serious difficulty seeing, even when wearing glasses No 05/14/2014 2:56 PM Lore Stewart MA No [facility] 05-14-2014 Do you have serious difficulty walking or climbing stairs No 05/14/2014 2:56 PM Lore Stewart MA No [facility] 05-14-2014 Do you have difficul ty dressing or bathing No 05/14/2014 2:56 PM Lore Stewart MA No [facility] 05-14-2014 Because of a physica l, mental, or emotional condition, do you have difficulty doing errands alone such as visiting a physician's office or shopping No 05/14/2014 2:56 PM Lore Stewart MA No [facility] Mental Status Date Assessment Result Facility 05-14-2014 Because of a physica l, mental, or emotional condition, do you have serious difficulty concentrating, remembering, or making decisions No 05/14/2014 2:56 PM Lore Stewart MA No [facility] Clinical Notes 05-08-2013 to 04-10-2025 Марина Hebert MD - 02/26/2025 11:19 AM Jessie Cordero MD - 02/21/2025 10:07 AM EDT Note Date & Type Note Facility 04-10-2025 Note HNO ID: [id number] Author: МАРИНА HEBERT MD Service: ? Author Type: Physician Type: Progress Notes Filed: 04/10/2025 11:39 Note Text: Robb presents today for IUD insertion for contraception. Patient's last menstrual period was 05/10/2024 (exact date). GC/chlamydia: Not done: no risk factors and/or patient declines screening test: negative Side effects including irregular bleeding were discussed with the patient. The patient understands that it should be removed in 8 years or sooner if the patient desires a . IUD source: office provided IUD lot #: [id number] Exp date: 04/26/2027 [facility] [id number] UNIVERSAL PROTOCOL / SAFETY CHECKLIST Procedure to be Performed: Mirena IUD insertion Sign In: A Moment of CARE was completed. Appropriate PPE (Personal Protective Equipment) worn by all providers involved with the procedure. Special equipment not required. Patient/Surrogate Stated/Verified: Patient name, Date of , Relevant allergies, and The intended procedure Time Out: Relevant labs, photos, and/or imaging studies have been reviewed. Intended patient and procedure match the source document(s) (e.g. consent, HANDP, associated studies [imaging, pathology]) are not applicable. Consent obtained and matches the intended procedure. Yes. Correct side/site is not applicable. Medications required for this procedure are verified. Fire risk assessed and interventions discussed. Implants: are not applicable. Sign Out: Specimens are all correctly labeled and sent. All instruments, equipment, possible retained foreign bodies are accounted for. Yes. The post-procedure plan of care has been communicated to the patient or surrogate. The cervix was prepped with betadine. The uterus sounded to 8 cm and the uterus is Anteverted.. Using sterile technique, the Mirena IUD was inserted without difficulty and the string was cut to 2cm from the external os of the cervix. Patient tolerated procedure well. PLAN: Patient was advised to observe for signs and symptoms of infection including but not limited to fever, malodorous vaginal discharge and/or pain. The patient was told to check the string monthly for accurate placement. Bleeding expectations were reviewed. Follow up for next annual exam or sooner as needed. Марина Hebert MD [facility] 03-28-2025 Note HNO ID: [id number] Author: МАРИНА HEBERT MD Service: ? Author Type: Physician Type: Progress Notes Filed: 03/28/2025 11:09 Note Text: VISIT Robb Washington is a 29 year old year old here for visit. Delivery Summary: 02/11/2025 F-Marija ROS/ Recovery: Feeding: Breast feeding problems: None Menses since delivery: none Menstrual pattern prior to : Regular periods Quay since delivery: Not resumed Depression: denies symptoms of depression. OB Depression and Anxiety Screening- This Encounter Feeling down, depressed, or hopeless: Not at all Little interest or pleasure in doing things: Not at all Feeling nervous, anxious, or on edge Not at all Not being able to stop or control worrying Not at all Anxiety Pre-Screening Total (If >/= 3 additional questions will be reviewed) 0 Emotional support: Yes Bowel symptoms: Negative for abdominal discomfort, blood in stools or black stools and change in bowel habits Abdomen: N/A Bladder symptoms: No dysuria, gross hematuria, urinary frequency, urinary urgency, or incontinence Other issues: None Last Pap: 2021 normal HPV: N/A PAST MEDICAL HISTORY Diagnosis Date Acne 05/08/2013 Anemia Thyroid enlarged all blood work came back WNL PAST SURGICAL HISTORY Procedure Laterality Date TONSILLECTOMY AND ADENOIDECTOMY FAMILY HISTORY Problem Relation Age of Onset Breast Cancer Mother Thyroid Mother No Known Problems Father Thyroid Sister Thyroid Maternal Grandmother Diabetes Maternal Grandfather Adult on-set Cancer Paternal Grandmother No Known Problems Paternal Grandfather other (schizophrenia) Maternal Aunt Social History Tobacco Use Smoking status: Never Smokeless tobacco: Never Vaping Use Vaping status: Never Used Substance Use Topics Alcohol use: No Drug use: No PHYSICAL EXAMINATION: SENSITIVE EXAM: The sensitive examination was discussed with the Patient or Patient's Authorized Carrot Grader Inspector. As applicable, any other physician, advance practice provider, medical student, or other health professional student that will be observing or involved in the sensitive examination for educational or training purposes was discussed with the Patient or Authorized Carrot Grader Inspector. The Patient or Authorized Carrot Grader Inspector has agreed to proceed with the sensitive examination. (Sensitive examination includes inspection and/or palpation of the breasts, pelvis, prostate and anorectal regions). BP 106/60 Wt 225 lb (102.1kg) LMP 05/10/2024 GENERAL: pleasant, female in no apparent distress HEENT: Normocephalic, atraumatic, mucus membranes moist, and no lesions NECK: Supple, full range of motion, no adenopathy, and thyroid normal DERMATOLOGY: Normal, without lesions, non-icteric, and non-hirsute BREAST: soft, non-tender, symmetric, no dominant mass, normal nipple-areolar complex, no lymphadenopathy, and no nipple discharge CHEST: Normal inspiratory effort ABDOMEN: soft, non-tender, and no masses. INCISION: N/A PELVIC: external genitalia normal, normal Bartholin's glands, urethra, [place]'s glands, no vulvar lesions, no cervical lesions, good vaginal support, physiologic discharge present, normal appearing perineal body and perianal region BIMANUAL: uterus normal size, shape and consistency, no adnexal masses, and non-tender NEURO: alert and oriented x3,exam grossly non-focal EXTREMITIES: normal ASSESSMENT AND PLAN: 29 year old status post with normal course. Contraception plan: IUD - Mirena Follow up: RTC for insertion of IUD Марина Hebert MD [facility] 02-26-2025 Note HNO ID: [id number] Author: МАРИНА HEBERT MD Service: ? Author Type: Physician Type: Progress Notes Filed: 02/26/2025 11:50 Note Text: EARLY VISIT Robb Washington is a 29 year old here for 2 week visit. Delivery Summary: Pain and bleeding much better since started antibiotics. Winnie much better by 24 hrs of antibiotiics. No fever or chills, minimal vaginal discharge. ROS: General: Denies any fever or chills Hypertension Screening: Headache? No. Visual Changes? No Epigastric Pain? No Increased Swelling? No Taking any BP medications at home? No If applicable, monitoring BP at home? (If Yes, include results) NA Mood: normal Depression: denies symptoms of depression. OB Depression and Anxiety Screening- This Encounter Feeling down, depressed, or hopeless: Not at all Little interest or pleasure in doing things: Not at all Feeling nervous, anxious, or on edge Not at all Not being able to stop or control worrying Not at all Anxiety Pre-Screening Total (If >/= 3 additional questions will be reviewed) 0 Feeding: Breast feeding problems: None, Sore nipples Bladder: No dysuria, gross hematuria, urinary frequency, urinary urgency, or incontinence Bowel symptoms: Negative for abdominal discomfort, blood in stools or black stools and change in bowel habits Abdomen: N/A Bleeding: light flow Bottom and Perineum: Hemorrhoids painful Sleep: no sleep concerns and sleeps in bassinet/crib in parent's room, does not feel rested Quay since delivery: Not resumed Emotional support: Yes Exercise: N/A Other issues: None SENSITIVE EXAM: Sensitive exam not performed. PHYSICAL EXAMINATION: BP 122/78 Wt 105.2 kg (232 lb) LMP 05/10/2024 (Exact Date) Yes BMI 34.76 kg/m? General: pleasant,female in no apparent distress, AANDO x 3. Skin warm and intact. Breast: Deferred Abdomen: Deferred /Incision: N/A Pelvic: Deferred Bimanual: Deferred ASSESSMENT AND PLAN: 29 year old status post with normal course. Contraception plan: considering . Reinforced 6-week pelvic rest. Encouraged condom usage should patient deviate. Education: resources provided - see MA/RN note Endometritis- resolving, finish antibiotics Follow up: Return to Clinic for 6 week visit and as needed Марина Hebert MD [facility] 02-26-2025 History of Present illness Narrative EARLY VISIT Robb Washington is a 29 year old here for 2 week visit. Delivery Summary: Pain and bleeding much better since started antibiotics. Winnie much better by 24 hrs of antibiotiics. No fever or chills, minimal vaginal discharge. ROS: General: Denies any fever or chills Hypertension Screening: Headache? No. Visual Changes? No Epigastric Pain? No Increased Swelling? No Taking any BP medications at home? No If applicable, monitoring BP at home? (If Yes, include results) NA Mood: normal Depression: denies symptoms of depression. OB Depression and Anxiety Screening- This Encounter Feeling down, depressed, or hopeless: Not at all Little interest or pleasure in doing things: Not at all Feeling nervous, anxious, or on edge Not at all Not being able to stop or control worrying Not at all Anxiety Pre-Screening Total (If >/= 3 additional questions will be reviewed) 0 Feeding: Breast feeding problems: None, Sore nipples Bladder: No dysuria, gross hematuria, urinary frequency, urinary urgency, or incontinence Bowel symptoms: Negative for abdominal discomfort, blood in stools or black stools and change in bowel habits Abdomen: N/A Bleeding: light flow Bottom and Perineum: Hemorrhoids painful Sleep: no sleep concerns and sleeps in bassinet/crib in parent's room, does not feel rested Quay since delivery: Not resumed Emotional support: Yes Exercise: N/A Other issues: None SENSITIVE EXAM: Sensitive exam not performed. PHYSICAL EXAMINATION: BP 122/78 Wt 105.2 kg (232 lb) LMP 05/10/2024 (Exact Date) Yes BMI 34.76 kg/m General: pleasant,female in no apparent distress, A&O x 3. Skin warm and intact. Breast: Deferred Abdomen: Deferred /Incision: N/A Pelvic: Deferred Bimanual: Deferred ASSESSMENT AND PLAN: 29 year old status post with normal course. Contraception plan: considering . Reinforced 6-week pelvic rest. Encouraged condom usage should patient deviate. Education: resources provided - see MA/RN note Endometritis- resolving, finish antibiotics Follow up: Return to Clinic for 6 week visit and as needed Марина Hebert MD documented in this encounter [facility] 02-21-2025 Note HNO ID: [id number] Author: JESSIE SANTOS MD Service: ? Author Type: Physician Type: Progress Notes Filed: 02/21/2025 13:15 Note Text: EARLY VISIT Robb Washington is a 29 year old here for 10 days visit. Delivery Summary: 10 days ago. Is not bleeding much but has a very strong odor and is now cramping. No fever or chills. Bladder and bowel functioning normally. ROS: General: Denies any fever or chills Hypertension Screening: Headache? No. Visual Changes? No Epigastric Pain? No Increased Swelling? No Taking any BP medications at home? No If applicable, monitoring BP at home? (If Yes, include results) NA Mood: normal Depression: denies symptoms of depression. OB Depression and Anxiety Screening- This Encounter None Feeding: Breast and bottle feeding problems: pumping and bottle Bladder- Bowel symptoms: none Abdomen: N/A Bleeding: light flow Bottom and Perineum: Sore and Hemorrhoids 1 Sleep: no sleep concerns, Quay since delivery: Not resumed Emotional support: Yes Exercise: N/A Other issues: vaginal odor SENSITIVE EXAM: The sensitive examination was discussed with the Patient or Patient's Authorized Carrot Grader Inspector. As applicable, any other physician, advance practice provider, medical student, or other health professional student that will be observing or involved in the sensitive examination for educational or training purposes was discussed with the Patient or Authorized Carrot Grader Inspector. The Patient or Authorized Carrot Grader Inspector has agreed to proceed with the sensitive examination. (Sensitive examination includes inspection and/or palpation of the breasts, pelvis, prostate and anorectal regions). PHYSICAL EXAMINATION: LMP 05/10/2024 (Exact Date) General: pleasant,female in no apparent distress, AANDO x 3. Skin warm and intact. Breast: Deferred Abdomen: Deferred /Incision: N/A Pelvic: external genitalia normal, normal Bartholin's glands, urethra, [place]'s glands, no vulvar lesions, no cervical lesions, good vaginal support, normal appearing perineal body and perianal region, minimal bleeding or discharge but strong odor Bimanual: Deferred ASSESSMENT AND PLAN: 29 year old status post with normal course. Contraception plan: not applicable. Reinforced 6-week pelvic rest. Encouraged condom usage should patient deviate. Education: resources provided - see MA/RN note Augmentin sent for possible endometritis. Infection precautions discussed. Has an appointment next week. Follow up: Return to Clinic for 6 week visit and as needed and as scheduled Jessie Santos MD [facility] 02-21-2025 History of Present illness Narrative EARLY VISIT Robb Washington is a 29 year old here for 10 days visit. Delivery Summary: 10 days ago. Is not bleeding much but has a very strong odor and is now cramping. No fever or chills. Bladder and bowel functioning normally. ROS: General: Denies any fever or chills Hypertension Screening: Headache? No. Visual Changes? No Epigastric Pain? No Increased Swelling? No Taking any BP medications at home? No If applicable, monitoring BP at home? (If Yes, include results) NA Mood: normal Depression: denies symptoms of depression. OB Depression and Anxiety Screening- This Encounter None Feeding: Breast and bottle feeding problems: pumping and bottle Bladder- Bowel symptoms: none Abdomen: N/A Bleeding: light flow Bottom and Perineum: Sore and Hemorrhoids 1 Sleep: no sleep concerns, Quay since delivery: Not resumed Emotional support: Yes Exercise: N/A Other issues: vaginal odor SENSITIVE EXAM: The sensitive examination was discussed with the Patient or Patient's Authorized Carrot Grader Inspector. As applicable, any other physician, advance practice provider, medical student, or other health professional student that will be observing or involved in the sensitive examination for educational or training purposes was discussed with the Patient or Authorized Carrot Grader Inspector. The Patient or Authorized Carrot Grader Inspector has agreed to proceed with the sensitive examination. (Sensitive examination includes inspection and/or palpation of the breasts, pelvis, prostate and anorectal regions). PHYSICAL EXAMINATION: LMP 05/10/2024 (Exact Date) General: pleasant,female in no apparent distress, A&O x 3. Skin warm and intact. Breast: Deferred Abdomen: Deferred /Incision: N/A Pelvic: external genitalia normal, normal Bartholin's glands, urethra, [place]'s glands, no vulvar lesions, no cervical lesions, good vaginal support, normal appearing perineal body and perianal region, minimal bleeding or discharge but strong odor Bimanual: Deferred ASSESSMENT AND PLAN: 29 year old status post with normal course. Contraception plan: not applicable. Reinforced 6-week pelvic rest. Encouraged condom usage should patient deviate. Education: resources provided - see MA/RN note Augmentin sent for possible endometritis. Infection precautions discussed. Has an appointment next week. Follow up: Return to Clinic for 6 week visit and as needed and as scheduled Jessie Santos MD documented in this encounter [facility] 02-13-2025 Discharge summary Note Date/Time February 13, 2025 8:31am [facility] Medical Records Department [address] [place] [address] Discharge Summary 02/13/25 0828 MR#: [id number] Acct: [id number] Name: ROBB WASHINGTON Rep #:[id number] : 1995 29 From: Sravani Soria CNM PCP: Dr. Judson Weber DO Status:AD M IN Location: [id number] Providers Date of Admission: 02/11/25 Primary Care Physician: Dr. Judson Weber DO Reason For Visit: INDUCTION Diagnosis Discharge Diagnosis (1) (spontaneous vaginal delivery): Status: Acute Code(s): O80 - Encounter for full-term uncomplicated delivery (2) Obesity affecting : Status: Acute Code(s): O99.210 - Obesity complicating , unspecified trimester Qualifiers: Trimester: third trimester Obesity type affecting : other obesity due to excess calories Qualified Code(s): O99.213 - Obesity complicating , third trimester; E66.09 - Other obesity due to excess calories (3) Single live : Status: Acute Code(s): Z37.0 - Single live (4) Mother currently breast-feeding: Status: Acute Code(s): Z39.1 - Encounter for care and examination of lactating mother Medications at Discharge Home Medications vit no.95-ferrous fumarate 28 mg-folic acid 800 mcg tablet () 1tab PO DAILY 09/04/24 ferrous gluconate 324 mg (37.5 mg iron) tablet 324 mg PO QODAY anemia 02/05/25 ibuprofen 600 mg tablet 600 mg PO Q6H PRN PRN Pain Score 1-10 #0 tabs 02/13/25 Hospital Course Operations None Procedures None Summary of Care Provided Minutes Spent on Discharge: 15 Hospital Course: Patient had vaginal delivery. Hospital course was uneventful. Physical Exam Narrative Patient seen at bedside. Denies pain. Ambulating and voiding without difficulty.Lochia decreased. Desires discharge home today. Const alert and oriented x3 General Appearance: Negative for in distress HEENT normocephalic Eyes General Eye: normal appearance of both eyes Neck General: normal visual inspection Chest Chest: symmetrical chest wall rise Resp normal respiratory effort and normal air movement Effort and Inspection: symmetric chest movement; Negative for tachypneic Auscultation: clear to auscultation bilaterally Cardio regular rate and regular rhythm Peripheral Pulses: pulses 2+ throughout GI normal to inspection, nondistended, normoactive bowel sounds Narrative: Ice to perineum OB / External & Speculum: vaginal bleeding and other Lochia decreasing Uterus Palpation: uterus fundus firm (Below U) Extremity normal to inspection, full ROM and normal capillary refill Skin no rashes or lesions noted Neuro oriented x3, CN's II-XII intact bilaterally and gait normal Psych mental status grossly normal, thought process normal and activity/motor behaviornormal Weight / BMI Weight Weight: 260 lb 2.327 oz Body Mass Index (BMI) 39.5 ABG / Lab / Microbiology Data 02/11/25 08:00 D/C Instructions Discharge Activity: Return to Normal Activity, No Restrictions, May Drive, May Shower and May Take a Tub Bath (Warm water only. No bath salts, soaps, bubbles) May resume sexual activity in: 6-8 weeks Weight Bearing Status: Weight bearing as tolerated Call your doctor if you observe: Fever of 101 or Higher, Inability to urinate, Using more than 1 pad per hour, Shortness of breath, Dizziness, Chest pain, Calfdiscomfort and Uncontrolled pain DC O2, CPAP, BIPAP Needs Home O2 Discharge instructions: No Please Follow Up With: [facility] Karen GILLETTE When: 2 weeks in office or virtual Meaningful Use Info Meaningful Use Meaningful Use Diagnoses (Choose all that apply): None applicable Discharge Plan Admission Admit Date/Time: 02/11/25 07:23 Primary Reason for Your Visit: Labor and Delivery Attending Provider: Марина Hebert Primary Care Provider: Judson Weber Discharge Orders/Prescriptions Prescriptions: New ibuprofen 600 mg Tablet 600 mg PO Q6H PRN PRN (Reason: Pain Score 1-10) Qty: 0 0RF Continued ferrous gluconate 324 mg (37.5 mg iron) tablet 324 mg PO QODAY PNV cmb#95-ferrous fumarate-FA [] 28 mg iron- 800 mcg tablet 1 tab PO DAILY Discontinued aspirin 81 mg tablet,delayed release (DR/EC) 81 mg PO DAILY Referrals / Follow Up: Judson Weber DO [Primary Care Provider] - Disposition Disposition (needs filled in before D/C Order can be placed): Home, Self Care 02/13/25 0831 <Electronically signed by Sravani Soria CNM> Cosigner Signature (if applicable): CC: LAYTON Soria; Dr. Judson Weber DO~ Signed [facility] Work Phone: 1(465) 435-134808-20-2025 Discharge summary [facility] Medical Records Department [address] [place] [place] [address] Discharge Summary 02/13/25 0828 MR#: [id number] Acct: [id number] Name: ROBB WASHINGTON Rep #:[id number] : 1995 29 From: Sravani Soria CNM PCP: Dr. Judson Weber DO Status:AD M IN Location: ER884-7 Providers Date of Admission: 02/11/25 Primary Care Physician: Dr. Judson Weber DO Reason For Visit: INDUCTION Diagnosis Discharge Diagnosis (1) (spontaneous vaginal delivery): Status: Acute Code(s): O80 - Encounter for full-term uncomplicated delivery (2) Obesity affecting : Status: Acute Code(s): O99.210 - Obesity complicating , unspecified trimester Qualifiers: Trimester: third trimester Obesity type affecting : other obesity due to excess calories Qualified Code(s): O99.213 - Obesity complicating , third trimester; E66.09 - Other obesity due to excess calories (3) Single live : Status: Acute Code(s): Z37.0 - Single live (4) Mother currently breast-feeding: Status: Acute Code(s): Z39.1 - Encounter for care and examination of lactating mother Medications at Discharge Home Medications vit no.95-ferrous fumarate 28 mg-folic acid 800 mcg tablet () 1tab PO DAILY 09/04/24 ferrous gluconate 324 mg (37.5 mg iron) tablet 324 mg PO QODAY anemia 02/05/25 ibuprofen 600 mg tablet 600 mg PO Q6H PRN PRN Pain Score 1-10 #0 tabs 02/13/25 Hospital Course Operations None Procedures None Summary of Care Provided Minutes Spent on Discharge: 15 Hospital Course: Patient had vaginal delivery. Hospital course was uneventful. Physical Exam Narrative Patient seen at bedside. Denies pain. Ambulating and voiding without difficulty.Lochia decreased. Desires discharge home today. Const alert and oriented x3 General Appearance: Negative for in distress HEENT normocephalic Eyes General Eye: normal appearance of both eyes Neck General: normal visual inspection Chest Chest: symmetrical chest wall rise Resp normal respiratory effort and normal air movement Effort and Inspection: symmetric chest movement; Negative for tachypneic Auscultation: clear to auscultation bilaterally Cardio regular rate and regular rhythm Peripheral Pulses: pulses 2+ throughout GI normal to inspection, nondistended, normoactive bowel sounds Narrative: Ice to perineum OB / External & Speculum: vaginal bleeding and other Lochia decreasing Uterus Palpation: uterus fundus firm (Below U) Extremity normal to inspection, full ROM and normal capillary refill Skin no rashes or lesions noted Neuro oriented x3, CN's II-XII intact bilaterally and gait normal Psych mental status grossly normal, thought process normal and activity/motor behaviornormal Weight / BMI Weight Weight: 260 lb 2.327 oz Body Mass Index (BMI) 39.5 ABG / Lab / Microbiology Data 02/11/25 08:00 D/C Instructions Discharge Activity: Return to Normal Activity, No Restrictions, May Drive, May Shower and May Take a Tub Bath (Warm water only. No bath salts, soaps, bubbles) May resume sexual activity in: 6-8 weeks Weight Bearing Status: Weight bearing as tolerated Call your doctor if you observe: Fever of 101 or Higher, Inability to urinate, Using more than 1 pad per hour, Shortness of breath, Dizziness, Chest pain, Calfdiscomfort and Uncontrolled pain DC O2, CPAP, BIPAP Needs Home O2 Discharge instructions: No Please Follow Up With: [facility]BG[facility] When: 2 weeks in office or virtual Meaningful Use Info Meaningful Use Meaningful Use Diagnoses (Choose all that apply): None applicable Discharge Plan Admission Admit Date/Time: 02/11/25 07:23 Primary Reason for Your Visit: Labor and Delivery Attending Provider: Марина Hebert Primary Care Provider: Judson Weber Discharge Orders/Prescriptions Prescriptions: New ibuprofen 600 mg Tablet 600 mg PO Q6H PRN PRN (Reason: Pain Score 1-10) Qty: 0 0RF Continued ferrous gluconate 324 mg (37.5 mg iron) tablet 324 mg PO QODAY PNV cmb#95-ferrous fumarate-FA [] 28 mg iron- 800 mcg tablet 1 tab PO DAILY Discontinued aspirin 81 mg tablet,delayed release (DR/EC) 81 mg PO DAILY Referrals / Follow Up: Judson Weber DO [Primary Care Provider] - Disposition Disposition (needs filled in before D/C Order can be placed): Home, Self Care 02/13/25 0831 Cosigner Signature (if applicable): CC: LAYTON Soria; Dr. Judson Weber DO~ Signed [facility]08-20-2025 [facility] Medical Records Department [address] [place] [address] Discharge Summary 02/13/25827 MR#: [id number] Acct: [id number] Name: ROBB WASHINGTON Rep #: [id number] : 1995 29 From: Sravani Soria CNM PCP: Dr. Judson Weber DO Status:ADM IN Location: [id number] Providers Date of Admission: 02/11/25 Primary Care Physician: Dr. Judson Weber DO Reason For Visit: INDUCTION Diagnosis Discharge Diagnosis (1) (spontaneous vaginal delivery): Status: Acute Code(s): O80 - Encounter for full-term uncomplicated delivery (2) Obesity affecting : Status: Acute Code(s): O99.210 - Obesity complicating , unspecified trimester Qualifiers: Trimester: third trimester Obesity type affecting : other obesity due to excess calories Qualified Code(s): O99.213 - Obesity complicating , third trimester; E66.09 - Other obesity due to excess calories (3) Single live : Status: Acute Code(s): Z37.0 - Single live (4) Mother currently breast-feeding: Status: Acute Code(s): Z39.1 - Encounter for care and examination of lactating mother Medications at Discharge Home Medications vit no.95-ferrous fumarate 28 mg-folic acid 800 mcg tablet () 1 tab PO DAILY 09/04/24 ferrous gluconate 324 mg (37.5 mg iron) tablet 324 mg PO QODAY anemia 02/05/25 ibuprofen 600 mg tablet 600 mg PO Q6H PRN PRN Pain Score 1-10 #0 tabs 02/13/25 Hospital Course Operations None Procedures None Summary of Care Provided Minutes Spent on Discharge: 15 Hospital Course: Patient had vaginal delivery. Hospital course was uneventful. Physical Exam Narrative Patient seen at bedside. Denies pain. Ambulating and voiding without difficulty. Lochia decreased. Desires discharge home today. Const alert and oriented x3 General Appearance: Negative for in distress HEENT normocephalic Eyes General Eye: normal appearance of both eyes Neck General: normal visual inspection Chest Chest: symmetrical chest wall rise Resp normal respiratory effort and normal air movement Effort and Inspection: symmetric chest movement; Negative for tachypneic Auscultation: clear to auscultation bilaterally Cardio regular rate and regular rhythm Peripheral Pulses: pulses 2+ throughout GI normal to inspection, nondistended, normoactive bowel sounds Narrative: Ice to perineum OB / External Speculum: vaginal bleeding and other Lochia decreasing Uterus Palpation: uterus fundus firm (Below U) Extremity normal to inspection, full ROM and normal capillary refill Skin no rashes or lesions noted Neuro oriented x3, CN's II-XII intact bilaterally and gait normal Psych mental status grossly normal, thought process normal and activity/motor behavior normal Weight / BMI Weight Weight: 260 lb 2.327 oz Body Mass Index (BMI) 39.5 ABG / Lab / Microbiology Data 02/11/25 08:00 D/C Instructions Discharge Activity: Return to Normal Activity, No Restrictions, May Drive, May Shower and May Take a Tub Bath (Warm water only. No bath salts, soaps, bubbles) May resume sexual activity in: 6-8 weeks Weight Bearing Status: Weight bearing as tolerated Call your doctor if you observe: Fever of 101 or Higher, Inability to urinate, Using more than 1 pad per hour, Shortness of breath, Dizziness, Chest pain, Calf discomfort and Uncontrolled pain DC O2, CPAP, BIPAP Needs Home O2 Discharge instructions: No Please Follow Up With: [facility] Karen GILLETTE When: 2 weeks in office or virtual Meaningful Use Info Meaningful Use Meaningful Use Diagnoses (Choose all that apply): None applicable Discharge Plan Admission Admit Date/Time: 02/11/25 07:23 Primary Reason for Your Visit: Labor and Delivery Attending Provider: Марина Hebert Primary Care Provider: Judson Weber Discharge Orders/Prescriptions Prescriptions: New ibuprofen 600 mg Tablet 600 mg PO Q6H PRN PRN (Reason: Pain Score 1-10) Qty: 0 0RF Continued ferrous gluconate 324 mg (37.5 mg iron) tablet 324 mg PO QODAY PNV cmb#95-ferrous fumarate-FA [] 28 mg iron- 800 mcg tablet 1 tab PO DAILY Discontinued aspirin 81 mg tablet,delayed release (DR/EC) 81 mg PO DAILY Referrals / Follow Up: Judson Weber DO [Primary Care Provider] - Disposition Disposition (needs filled in before D/C Order can be placed): Home, Self Care 02/13/25 0831 Cosigner Signature (if applicable): CC: LAYTON Soria; [facility] Jud[facility] Weber [facility] Telephone encounter Note* Telephone Encounter - Maame Gann - 02/13/2025 8:22 AM EDT Patient returned call and scheduled as directed. [facility]08-20-2025 Miscellaneous Notes* Telephone Encounter - Maame Gann - 02/13/2025 8:22 AM EDT Patient returned call and scheduled as directed. * Telephone Encounter - Maame Gann - 02/12/2025 4:42 PM EDT Left message for patient to return call. When patient calls, please create new chart for patient's daughter and schedule with Dr. Weber for a [facility] appointment on 02/15/25 at 11:00 AM. Maame Gann * Telephone Encounter - Judson Weber DO - 02/12/2025 4:20 PM EDT Please call patient to make a patient chart and appt for her She just gave yesterday to a baby girl Marija Washington on 02/11/2025 at 10:29 pm. I need to add her to my schedule on Tuesday at 11 am please for visit for the baby Judson Daniel DO Gus [facility] Telephone encounter Note * Telephone Encounter - Maame Gann - 02/12/2025 4:42 PM EDT Left message for patient to return call. When patient calls, please create new chart for patient's daughter and schedule with Dr. Weber for a appointment on 02/15/25 at 11:00 AM. Maame Gann [facility]08-19-2025 Telephone encounter Note* Telephone Encounter - Judson Weber DO - 02/12/2025 4:20 PM EDT Please call patient to make a patient chart and appt for her She just gave yesterday to a baby girl Marija Washington on 02/11/2025 at 10:29 pm. I need to add her to my schedule on Tuesday at 11 am please for visit for the baby Judson Sanchez DO Gus [facility]08-19-2025 Progress note Author Morena Limon [facility] Note Date/Time February 12, 2025 8: 47[facility] Medical Records Department [address] [place] [address] Progress Note - OBGYN 02/12/25 0845 MR#: [id number] Acct: [id number] Name: ROBB WASHINGTON Rep #:[id number] : 1995 29 From: Morena Limon MD PCP: Dr. Judson Weber, DO Status:AD M IN Location: [id number] Objective Data Objective Data Vital Signs: Vital Signs Temp Pulse Resp BP Pulse Ox O2 Del Method 97.4 F L 70 16 121/65 H 97 Room Air 02/12/25 07:51 02/12/25 07:51 02/12/25 07:51 02/12/25 07:51 02/12/25 07:51 02/12/25 07:51 Oxygen Delivery Method Room Air Weight: 260 lb 2.327 oz Body Mass Index (BMI) 39.5 Intake & Output: Intake and Output for Last 24 Hours 02/10/25 02/11/25 02/12/25 23:59 23:59 23:59 Intake Total 3372.85 / 3372.85 250 / 250 Output Total 500 / 500 700 / 700 Balance 2872.85 / 2872.85 -450 / -450 Lab / Micro Data 02/11/25 08:00 Labs: Laboratory Results - last 24 hr 02/11/25 08:00: Syphilis Total Ab Nonreactive, Blood Type O POSITIVE, Antibody Screen NEGATIVE Physical Exam Const alert, oriented x3 and no apparent distress HEENT normocephalic GI soft to palpation, non-tender and non-distended GI Narrative: fundus firm, mid & below umbilicus Extremity normal to inspection and no calf tenderness Assessment & Plan (1) (spontaneous vaginal delivery): (2) Elevated blood pressure reading without diagnosis of hypertension: PLAN: Plan Routine PP care 02/12/25 0845 <Electronically signed by Morena Limon MD> Cosigner Signature (if applicable): CC: ~ Signed ADDENDUM by Dr. Morena Limon MD on 02/12/25 at 0847 Addendum Subjective - denies complaints 02/12/25 0847<Electronically signed by Morena Limon MD> Cosigner Signature (if applicable): cc: ~* Signed [facility] Work Phone: 1(535) 451-285208-19-2025 Progress note [facility] Medical Records Department [address] [place] [address] Progress Note - OBGYN 02/12/25844 MR#: [id number] Acct: [id number] Name: ROBB WASHINGTON Rep #:[id number] : 1995 29 From: Morena Limon MD PCP: Dr. Judson Weber, DO Status:AD M IN Location: [id number] Objective Data Objective Data Vital Signs: Vital Signs Temp Pulse Resp BP Pulse Ox O2 Del Method 97.4 F L 70 16 121/65 H 97 Room Air 02/12/25 07:51 02/12/25 07:51 02/12/25 07:51 02/12/25 07:51 02/12/25 07:51 02/12/25 07:51 Oxygen Delivery Method Room Air Weight: 260 lb 2.327 oz Body Mass Index (BMI) 39.5 Intake & Output: Intake and Output for Last 24 Hours 02/10/25 02/11/25 02/12/25 23:59 23:59 23:59 Intake Total 3372.85 / 3372.85 250 / 250 Output Total 500 / 500 700 / 700 Balance 2872.85 / 2872.85 -450 / -450 Lab / Micro Data 02/11/25 08:00 Labs: Laboratory Results - last 24 hr 02/11/25 08:00: Syphilis Total Ab Nonreactive, Blood Type O POSITIVE, Antibody Screen NEGATIVE Physical Exam Const alert, oriented x3 and no apparent distress HEENT normocephalic GI soft to palpation, non-tender and non-distended GI Narrative: fundus firm, mid & below umbilicus Extremity normal to inspection and no calf tenderness Assessment & Plan (1) (spontaneous vaginal delivery): (2) Elevated blood pressure reading without diagnosis of hypertension: PLAN: Plan Routine PP care 02/12/25 0845 Cosigner Signature (if applicable): CC: ~ Signed ADDENDUM by Dr. Morena Limon MD on 02/12/25 at 0847 Addendum Subjective - denies complaints 02/12/25 0847 Cosigner Signature (if applicable): cc: ~* Signed [facility]08-19-2025 NoteHNO ID: [id number] Author: SULLY COLLADO RN Service: ? Author Type: Registered Nurse Type: Progress Notes Filed: 02/12/2025 08:29 Note Text: Patient delivered via by Dr. Hebert on 02/11/[address] [facility]. See OB history. [facility] History of Present illness Narrative* Sully Collado RN - 02/12/2025 8:27 AM EDT Patient delivered via by Dr. Hebert on 02/11/[address] [facility]. See OB history. Sully Collado RN documented [facility]-2025 Procedure note [facility] Medical Records Department [address] [place] [address] OB Vaginal Delivery 02/11/25 2249 MR#: [id number] Acct: [id number] Name: ROBB WASHINGTON Rep #:[id number] : 1995 29 From: Марина Hebert MD PCP: Dr. Judson Weber, DO Status:AD M IN Location: [id number] Assessment & Plan (1) Obesity affecting : QUALIFIERS: Trimester: third trimester Obesity type affecting : other obesity due to excess calories Qualified Code(s): O99.213 - Obesity complicating , third trimester; E66.09 - Other obesity due to excess calories (2) (spontaneous vaginal delivery): (3) Single live : Maternal Data Information [facility] Calculator Estimated Delivery Date Method Current WG Current Estimate 02/14/25 Manual 39w 4d Final [facility]: 02/14/25 Gestational age: 39 4/7 Vaginal Delivery Maternal Presentation Maternal Presentation: Elective Induction Type of Induction: Pitocin, Lynch Bulb, Amniotomy and Cytotec Vaginal Delivery Information Procedure Performed: Spontaneous Vaginal Delivery Surgeon/Practitioner: Марина Hebert Date of Procedure: 02/11/25 Pre-Procedure Diagnosis: labor Post-Procedure Diagnosis: same Type of anesthesia: Epidural Estimated Blood Loss: 300 Time of Delivery: 22:29 Findings Description of procedure: A vigorous female infant was delivered MARIELA over a second-degree perineal laceration. The remainder the infant was delivered with maternal pushing and gentle traction only in less than 15 seconds. ThePitocin infusion was initiated for active management of the third stage. The cord was clamped and cut after 1 minute. The infant was attended to by the waiting nursing staff. The placenta was delivered spontaneously and intact. The cervix and vagina wereintact. The second-degree perineal lacerationwas repaired with 2-0 Vicryl suture in a running standard fashion. Sponge and needle counts were correct. Avaginal sweep was completed by me. Procedure findings: Vigorous female infant Presentation: MARIELA Amniotic Membrane Rupture Type: Artificial Amniotic Fluid Description: Moderate meconium Placental Delivery Description: Spontaneous Placenta Disposition: [facility] Specimen collected: No Cord Vessel Description: 3 Vessels Cord Entanglement: None A Gender: Female (Marija) (1 minute): 8 (5 minute): 9 Delayed Cord Clamping: Yes Front Desk Team Member psychologist: No Post Vaginal Deli Medications given after delivery: IV Pitocin Episiotomy Description: None Laceration: 2nd degree Complication Complications: No 02/11/25 2252 Cosigner Signature (if applicable): CC: Dr. Judson Weber DO; Dr. 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 Judson Weber DO Status:AD M IN Location: LT699-1 HPI - General General Date of Admission: 02/11/25 HPI Narrative ROBB WASHINGTON, is a 29 F who presents at [facility] 02/14/25 at 39w4d for induction of labor for increasing BP and pregravid BMI 34. Maternal Data Information [facility] Calculator Estimated Delivery Date Method Current WG Current Estimate 02/14/25 Manual 39w 4d PFSH PFSH Medical History (Updated 02/11/25 @ 08:55 by Molly Gallegos CNM) Thyroid disorder Home Medications ?Medication ?Instructions ?Recorded ?Last Taken ?Type aspirin 81 mg tablet,delayed 81 mg PO DAILY 09/04/24 0 02/04/25 22:00 History release 81 mg vit no.95-ferrous 1 tab PO DAILY 09/04/2405/21 12:00 History fumarate 28 mg-folic acid 800 mcg 1 TA B tablet () ferrous gluconate 324 mg (37.5 mg 324 mg PO QODAY anem ia 02/05/25 02/03/25 22:00 History iron) tablet 324 mg Allergy/AdvReac Type Severity Reaction Status Date / Time gabapentin Allergy Mild Rash Verified 02/05/25 12:18 sulfamethoxazole (From Allergy Mild Rash Verified 02/05/25 12:18 Bactrim) trimethoprim (From Bactrim) Allergy Mild Rash Verified 02/05/25 12:18 Surgical History (Updated 02/11/25 @ 08:38 by Elsie Fernando) Hx of adenoidectomy Hx of tonsillectomy Social History Smoking Status: Never smoker History Elective abortions Hx Para 0 Spontaneous abortions Hx # Term Pregnancies Ectopic pregnancies Hx # Pregnancies Multiple births # of living children NST FHR Rate Baby A Baseline: 140 Variability:: Moderate Accelerations:: 15 x 15 Decelerations:: Variable FHR Category:: Category II Uterine Activity:: None ROS Constitutional Constitutional: Reports systems reviewed and no addt'l complaints, except as documented; Denies headache(s) Eyes Eyes: Denies acute decrease in peripheral vision, blurry vision or change in vision ENT HEENT: Reports systems reviewed and no addt'l complaints, except as documented Cardiovascular Cardiovascular: Denies chest pain or dizziness Respiratory/Chest Respiratory/Chest: Denies cough, dyspnea, dyspnea on exertion, shortness of breath at rest or shortness of breath with exertion Gastrointestinal Gastrointestinal: Denies abdominal pain, diarrhea, nausea or vomiting Genitourinary Genitourinary: Denies abdominal discomfort Musculoskeletal Musculoskeletal: Denies limited range of motion Integumentary Integumentary: Reports systems reviewed and no addt'l complaints, except as documented Neurologic Neurologic: Reports systems reviewed and no addt'l complaints, except as documented Psychiatric Psychiatric: Reports systems reviewed and no addt'l complaints, except as documented Endocrine Endocrinology: Reports systems reviewed and no addt'l complaints, except as documented Hematologic/Lymphatic Hematologic/Lymphatic: Reports systems reviewed and no addt'l complaints, exceptas documented Allergic/Immunologic Allergic/Immunologic: Reports systems reviewed and no addt'l complaints, except as documented Vital Signs Vital Signs Vital Signs: 02/11/25 08:10 02/11/25 08:10 02/11/25 08:10 Temperature 98.6 F Pulse Rate 92 Blood Pressure 121/83 H BP Systolic 121 BP Diastolic 83 Pulse Ox 02/11/25 08:10 Temperature Pulse Rate Blood Pressure BP Systolic BP Diastolic Pulse Ox 98 Physical Exam Const alert and oriented x3 General Appearance: cooperative Orientation / Consciousness: awake, oriented to person, oriented to place and oriented to time Exam Limitations: no limitations HEENT normocephalic Head and Scalp: normal to inspection, normocephalic and atraumatic Face and Sinus: normal facial exam Eyes General Eye: normal appearance of both eyes Neck full ROM Chest Chest: symmetrical chest wall rise Resp normal respiratory effort and normal air movement Auscultation: clear to auscultation bilaterally Cardio regular rate, regular rhythm, S1 normal heart sound, S2 normal heart sound, no murmurs, no rub, no gallops and no clicks GI normal to inspection, nondistended, normoactive bowel sounds and non-tender appearance of the vagina normal Bladder / Kidney Exam: no CVA tenderness Manual OB Exam: estimated gestational size appropriate, presentation cephalic, dilated 1cm, effaced 50%, station -3 and other IBOW Back/Spine normal ROM Extremity normal to inspection and full ROM Skin no rashes or lesions noted Neuro oriented x3, CN's II-XII intact bilaterally and moves all extremities Sensorium / Orientation: awake, alert and oriented to person Motor Exam: clonus absent Deep Tendon Reflexes: Rt Patellar (L4): 2+ and Lt Patellar (L4): 2+ Labs Labs Labs: Blood Type Pending Antibody Screen Pending Hct 29.2 % (37-47) L Hgb 9.0 g/dL (12.0-15.0) L Syphilis Total Ab Pending GBS negative Rubella Immune RPR non reactive HIV negative HBsAG negative O positive GC/CT negative Assessment & Plan (1) 39 weeks gestation of : (2) Obesity affecting : (3) Category II heart rate tracing during labor and delivery: (4) Elective induction of labor planned: PLAN: Plan 1) Admit to labor and delivery 2) Routine labs 3) Continuous EFM. Uncertain of baseline, appears 140 with prolonged accelerations and variable decelerations. to review strip and ok to proceed with administration of cyctotec. Lynch for cervical ripening. 4) Pain management upon request 5) Dr. Hebert collaborative physician and notified of patient status, above assessment, and plan. 02/11/25 0858 <Electronically signed by Molly Gallegos CNM> Cosigner Signature (if applicable): CC: LAYTON Gallegos; Dr. 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 Judson Weber, DO Status:AD M IN Location: [id number] HPI - General General Date of Admission: 02/11/25 HPI Narrative ROBB WASHINGTON, is a 29 F who presents at [facility] 02/14/25 at 39w4d for induction of labor for increasing BP and pregravid BMI 34. Maternal Data Information [facility] Calculator Estimated Delivery Date Method Current WG Current Estimate 02/14/25 Manual 39w 4d PFSH [facility] Medical History (Updated 02/11/25 @ 08:55 by Molly Gallegos CNM) Thyroid disorder Home Medications ?Medication ?Instructions ?Recorded ?Last Taken ?Type aspirin 81 mg tablet,delayed 81 mg PO DAILY 09/04/24 0 02/04/25 22:00 History release 81 mg vit no.95-ferrous 1 tab PO DAILY 09/04/2405/21 12:00 History fumarate 28 mg-folic acid 800 mcg 1 TA B tablet () ferrous gluconate 324 mg (37.5 mg 324 mg PO QODAY anem ia 02/05/25 02/03/25 22:00 History iron) tablet 324 mg Allergy/AdvReac Type Severity Reaction Status Date / Time gabapentin Allergy Mild Rash Verified 02/05/25 12:18 sulfamethoxazole (From Allergy Mild Rash Verified 02/05/25 12:18 Bactrim) trimethoprim (From Bactrim) Allergy Mild Rash Verified 02/05/25 12:18 Surgical History (Updated 02/11/25 @ 08:38 by Elsie Fernando) Hx of adenoidectomy Hx of tonsillectomy Social History Smoking Status: Never smoker History Elective abortions Hx Para 0 Spontaneous abortions Hx # Term Pregnancies Ectopic pregnancies Hx # Pregnancies Multiple births # of living children NST FHR Rate Baby A Baseline: 140 Variability:: Moderate Accelerations:: 15 x 15 Decelerations:: Variable FHR Category:: Category II Uterine Activity:: None ROS Constitutional Constitutional: Reports systems reviewed and no addt'l complaints, except as documented; Denies headache(s) Eyes Eyes: Denies acute decrease in peripheral vision, blurry vision or change in vision ENT HEENT: Reports systems reviewed and no addt'l complaints, except as documented Cardiovascular Cardiovascular: Denies chest pain or dizziness Respiratory/Chest Respiratory/Chest: Denies cough, dyspnea, dyspnea on exertion, shortness of breath at rest or shortness of breath with exertion Gastrointestinal Gastrointestinal: Denies abdominal pain, diarrhea, nausea or vomiting Genitourinary Genitourinary: Denies abdominal discomfort Musculoskeletal Musculoskeletal: Denies limited range of motion Integumentary Integumentary: Reports systems reviewed and no addt'l complaints, except as documented Neurologic Neurologic: Reports systems reviewed and no addt'l complaints, except as documented Psychiatric Psychiatric: Reports systems reviewed and no addt'l complaints, except as documented Endocrine Endocrinology: Reports systems reviewed and no addt'l complaints, except as documented Hematologic/Lymphatic Hematologic/Lymphatic: Reports systems reviewed and no addt'l complaints, exceptas documented Allergic/Immunologic Allergic/Immunologic: Reports systems reviewed and no addt'l complaints, except as documented Vital Signs Vital Signs Vital Signs: 02/11/25 08:10 02/11/25 08:10 02/11/25 08:10 Temperature 98.6 F Pulse Rate 92 Blood Pressure 121/83 H BP Systolic 121 BP Diastolic 83 Pulse Ox 02/11/25 08:10 Temperature Pulse Rate Blood Pressure BP Systolic BP Diastolic Pulse Ox 98 Physical Exam Const alert and oriented x3 General Appearance: cooperative Orientation / Consciousness: awake, oriented to person, oriented to place and oriented to time Exam Limitations: no limitations HEENT normocephalic Head and Scalp: normal to inspection, normocephalic and atraumatic Face and Sinus: normal facial exam Eyes General Eye: normal appearance of both eyes Neck full ROM Chest Chest: symmetrical chest wall rise Resp normal respiratory effort and normal air movement Auscultation: clear to auscultation bilaterally Cardio regular rate, regular rhythm, S1 normal heart sound, S2 normal heart sound, no murmurs, no rub, no gallops and no clicks GI normal to inspection, nondistended, normoactive bowel sounds and non-tender appearance of the vagina normal Bladder / Kidney Exam: no CVA tenderness Manual OB Exam: estimated gestational size appropriate, presentation cephalic, dilated 1cm, effaced 50%, station -3 and other IBOW Back/Spine normal ROM Extremity normal to inspection and full ROM Skin no rashes or lesions noted Neuro oriented x3, CN's II-XII intact bilaterally and moves all extremities Sensorium / Orientation: awake, alert and oriented to person Motor Exam: clonus absent Deep Tendon Reflexes: Rt Patellar (L4): 2+ and Lt Patellar (L4): 2+ Labs Labs Labs: Blood Type Pending Antibody Screen Pending Hct 29.2 % (37-47) L Hgb 9.0 g/dL (12.0-15.0) L Syphilis Total Ab Pending GBS negative Rubella Immune RPR non reactive HIV negative HBsAG negative O positive GC/CT negative Assessment & Plan (1) 39 weeks gestation of : (2) Obesity affecting : (3) Category II heart rate tracing during labor and delivery: (4) Elective induction of labor planned: PLAN: Plan 1) Admit to labor and delivery 2) Routine labs 3) Continuous EFM. Uncertain of baseline, appears 140 with prolonged accelerations and variable decelerations. to review strip and ok to proceed with administration of cyctotec. Lynch for cervical ripening. 4) Pain management upon request 5) Dr. Hebert collaborative physician and notified of patient status, above assessment, and plan. 02/11/25 0858 Cosigner Signature (if applicable): CC: LAYTON Gallegos; Dr. Judson Weber, ~ Signed [facility]08-15-2025 NoteHNO ID: [id number] Author: JESSIE SANTOS MD Service: ? Author Type: Physician Type: Progress Notes Filed: 02/08/2025 09:49 Note Text: NST SUMMARY PROVIDER ASSESSMENT AND INTERPRETATION Indications for NST: Gestational HTN Baseline: 130 Variability: Moderate Accelerations: Present 15 X 15 Decelerations: None Interpretation: Reactive SIGNATURE: Jessie Santos [facility]08-15-2025 History of Present illness Narrative* Jessie Santos MD - 02/08/2025 9:48 AM EDT NST SUMMARY PROVIDER ASSESSMENT AND INTERPRETATION Indications for NST: Gestational HTN Baseline: 130 Variability: Moderate Accelerations: Present 15 X 15 Decelerations: None Interpretation: Reactive SIGNATURE: Jessie Santos MD [facility] Progress note* Quick Notes - Jessie Santos MD - 02/08/2025 9:46 AM EDT S: Robb Washington is a 29 year old female who presents at 02/14/2025, by Last Menstrual Period for aroutine visit. Denies headache, visual changes, chest pain, shortness of breath, vaginal bleeding, leakage of fluid, or dysuria. Feeling well, no complaints. Good movement, No contractions O: See flow sheet Gen: No apparent distress Abd: Gravid, nontender NST reactive Scheduled IOL 02/10 ASSESSMENT/PLAN: 1. Elevated blood pressure reading without diagnosis of hypertension - ICD9: 796.2, ICD10: R03.0 (primary diagnosis) - URINE OB DIP B/O 2. Anemia during in third trimester ([facility]LY [facility]) - ICD9: 648.23, ICD10: O99.013 iron - URINE OB DIP B/O 3. 39 weeks gestation of ([facility]) - ICD9: V22.2, ICD10: Z3A.39 - URINE OB DIP B/O 4. Supervision of high risk in third trimester ([facility]) - ICD9: V23.9, ICD10: O09.93 - URINE OB DIP B/O Jessie Santos MD [facility]08-15-2025 Miscellaneous Notes* Quick Notes - Jessie Santos MD - 02/08/2025 9:46 AM EDT S: Robb Washington is a 29 year old female who presents at 02/14/2025, by Last Menstrual Period for aroutine visit. Denies headache, visual changes, chest pain, shortness of breath, vaginal bleeding, leakage of fluid, or dysuria. Feeling well, no complaints. Good movement, No contractions O: See flow sheet Gen: No apparent distress Abd: Gravid, nontender NST reactive Scheduled IOL 02/10 ASSESSMENT/PLAN: 1. Elevated blood pressure reading without diagnosis of hypertension - ICD9: 796.2, ICD10: R03.0 (primary diagnosis) - URINE OB DIP B/O 2. Anemia during in third trimester ([facility]) - ICD9: 648.23, ICD10: O99.013 iron - URINE OB DIP B/O 3. 39 weeks gestation of ([facility]) - ICD9: V22.2, ICD10: Z3A.39 - URINE OB DIP B/O 4. Supervision of high risk in third trimester ([facility]) - ICD9: V23.9, ICD10: O09.93 - URINE OB DIP B/O Jessie Santos MD documented in this encounterC[facility]08-15-2025 Instructions* Patient Instructions* Love Mills MA - 02/08/2025 8:45 AM EDT SEQUENTIAL SCREENINGS [facility] offers sequential screenings for women who are interested in screenings for chromosomal abnormalities and certain defects during a . The sequential screen combinesultrasound and blood tests to determine the risk of chromosomal abnormalities, including Down's Syndrome (Trisomy 21) and Trisomy 18, as well as open neural tube defects including spina bifida. Ultrasound examination is performed between 11 weeks and 13 weeks gestational age. Blood tests are drawn after the ultrasound and again later in the between 15 and 21 weeks gestational age. Please let your physician know if you are interested in this testing. It will require an appointment withour survey data technician. This is not an ultrasound performed by a physician in our office during a routine visit. SIGNS AND SYMPTOMS OF LABOR 1. Contractions every 10 minutes or more often 2. Clear, pink, or brownish fluid (water) leaking from vagina 3. Feeling that baby is pushing down, pressure 4. Low, dull backache 5. Cramps that feel like a period 6. Cramps with or without diarrhea If you notice any of the above symptoms, contact our office at [phone] and ask to speak with anurse. After hours, you can call doctors registry at [phone] OR call [facility] at [phone] ask to have the doctor technical support consultant paged. If you consider this an emergency, dial 9-1-7 or go to your nearest emergency department. NEED HELP? Are you dealing with a violent or abusive relationship? Are you a victim of rape or sexual assult? Call [facility] ([place]) 24 hour Crisis Hotline: 776.406.3014 or 043-047-1849. MANUAL Your Guide to a Healthy manual is now on-line. Visit [email or web address] to download your free copy documented in this encounterC[facility]08-14-2025 NoteHNO ID: [id number] Author: IRA QUIROS MA Service: ? 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 Reason for Outreach Medicaid OB/Peds Care Gaps due: N/A Patient Contacted: Spoke to patient/parent/or legal guardian Patient identified by name and : Yes Medicaid OB/Peds actions taken: /Astronautical Engineer added Navigation Signature: Ira Levine MA February 07, 2025 9:23 [facility]08-12-2025 Evaluation note* Diagnosis Onset Date Resolution Status Admit Date 38 weeks gestation of acut e February 05, 2025 11:40am Elevated blood pressure read ing without diagnosis of hypertension acute February 05 11:40am 39 weeks gestation of acut e February 11, 2025 7:23am Category II heart rate tracing during labor and delivery acute February 11 7:23am Elective induction of labor planned acute February 11 7:23am Elevated blood pressure read ing without diagnosis of hypertension acute February 11 7:23am Mother currently breast-feeding acut e February 11, 2025 7:23am Obesity affecting acute February 11, 2025 7:23am Single live acute February 11, 2025 7:23am (spontaneous vaginal delivery) acute February 11 7:23am [facility] Work Phone: [phone]) 857-739108-12-2025 NoteHNO ID: [id number] Author: IRA QUIROS MA Service: ? Author Type: Wash[place] Hand Type: Progress Notes Filed: 02/05/2025 14:23 Note Text: POPULATION HEALTH NAVIGATION OUTREACH Action/ 1st attempt: Called and left message to call back to discuss valet attendant. MC message sent. Reason for Outreach Medicaid OB/Peds Care Gaps due: N/A Patient Contacted: Unable or unnecessary to reach patient: Unable to reach patient Left message MyChart message sent Navigation Signature: Ira Levine MA February 05, 2025 12:21 [facility]08-12-2025 History of Present illness Narrative* Ira Quiros MA - 02/05/2025 12:21 PM EDT POPULATION HEALTH NAVIGATION OUTREACH Action/I 1st attempt: Called and left message to call back to discuss valet attendant. message sent. Reason for Outreach Medicaid OB/Peds Care Gaps due: N/A Patient Contacted: Unable or unnecessary to reach patient: Unable to reach patient Left message MyChart message sent Navigation Signature: Ira Levine MA February 05, 2025 12:21 PM documented in this encounterC[facility]08-12-2025 NoteHNO ID: [id number] Author: LOVE MILLS MA Service: ? Author Type: Washhouse Hand Type: Progress Notes Filed: 02/05/2025 15:03 Note Text: CARLOS BP A-127/88 6-123/89 5-127/87 4-131/88 3-127/89 2-127/88 1-129/87[facility]08-12-2025 History of Present illness Narrative* Love Mills MA - 02/05/2025 11:16 AM EDT CARLOS BP A-127/88 6-123/89 5-127/87 4-131/88 3-127/89 2-127/88 1-129/87 documented in this encounterC[facility]08-12-2025 Progress note* Quick Notes - Марина Hebert MD - 02/05/2025 10:54 AM EDT RR- VB No. LOF No. CTXS few Movement: present. Other c/o: edema but not as bad as last week. Denies GARNER or visual changes. No epigastric pain Medication list reviewed. SENSITIVE EXAM: The sensitive examination was discussed with the Patient or Patient's Authorized Carrot Grader Inspector. As applicable, any other physician, advance practice provider, medical student, or other health professional student that will be observing or involved in the sensitive examination for educational or training purposes was discussed with the Patient or Authorized Carrot Grader Inspector. The Patient or Authorized Carrot Grader Inspector has agreed to proceed with the sensitive examination. (Sensitive examination includes inspection and/or palpation of the breasts, pelvis, prostate and anorectal regions). Physical Exam See Flow Sheet Abd: soft, nontender, gravid Ext: edema: 2+, symetrical: Yes, DTRS: 2+, clonus: Absent A/P 38w5d Estimated Date of Delivery: 02/14/25 ASSESSMENT/PLAN: 1. Encounter for supervision of normal first in third trimester ([facility]) - ICD9: V22.0, ICD10: Z34.03 (primary diagnosis) - URINE OB DIP B/O 2. Elevated blood pressure reading without diagnosis of hypertension - ICD9: 796.2, ICD10: R03.0 only one BP above range and that was after sitting for < 5 min. True BP normal. To L&D for labs, NST, and serial BPs - URINE OB DIP B/O 3. 38 weeks gestation of ([facility]) - ICD9: V22.2, ICD10: Z3A.38 - URINE OB DIP B/O Serial BPS and labs normal on L&D. Does not meet gest HTN criteria at this time, no evidence ofpreeclampsia. Scheduled for elective induction at 39+ weeks but return for signs/symptoms of preeclampsia and f/u in 3 days or prn for repeat BP check. Марина Hebert MD [facility]08-12-2025 Miscellaneous Notes* Quick Notes - Марина Hebert MD - 02/05/2025 10:54 AM EDT RR- VB No. LOF No. CTXS few Movement: present. Other c/o: edema but not as bad as last week. Denies GARNER or visual changes. No epigastric pain Medication list reviewed. SENSITIVE EXAM: The sensitive examination was discussed with the Patient or Patient's Authorized Carrot Grader Inspector. As applicable, any other physician, advance practice provider, medical student, or other health professional student that will be observing or involved in the sensitive examination for educational or training purposes was discussed with the Patient or Authorized Carrot Grader Inspector. The Patient or Authorized Carrot Grader Inspector has agreed to proceed with the sensitive examination. (Sensitive examination includes inspection and/or palpation of the breasts, pelvis, prostate and anorectal regions). Physical Exam See Flow Sheet Abd: soft, nontender, gravid Ext: edema: 2+, symetrical: Yes, DTRS: 2+, clonus: Absent A/P 38w5d Estimated Date of Delivery: 02/14/25 ASSESSMENT/PLAN: 1. Encounter for supervision of normal first in third trimester ([facility]) - ICD9: V22.0, ICD10: Z34.03 (primary diagnosis) - URINE OB DIP B/O 2. Elevated blood pressure reading without diagnosis of hypertension - ICD9: 796.2, ICD10: R03.0 only one BP above range and that was after sitting for < 5 min. True BP normal. To L&D for labs, NST, and serial BPs - URINE OB DIP B/O 3. 38 weeks gestation of ([facility]) - ICD9: V22.2, ICD10: Z3A.38 - URINE OB DIP B/O Serial BPS and labs normal on L&D. Does not meet gest HTN criteria at this time, no evidence ofpreeclampsia. Scheduled for elective induction at 39+ weeks but return for signs/symptoms of preeclampsia and f/u in 3 days or prn for repeat BP check. Марина Hebert MD documented in this encounterC[facility]08-12-2025 Instructions* Patient Instructions* Love Mills MA - 02/05/2025 10:48 AM EDT SEQUENTIAL SCREENINGS [facility] offers sequential screenings for women who are interested in screenings for chromosomal abnormalities and certain defects during a . The sequential screen combinesultrasound and blood tests to determine the risk of chromosomal abnormalities, including Down's Syndrome (Trisomy 21) and Trisomy 18, as well as open neural tube defects including spina bifida. Ultrasound examination is performed between 11 weeks and 13 weeks gestational age. Blood tests are drawn after the ultrasound and again later in the between 15 and 21 weeks gestational age. Please let your physician know if you are interested in this testing. It will require an appointment withour survey data technician. This is not an ultrasound performed by a physician in our office during a routine visit. SIGNS AND SYMPTOMS OF LABOR 1. Contractions every 10 minutes or more often 2. Clear, pink, or brownish fluid (water) leaking from vagina 3. Feeling that baby is pushing down, pressure 4. Low, dull backache 5. Cramps that feel like a period 6. Cramps with or without diarrhea If you notice any of the above symptoms, contact our office at [phone] and ask to speak with anurse. After hours, you can call doctors registry at [phone] OR call [facility] at [phone] ask to have the doctor technical support consultant paged. If you consider this an emergency, dial 9--1 or go to your nearest emergency department. NEED HELP? Are you dealing with a violent or abusive relationship? Are you a victim of rape or sexual assult? Call [facility] ([place]) 24 hour Crisis Hotline: 602.305.2906 or 008-851-2142. MANUAL Your Guide to a Healthy manual is now on-line. Visit [email or web address] to download your free copy documented in this encounterCrystal Clinic [facility]08-12-2025 NotePatient Outreach (NETNAV) ROBB ULRICH ([id number]) 1995 F Date Time Provider Department 02/05/25 IRA QUIROS During your visit today, we recorded the following information about you: Ira Quiros MA 02/05/2025 2:23 PM Signed POPULATION HEALTH NAVIGATION OUTREACH Action/ attempt: Called and left message to call back to discuss valet attendant. message sent. Reason for Outreach Medicaid OB/Peds Care Gaps due: N/A Patient Contacted: Unable or unnecessary to reach patient: Unable to reach patient Left message [facility] message sent Navigation Signature: Ira Levine MA February 05, 2025 12:21 PM Ira Quiros MA 02/07/2025 9:25 AM Signed POPULATION HEALTH NAVIGATION OUTREACH Action/FYI Called and spoke with pt and confirmed valet attendant. Reason for Outreach Medicaid OB/Peds Care Gaps due: N/A Patient Contacted: Spoke to patient/parent/or legal guardian Patient identified by name and : Yes Medicaid OB/Peds actions taken: /Astronautical Engineer added Navigation Signature: Ira Levine MA February 07, 2025 9:23 AM Allergies As of Date: 02/05/2025 Noted Allergy Reaction BACTRIM (SULFAMETHOXAZOLE-TRIMETH*08/17/2018 2 - Rash GABAPENTIN 08/11/2018 2 - Rash SULFAMETHOXAZOLE 06/26/2024 2 - Rash Date Reviewed: 02/05/2025 Reviewed by: Марина Hebert MD - Fully Assessed Reason for Visit: Population Health Navigation Outreach [3910] Cmt: Ob/peds Prescriptions as of 02/07/2025 - ferrous sulfate 325 mg (65 mg iron) EC tablet Take 325 mg by mouth. - no115/iron/folic acid ( 19 ORAL) Take by mouth once daily. - aspirin, enteric coated (ECOTRIN LOW STRENGTH) 81 mg EC tablet Take 1 tablet by mouth once daily. Problem List As Of Date 02/05/2025 Noted Resolved Acne [L70.9] 05/08/2013 07/27/2017 Dysmenorrhea [N94.6] 05/08/2013 07/27/2017 Nausea/vomiting in (HCC) [O21.9] 07/05/2024 12/20/2024 Painful bladder spasm [N32.89, R39.89] 07/05/2024 Obesity complicating , first trimester*07/05/2024 Encounter for supervision of normal first pregn*07/05/2024 Heartburn during (HCC) [O26.899, R12] 08/02/2024 12/20/2024 Anemia during in third trimester (HCC*11/21/2024 Encounter Status:Closed by IRA QUIROS on 02/05/25[facility] 02-01-2025 NoteHNO ID: [id number] Author: JUDSON WEBER, DO Service: ? Author Type: Physician Type: Progress Notes Filed: 02/01/2025 08:26 Note Text: CC: Robb C Serg is a 29 year old female who presents to the office for physical HPI: She is currently 38 weeks , seeing OBGYN for care. Needing breast pump, planning to breast feed. Anemia, iron deficiency, taking supplements No other concerns. PAST MEDICAL HISTORY Diagnosis Date Acne 05/08/2013 Anemia Thyroid enlarged all blood work came back WNL PAST SURGICAL HISTORY Procedure Laterality Date TONSILLECTOMY AND ADENOIDECTOMY Social History: Social History Tobacco Use Smoking status: Never Smokeless tobacco: Never Vaping Use Vaping status: Never Used Substance Use Topics Alcohol use: No Drug use: No FAMILY HISTORY Problem Relation Age of Onset Breast Cancer Mother Thyroid Mother No Known Problems Father Thyroid Sister Thyroid Maternal Grandmother Diabetes Maternal Grandfather Adult on-set Cancer Paternal Grandmother No Known Problems Paternal Grandfather other (schizophrenia) Maternal Aunt Current Outpatient prescriptions: ferrous sulfate 325 mg (65 mg iron) EC tablet Take 325 mg by mouth. no115/iron/folic acid ( 19 ORAL) Take by mouth once daily. aspirin, enteric coated (ECOTRIN LOW STRENGTH) 81 mg EC tablet Take 1 tablet by mouth once daily. Allergies: ALLERGIES Allergen Reactions Bactrim [Sulfametho* Rash Gabapentin Rash Sulfamethoxazole Rash ROS: See HPI PE: 02/01/25 0738 BP: 134/78 Pulse: 101 Resp: 18 SpO2: 100% Weight: 119.3 kg (263 lb) Height: 174 cm (5' 8.5") Gen: AANDO, NAD, non-toxic appearing, Pleasant, cooperative HEENT: NT/AC, PERRLA, EOMs intact b/l, nares clear and patent b/l, pharynx without erythema, exudate or lesions. MMM, Uvula midline. EACs without erythema or debris. TMs pearly alvarado with intact landmarks b/l. Neck: supple, No cervical LAD, no thyromegaly, no carotid bruits CV: RRR, normal S1 and S2, no murmurs, no gallops, no rubs, Pulses 2+ and symmetric in UE and LE b/l Lungs: normal respiratory effort, CTA b/l, no wheezing or rhonchi or rales Abd: soft, gravid uterus, NT, ND, +BS, no hepatosplenomegaly MS: FROM all 4 extremities Neuro: CN II-XII intact b/l, strength 5/5 b/l UE and LE, DTRs 2/4 UE and LE, sensation intact. Skin: warm, dry, intact, No rashes or lesions on exposed skin. No edema, normal pulses ASSESSMENT/PLAN: 1. Well adult exam - ICD9: V70.0, ICD10: Z00.00 (primary diagnosis) - Counseled on healthy diet and regular exercise - f/u with OBGYN for care 2. Screening for depression - ICD9: V79.0, ICD10: Z13.31 - DEPRESSION SCREENING 3. Encounter for screening examination for other mental health and behavioral disorders - ICD9: V79.8, ICD10: Z13.39 - ANXIETY SCREENING 4. 38 weeks gestation of (HCC) - ICD9: V22.2, ICD10: Z3A.38 - Counseled on healthy diet and regular exercise - f/u with OBGYN for care - BREAST PUMP Judson Weber DO To ER if develops chest pain, shortness of breath, or severe worsening of symptoms. Discussed risks, benefits, alternatives, and potential side effects of medications. Patient expressed understanding and agreed with the plan. Judson Weber DO [address] [place] [address] [facility] NoteHNO ID: [id number] Author: LOVE MILLS MA Service: ? Author Type: [place] Hand Type: Progress Notes Filed: 01/31/2025 12:00 Note Text: CARLOS BP A-136/88 1-142/86 2-138/93 3-136/89 4-135/86 5-132/88 6-132/84[facility] Progress note* Quick Notes - Sravani Soria APRN.CNM - 01/24/2025 8:06 AM EDT S: Robb Ulrich is a 29 year old female who presents at 37 weeks gestation for a routine visit. Denies headache, visual changes, chest pain, shortness of breath, vaginal bleeding, leakage of fluid, or dysuria. Some difficulty sleeping but feeling well overall. O: See flow sheet Gen: No apparent distress Abd: Gravid, nontender ASSESSMENT/PLAN: 1. 37 weeks gestation of 2. Anemia during in third trimester 3. Encounter for supervision of normal first in third trimester - Continue oral iron - GBS negative - Labor precautions reviewed and when to call - RTO 1 week Sravani Soria APRN.CNM [facility]07-31-2025 Miscellaneous Notes* Quick Notes - Sravani Soria APRN.CNM - 01/24/2025 8:06 AM EDT S: Robb Ulrich is a 29 year old female who presents at 37 weeks gestation for a routine visit. Denies headache, visual changes, chest pain, shortness of breath, vaginal bleeding, leakage of fluid, or dysuria. Some difficulty sleeping but feeling well overall. O: See flow sheet Gen: No apparent distress Abd: Gravid, nontender ASSESSMENT/PLAN: 1. 37 weeks gestation of 2. Anemia during in third trimester 3. Encounter for supervision of normal first in third trimester - Continue oral iron - GBS negative - Labor precautions reviewed and when to call - RTO 1 week Sravani Soria APRN.CNM documented in this encounterCrystal [facility]07-31-2025 Instructions* Patient Instructions* Love Mills MA - 01/24/2025 8:04 AM EDT SEQUENTIAL SCREENINGS The [facility] offers sequential screenings for women who are interested in screenings for chromosomal abnormalities and certain defects during a . The sequential screen combinesultrasound and blood tests to determine the risk of chromosomal abnormalities, including Down's Syndrome (Trisomy 21) and Trisomy 18, as well as open neural tube defects including spina bifida. Ultrasound examination is performed between 11 weeks and 13 weeks gestational age. Blood tests are drawn after the ultrasound and again later in the between 15 and 21 weeks gestational age. Please let your physician know if you are interested in this testing. It will require an appointment withour survey data technician. This is not an ultrasound performed by a physician in our office during a routine visit. SIGNS AND SYMPTOMS OF LABOR 1. Contractions every 10 minutes or more often 2. Clear, pink, or brownish fluid (water) leaking from vagina 3. Feeling that baby is pushing down, pressure 4. Low, dull backache 5. Cramps that feel like a period 6. Cramps with or without diarrhea If you notice any of the above symptoms, contact our office at [phone] and ask to speak with anurse. After hours, you can call doctors registry at [phone] OR call [facility] at [phone] ask to have the doctor technical support consultant paged. If you consider this an emergency, dial 5-4-3 or go to your nearest emergency department. NEED HELP? Are you dealing with a violent or abusive relationship? Are you a victim of rape or sexual assult? Call [facility] ([place]) 24 hour Crisis Hotline: 404.171.1719 or 885-179-3576. MANUAL Your Guide to a Healthy manual is now on-line. Visit [email or web address] to download your free copy documented in this encounterCrystal Clinic [facility]07-24-2025 Progress note* Quick Notes - José Miguel Delcid MD - 01/17/2025 10:55 AM EDT SW- LE swelling at work. Improves at home with leg elevation. No GARNER, vision changes, ctx, vb, lof. Good FM PE: Gen- NAD, well appearing Abd- Soft, gravid, NT, S=D See flowsheet A/p 36 wk gestation - GBS today - Vertex presentation on bedside US - RTO 1 wk José Miguel Delcid DO [facility]07-24-2025 Miscellaneous Notes* Quick Notes - José Miguel Delcid MD - 01/17/2025 10:55 AM EDT SW- LE swelling at work. Improves at home with leg elevation. No GARNER, vision changes, ctx, vb, lof. Good FM PE: Gen- NAD, well appearing Abd- Soft, gravid, NT, S=D See flowsheet A/p 36 wk gestation - GBS today - Vertex presentation on bedside US - RTO 1 wk José Miguel Delcid DO documented in this encounterCrystal Clinic [facility] Center07-24-2025 Instructions* Patient Instructions* Ira Duarte MA - 01/17/2025 10:44 AM EDT SEQUENTIAL SCREENINGS The [facility] offers sequential screenings for women who are interested in screenings for chromosomal abnormalities and certain defects during a . The sequential screen combinesultrasound and blood tests to determine the risk of chromosomal abnormalities, including Down's Syndrome (Trisomy 21) and Trisomy 18, as well as open neural tube defects including spina bifida. Ultrasound examination is performed between 11 weeks and 13 weeks gestational age. Blood tests are drawn after the ultrasound and again later in the between 15 and 21 weeks gestational age. Please let your physician know if you are interested in this testing. It will require an appointment withour survey data technician. This is not an ultrasound performed by a physician in our office during a routine visit. SIGNS AND SYMPTOMS OF LABOR 1. Contractions every 10 minutes or more often 2. Clear, pink, or brownish fluid (water) leaking from vagina 3. Feeling that baby is pushing down, pressure 4. Low, dull backache 5. Cramps that feel like a period 6. Cramps with or without diarrhea If you notice any of the above symptoms, contact our office at [phone] and ask to speak with anurse. After hours, you can call doctors registry at [phone] OR call [facility] at [phone] ask to have the doctor technical support consultant paged. If you consider this an emergency, dial 02-25- or go to your nearest emergency department. NEED HELP? Are you dealing with a violent or abusive relationship? Are you a victim of rape or sexual assult? Call [facility] 24 hour Crisis Hotline: 779.775.2613 or 292-690-1719. MANUAL Your Guide to a Healthy manual is now on-line. Visit [email or web address] to download your free copy documented in this encounterCrystal [facility] Center2025 Progress note* Quick Notes - Марина Hebert MD - 01/03/2025 8:41 AM EDT RR- VB No. LOF No. CTXS No. Movement: present. Other c/o: mild edema. sometimes. Occas right sided pain under breast worse w/ sitting Medication list reviewed. SENSITIVE EXAM: Sensitive exam not performed. Physical Exam See Flow Sheet Abd: soft, nontender, gravid Ext: edema: 1+ A/P 34w0d Estimated Date of Delivery: 02/14/25 Assessment & Plan Anemia during in third trimester ([facility]) recheck CBC Orders: URINE OB DIP B/O COMPLETE BLOOD COUNT; Future Encounter for supervision of normal first in third trimester ([facility]) kick counts Orders: URINE OB DIP B/O COMPLETE BLOOD COUNT; Future 34 weeks gestation of ([facility]) Orders: URINE OB DIP B/O COMPLETE BLOOD COUNT; Future reassured about intermittent pain. Марина Hebert M.D. [facility]2025 Miscellaneous Notes* Quick Notes - Марина Hebert MD - 01/03/2025 8:41 AM EDT RR- VB No. LOF No. CTXS No. Movement: present. Other c/o: mild edema. sometimes. Occas right sided pain under breast worse w/ sitting Medication list reviewed. SENSITIVE EXAM: Sensitive exam not performed. Physical Exam See Flow Sheet Abd: soft, nontender, gravid Ext: edema: 1+ A/P 34w0d Estimated Date of Delivery: 02/14/25 Assessment & Plan Anemia during in third trimester ([facility]) recheck CBC Orders: URINE OB DIP B/O COMPLETE BLOOD COUNT; Future Encounter for supervision of normal first in third trimester (HCC) kick counts Orders: URINE OB DIP B/O COMPLETE BLOOD COUNT; Future 34 weeks gestation of (HCC) Orders: URINE OB DIP B/O COMPLETE BLOOD COUNT; Future reassured about intermittent pain. Марина Hebert M.D. documented in this encounterCrystal Clinic [facility] Center2025 Instructions* Patient Instructions* Love MillsCHRIS - 01/03/2025 8:29 AM EDT SEQUENTIAL SCREENINGS The [facility] offers sequential screenings for women who are interested in screenings for chromosomal abnormalities and certain defects during a . The sequential screen combinesultrasound and blood tests to determine the risk of chromosomal abnormalities, including Down's Syndrome (Trisomy 21) and Trisomy 18, as well as open neural tube defects including spina bifida. Ultrasound examination is performed between 11 weeks and 13 weeks gestational age. Blood tests are drawn after the ultrasound and again later in the between 15 and 21 weeks gestational age. Please let your physician know if you are interested in this testing. It will require an appointment withour survey data technician. This is not an ultrasound performed by a physician in our office during a routine visit. SIGNS AND SYMPTOMS OF LABOR 1. Contractions every 10 minutes or more often 2. Clear, pink, or brownish fluid (water) leaking from vagina 3. Feeling that baby is pushing down, pressure 4. Low, dull backache 5. Cramps that feel like a period 6. Cramps with or without diarrhea If you notice any of the above symptoms, contact our office at [phone] and ask to speak with anurse. After hours, you can call doctors registry at [phone] OR call [facility] at [phone] ask to have the doctor technical support consultant paged. If you consider this an emergency, dial 0--0 or go to your nearest emergency department. NEED HELP? Are you dealing with a violent or abusive relationship? Are you a victim of rape or sexual assult? Call [facility] ([place]) 24 hour Crisis Hotline: 576.766.6196 or 450-952-5188. MANUAL Your Guide to a Healthy manual is now on-line. [email or web address] to download your free copy documented in this encounterCrystal Clinic [facility] Center06-26-2025 Progress note* Quick Notes - Morena Limon MD - 12/20/2024 10:24 AM EDT KJ - S: Robb denies LOF, contractions or vaginal bleeding. O: 32w0d, see flow sheet SENSITIVE EXAM: Sensitive exam not performed. A/P: Assessment & Plan Anemia during in third trimester (HCC) Encounter for supervision of normal first in third trimester ([facility]) 32 weeks gestation of ([facility]) Reviewed PTL & FM precautions Morena Limon MD [facility]06-26-2025 Miscellaneous Notes* Quick Notes - Morena Limon MD - 12/20/2024 10:24 AM EDT KJ - S: Robb denies LOF, contractions or vaginal bleeding. O: 32w0d, see flow sheet SENSITIVE EXAM: Sensitive exam not performed. A/P: Assessment & Plan Anemia during in third trimester (HCC) Encounter for supervision of normal first in third trimester ([facility]) 32 weeks gestation of ([facility]) Reviewed PTL & FM precautions Morena Limon MD documented in this encounterCrystal Clinic [facility] Center06-26-2025 Instructions* Patient Instructions* Wally Sandhu MA - 12/20/2024 10:16 AM EDT SEQUENTIAL SCREENINGS The [facility] offers sequential screenings for women who are interested in screenings for chromosomal abnormalities and certain defects during a . The sequential screen combinesultrasound and blood tests to determine the risk of chromosomal abnormalities, including Down's Syndrome (Trisomy 21) and Trisomy 18, as well as open neural tube defects including spina bifida. Ultrasound examination is performed between 11 weeks and 13 weeks gestational age. Blood tests are drawn after the ultrasound and again later in the between 15 and 21 weeks gestational age. Please let your physician know if you are interested in this testing. It will require an appointment withour survey data technician. This is not an ultrasound performed by a physician in our office during a routine visit. SIGNS AND SYMPTOMS OF LABOR 1. Contractions every 10 minutes or more often 2. Clear, pink, or brownish fluid (water) leaking from vagina 3. Feeling that baby is pushing down, pressure 4. Low, dull backache 5. Cramps that feel like a period 6. Cramps with or without diarrhea If you notice any of the above symptoms, contact our office at [phone] and ask to speak with anurse. After hours, you can call doctors registry at [phone] OR call [facility] at [phone] ask to have the doctor technical support consultant paged. If you consider this an emergency, dial 9-1-9 or go to your nearest emergency department. NEED HELP? Are you dealing with a violent or abusive relationship? Are you a victim of rape or sexual assult? Call [facility] ([place]) 24 hour Crisis Hotline: 602.537.8529 or 575-566-4366. MANUAL Your Guide to a Healthy manual is now on-line. [email or web address] to download your free copy documented in this encounterCrystal Clinic [facility]06-12-2025 Progress note* Quick Notes - Morena Limon MD - 12/06/2024 1:48 PM EDT KJ - S: Robb denies LOF, contractions or vaginal bleeding. She reports a respiratory illness that seems to be getting better after more than 10 days. O: 30w0d, see flow sheet SENSITIVE EXAM: Sensitive exam not performed. A/P: Assessment & Plan 30 weeks gestation of (HCC) Anemia during in third trimester (HCC) Continue iron Repeat CBC in 2-4 weeks Encounter for supervision of normal first in third trimester (HCC) URI - seems to be resolving but if doesn't recommend PCP evaluation. Reviewed PTL & FM precautions Morena Limon MD [facility]06-12-2025 Miscellaneous Notes* Quick Notes - Morena Limon MD - 12/06/2024 1:48 PM EDT KJ - S: Robb denies LOF, contractions or vaginal bleeding. She reports a respiratory illness that seems to be getting better after more than 10 days. O: 30w0d, see flow sheet SENSITIVE EXAM: Sensitive exam not performed. A/P: Assessment & Plan 30 weeks gestation of (HCC) Anemia during in third trimester (HCC) Continue iron Repeat CBC in 2-4 weeks Encounter for supervision of normal first in third trimester (HCC) URI - seems to be resolving but if doesn't recommend PCP evaluation. Reviewed PTL & FM precautions Morena Limon MD documented in this encounterCrystal Clinic [facility]06-12-2025 Instructions* Patient Instructions* Ira Duarte MA - 12/06/2024 1:22 PM EDT SEQUENTIAL SCREENINGS The [facility] offers sequential screenings for women who are interested in screenings for chromosomal abnormalities and certain defects during a . The sequential screen combinesultrasound and blood tests to determine the risk of chromosomal abnormalities, including Down's Syndrome (Trisomy 21) and Trisomy 18, as well as open neural tube defects including spina bifida. Ultrasound examination is performed between 11 weeks and 13 weeks gestational age. Blood tests are drawn after the ultrasound and again later in the between 15 and 21 weeks gestational age. Please let your physician know if you are interested in this testing. It will require an appointment withour survey data technician. This is not an ultrasound performed by a physician in our office during a routine visit. SIGNS AND SYMPTOMS OF LABOR 1. Contractions every 10 minutes or more often 2. Clear, pink, or brownish fluid (water) leaking from vagina 3. Feeling that baby is pushing down, pressure 4. Low, dull backache 5. Cramps that feel like a period 6. Cramps with or without diarrhea If you notice any of the above symptoms, contact our office at [phone] and ask to speak with anurse. After hours, you can call doctors registry at [phone] OR call [facility] at [phone] ask to have the doctor technical support consultant paged. If you consider this an emergency, dial 9--1 or go to your nearest emergency department. NEED HELP? Are you dealing with a violent or abusive relationship? Are you a victim of rape or sexual assult? Call [facility] ([place]) 24 hour Crisis Hotline: 624.711.1760 or 469-992-9874. MANUAL Your Guide to a Healthy manual is now on-line. Visit [email or web address] to download your free copy documented in this encounterCrystal Clinic [facility]06-06-2025 Telephone encounter Note * Telephone Encounter - José Miguel Delcid MD - 11/30/2024 12:07 PM EDT Unfortunately does sound like a kidney stone. Agree with going to [facility] for further eval with likely labs and a renal ultrasound, and hydration and pain control if appropriate thanks [facility] Work Phone: 1(268) 712-319706-06-2025 Miscellaneous Notes* Telephone Encounter - José Miguel Delcid MD - 11/30/2024 12:07 PM EDT Unfortunately does sound like a kidney stone. Agree with going to [facility] for further eval with likely labs and a renal ultrasound, and hydration and pain control if appropriate thanks * Telephone Encounter - Yumiko Leiva RN - 11/30/2024 9:11 AM EDT 29w1d Pt's mother called stating Pt has had lower right back pain radiating around to right side front-started this AM after 7am- nothing seems to help. Pt's mother states Pt has kidney has kidney stones [See ED visit from 09/04/24]. Pt's mother states they don't want to go to ER because all they do is give her pain medication and sent her home, she would like to have Pt seen in office today to assess baby. Informed Pt's mother that unfortunately, we have limited providers in office today, but that this RN will call PT to assess Pt and determine what would be best and Pt will call mother after speaking with RN. Pt's mother voiced understanding. Called Pt. Pt states does state the above having pain to ower right back pain radiating around to right side front-started this AM after 7am- nothing seems to help. Has not seen specialist- feels sheneeds to see Urologist. C/o nausea/ vomited x2 this AM-advised to take Unisom & Vitamin B6 as well as Danni. Has takentylenol-1000mg and didn't help, denies dysuria& denies vaginal bleeding. Pt states pain 8/10 constant. Pt states has tried warm bath and did not help. Advised Pt that if her pain is 8/10 and constant and nothing is helping that she needs to return to the ER. Also advised her that it is important to stay hydrated, and also if she is unable to keep any liquids down > 24 hours that she also needs to go to ER. Pt voiced understanding and will call her mother. Yumiko Leiva RN documented in this encounterCrystal Clinic [facility] Center06-06-2025 Telephone encounter Note * Telephone Encounter - Yumiko Leiva RN - 11/30/2024 9:11 AM EDT 29w1d Pt's mother called stating Pt has had lower right back pain radiating around to right side front-started this AM after 7am- nothing seems to help. Pt's mother states Pt has kidney has kidney stones [See ED visit from 09/04/24]. Pt's mother states they don't want to go to ER because all they do is give her pain medication and sent her home, she would like to have Pt seen in office today to assess baby. Informed Pt's mother that unfortunately, we have limited providers in office today, but that this RN will call PT to assess Pt and determine what would be best and Pt will call mother after speaking with RN. Pt's mother voiced understanding. Called Pt. Pt states does state the above having pain to ower right back pain radiating around to right side front-started this AM after 7am- nothing seems to help. Has not seen specialist- feels sheneeds to see Urologist. C/o nausea/ vomited x2 this AM-advised to take Unisom & Vitamin B6 as well as Danni. Has takentylenol-1000mg and didn't help, denies dysuria& denies vaginal bleeding. Pt states pain 8/10 constant. Pt states has tried warm bath and did not help. Advised Pt that if her pain is 8/10 and constant and nothing is helping that she needs to return to the ER. Also advised her that it is important to stay hydrated, and also if she is unable to keep any liquids down > 24 hours that she also needs to go to ER. Pt voiced understanding and will call her mother. Yumiko Leiva RN [facility]05-27-2025 Progress note* Quick Notes - Jessie Santos MD - 11/20/2024 11:55 AM EDT S: Robb Ulrich is a 29 year old female who presents at 02/14/2025, by Last Menstrual Period for a routine visit. Denies headache, visual changes, chest pain, shortness of breath, vaginal bleeding, leakage of fluid, or dysuria. Feeling well, no complaints. Good movement, No contractions O: See flow sheet Gen: No apparent distress Abd: Gravid, nontender TDAP today Declined LARC GCT/CBC today ASSESSMENT/PLAN: 1. Encounter for supervision of normal first in second trimester (HCC) - ICD9: V22.0, ICD10: Z34.02 (primary diagnosis) 2. Screening for diabetes mellitus - ICD9: V77.1, ICD10: Z13.1 3. 27 weeks gestation of (HCC) - ICD9: V22.2, ICD10: Z3A.27 4. Need for vaccination - ICD9: V05.9, ICD10: Z23 TDAP Jessie Santos MD [facility]05-27-2025 Miscellaneous Notes* Quick Notes - Jessie Santos MD - 11/20/2024 11:55 AM EDT S: Robb Ulrich is a 29 year old female who presents at 02/14/2025, by Last Menstrual Period for a routine visit. Denies headache, visual changes, chest pain, shortness of breath, vaginal bleeding, leakage of fluid, or dysuria. Feeling well, no complaints. Good movement, No contractions O: See flow sheet Gen: No apparent distress Abd: Gravid, nontender TDAP today Declined LARC GCT/CBC today ASSESSMENT/PLAN: 1. Encounter for supervision of normal first in second trimester (HCC) - ICD9: V22.0, ICD10: Z34.02 (primary diagnosis) 2. Screening for diabetes mellitus - ICD9: V77.1, ICD10: Z13.1 3. 27 weeks gestation of (HCC) - ICD9: V22.2, ICD10: Z3A.27 4. Need for vaccination - ICD9: V05.9, ICD10: Z23 TDAP Jessie Santos MD documented in this encounterC[facility]25 NoteHNO ID: [id number] Author: LOVE MILLS MA Service: ? Author Type: [place] Hand Type: Progress Notes Filed: 11/20/2024 11:56 Note Text: Patient identified by name and date of . Robb Ulrich presents today for a vaccination of Tdap. Patient denies an allergy to latex: yes Patient denies a severe (life-threatening) allergy to a previous dose of Tdap, DTP, DTaP, DT or Td vaccine. Yes Patient denies history of epilepsy or neurological problems: Yes Patient is afebrile and denies being moderately or severely ill: Yes Patient denies history of Guillain-Bonita Syndrome (a severe paralytic illness): Yes Tdap Adacel injection was given without incident. See immunizations for details of immunizations administered today. VIS sheet provided: Yes Provider Dr Santos was present in office at time of injection.[facility]05-27-2025 History of Present illness Narrative* Love Mills MA - 11/20/2024 9:25 AM EDT Patient identified by name and date of . Robb Ulrich presents today for a vaccination of Tdap. Patient denies an allergy to latex: yes Patient denies a severe (life-threatening) allergy to a previous dose of Tdap, DTP, DTaP, DT or Td vaccine. Yes Patient denies history of epilepsy or neurological problems: Yes Patient is afebrile and denies being moderately or severely ill: Yes Patient denies history of Guillain-Bonita Syndrome (a severe paralytic illness): Yes Tdap Adacel injection was given without incident. See immunizations for details of immunizations administered today. VIS sheet provided: Yes Provider Dr Santos was present in office at time of injection. documented in this encounterCrystal [facility]05-27-2025 Instructions* Patient Instructions* Love Mills MA - 11/20/2024 9:18 AM EDT SEQUENTIAL SCREENINGS [facility] offers sequential screenings for women who are interested in screenings for chromosomal abnormalities and certain defects during a . The sequential screen combinesultrasound and blood tests to determine the risk of chromosomal abnormalities, including Down's Syndrome (Trisomy 21) and Trisomy 18, as well as open neural tube defects including spina bifida. Ultrasound examination is performed between 11 weeks and 13 weeks gestational age. Blood tests are drawn after the ultrasound and again later in the between 15 and 21 weeks gestational age. Please let your physician know if you are interested in this testing. It will require an appointment withour survey data technician. This is not an ultrasound performed by a physician in our office during a routine visit. SIGNS AND SYMPTOMS OF LABOR 1. Contractions every 10 minutes or more often 2. Clear, pink, or brownish fluid (water) leaking from vagina 3. Feeling that baby is pushing down, pressure 4. Low, dull backache 5. Cramps that feel like a period 6. Cramps with or without diarrhea If you notice any of the above symptoms, contact our office at [phone] and ask to speak with anurse. After hours, you can call doctors registry at [phone] OR call [facility] at [phone] ask to have the doctor technical support consultant paged. If you consider this an emergency, dial 9-1-1 or go to your nearest emergency department. NEED HELP? Are you dealing with a violent or abusive relationship? Are you a victim of rape or sexual assult? Call [facility] ([place]) 24 hour Crisis Hotline: 753.189.7341 or 928-137-9844. MANUAL Your Guide to a Healthy manual is now on-line. Visit [email or web address] to download your free copy documented in this encounterCrystal Clinic [facility]05-01-2025 Progress note* Quick Notes - Марина Hebert MD - 10/25/2024 9:33 AM EDT RR- VB No. LOF No. CTXS No. Movement: present. Other c/o: No. Medication list reviewed. SENSITIVE EXAM: Sensitive exam not performed. Physical Exam See Flow Sheet Abd: soft, nontender, gravid Ext: edema: Trace A/P 24w0d Estimated Date of Delivery: 02/14/25 Assessment & Plan Screening for diabetes mellitus Orders: GESTATIONAL GLUCOSE SCREEN, 1-HOUR, 50 GRAM, NON-FASTING; Future SYPHILIS TREPONEMAL W/REFLEX; Future ANEMIA REFLEX PANEL; Future Encounter for supervision of other normal in second trimester (HCC) 24 weeks gestation of (HCC) 28 week labs next visit cont. PNV Марина Hebert M.D. [facility]05-01-2025 Miscellaneous Notes* Quick Notes - Марина Hebert MD - 10/25/2024 9:33 AM EDT RR- VB No. LOF No. CTXS No. Movement: present. Other c/o: No. Medication list reviewed. SENSITIVE EXAM: Sensitive exam not performed. Physical Exam See Flow Sheet Abd: soft, nontender, gravid Ext: edema: Trace A/P 24w0d Estimated Date of Delivery: 02/14/25 Assessment & Plan Screening for diabetes mellitus Orders: GESTATIONAL GLUCOSE SCREEN, 1-HOUR, 50 GRAM, NON-FASTING; Future SYPHILIS TREPONEMAL W/REFLEX; Future ANEMIA REFLEX PANEL; Future Encounter for supervision of other normal in second trimester (HCC) 24 weeks gestation of (HCC) 28 week labs next visit cont. PNV Марина Hebert M.D. documented in this encounterCrystal Clinic [facility]05-01-2025 Instructions* Patient Instructions* Love Mills MA - 10/25/2024 9:06 AM EDT SEQUENTIAL SCREENINGS [facility] offers sequential screenings for women who are interested in screenings for chromosomal abnormalities and certain defects during a . The sequential screen combinesultrasound and blood tests to determine the risk of chromosomal abnormalities, including Down's Syndrome (Trisomy 21) and Trisomy 18, as well as open neural tube defects including spina bifida. Ultrasound examination is performed between 11 weeks and 13 weeks gestational age. Blood tests are drawn after the ultrasound and again later in the between 15 and 21 weeks gestational age. Please let your physician know if you are interested in this testing. It will require an appointment withour survey data technician. This is not an ultrasound performed by a physician in our office during a routine visit. SIGNS AND SYMPTOMS OF LABOR 1. Contractions every 10 minutes or more often 2. Clear, pink, or brownish fluid (water) leaking from vagina 3. Feeling that baby is pushing down, pressure 4. Low, dull backache 5. Cramps that feel like a period 6. Cramps with or without diarrhea If you notice any of the above symptoms, contact our office at [phone] and ask to speak with anurse. After hours, you can call doctors registry at [phone] OR call [facility] at [phone] ask to have the doctor technical support consultant paged. If you consider this an emergency, dial 9--1 or go to your nearest emergency department. NEED HELP? Are you dealing with a violent or abusive relationship? Are you a victim of rape or sexual assult? Call [facility] ([place]) 24 hour Crisis Hotline: 849.597.1436 or 712-265-2283. MANUAL Your Guide to a Healthy manual is now on-line. Visit [email or web address] to download your free copy documented in this encounterCrystal Clinic [facility]04-03-2025 Progress note* Quick Notes - José Miguel Delcid MD - 09/27/2024 9:42 AM EDT SW- pt doing well. No pain, vb, lof. +FM PE: Gen- NAD, well appearing See flowsheet A/p 20 wk gestation - Anatomy US today - Completed NIPT and NOB labs - Cont LDA - RTO 4 wks José Miguel Delcid DO [facility] Work Phone: [phone]) 428-188104-03-2025 Miscellaneous Notes* Quick Notes - José Miguel Delcid MD - 09/27/2024 9:42 AM EDT SW- pt doing well. No pain, vb, lof. +FM PE: Gen- NAD, well appearing See flowsheet A/p 20 wk gestation - Anatomy US today - Completed NIPT and NOB labs - Cont LDA - RTO 4 wks José Miguel Delcid DO documented in this encounterCrystal [facility]04-03-2025 Instructions* Patient Instructions* Cynthia Scott LPN - 09/27/2024 9:23 AM EDT SEQUENTIAL SCREENINGS [facility] offers sequential screenings for women who are interested in screenings for chromosomal abnormalities and certain defects during a . The sequential screen combinesultrasound and blood tests to determine the risk of chromosomal abnormalities, including Down's Syndrome (Trisomy 21) and Trisomy 18, as well as open neural tube defects including spina bifida. Ultrasound examination is performed between 11 weeks and 13 weeks gestational age. Blood tests are drawn after the ultrasound and again later in the between 15 and 21 weeks gestational age. Please let your physician know if you are interested in this testing. It will require an appointment withour survey data technician. This is not an ultrasound performed by a physician in our office during a routine visit. SIGNS AND SYMPTOMS OF LABOR 1. Contractions every 10 minutes or more often 2. Clear, pink, or brownish fluid (water) leaking from vagina 3. Feeling that baby is pushing down, pressure 4. Low, dull backache 5. Cramps that feel like a period 6. Cramps with or without diarrhea If you notice any of the above symptoms, contact our office at [phone] and ask to speak with anurse. After hours, you can call doctors registry at [phone] OR call [facility] at [phone] ask to have the doctor technical support consultant paged. If you consider this an emergency, dial 1-3-3 or go to your nearest emergency department. NEED HELP? Are you dealing with a violent or abusive relationship? Are you a victim of rape or sexual assult? Call [facility] ([place]) 24 hour Crisis Hotline: 342.945.4844 or 122-171-5123. MANUAL Your Guide to a Healthy manual is now on-line. Visit [email or web address] to download your free copy documented in this encounterC[facility]03-11-2025 Telephone encounter Note * Telephone Encounter - Jessie Santos MD - 09/04/2024 2:18 PM EDT Looks like she passed the stone. As long as her pain has improved she can keep her appointment as scheduled [facility] Work Phone: [phone] Miscellaneous Notes* Telephone Encounter - Jessie Santos MD - 09/04/2024 2:18 PM EDT Looks like she passed the stone. As long as her pain has improved she can keep her appointment as scheduled * Telephone Encounter - Jessie Mg RN - 09/04/2024 2:02 PM EDT 16w5d Patient seen at [facility] ER today. Below is the ER report. Next OB visit is 09/27/24. Scan on 09/04/2024 1:35 PM by Provider, External, PA-C: [facility] documented in this encounterCrystal Clinic [facility]03-11-2025 Telephone encounter Note * Telephone Encounter - Jessie Mg RN - 09/04/2024 2:02 PM EDT 16w5d Patient seen at [facility] ER today. Below is the ER report. Next OB visit is 09/27/24. Scan on 09/04/2024 1:35 PM by Provider, External, PA-C: [facility] ER [facility]03-11-2025 Discharge summary [facility] Medical Records Department [address] [place] [address] Emergency Department Summary 09/04/24 MR#: [id number] Acct: [id number] Name: ROBB ULRICH Rep #:[id number] : 1995 29 From: Yosi Oliveira MD PCP: Dr. Judson Weber, DO Status:RE G ER Location: ED HPI History of Present Illness Chief Complaint: Flank Pain Informant: patient and parent Narrative Narrative: 29-year-old female with pain in her right low back/flank that started last nightbut intensified this morning. She states initially it was colicky but now it isjust steady and severe. Associate with nausea and vomiting. She is 17 weeks . She has had no issues with the , has had prior ultrasound documenting IUP. She denies any acute urinary symptoms or fever/chills, cough or congestion or other respiratory symptoms, she denies any abdominal pain rightnow. Earlier in the , she did have some nonspecific urinary issues according to mom that was treated empirically with some antibiotics, it eventually went away and they are concerned maybe that was a kidney stone and that this may be 1 as well. She is never had any that she knows of. No other abdominal surgeries in thepast. [facility] Medical History (Updated 09/04/24 @ 13:[address] Yosi Oliveira MD) Medical History no medical history no medical history Home Medications ?Medication ?Instructions ?Recorded ?Last Taken ?Type aspirin 81 mg tablet,delayed 81 mg PO DAILY 09/04/24 0 09/03/24 History release oxycodone-acetaminophen 5 mg-325 1 tab PO Q6H PRN PRN Pain 3 days 09/04/24 Unknown Rx mg tablet #12 TABLETS vit no.95-ferrous 1 tab PO DAILY 09/04/2404/20 History fumarate 28 mg-folic acid 800 mcg tablet () Allergy/AdvReac Type Severity Reaction Status Date / Time gabapentin Allergy Mild Rash Verified 06/26/24 15:18 sulfamethoxazole (From Allergy Mild Rash Verified 06/26/24 15:18 Bactrim) trimethoprim (From Bactrim) Allergy Mild Rash Verified 06/26/24 15:18 Social History Smoking Status: Never smoker ROS ROS ED Constitutional Constitutional ED: Denies chills or fever(s) Eyes Eyes: Denies change in vision or diplopia ENT ENT ED: Denies rhinorrhea or sore throat Cardiovascular Cardiovascular: Denies chest pain or palpitations Respiratory/Chest Respiratory/Chest: Denies cough or dyspnea Gastrointestinal Gastrointestinal: Reports nausea and vomiting; Denies abdominal pain or diarrhea Genitourinary Genitourinary ED: Denies dysuria or hematuria Musculoskeletal Musculoskeletal: Reports back pain; Denies neck pain Integumentary Denies abscess or rash Neurologic Neurologic: Denies headache(s), paresthesias or weakness EXAM Physical Exam Const Vital Signs: 09/04/24 08:07 09/04/24 10:06 09/04/24 12:00 Temperature 97.5 F L Temperature Source Temporal Pulse Rate 85 Respiratory Rate 19 H Blood Pressure 125/83 H 111/61 113/78 Blood Pressure Mean 97 77 89 Pulse Ox 100 100 Oxygen Delivery Method Room Air Room Air Positive well nourished and well developed Constitutional Narrative: Uncomfortable in pain but no distress General Appearance ED: well developed and NAD HEENT Reports moist mucous membranes normocephalic and atraumatic Eyes PERRL and EOMs intact bilaterally Neck full ROM and supple Resp normal respiratory effort and clear to auscultation bilaterally Cardio regular rate, regular rhythm and no murmurs GI non-tender and non-distended Auscultation: normoactive bowel sounds Palpation: soft Back/Spine General Back: CVA tenderness right and other FROM Extremity normal to inspection General Extremety ED: Negative for edema, pulses abnormal or tenderness General Extremity: Negative for edema or pulses abnormal Neuro oriented x3, CN's II-XII intact bilaterally and no sensory deficits noted Sensorium / Orientation: awake and alert Motor Exam: strength 5/5 throughout Skin no rashes or lesions noted and no wounds MDM MDM MDM Narrative Medical decision making narrative: My suspicion is that this is renal colic based on history and exam as opposed tobiliary colic or musculoskeletal back pain. Given that she is , we willobtain an ultrasound of the kidney and bladder, as well as blood work and a urine to evaluate for the possibility of pyelonephritis. Nursingwas unable to get an IV in the patient, the patient states she is always been a hard stick so we opted to give the medication to intramuscularly as far as morphine and Zofranwhich initially was goingto be given orally but then she was actively vomiting,so was given intramuscularly. She still has significant pain, so then she was given IM Dilaudid and still was in severe pain later. In the meantime, workup shows normal labs and renal function, urine shows blood but no sign of infection, and ultrasound is consistent with nephrolithiasis and mild hydronephrosis both on the right with several stones being seen in the right kidney and the largest being 7 mm. The obstructing stone was not visualized butassumed to be present in the right ureter. I discussed with urology given all of the pain she was in, and ordered an IV along with a second dose of Dilaudid. Dr. Sifuentes advised a CT given therisks and benefits comparison of going to theOR when . I discussed this with the patient and she wanted to hold off on getting a CT at that time, and see if we can get her pain under better co ntrol even if being admitted to the hospital was necessary. I think that is reasonable and I discussed getting a KUB which we did, my interpretation there may be a very small punctate UVJ stone, 1 view, however radiology did not interpret this way. A little later, before she got the second dose of D ilaudid,the patient's pain suddenly became almost completely resolved and she did much better for observation in the next 1 to 2 hours without recurrent significant discomfort or need for other medication. Given this, I do not think she needs to be admitted anymore. I had her strain urine but she did not catch a stone, Isuspect she passed it into her bladder. She is given urine strainers to go aswell as a prescription for analgesics to use as needed, and to follow-up with urology at some pointwhen she is done with her assuming that she doesnot have any issues with obstructing stones until then. She and family are comfortable with that plan. Lab Data Attestation: I reviewed the patient's lab results. Labs: Laboratory Results - last 24 hr 09/04/24 09/04/24 08:20 09:35 WBC 9.7 RBC 4.32 Hgb 11.5 L Hct 35.9 L MCV 83.1 MCH 26.6 L MCHC 32.0 RDW Std Deviation 42.3 RDW Coeff of Yaritza 13.8 Plt Count 311 MPV 9.0 Immature Gran % (Auto) 0.400 Neut % (Auto) 72.2 H Lymph % (Auto) 19.6 [place] % (Auto) 5.7 Eos % (Auto) 1.7 Baso % (Auto) 0.4 Absolute Neuts (auto) 7.0 Absolute Lymphs (auto) 1.91 Nucleated RBC % 0 Sodium 136 Potassium 3.5 Chloride 104 Carbon Dioxide 17.4 L Anion Gap 15 BUN 7 Creatinine 0.64 L Estim Creat Clear Calc 164.25 Est GFR (MDRD) Non-Af 124 BUN/Creatinine Ratio 11.6 Glucose 92 Calcium 8.8 Urine Color Yellow Urine Clarity Clear Urine pH 6.0 Ur Specific [place] 1.020 Urine Protein 15 H Urine Glucose (UA) Normal Urine Ketones 5 H Urine Occult Blood 50 H Urine Nitrite Negative Urine Bilirubin Negative Urine Urobilinogen Normal Ur Leukocyte Esterase 25 H Urine RBC 0-5 SEEN Urine WBC 0-5 SEEN Ur Squamous Epith Cells 0-5 SEEN Urine Bacteria 3+ Urine Mucus 1+ Radiography Diagnostic Testing: Clinical Impression(s) from Imaging Studies Renal Ultrasound 09/04/24 08:20 IMPRESSION: Right nephrolithiasis with mild hydronephrosis. [facility] K[facility] X-Ray 09/04/24 11:20 IMPRESSION: Fecal retention in the colon consistent with constipation. Reading [facility] Management Discussion w/another healthcare provider: Fire Marshal (urology) Discharge Plan Triage Chief Complaint: Flank Pain ED Provider: Yosi Oliveira Dx/Rx/DC Orders Clinical Impression: Renal colic on right side, Ureterolithiasis during in second trimester, Right nephrolithiasis Instructions: ED Kidney Stone, Passed, ED Urine Strainer Prescriptions: New oxycodone-acetaminophen 5-325 mg tablet 1 tab PO Q6H PRN PRN (Reason: Pain) 3 Days Qty: 12 0RF No Action aspirin 81 mg tablet,delayed release (DR/EC) 81 mg PO DAILY PNV cmb#95-ferrous fumarate-FA [] 28 mg iron- 800 mcg tablet 1 tab PO DAILY Primary Care Provider: Judson Weber Referrals: Maria M Sifuentes MD [Med Staff - Active Staff] - As Needed Judson Weber DO [Primary Care Provider] - Print Language: Greenlandic Disposition Disposition: Home, Self Care What to do if you have Problems For any increased pain, shortness of breath, bleeding, nausea or vomiting, chestpain, or any unexpected problems, contact your Primary Care Provider. Call Doctors Registry ([phone]) or report tothe closest Emergency Room. Call 911 if necessary. 09/04/24 1320 Cosigner Signature (if applicable): CC: Dr. Maria M Sifuentes MD; Dr. Judson Weber DO; Dr. Марина Hebert MD ~ Signed [facility]03-11-2025 Radiology Diagnostic study note [facility] Imaging Services [address] [place], [place] [address] Abdomen Single View MR#: [id number] Acct: [id number] Name: ROBB ULRICH Rep #: [id number] : 1995 F 29 From: Lavinia Banks MD PCP: Dr. Judson Weber DO Status: RE G ER Study:Abdomen Single View Date of Exam: 09/04/24 Exam# [id number] Ordering Dr: Prakash Oliveira MD EXAM: XR Abdomen, 1 View CLINICAL INDICATION: R FLANK PAIN TECHNIQUE: Frontal supine view of the abdomen/pelvis. COMPARISON: No relevant prior studies available. FINDINGS: GASTROINTESTINAL TRACT: Fecal retention in the colon consistent with constipation. No dilation. BONES/JOINTS: Unremarkable. No acute fracture. RAD/Abdomen Single View IMPRESSION: Fecal retention in the colon consistent with constipation. Reading [facility] CC: Dr. Yosi Oliveira MD; Dr. Judson Weber DO ~ Plastic Production Machine Setter: Signed [facility]03-11-2025 Radiology Diagnostic study note [facility] Imaging Services [address] [place], [place] [address] Kidney and Bladder MR#: [id number] Acct: [id number] Name: ROBB ULRICH Rep #: [id number] : 1995 F 29 From: Lavinia Banks MD PCP: Dr. Judson Weber DO Status: RE G ER Study:Kidney and Bladder Date of Exam: 0 09/04/24 Exam# [id number] Ordering Dr: Prakash Oliveria MD EXAM: US Retroperitoneal Limited, Renal CLINICAL INDICATION: R FLANK PAIN, 2ND TRIMESTER PREG TECHNIQUE: Real-time limited ultrasound of the retroperitoneum with image documentation. COMPARISON: No relevant prior studies available. FINDINGS: RIGHT KIDNEY: Right renal pelvic calculi measuring up to 7 mm. Mild hydronephrosis. The right kidney measures 11.4 x 5.3 x 5.7 cm. LEFT KIDNEY: Unremarkable. No stones. No hydronephrosis. The left kidney measures 10.6 x 5.1 x 5.4 cm. BLADDER: Contracted urinary bladder. Prevoid volume 12 cc. US/Kidney and Bladder IMPRESSION: Right nephrolithiasis with mild hydronephrosis. Reading Location[facility] CC: Dr. Yosi Oliveira MD; Dr. Judson Weber, DO ~ Plastic Production Machine Setter: Signed [facility]03-06-2025 Telephone encounter Note* Telephone Encounter - Yumiko Leiva RN - 08/30/2024 3:20 PM EST Pt had appt with RR 08/30/24. See OV note. Yumiko Leiva RN [facility]03-06-2025 Miscellaneous Notes* Telephone Encounter - Yumiko Leiva RN - 08/30/2024 3:20 PM EST Pt had appt with RR 08/30/24. See OV note. Yumiko Leiva RN * Telephone Encounter - Yumiko Leiva RN - 08/02/2024 2:37 PM EST Tried reaching patient by phone; however, mailbox is full and unable to leave message at this time.Yumiko Leiva RN * Telephone Encounter - Yumiko Leiva RN - 08/02/2024 2:37 PM EST ----- Message from Sravani Soria APRN.CNM sent at 08/02/2024 2:23 PM EST ----- First trimester anatomy US reviewed. Can offer early anatomy US at 16 weeks. Order placed . Sravani Soria APRN.CNM documented in this encounterCrystal Clinic [facility]03-06-2025 Progress note* Quick Notes - Марина Hebert MD - 08/30/2024 8:50 AM EST RR- VB No. LOF No. CTXS No. Movement: present. Other c/o: No. Medication list reviewed. SENSITIVE EXAM: Sensitive exam not performed. Physical Exam See Flow Sheet Abd: soft, nontender, gravid A/P 16w0d Assessment & Plan 16 weeks gestation of Nausea/vomiting in Encounter for supervision of other normal in second trimester anatomy US scheduled f/u in 4 weeks or prn on ASA prophylaxis cont. pnv Марина Hebert M.D. [facility]03-06-2025 Miscellaneous Notes* Quick Notes - Марина Hebert MD - 08/30/2024 8:50 AM EST RR- VB No. LOF No. CTXS No. Movement: present. Other c/o: No. Medication list reviewed. SENSITIVE EXAM: Sensitive exam not performed. Physical Exam See Flow Sheet Abd: soft, nontender, gravid A/P 16w0d Assessment & Plan 16 weeks gestation of Nausea/vomiting in Encounter for supervision of other normal in second trimester anatomy US scheduled f/u in 4 weeks or prn on ASA prophylaxis cont. pnv Марина Hebert M.D. documented in this encounterCrystal [facility]03-06-2025 Instructions* Patient Instructions* Emma Tang LPN - 08/30/2024 8:32 AM EST SEQUENTIAL SCREENINGS The [facility] offers sequential screenings for women who are interested in screenings for chromosomal abnormalities and certain defects during a . The sequential screen combinesultrasound and blood tests to determine the risk of chromosomal abnormalities, including Down's Syndrome (Trisomy 21) and Trisomy 18, as well as open neural tube defects including spina bifida. Ultrasound examination is performed between 11 weeks and 13 weeks gestational age. Blood tests are drawn after the ultrasound and again later in the between 15 and 21 weeks gestational age. Please let your physician know if you are interested in this testing. It will require an appointment withour survey data technician. This is not an ultrasound performed by a physician in our office during a routine visit. SIGNS AND SYMPTOMS OF LABOR 1. Contractions every 10 minutes or more often 2. Clear, pink, or brownish fluid (water) leaking from vagina 3. Feeling that baby is pushing down, pressure 4. Low, dull backache 5. Cramps that feel like a period 6. Cramps with or without diarrhea If you notice any of the above symptoms, contact our office at [phone] and ask to speak with anurse. After hours, you can call doctors registry at [phone] OR call [facility] at [phone] ask to have the doctor technical support consultant paged. If you consider this an emergency, dial 9-9-8 or go to your nearest emergency department. NEED HELP? Are you dealing with a violent or abusive relationship? Are you a victim of rape or sexual assult? Call [facility] ([place]) 24 hour Crisis Hotline: 343.956.6695 or 448-447-5636. MANUAL Your Guide to a Healthy manual is now on-line. Visit [email or web address] to download your free copy documented in this encounterCrystal [facility]-2025 Telephone encounter Note * Telephone Encounter - Yumiko Leiva RN - 08/02/2024 2:37 PM EST Tried reaching patient by phone; however, mailbox is full and unable to leave message at this time.Yumiko Leiva RN [facility]02-06-2025 Telephone encounter Note* Telephone Encounter - Yumiko Leiva RN - 08/02/2024 2:37 PM EST ----- Message from Sravani Soria APRN.CNM sent at 08/02/2024 2:23 PM EST ----- First trimester anatomy US reviewed. Can offer early anatomy US at 16 weeks. Order placed . Sravani Soria APRN.CNM [facility]02-06-2025 Progress note* Quick Notes - Sravani Soria APRN.CNM - 08/02/2024 10:07 AM EST S: Robb Ulrich is a 29 year old female who presents at 12 weeks gestation for a routine visit. Just completed first trimester ultrasound. Having labs drawn today. Desires MaterniT 21. Continues to have daily nausea. When discussing further, has increased acid reflux that could be contributing to the nausea. O: See flow sheet Gen: No apparent distress Abd: Gravid, non tender ASSESSMENT/PLAN: 1. 12 weeks gestation of 2. Nausea in 3. Heartburn in - Start Pepcid 20 mg PO BID- RX sent - Continue Reglan 5 mg PO every 6 hours as needed - labs and aneuploidy screening today - RTO 4 weeks Sravani Soria APRN.CNM [facility]02-06-2025 Miscellaneous Notes* Quick Notes - Sravani Soria APRN.CNM - 08/02/2024 10:07 AM EST S: Robb Ulrich is a 29 year old female who presents at 12 weeks gestation for a routine visit. Just completed first trimester ultrasound. Having labs drawn today. Desires MaterniT 21. Continues to have daily nausea. When discussing further, has increased acid reflux that could be contributing to the nausea. O: See flow sheet Gen: No apparent distress Abd: Gravid, non tender ASSESSMENT/PLAN: 1. 12 weeks gestation of 2. Nausea in 3. Heartburn in - Start Pepcid 20 mg PO BID- RX sent - Continue Reglan 5 mg PO every 6 hours as needed - labs and aneuploidy screening today - RTO 4 weeks Sravani Soria APRN.CNM documented in this encounterCrystal Clinic [facility]02-06-2025 Instructions* Patient Instructions* Wally Sandhu MA - 08/02/2024 10:02 AM EST SEQUENTIAL SCREENINGS The [facility] offers sequential screenings for women who are interested in screenings for chromosomal abnormalities and certain defects during a . The sequential screen combinesultrasound and blood tests to determine the risk of chromosomal abnormalities, including Down's Syndrome (Trisomy 21) and Trisomy 18, as well as open neural tube defects including spina bifida. Ultrasound examination is performed between 11 weeks and 13 weeks gestational age. Blood tests are drawn after the ultrasound and again later in the between 15 and 21 weeks gestational age. Please let your physician know if you are interested in this testing. It will require an appointment withour survey data technician. This is not an ultrasound performed by a physician in our office during a routine visit. SIGNS AND SYMPTOMS OF LABOR 1. Contractions every 10 minutes or more often 2. Clear, pink, or brownish fluid (water) leaking from vagina 3. Feeling that baby is pushing down, pressure 4. Low, dull backache 5. Cramps that feel like a period 6. Cramps with or without diarrhea If you notice any of the above symptoms, contact our office at [phone] and ask to speak with anurse. After hours, you can call doctors registry at [phone] OR call [facility] at [phone] ask to have the doctor technical support consultant paged. If you consider this an emergency, dial 9--1 or go to your nearest emergency department. NEED HELP? Are you dealing with a violent or abusive relationship? Are you a victim of rape or sexual assult? Call [facility] ([place]) 24 hour Crisis Hotline: 495.536.6306 or 849-613-1854. MANUAL Your Guide to a Healthy manual is now on-line. Visit [email or web address] to download your free copy documented in this encounterCrystal Clinic [facility]01-30-2025 Telephone encounter Note * Telephone Encounter - Yumiko Leiva RN - 07/26/2024 11:47 AM EST Last OV 07/05/24 Requested Prescriptions Pending Prescriptions Disp Refills metoclopramide HCl (REGLAN) 5 mg tablet 30 tablet 0 Sig: Take 1 tablet by mouth four times daily. Yumiko Leiva RN [facility]01-30-2025 Miscellaneous Notes* Telephone Encounter - Yumiko Leiva RN - 07/26/2024 11:47 AM EST Last OV 07/05/24 Requested Prescriptions Pending Prescriptions Disp Refills metoclopramide HCl (REGLAN) 5 mg tablet 30 tablet 0 Sig: Take 1 tablet by mouth four times daily. Yumiko Leiva RN documented in this encounterCrystal Clinic [facility] Center01-14-2025 Note* Addendum Note - Jessie Mg RN - 2024 10:50 AM ESTAddended by: JESSIE MG on: 2024 10:50 AM Modules accepted: Orders [facility]01-14-2025 Miscellaneous Notes* Addendum Note - Jessie Mg RN - 2024 10:50 AM ESTAddended by: JESSIE MG on: 2024 10:50 AM Modules accepted: Orders * Telephone Encounter - Jessie Mg RN - 2024 10:49 AM EST RX went to Mail order pharmacy. Please cancel and file pending RX to go to [facility] in [place]. GIA Villatoro * Telephone Encounter - Sravani Soria APRN.CNM - 2024 7:57 AM EST Rx for Reglan sent. Sravani Soria APRN.CNM * Telephone Encounter - Millie Machuca RN - 07/09/2024 2:56 PM EST Patient 8w4d, last seen in office on 07/05. Millie Machuca RN documented in this encounterCrystal Clinic [facility] Center01-14-2025 Telephone encounter Note * Telephone Encounter - Jessie Mg RN - 2024 10:49 AM EST RX went to Mail order pharmacy. Please cancel and file pending RX to go to [facility] in [place]. GIA Villatoro [facility]01-14-2025 Telephone encounter Note* Telephone Encounter - Sravani Soria APRN.CNM - 2024 7:57 AM EST Rx for Reglan sent. Sravani Soria APRN.CNM [facility]01-13-2025 Telephone encounter Note* Telephone Encounter - Millie Machuca RN - 07/09/2024 2:56 PM EST Patient 8w4d, last seen in office on 07/05. Millie Machuca RN [facility]01-09-2025 Progress note* Quick Notes - Sravani Soria APRN.CNM - 07/05/2024 11:03 AM EST Patient seen for NOB. See progress note. Sravani Soria APRN.CNM [facility]01-09-2025 Miscellaneous Notes* Quick Notes - Sravani Soria APRN.CNM - 07/05/2024 11:03 AM EST Patient seen for NOB. See progress note. Sravani Soria APRN.CNM documented in this encounterCrystal Clinic [facility] Center01-09-2025 History of Present illness Narrative* Wally Sandhu MA - 07/05/2024 8:27 AM EST OB point of care ultrasound was performed. See imaging tab for details. Wally Sandhu MA * Sravani Soria APRN.CNM - 07/03/2024 2:10 PM EST INITIAL OB ASSESSMENT HPI: Robb is a 28 year old White Female here to establish Obstetrical Care. Patient's last menstrual period was 05/10/2024 (exact date). from OB Dating Form. was planned Complaints: Abdominal pain/ Bladder pain/spasms- UTI OB History T0 L0 SAB0 IAB0 Ectopic0 Multiple0 Live Births0 Previous history: Prior : never History of 4th degree laceration: NA History of shoulder dystocia: No History of Hypertensive disorders including pre-eclampsia or gestational hypertension: No History of gestational diabetes: No Patient's Risk Screening for delivery: Have you had a prior santiago between 20w and 36w6d? No How many pregnancies have you had before? 0 Did you have a previous baby with a GBS Infection? No Please select all that apply for any prior : N/A MEDICAL/PSYCHOSOCIAL HISTORY: History of hemorrhage or bleeding concerns: No Thyroid Disease: No History of chronic hypertension: No History of pre-existing diabetes: No No results found for: "ABORHD" BMI 34.21 kg/(m^2) Last Pap: 06/08/2022 History of abnormal pap: No Prior treatment for cervical dysplasia: none. Last HPV: History of STDs: None Partner History of STDs: None Did you have a partner with Herpes? No Tobacco use: No E-Cigarette/Vaping Use: No Caffeine use: No Drug use: No Alcohol use: No Multivitamin with Folic acid: Yes Would refuse blood transfusion if medically necessary: No Social Needs: How often does this describe you? I don't have enough money to pay my bills: Never Within the past 12 months, have you worried that your food would run out before you had money to buy more? Never In the past 12 months, has lack of reliable transportation kept you from going to medical appointments or work, or from getting things needed for daily living? Never In the past 12 months, have you had any concerns about having a place to live, or about the condition or quality of your housing? Never Would you like more information on any of the following (please check all that apply)? 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 No Do you have a history of abuse or trauma that may impact your experience? No Are you currently employed? Yes Depression/Anxiety Screening: denies symptoms of depression. OB Depression and Anxiety Screening- This Encounter (since 07/04/2024) Over the past 2 weeks have you felt down, depressed, or hopeless? Negative Over the past two weeks, have you felt little interest or pleasure in doing things? Negative Feeling nervous, anxious or on edge 0-Not at all Not being able to stop or control worrying 0-Not al all Anxiety Pre-Screening Total (If >/= 3 additional questions will be reviewed) 0 Genetic Screening: Partner present: No Patient verbalized knowledge of partner family health history: Yes Do you or your partner have any personal or family history of defects not previously discussed: No Do you have history of a complicated by anomaly, genetic condition, or demise: No Preeclampsia Risk Screening: Screening for prevention of preeclampsia: High risk factors: None Moderate risk ractors: Nulliparity and Obesity (body mass index greater than 30) OB Risk Screening: Completed, no positive findings documented. 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 14 capsule 0 ondansetron (ZOFRAN) 4 mg tablet Take 1 tablet by mouth every 8 hours as needed for nausea/vomiting. 90 tablet 1 No current facility-administered medications for this visit. Allergies As of Date: 07/05/2024 Allergen Noted Reaction BACTRIM [SULFAMETHOXAZOLE-TRIMETH*08/17/2018 Rash GABAPENTIN 08/11/2018 Rash Fully Assessed 07/05/2024 Does patient have penicillin allergy: No REVIEW OF SYSTEMS: GENERAL: Negative for: Fever or Chills and Positive for: Fatigue HEENT: Negative for: Headache, Impaired Vision, Ringing in Ears, Nosebleeds NECK: Negative for: Swelling, Pain, Stiffness RESPIRATORY: Negative for: Cough, Shortness of breath, Wheezing GASTROINTESTINAL: Negative for: Heartburn, Constipation, Diarrhea, Blood in stool, Vomiting, Positive for: Constipation, and Positive for: Nausea and Vomiting MUSCULOSKELETAL: Negative for: Muscle or joint pain, stiffness, Joint swelling NEUROLOGIC/PSYCHIATRIC: Negative for: Weakness, Paralysis, Numbness, Tingling, Tremor, Anxiety, Depression, Memory loss SKIN: Negative for: Rash, Itching GENITOURINARY: Negative for: vaginal itching, vaginal discharge, hematuria or dysuria and Positive for: urinary frequency- small amounts Denies burning /feeling pressure /cramping SENSITIVE EXAM: The sensitive examination was discussed with the Patient or Patient's Authorized Carrot Grader Inspector. As applicable, any other physician, advance practice provider, medical student, or other health professional student that will be observing or involved in the sensitive examination for educational or training purposes was discussed with the Patient or Authorized Carrot Grader Inspector. The Patient or Authorized Carrot Grader Inspector has agreed to proceed with the sensitive examination. (Sensitive examination includes inspection and/or palpation of the breasts, pelvis, prostate and anorectal regions). PHYSICAL EXAM: BP 112/64 Ht 5' 8" (1.73m) Wt 225 lb (102.1kg) LMP 05/10/2024 BMI 34.22 kg/(m^2). GENERAL: pleasant in no apparent distress DERMATOLOGY: Normal, without lesions, non-icteric, and non-hirsute NECK: Supple, full range of motion, no adenopathy, and thyroid normal CHEST: Normal inspiratory effort BREAST: deferred ABDOMEN: soft, non-tender, and no masses NEURO: alert and oriented x3,exam grossly non-focal PELVIS: External genitalia normal without lesions. Perineal body intact. No vaginal or cervical lesions. Cervix closed. No adnexal masses or tenderness. Clinical Pelvimetry: Pelvimetry clinically assessed as adequate Limited OB ultrasound exam: single intrauterine , positive cardiac activity, and crown-rump length 8w2d ASSESSMENT/PLAN: 1. with uncertain dates, antepartum - ICD9: V22.1, ICD10: Z34.90 (primary diagnosis) 2. 8 weeks gestation of - ICD9: V22.2, ICD10: Z3A.08 3. Nausea/vomiting in - ICD9: 643.90, ICD10: O21.9 4. Encounter for supervision of normal first in first trimester - ICD9: V22.0, ICD10: Z34.01 5. Painful bladder spasm - ICD9: 788.99, ICD10: R30.1 - Continue and finish all antibiotics for UTI - Continue taking vitamin - Zofran 4 mg PO as needed for N/V - Stool softener daily PLAN: 1) Patient oriented to practice. Patient given new OB orientation folder. Discussed nutrition, folic acid supplementation, dietary guidelines, exercise, smoking, alcohol, caffeine, and drug use. Discussed gestational weight gain guidelines. Discussed routine OB labs including STD/HIV. Discussed how to access Your guide to a health and the Presales Senior Specialist. Reviewed midwifery and nuclear criticality safety engineer services that are available. 2) Screening: Hemoglobin A1C: ordered Baby Aspirin: The patient has been counseled about the potential benefits of low dose aspirin in and our recommendation that this be offered to all patients, regardless of whether they meet the high risk criteria specified above. She Accepts Aneuploidy Screening: Discussed aneuploidy screening, nuchal translucency/first trimester early anatomy ultrasound and NIPT. The risks/benefits and limitations of NIPT/aneuploidy screening were reviewed including the potential for false negative and false positive results. The availability of genetic counseling was reviewed. Information on aneuploidy screening was provided. The patient is uncertain. She will call back if she wants to proceed with screening. Pt aware of timing. Myriad Carrier Screening: Discussed myriad carrier screening. We discussed the availability of professional-society guided carrier screening and reviewed the conditions screened and limitations of screening. The availability of genetic counseling was reviewed. Information on carrier screening was provided. The patient Declines 3) Patient offered option of Virtual Visits. Patient prefers in person visits. Follow up in 4 weeks for NT US / SERGEI / LABS or sooner prn. Sravani Soria APRN.CNM documented in this encounterCrystal Clinic [facility] Center01-09-2025 NoteHNO ID: [id number] Author: WALLY SANDHU MA Service: ? Author Type: Agricultural Equipment Operator Type: Progress Notes Filed: 07/05/2024 11:04 Note Text: OB point of care ultrasound was performed. See imaging tab for details. [facility] Telephone encounter Note* Telephone Encounter - Mariya Hu LPN - 07/04/2024 4:02 PM EST Spoke with pt gave information provided. Pt voices understanding. [facility]01-08-2025 Miscellaneous Notes* Telephone Encounter - Mariya Hu LPN - 07/04/2024 4:02 PM EST Spoke with pt gave information provided. Pt voices understanding. * Telephone Encounter - Stephanie Tidwell APRN.CNP - 07/04/2024 2:23 PM EST Please call patient and let her know that ultrasound of abd was normal besides mild fatty liver -- adjusting diet to include increase in veggies and decrease in fried or fatty foods will help this. Otherwise, continue with OBGYN. Thank you, Stephanie Tidwell APRN.OFFSET PRESS OPERATOR APPRENTICE documented in this encounterCrystal Clinic Orthopedic Center01-08-2025 Telephone encounter Note * Telephone Encounter - Stephanie Tiwdell APRN.WALLY - 07/04/2024 2:23 PM EST Please call patient and let her know that ultrasound of abd was normal besides mild fatty liver -- adjusting diet to include increase in veggies and decrease in fried or fatty foods will help this. Otherwise, continue with OBGYN. Thank you, Stephanie Tidwell APRN.OFFSET PRESS OPERATOR APPRENTICE [facility]01-08-2025 Telephone encounter Note* Telephone Encounter - Stephanie Tidwell APRN.WALLY - 07/04/2024 10:10 AM EST Noted. Thank you, Stephanie Tidwell APRN.OFFSET PRESS OPERATOR APPRENTICE [facility]01-08-2025 Miscellaneous Notes* Telephone Encounter - Stephanie Tidwell APRN.CNP - 07/04/2024 10:10 AM EST Noted. Thank you, Stephanie Tidwell APRN.OFFSET PRESS OPERATOR APPRENTICE * Telephone Encounter - Mariya Hu LPN - 07/04/2024 9:20 AM EST Spoke with pt gave information provided. Pt voices understanding. Pt states feels ok but needs to say up on the zofran and meds otherwise in pain. * Telephone Encounter - Stephanie Tidwell APRN.WALLY - 07/04/2024 8:44 AM EST Please call patient and let her know that lab work results look fantastic! No acute concerns. UA does look concerning for UTI (as it has in ER and express care) however, urine culture remains negative with no growth. I would still like her to continue antibiotic to completion as discussed. Please continue with complete abd ultrasound as ordered. Please see how she is feeling. Continue with OB appointment tomorrow. Thank you, Stephanie Tidwell APRN.OFFSET PRESS OPERATOR APPRENTICE documented in this encounterCrystal Clinic Orthopedic Center01-08-2025 History of Present illness Narrative* Molly Babin RDMS - 07/04/2024 10:00 AM EST Radiology Service Progress Note PATIENT NAME: Robb Ulrich DATE OF SERVICE: July 04, 2024 TIME: 10:32 AM PATIENT IDENTITY VERIFICATION COMPLETED USING TWO (2) IDENTIFIERS: Name and Date of confirmedby patient verbally. FALL SCREENING: Has the patient had 2 falls in the last year or 1 fall with injury or currently using an Ambulatory Assistive Device (Walker, Cane, Wheelchair, Crutches, etc.)? No PATIENT GENDER DATA: Female. status: : No status: NO. PATIENT RELEVANT IMPLANT DATA REVIEWED: Not Applicable PATIENT PRESENTS WITH AN IMPLANTABLE OR ATTACHED SCREEN PRINTING LOADER UNLOADER: No RADIOLOGY DEPARTMENT: Ultrasound PERIPHERAL IV DATA: Not applicable SIGNED BY: Molly Babin RDMS RVT July 04, 2024 10:32 AM documented in this encounterCrystal Clinic Orthopedic Center01-08-2025 NoteHNO ID: [id number] Author: MOLLY BABIN RDMS Service: ? Author Type: Liquefaction And Regasification Helper Type: Progress Notes Filed: 07/04/2024 10:32 Note Text: Radiology Service Progress Note PATIENT NAME: Robb Ulrich DATE OF SERVICE: July 04, 2024 TIME: 10:32 AM PATIENT IDENTITY VERIFICATION COMPLETED USING TWO (2) IDENTIFIERS: Name and Date of confirmed by patient verbally. FALL SCREENING: Has the patient had 2 falls in the last year or 1 fall with injury or currently using an Ambulatory Assistive Device (Walker, Cane, Wheelchair, Crutches, etc.)? No PATIENT GENDER DATA: Female. status: : No status: NO. PATIENT RELEVANT IMPLANT DATA REVIEWED: Not Applicable PATIENT PRESENTS WITH AN IMPLANTABLE OR ATTACHED SCREEN PRINTING LOADER UNLOADER: No RADIOLOGY DEPARTMENT: Ultrasound PERIPHERAL IV DATA: Not applicable SIGNED BY: Molly Babin RDMS RVRamonita July 04, 2024 10:32 [facility]01-08-2025 Telephone encounter Note* Telephone Encounter - Mariya Hu LPN - 07/04/2024 9:20 AM EST Spoke with pt gave information provided. Pt voices understanding. Pt states feels ok but needs to say up on the zofran and meds otherwise in pain. [facility]01-08-2025 Telephone encounter Note* Telephone Encounter - Stephanie Tidwell APRN.CNP - 07/04/2024 8:44 AM EST Please call patient and let her know that lab work results look fantastic! No acute concerns. UA does look concerning for UTI (as it has in ER and express care) however, urine culture remains negative with no growth. I would still like her to continue antibiotic to completion as discussed. Please continue with complete abd ultrasound as ordered. Please see how she is feeling. Continue with OB appointment tomorrow. Thank you, Stephanie Tidwell APRN.OFFSET PRESS OPERATOR APPRENTICE [facility]01-07-2025 NoteHNO ID: [id number] Author: SRAVANI SORIA APRN.CNM Service: ? Author Type: Fertilizing Machine Operator Type: Progress Notes Filed: 07/05/2024 11:04 Note Text: INITIAL OB ASSESSMENT HPI: Robb is a 28 year old White Female here to establish Obstetrical Care. Patient's last menstrual period was 05/10/2024 (exact date). from OB Dating Form. was planned Complaints: Abdominal pain/ Bladder pain/spasms- UTI OB History T0 L0 SAB0 IAB0 Ectopic0 Multiple0 Live Births0 Previous history: Prior : never History of 4th degree laceration: NA History of shoulder dystocia: No History of Hypertensive disorders including pre-eclampsia or gestational hypertension: No History of gestational diabetes: No Patient's Risk Screening for delivery: Have you had a prior santiago between 20w and 36w6d? No How many pregnancies have you had before? 0 Did you have a previous baby with a GBS Infection? No Please select all that apply for any prior : N/A MEDICAL/PSYCHOSOCIAL HISTORY: History of hemorrhage or bleeding concerns: No Thyroid Disease: No History of chronic hypertension: No History of pre-existing diabetes: No No results found for: "ABORHD" BMI 34.21 kg/(m2) Last Pap: 06/08/2022 History of abnormal pap: No Prior treatment for cervical dysplasia: none. Last HPV: History of STDs: None Partner History of STDs: None Did you have a partner with Herpes? No Tobacco use: No E-Cigarette/Vaping Use: No Caffeine use: No Drug use: No Alcohol use: No Multivitamin with Folic acid: Yes Would refuse blood transfusion if medically necessary: No Social Needs: How often does this describe you? I don't have enough money to pay my bills: Never Within the past 12 months, have you worried that your food would run out before you had money to buy more? Never In the past 12 months, has lack of reliable transportation kept you from going to medical appointments or work, or from getting things needed for daily living? Never In the past 12 months, have you had any concerns about having a place to live, or about the condition or quality of your housing? Never Would you like more information on any of the following (please check all that apply)? 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 No Do you have a history of abuse or trauma that may impact your experience? No Are you currently employed? Yes Depression/Anxiety Screening: denies symptoms of depression. OB Depression and Anxiety Screening- This Encounter (since 07/04/2024) Over the past 2 weeks have you felt down, depressed, or hopeless? Negative Over the past two weeks, have you felt little interest or pleasure in doing things?? Negative Feeling nervous, anxious or on edge 0-Not at all Not being able to stop or control worrying 0-Not al all Anxiety Pre-Screening Total (If >/= 3 additional questions will be reviewed) 0 Genetic Screening: Partner present: No Patient verbalized knowledge of partner family health history: Yes Do you or your partner have any personal or family history of defects not previously discussed: No Do you have history of a complicated by anomaly, genetic condition, or demise: No Preeclampsia Risk Screening: Screening for prevention of preeclampsia: High risk factors: None Moderate risk ractors: Nulliparity and Obesity (body mass index greater than 30) OB Risk Screening: Completed, no positive findings documented. 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 14 capsule 0 ondansetron (ZOFRAN) 4 mg tablet Take 1 tablet by mouth every 8 hours as needed for nausea/vomiting. 90 tablet 1 No current facility-administered medications for this visit. Allergies As of Date: 07/05/2024 Allergen Noted Reaction BACTRIM [SULFAMETHOXAZOLE-TRIMETH*08/17/2018 Rash GABAPENTIN 08/11/2018 Rash Fully Assessed 07/05/2024 Does patient have penicillin allergy: No REVIEW OF SYSTEMS: GENERAL: Negative for: Fever or Chills and Positive for: Fatigue HEENT: Negative for: Headache, Impaired Vision, Ringing in Ears, Nosebleeds NECK: Negative for: Swelling, Pain, Stiffness RESPIRATORY: Negative for: Cough, Shortness of breath, Wheezing GASTROINTESTINAL: Negative for: Heartburn, Constipation, Diarrhea, Blood in stool, Vomiting, Positive for: Constipation, and Positive for: Nausea and Vomiting MUSCULOS (more content not included)...[facility]01-07-2025 Instructions* Patient Instructions* Wally Sandhu MA - 07/03/2024 2:10 PM EST Please select the following link to access the [facility] Your Guide to a Healthy . [email or web address] Please select the following link to access the [facility] Your Guide to a Healthy . [email or web address] documented in this encounterC[facility] History of Present illness Narrative* Stephanie Tidwell APRN.WALLY - 07/02/2024 1:20 PM EST Chief Complaint Patient presents with: ED Follow-up: STOMACH CRAMPING ON AND OFF VOMITTING SINCE YESTERDAY MORNING. UNABLE TO KEEP ANYTHING JENNIFER HPI Robb Ulrich is a 28 year old female who presents here today for Above Complaints. Robb is an established patient of Dr. Gus DO. She is a new patient to me today. Concerns today... Per TE from 06/29/24: Mother phoned to report pt is about 7 weeks , and for the last 9 days, pt has been having horrible cramping in groin and back. Was seen in a UC on 06-22-24 and told she had UTI and prescribed AB then UC called her to tell her Cx was negative for UTI and to stop the AB. On New pt was seen in [facility] office - had pelvic US done and was told everything looked good. While at that appt pt developed severe abdominal pain and instructed to go to ER. Pt went to [facility] ER and was told shehad UTI- given IV AB and sent home with Rx. ER called her after and told her Cx showed no growth sopt stopped the AB. Mother reports pt having cramping again today. Mother reports pt is not constipated, pt hasn't vomited since xm joe, pt is nauseous. Reports SLOT MACHINE REPAIRER couldn't find anything wrong, UC couldn't find anything wrong, and ER couldn't find anything wrong. [facility] In office today... Pt reports illness off and on since 06/17. First was dx with COVID from at home test on 06/17. Symptoms resolved and now having intermittent n/v and episodes of 10/10 severe back/kidney pain that radiates around to middle/lower abdominal pain lasting 15-20 minutes at a time. Episodes occur a few times per day. No pain besides nausea in between these episodes. [facility] thought UTI, started antibiotic but then culture was negative so she stopped antibiotic. OBGYN did pelvic/uterus US and everything looked normal with the baby. No concern for ectopic. Then went to ER from OB appointment d/t concern for dehydration -- was told she definitely has UTI and started on IV and PO antibiotics. Again was told to stop these antibiotic a few days later d/t culture being negative. Has not finished an entire round of antibiotics for UTI at this time. Pt reports no changes in symptoms now. No urinary symptoms besides mild dribbling when trying to urinate. No dysuria, frequency or urgency. No hx of kidney stones or UTI in the past. Vomiting and unable to keep anything down since yesterday morning. Able to drink some small amountsof water. Tried to use ODT anti-nausea medication but threw this up as well. Pt reports sister with hyperemesis during her pregnancies as well. Next OB appointment on . Pt reports pain as a cramping. Pt does still have gallbladder and appendix. Pt denies any constipation or diarrhea. No other sick contacts in the house, is not vomiting. No other concerns or complaints. Past medical history, appointments, medications, allergies reviewed. Previous Medical History PAST MEDICAL HISTORY Diagnosis Date Acne 05/08/2013 Anemia Thyroid enlarged all blood work came back WNL Previous Surgical History PAST SURGICAL HISTORY Procedure Laterality Date TONSILLECTOMY & ADENOIDECTOMY <AGE 14 Family History FAMILY HISTORY Problem Relation Age of Onset Breast Cancer Mother Thyroid Mother No Known Problems Father Thyroid Sister Thyroid Maternal Grandmother Diabetes Maternal Grandfather Adult on-set Cancer Paternal Grandmother No Known Problems Paternal Grandfather other (schizophrenia) Maternal Aunt Patient Allergies ALLERGIES Allergen Reactions Bactrim [Sulfametho* Rash Gabapentin Rash Current Medications Current Outpatient Medications on File Prior to Visit Medication Sig ondansetron (ZOFRAN) 4 mg tablet Take 1 tablet by mouth every 8 hours as needed for nausea/vomiting. L-Norgest and E Estradiol-E Estrad 0.15 mg-30 mcg (84)/10 mcg (7) Take 1 tablet by mouth once daily. (Patient not taking: Reported on 06/23/2024) No current facility-administered medications on file prior to visit. Social History Social History Tobacco Use Smoking status: Never Smokeless tobacco: Never Vaping Use Vaping status: Never Used Substance Use Topics Alcohol use: No Drug use: No REVIEW OF SYSTEMS: as above Reviewed relevant PMHx, PSHx, Social Hx, current medications and allergies. Review of Symptoms REVIEW OF SYSTEMS See HPI. EXAM: BP 104/64 (BP Site: Left Arm, BP Position: Sitting, BP Cuff Size: Large Adult) Pulse 84 Temp 36.7 C (98.1 F) Resp 16 Wt 105.6 kg (232 lb 12.8 oz) LMP 05/10/2024 (Exact Date) SpO2 100% BMI 35.40 kg/m General Appearance: Well appearing, alert, in no acute distress, well-hydrated, well nourished.. Skin: Skin color, texture, turgor normal, no suspicious rashes or lesions. Head: Normocephalic, no masses, lesions, tenderness or abnormalities. Back:no pain to palpation of vertebrae, good flexion and extension, good range of motion, no muscletenderness, reflexes are 2+ and symmetric, motor and sensory appear to be normal Lungs: Lungs clear to auscultation. No wheezing, rhonchi, rales.. Heart: RRR without murmur, gallop, or rubs. No ectopy. Abdomen: Normal abdominal exam, Abdomen soft, non-tender. Bowel sounds normal. No masses, organomegaly, Negative CVA tenderness. Health Maintenance List Depression Screening Never done Anxiety Screening Never done Hepatitis C Screening Never done HIV Screening Never done Influenza Vaccine(1) due on 02/26/2024 Covid-19 Vaccine( - season) Never done Cervical Cancer Screening due on 06/04/2025 DTaP,Tdap,Td Vaccine(8 - Td or Tdap) due on 08/14/2027 Hepatitis B Vaccine Completed HPV Vaccine Completed ASSESSMENT/PLAN: 1. Lower abdominal pain - ICD9: 789.09, ICD10: R10.30 (primary diagnosis) Etiology unclear. Differential Diagnosis includes hyperemesis d/t , Gastritis, IBS, Constipation, Gall bladder colic/cholelithiasis, Kidney stones/colic, Appendicitis, Bladder distention, Ovarian cyst, pancreatitis, and Cystitis - Labs of CBC with Diff, CMP, LFT's, Lipase, and TSH - Work up with ultrasound of total abdomin - Increase fiber in diet - Mcintosh low residue diet - Follow up in 3-5 days or sooner if worsening of symptoms - URINALYSIS, WITH MICROSCOPIC - URINE CULTURE - COMPREHENSIVE METABOLIC PANEL - COMPLETE BLOOD COUNT AND DIFFERENTIAL - THYROID STIMULATING HORMONE - T4 FREE/FREE THYROXINE - T3 - LIPASE - US ABDOMEN COMPLETE 2. Urinary tract infection without hematuria, site unspecified - ICD9: 599.0, ICD10: N39.0 Complete entire antibiotic regimen for UTI despite prior urine culture being negative. Repeat UA and culture today prior to starting antibiotic. - NITROFURANTOIN MONOHYDRATE & MACROCRYSTAL 100 MG ORAL CAP 3. Less than 8 weeks gestation of - ICD9: V22.2, ICD10: Z3A.01 Family history of hyperemesis with . Discussed importance of staying hydrated and changing diet plan. Continue with OB appointment on . If symptoms worsen at all from now, needs to go to ER for IV fluids. Continue with anti-emetics as prescribed at ER and OB appointment. 4. Nausea and vomiting, unspecified vomiting type - ICD9: 787.01, ICD10: R11.2 See above. RTO as needed if symptoms worsen or do not improve. Medical Decision Making: Problems: Moderate: New problem with uncertain prognosis Data: Unique test(s) ordered: 3+ Independent interpretation of test from other physician/QHCP Risk: Moderate: Drug management Medical Decision Making Level: 4 - Moderate Prescription instructions reviewed with patient as applicable. Potential red flag symptoms discussed with the patient. Reviewed appropriate action plan to take if red flag symptoms occur. Patient agreeable to treatment plan. Stephanie Arriaga APRN.WALLY [address] [place] [address] documented in this encounterBenjamin Ville [address]-06-2025 NoteHNO ID: [id number] Author: STEPHANIE TIDWELL APRN.WALLY Service: ? Author Type: Nurse Practitioner Type: Progress Notes Filed: 07/02/2024 14:15 Note Text: Chief Complaint Patient presents with: ED Follow-up: STOMACH CRAMPING ON AND OFF VOMITTING SINCE YESTERDAY MORNING. UNABLE TO KEEP ANYTHING JENNIFER HPI Robb Ulrich is a 28 year old female who presents here today for Above Complaints. Robb is an established patient of Dr. Gus DO. She is a new patient to me today. Concerns today... Per TE from 06/29/24: Mother phoned to report pt is about 7 weeks , and for the last 9 days, pt has been having horrible cramping in groin and back. Was seen in a UC on 06-22-24 and told she had UTI and prescribed AB then UC called her to tell her Cx was negative for UTI and to stop the AB. On pt was seen in [facility] office - had pelvic US done and was told everything looked good. While at that appt pt developed severe abdominal pain and instructed to go to ER. Pt went to [facility] ER and was told she had UTI- given IV AB and sent home with Rx. ER called her after and told her Cx showed no growth so pt stopped the AB. Mother reports pt having cramping again today. Mother reports pt is not constipated, pt hasn't vomited since xm joe, pt is nauseous. Reports SLOT MACHINE REPAIRER couldn't find anything wrong, UC couldn't find anything wrong, and ER couldn't find anything wrong. Mother scheduled ER f/u in pcp office for Tuesday." In office today... Pt reports illness off and on since 06/17. First was dx with COVID from at home test on 06/17. Symptoms resolved and now having intermittent n/v and episodes of 10/10 severe back/kidney pain that radiates around to middle/lower abdominal pain lasting 15-20 minutes at a time. Episodes occur a few times per day. No pain besides nausea in between these episodes. Express care thought UTI, started antibiotic but then culture was negative so she stopped antibiotic. OBGYN did pelvic/uterus US and everything looked normal with the baby. No concern for ectopic. Then went to ER from OB appointment d/t concern for dehydration -- was told she definitely has UTI and started on IV and PO antibiotics. Again was told to stop these antibiotic a few days later d/t culture being negative. Has not finished an entire round of antibiotics for UTI at this time. Pt reports no changes in symptoms now. No urinary symptoms besides mild dribbling when trying to urinate. No dysuria, frequency or urgency. No hx of kidney stones or UTI in the past. Vomiting and unable to keep anything down since yesterday morning. Able to drink some small amounts of water. Tried to use ODT anti-nausea medication but threw this up as well. Pt reports sister with hyperemesis during her pregnancies as well. Next OB appointment on . Pt reports pain as a cramping. Pt does still have gallbladder and appendix. Pt denies any constipation or diarrhea. No other sick contacts in the house, is not vomiting. No other concerns or complaints. Past medical history, appointments, medications, allergies reviewed. Previous Medical History PAST MEDICAL HISTORY Diagnosis Date Acne 05/08/2013 Anemia Thyroid enlarged all blood work came back WNL Previous Surgical History PAST SURGICAL HISTORY Procedure Laterality Date TONSILLECTOMY AND ADENOIDECTOMY Family History FAMILY HISTORY Problem Relation Age of Onset Breast Cancer Mother Thyroid Mother No Known Problems Father Thyroid Sister Thyroid Maternal Grandmother Diabetes Maternal Grandfather Adult on-set Cancer Paternal Grandmother No Known Problems Paternal Grandfather other (schizophrenia) Maternal Aunt Patient Allergies ALLERGIES Allergen Reactions Bactrim [Sulfametho* Rash Gabapentin Rash Current Medications Current Outpatient Medications on File Prior to Visit Medication Sig ondansetron (ZOFRAN) 4 mg tablet Take 1 tablet by mouth every 8 hours as needed for nausea/vomiting. L-Norgest and E Estradiol-E Estrad 0.15 mg-30 mcg (84)/10 mcg (7) Take 1 tablet by mouth once daily. (Patient not taking: Reported on 06/23/2024) No current facility-administered medications on file prior to visit. Social History Social History Tobacco Use Smoking status: Never Smokeless tobacco: Never Vaping Use Vaping status: Never Used Substance Use Topics Alcohol use: No Drug use: No REVIEW OF SYSTEMS: as above Reviewed relevant PMHx, PSHx, Social Hx, current medications and allergies. Review of Symptoms REVIEW OF SYSTEMS See HPI. EXAM: BP 104/64 (BP Site: Left Arm, BP Position: Sitting, BP Cuff Size: Large Adult) Pulse 84 Temp 36.7 ?C (98.1 ?F) Resp 16 Wt 105.6 kg (232 lb 12.8 oz) LMP 05/10/2024 (Exact Date) SpO2 100% BMI 35.40 kg/m? General Appearance: Well appearing, alert, in no acute distress, well-hydrated, well nourished.. Skin: Skin color, texture, turgor normal, no susp (more content not included)... [facility]01-03-2025 Telephone encounter Note* Telephone Encounter - Ira Lopes RN - 06/29/2024 3:15 PM EST Pt called and is notified of providers message and instructions. Pt voices understanding. She states right now she is doing better, she hasn't had any super painful sessions. She said if it got worseshe would go to the ER. Ira Lopes RN [facility]01-03-2025 Miscellaneous Notes* Telephone Encounter - Ira Lopes RN - 06/29/2024 3:15 PM EST Pt called and is notified of providers message and instructions. Pt voices understanding. She states right now she is doing better, she hasn't had any super painful sessions. She said if it got worseshe would go to the ER. Ira Lopes RN * Telephone Encounter - Brooklyn Pradhan MA - 06/29/2024 1:58 PM EST Left message to return call Brooklyn Pradhan MA * Telephone Encounter - Judson Weber DO - 06/29/2024 11:58 AM EST Patient honestly needs assessed for further recommendations Make sure she goes to EMERGENCY DEPARTMENT if symptoms worsen over the weekend Judson Weber DO * Telephone Encounter - Addie Barney RN - 06/29/2024 11:47 AM EST Mother phoned to report pt is about 7 weeks , and for the last 9 days, pt has been having horrible cramping in groin and back. Was seen in a UC on 06-22-24 and told she had UTI and prescribedAB then UC called her to tell her Cx was negative for UTI and to stop the AB. On pt was seen in [facility]PA[facility] office - had pelvic US done and was told everything looked good. While at that appt pt developed severe abdominal pain and instructed to go to ER. Pt went to [facility] ER and was told she had UTI- given IV AB and sent home with Rx. ER called her after and told her Cx showed no growth so pt stopped the AB. Mother reports pt having cramping again today. Mother reports pt is not constipated, pt hasn't vomited since xmas joe, pt is nauseous. Reports SLOT MACHINE REPAIRER couldn't find anything wrong, UC couldn't find anything wrong, and ER couldn't find anything wrong. Mother scheduled ER f/u in pcp office for Tuesday. documented in this [facility] Telephone encounter Note * Telephone Encounter - Brooklyn Pradhan MA - 06/29/2024 1:58 PM EST Left message to return call Brooklyn Pradhan MA [facility]01-03-2025 Telephone encounter Note* Telephone Encounter - Judson Weber DO - 06/29/2024 11:58 AM EST Patient honestly needs assessed for further recommendations Make sure she goes to EMERGENCY DEPARTMENT if symptoms worsen over the weekend Judson Weber DO [facility] Work Phone: [phone] 609-902501-03-2025 Telephone encounter Note* Telephone Encounter - Addie Barney RN - 06/29/2024 11:47 AM EST Mother phoned to report pt is about 7 weeks , and for the last 9 days, pt has been having horrible cramping in groin and back. Was seen in a UC on 06-22-24 and told she had UTI and prescribedAB then UC called her to tell her Cx was negative for UTI and to stop the AB. On pt was seen in [facility]PA[facility] office - had pelvic US done and was told everything looked good. While at that appt pt developed severe abdominal pain and instructed to go to ER. Pt went to [facility] ER and was told she had UTI- given IV AB and sent home with Rx. ER called her after and told her Cx showed no growth so pt stopped the AB. Mother reports pt having cramping again today. Mother reports pt is not constipated, pt hasn't vomited since xmas joe, pt is nauseous. Reports SLOT MACHINE REPAIRER couldn't find anything wrong, UC couldn't find anything wrong, and ER couldn't find anything wrong. Mother scheduled ER f/u in pcp office for Tuesday. [facility]12-31-2024 NoteHNO ID: [id number] Author: JESSIE SANTOS MD Service: ? Author Type: Physician Type: Progress Notes Filed: 06/26/2024 15:23 Note Text: Insurance Licensing Supervisor offered: Patient declines. Robb Ulrich is a 28 year old female who presents for problem visit pelvic pain HPI: Positive test. 5+5 by dates. Random cramping lasting 15 minutes sometimes 6-7 times a day. No bleeding. Nausea on and off. And vomiting when the pain is bad. Went to [facility] and UTI ruled out. Sister had similar problems when . IUP with FHR 160s on POCUS. Consistent with LMP. No obvious ovarian masses OB History T0 L0 SAB0 IAB0 Ectopic0 Multiple0 Live Births0 Paster Hat Lining History LMP: 05/10/2024 (Exact Date), Having periods Age at Menarche: Age at First : Age at Menopause: Paster [place] History Comments: Sexual Activity: Yes; Male Contraception: Pill, Condom PAST MEDICAL HISTORY Diagnosis Date Acne 05/08/2013 Anemia Thyroid enlarged all blood work came back WNL PAST SURGICAL HISTORY Procedure Laterality Date TONSILLECTOMY AND ADENOIDECTOMY FAMILY HISTORY Problem Relation Age of Onset Breast Cancer Mother Thyroid Mother No Known Problems Father Thyroid Sister Thyroid Maternal Grandmother Diabetes Maternal Grandfather Adult on-set Cancer Paternal Grandmother No Known Problems Paternal Grandfather other (schizophrenia) Maternal Aunt Social History Tobacco Use Smoking status: Never Smokeless tobacco: Never Vaping Use Vaping status: Never Used Substance Use Topics Alcohol use: No Drug use: No Current Outpatient Medications Medication Sig nitrofurantoin monohydrate and macrocrystal (MACROBID) 100 mg capsule Take 1 capsule by mouth two times a day for 7 days. (Patient not taking: Reported on 06/26/2024) L-Norgest and E Estradiol-E Estrad 0.15 mg-30 mcg (84)/10 mcg (7) Take 1 tablet by mouth once daily. (Patient not taking: Reported on 06/23/2024) No current facility-administered medications for this visit. Allergies As of Date: 06/26/2024 Allergen Noted Reaction BACTRIM [SULFAMETHOXAZOLE-TRIMETH*08/17/2018 Rash GABAPENTIN 08/11/2018 Rash Fully Assessed 06/26/2024 REVIEW OF SYSTEMS Abdomen: SEE HPI Bladder: No dysuria, gross hematuria, urinary frequency, urinary urgency, or incontinence. Breast: No breast lumps, nipple d/c, overlying skin changes, redness or skin retraction. Expanded ROS: N/A Allergies and current medication updated:Yes SENSITIVE EXAM: The sensitive examination was discussed with the Patient or Patient's Authorized Carrot Grader Inspector. As applicable, any other physician, advance practice provider, medical student, or other health professional student that will be observing or involved in the sensitive examination for educational or training purposes was discussed with the Patient or Authorized Carrot Grader Inspector. The Patient or Authorized Carrot Grader Inspector has agreed to proceed with the sensitive examination. (Sensitive examination includes inspection and/or palpation of the breasts, pelvis, prostate and anorectal regions). EXAM: BP 110/70 Wt 228 lb 6.4 oz (103.6kg) LMP 05/10/2024 GENERAL: emotional, female in moderate distress HEENT: Normocephalic, atraumatic, mucus membranes moist, and no lesions NECK: Supple, full range of motion, no adenopathy, and thyroid normal DERMATOLOGY: Normal, without lesions, non-icteric, and non-hirsute BREAST: deferred CHEST: Normal inspiratory effort ABDOMEN: soft, non-tender, and no masses PELVIC: external genitalia normal, normal Bartholin's glands, urethra, [place]'s glands, no vulvar lesions, normal appearing perineal body and perianal region BIMANUAL: deferred NEURO: alert and oriented x3,exam grossly non-focal EXTREMITIES: normal ASSESSMENT AND PLAN: Assessment AND Plan Nausea/vomiting in Planning to go to ED for IV. Feels she may be dehydrated and the cramping made worse as a result. Scheduled for initial OB next week. Pelvic pain in Jessie Santos [facility]12-31-2024 History of Present illness Narrative* Jessie Santos MD - 06/26/2024 1:33 PM EST Insurance Licensing Supervisor offered: Patient declines. Robb Ulrich is a 28 year old female who presents for problem visit pelvic pain HPI: Positive test. 5+5 by dates. Random cramping lasting 15 minutes sometimes 6-7 times a day. No bleeding. Nausea on and off. And vomiting when the pain is bad. Went to [facility] and UTI ruled out. Sister had similar problems when . IUP with FHR 160s on POCUS. Consistent with LMP. No obvious ovarian masses OB History T0 L0 SAB0 IAB0 Ectopic0 Multiple0 Live Births0 Paster [place]ining History LMP: 05/10/2024 (Exact Date), Having periods Age at Menarche: Age at First : Age at Menopause: [place] History Comments: Sexual Activity: Yes; Male Contraception: Pill, Condom PAST MEDICAL HISTORY Diagnosis Date Acne 05/08/2013 Anemia Thyroid enlarged all blood work came back WNL PAST SURGICAL HISTORY Procedure Laterality Date TONSILLECTOMY & ADENOIDECTOMY <AGE 14 FAMILY HISTORY Problem Relation Age of Onset Breast Cancer Mother Thyroid Mother No Known Problems Father Thyroid Sister Thyroid Maternal Grandmother Diabetes Maternal Grandfather Adult on-set Cancer Paternal Grandmother No Known Problems Paternal Grandfather other (schizophrenia) Maternal Aunt Social History Tobacco Use Smoking status: Never Smokeless tobacco: Never Vaping Use Vaping status: Never Used Substance Use Topics Alcohol use: No Drug use: No Current Outpatient Medications Medication Sig nitrofurantoin monohydrate and macrocrystal (MACROBID) 100 mg capsule Take 1 capsule by mouth two times a day for 7 days. (Patient not taking: Reported on 06/26/2024) L-Norgest and E Estradiol-E Estrad 0.15 mg-30 mcg (84)/10 mcg (7) Take 1 tablet by mouth once daily. (Patient not taking: Reported on 06/23/2024) No current facility-administered medications for this visit. Allergies As of Date: 06/26/2024 Allergen Noted Reaction BACTRIM [SULFAMETHOXAZOLE-TRIMETH*08/17/2018 Rash GABAPENTIN 08/11/2018 Rash Fully Assessed 06/26/2024 REVIEW OF SYSTEMS Abdomen: SEE HPI Bladder: No dysuria, gross hematuria, urinary frequency, urinary urgency, or incontinence. Breast: No breast lumps, nipple d/c, overlying skin changes, redness or skin retraction. Expanded ROS: N/A Allergies and current medication updated:Yes SENSITIVE EXAM: The sensitive examination was discussed with the Patient or Patient's Authorized Carrot Grader Inspector. As applicable, any other physician, advance practice provider, medical student, or other health professional student that will be observing or involved in the sensitive examination for educational or training purposes was discussed with the Patient or Authorized Carrot Grader Inspector. The Patient or Authorized Carrot Grader Inspector has agreed to proceed with the sensitive examination. (Sensitive examination includes inspection and/or palpation of the breasts, pelvis, prostate and anorectal regions). EXAM: BP 110/70 Wt 228 lb 6.4 oz (103.6kg) LMP 05/10/2024 GENERAL: emotional, female in moderate distress HEENT: Normocephalic, atraumatic, mucus membranes moist, and no lesions NECK: Supple, full range of motion, no adenopathy, and thyroid normal DERMATOLOGY: Normal, without lesions, non-icteric, and non-hirsute BREAST: deferred CHEST: Normal inspiratory effort ABDOMEN: soft, non-tender, and no masses PELVIC: external genitalia normal, normal Bartholin's glands, urethra, [place]'s glands, no vulvar lesions, normal appearing perineal body and perianal region BIMANUAL: deferred NEURO: alert and oriented x3,exam grossly non-focal EXTREMITIES: normal ASSESSMENT AND PLAN: Assessment & Plan Nausea/vomiting in Planning to go to ED for IV. Feels she may be dehydrated and the cramping made worse as a result. Scheduled for initial OB next week. Pelvic pain in Jessie Santos MD [facility] Telephone encounter Note * Telephone Encounter - Yumiko Leiva RN - 06/25/2024 9:32 AM EST Pt notified and denies need for suppository at this time. Yumiko Leiva RN [facility]12-30-2024 Miscellaneous Notes* Telephone Encounter - Yumiko Leiva RN - 06/25/2024 9:32 AM EST Pt notified and denies need for suppository at this time. Yumiko Leiva RN * Telephone Encounter - Sravani Soria APRN.CNM - 06/25/2024 8:49 AM EST She does not need seen prior to NOB. She has not had any emesis for past 8 hours and is just starting the Vitamin B 6/ Unisom. She can notify office if unable to keep any food or liquids down for 24 hours. We can send in suppository antiemetic to help if she would like one! Sravani Soria APRN.CNM * Telephone Encounter - Millie Machuca RN - 06/25/2024 8:40 AM EST Patient calling with concerns of nausea and vomiting and early . LMP is 05/10/24, approx 6w4d. She has upcoming New OB appointment on 07/05. Patient states she has had intermittent nausea and vomiting since finding out she was , but in the last 24 hours vomiting has increased. Patient states she has throw up around 8-10 times in the last day. States no vomiting in the last 8 hours and she is drinking water. Patient having lower abdominal cramping that is intermittent and when occurs lasts 10-15 minutes. Currently rates pain at a 7/10. Patient was seen in urgent care on 06/23, negative for UTI. Denies any fever or bleeding. Nausea/Vomiting precautions and recommendations along with Vitamin B6/Unisom regimen [facility] Do you want patient to be seen prior to New OB to evaluate N/V? Millie Machuca RN documented in [facility]12-30-[facility]24 Telephone encounter Note * Telephone Encounter - Sravani Soria APRN.CNM - 06/25/2024 8:49 AM EST She does not need seen prior to NOB. She has not had any emesis for past 8 hours and is just starting the Vitamin B 6/ Unisom. She can notify office if unable to keep any food or liquids down for 24 hours. We can send in suppository antiemetic to help if she would like one! Sravani Soria APRN.CNM [facility] Work Phone: [phone]) 374-704912-30-2024 Telephone encounter Note* Telephone Encounter - Millie Machuca RN - 06/25/2024 8:40 AM EST Patient calling with concerns of nausea and vomiting and early . LMP is 05/10/24, approx 6w4d. She has upcoming New OB appointment on 07/05. Patient states she has had intermittent nausea and vomiting since finding out she was , but in the last 24 hours vomiting has increased. Patient states she has throw up around 8-10 times in the last day. States no vomiting in the last 8 hours and she is drinking water. Patient having lower abdominal cramping that is intermittent and when occurs lasts 10-15 minutes. Currently rates pain at a 7/10. Patient was seen in urgent care on 06/23, negative for UTI. Denies any fever or bleeding. Nausea/Vomiting precautions and recommendations along with Vitamin B6/Unisom regimen sent to patient via [facility]. Do you want patient to be seen prior to New OB to evaluate N/V? Millie Machuca RN [facility]12-28-2024 Instructions* Patient Instructions* Donna Kyle PA-C - 06/23/2024 9:55 AM EST ASSESSMENT/PLAN: 1. Urinary tract infection without hematuria, site unspecified - - UA DIP, URINE (POC) - URINE CULTURE - NITROFURANTOIN MONOHYDRATE & MACROCRYSTAL 100 MG ORAL CAP Urine culture sent to the lab. Will contact in 2-3 days with results. Discussed OTC care: Increase fluids, rest. Tylenol May use Cranberry juice or cranberry pills. Avoid constipation. Maintain regular bowel movements. May use OTC Miralax, Senna, or Ducolax. Practice good personal hygiene. Always wipe from front to back. Wear cotton underwear. Bacteria grows better in moist places. Cotton does not trap moisture. After intercourse, urinate as soon as possible. This will help flush out any bacteria that may havegone into the urinary tract. Change sanitary pads and tampons frequently during menstruation. Empty your bladder completely as soon as you feel the urge, or at least every three hours. Take entire course of antibiotics. If you get vaginal yeast infections while on antibiotics, use OTC yeast cream treatments as directed Call PCP if sx worsen or no better in 2-3 days. If symptoms worsen, or new symptoms develop go to ER. If you develop fever, chills, worsening back pain, worsening abdominal pain, or new symptoms- see your PCP immediately or go to ER. Follow up as needed. Barriers to Learning: None. Barriers to Learning: Age. Here with a parent. The patient is instructed to return or seek emergency treatment if symptoms become worse or with any acute change in condition. The patient verbalizes understanding and is in agreement with plan of care. Donna Kyle PA-C documented in this encounterC[facility]12-28-2024 NoteHNO ID: [id number] Author: DONNA KYLE PA-C Service: ? Author Type: Physician Kiln Labourer Type: Progress Notes Filed: 06/23/2024 10:02 Note Text: 06/23/2024 Patient presents with: UTI: Uti started Tuesday/Tuesday, frequency, cramping in front and back, urgency, pain level 8/10 feeling like that she is being stabbed, has tried increasing fluids and cranberry juice, nausea/vomiting, pt is also , SUBJECTIVE: This is a 28 year old that is here today for possible UTI symptoms. HPI per the patient. The patient complains of dysuria, urinary urgency, and urinary frequency x 6 days. LMP 2 weeks late. + test at home. So, maybe 4-5 weeks . The patient denies fever, chills, abominal pain, lower abdominal pressure, bladder spasms, back pain, or n/v. The patient denies any discharge, lesions, odor, change in sexual partners, or concern for STIs. Dysuria pain: yes out of 10 with 10 being the worst pain. The lower abdominal pain is 0 out of 10 with 10 being the worst pain. The back/flank pain is 0 out of 10 with 10 being the worst pain. Self-treatment:. Azo The severity is mild and the symptoms are not improving. The patient has not had similar symptoms in the last 3 months. The patient has not had an antibiotic in the last 3 months. LMP:. 2 weeks late + test at home. So, maybe 4-5 weeks . Reviewed meds, OTCs and supplements. Meds reviewed. Allergies and medications reviewed. Reviewed allergies, medications, social history, and past medical history. Barriers to learning: none. PAST MEDICAL HISTORY Diagnosis Date Acne 05/08/2013 Anemia Thyroid enlarged all blood work came back WNL ALLERGIES Bactrim [Sulfamethoxazole-Trimethoprim] and Gabapentin MEDICATIONS Current Outpatient Medications Medication Sig nitrofurantoin monohydrate and macrocrystal (MACROBID) 100 mg capsule Take 1 capsule by mouth two times a day for 7 days. L-Norgest and E Estradiol-E Estrad 0.15 mg-30 mcg (84)/10 mcg (7) Take 1 tablet by mouth once daily. (Patient not taking: Reported on 06/23/2024) No current facility-administered medications for this visit. Medications and allergies reviewed by this provider. SOCIAL HISTORY Social History Tobacco Use Smoking status: Never Smokeless tobacco: Never Vaping Use Vaping status: Never Used Substance Use Topics Alcohol use: No Drug use: No REVIEW OF SYSTEMS ROS: constitutional-neg, heent-neg, heart-neg, respiratory-neg, GI-neg, -concern for UTI, skin-neg, lymph-neg, neuro-neg, psych-neg- All systems neg except as noted above in HPI. OBJECTIVE: BP 133/84 (BP Site: Left Arm, BP Position: Sitting, BP Cuff Size: Regular Adult) Pulse 83 Temp 36.3 ?C (97.4 ?F) (Right Tympanic) Resp 18 Ht 172.7 cm (5' 8") Wt 106.1 kg (233 lb 14.5 oz) LMP 05/10/2022 (Exact Date) SpO2 98% BMI 35.57 kg/m? . Vital signs reviewed by this provider. Physical Exam Vitals reviewed. Constitutional: General: She is not in acute distress. Appearance: Normal appearance. She is well-developed and normal weight. She is not ill-appearing, toxic-appearing or diaphoretic. Cardiovascular: Rate and Rhythm: Normal rate and regular rhythm. Heart sounds: Normal heart sounds. Pulmonary: Effort: Pulmonary effort is normal. Breath sounds: Normal breath sounds and air entry. Abdominal: General: Abdomen is flat. Bowel sounds are normal. Palpations: Abdomen is soft. Tenderness: There is no abdominal tenderness. There is no right CVA tenderness, left CVA tenderness, guarding or rebound. Neurological: Mental Status: She is alert. Psychiatric: Behavior: Behavior is cooperative. Taking Azo Latest Ref Rng 06/23/2024 GLUCOSE UA (POCT) Negative mg/dL 100 ! BILIRUBIN UA (POCT) Negative Small ! KETONE UA (POCT) Negative mg/dL Trace SPECIFIC GRAVITY UA (POCT) 1.005 - 1.030 1.015 HEMOGLOBIN/BLOOD UA (POCT) Negative Negative PH UA (POCT) 4.5 - 8.0 7.0 PROTEIN UA (POCT) Negative mg/dL 100 ! UROBILINOGEN UA (POCT) Normal E.U./dL 4.0 ! NITRITE UA (POCT) Negative Positive ! LEUKOCYTES UA (POCT) Negative Negative COLOR UA (POCT) [place] CLARITY UA (POCT) Clear ASSESSMENT/PLAN: 1. Urinary tract infection without hematuria, site unspecified - ICD9: 599.0, ICD10: N39.0 - UA DIP, URINE (POC)- taking Azo, urine is orange. - URINE CULTURE - NITROFURANTOIN MONOHYDRATE AND MACROCRYSTAL 100 MG ORAL CAP Urine culture sent to the lab. Will contact in 2-3 days with results. Discussed OTC care: Increase fluids, rest. Tylenol May use Cranberry juice or cranberry pills. Avoid constipation. Maintain regular bowel movements. May use OTC Miralax, Senna, or Ducolax. Practice good personal hygiene. Always wipe from front to back. Wear cotton underwear. Bacteria grows better in moist places. Cotton does not trap moisture. After intercourse, urinate as soon as possible. This will help flush out any bacteria (more content not included)...[facility]12-28-2024 History of Present illness Narrative* Donna Kyle PA-C - 06/23/2024 9:53 AM EST 06/23/2024 Patient presents with: UTI: Uti started Tuesday/Tuesday, frequency, cramping in front and back, urgency, pain level 8/10 feeling like that she is being stabbed, has tried increasing fluids and cranberry juice, nausea/vomiting, pt is also , SUBJECTIVE: This is a 28 year old that is here today for possible UTI symptoms. HPI per the patient. The patient complains of dysuria, urinary urgency, and urinary frequency x 6 days. LMP 2 weeks late. + test at home. So, maybe 4-5 weeks . The patient denies fever, chills, abominal pain, lower abdominal pressure, bladder spasms, back pain, or n/v. The patient denies any discharge, lesions, odor, change in sexual partners, or concern for STIs. Dysuria pain: yes out of 10 with 10 being the worst pain. The lower abdominal pain is 0 out of 10 with 10 being the worst pain. The back/flank pain is 0 out of 10 with 10 being the worst pain. Self-treatment:. Azo The severity is mild and the symptoms are not improving. The patient has not had similar symptoms in the last 3 months. The patient has not had an antibiotic in the last 3 months. LMP:. 2 weeks late + test at home. So, maybe 4-5 weeks . Reviewed meds, OTCs and supplements. Meds reviewed. Allergies and medications reviewed. Reviewed allergies, medications, social history, and past medical history. Barriers to learning: none. PAST MEDICAL HISTORY Diagnosis Date Acne 05/08/2013 Anemia Thyroid enlarged all blood work came back WNL ALLERGIES Bactrim [Sulfamethoxazole-Trimethoprim] and Gabapentin MEDICATIONS Current Outpatient Medications Medication Sig nitrofurantoin monohydrate and macrocrystal (MACROBID) 100 mg capsule Take 1 capsule by mouth two times a day for 7 days. L-Norgest and E Estradiol-E Estrad 0.15 mg-30 mcg (84)/10 mcg (7) Take 1 tablet by mouth once daily. (Patient not taking: Reported on 06/23/2024) No current facility-administered medications for this visit. Medications and allergies reviewed by this provider. SOCIAL HISTORY Social History Tobacco Use Smoking status: Never Smokeless tobacco: Never Vaping Use Vaping status: Never Used Substance Use Topics Alcohol use: No Drug use: No REVIEW OF SYSTEMS ROS: constitutional-neg, heent-neg, heart-neg, respiratory-neg, GI-neg, - concern for UTI, skin-neg, lymph-neg, neuro-neg, psych-neg- All systems neg except as noted above in HPI. OBJECTIVE: BP 133/84 (BP Site: Left Arm, BP Position: Sitting, BP Cuff Size: Regular Adult) Pulse 83 Temp 36.3 C (97.4 F) (Right Tympanic) Resp 18 Ht 172.7 cm (5' 8") Wt 106.1 kg (233 lb 14.5 oz) LMP 05/10/2022 (Exact Date) SpO2 98% BMI 35.57 kg/m . Vital signs reviewed by this provider. Physical Exam Vitals reviewed. Constitutional: General: She is not in acute distress. Appearance: Normal appearance. She is well-developed and normal weight. She is not ill-appearing, toxic-appearing or diaphoretic. Cardiovascular: Rate and Rhythm: Normal rate and regular rhythm. Heart sounds: Normal heart sounds. Pulmonary: Effort: Pulmonary effort is normal. Breath sounds: Normal breath sounds and air entry. Abdominal: General: Abdomen is flat. Bowel sounds are normal. Palpations: Abdomen is soft. Tenderness: There is no abdominal tenderness. There is no right CVA tenderness, left CVA tenderness, guarding or rebound. Neurological: Mental Status: She is alert. Psychiatric: Behavior: Behavior is cooperative. Taking Azo Latest Ref Rng 06/23/2024 GLUCOSE UA (POCT) Negative mg/dL 100 ! BILIRUBIN UA (POCT) Negative Small ! KETONE UA (POCT) Negative mg/dL Trace SPECIFIC GRAVITY UA (POCT) 1.005 - 1.030 1.015 HEMOGLOBIN/BLOOD UA (POCT) Negative Negative PH UA (POCT) 4.5 - 8.0 7.0 PROTEIN UA (POCT) Negative mg/dL 100 ! UROBILINOGEN UA (POCT) Normal E.U./dL 4.0 ! NITRITE UA (POCT) Negative Positive ! LEUKOCYTES UA (POCT) Negative Negative COLOR UA (POCT) [place] CLARITY UA (POCT) Clear ASSESSMENT/PLAN: 1. Urinary tract infection without hematuria, site unspecified - ICD9: 599.0, ICD10: N39.0 - UA DIP, URINE (POC)- taking Azo, urine is orange. - URINE CULTURE - NITROFURANTOIN MONOHYDRATE & MACROCRYSTAL 100 MG ORAL CAP Urine culture sent to the lab. Will contact in 2-3 days with results. Discussed OTC care: Increase fluids, rest. Tylenol May use Cranberry juice or cranberry pills. Avoid constipation. Maintain regular bowel movements. May use OTC Miralax, Senna, or Ducolax. Practice good personal hygiene. Always wipe from front to back. Wear cotton underwear. Bacteria grows better in moist places. Cotton does not trap moisture. After intercourse, urinate as soon as possible. This will help flush out any bacteria that may havegone into the urinary tract. Change sanitary pads and tampons frequently during menstruation. Empty your bladder completely as soon as you feel the urge, or at least every three hours. Take entire course of antibiotics. If you get vaginal yeast infections while on antibiotics, use OTC yeast cream treatments as directed Call PCP if sx worsen or no better in 2-3 days. If symptoms worsen, or new symptoms develop go to ER. If you develop fever, chills, worsening back pain, worsening abdominal pain, or new symptoms- see your PCP immediately or go to ER. Follow up as needed. Barriers to Learning: None. Barriers to Learning: Age. Here with a parent. The patient is instructed to return or seek emergency treatment if symptoms become worse or with any acute change in condition. The patient verbalizes understanding and is in agreement with plan of care. Donna Kyle PA-C Medical Decision Making: Problems: Moderate: New problem with uncertain prognosis Data: Unique test result(s) reviewed: 1 Unique test(s) ordered: 2 Risk: Low: Low risk from testing/treatment Moderate: Drug management Medical Decision Making Level: 4 - Moderate I spent a total of 20 minutes on the date of the service which included preparing to see the patient, [id number] patient care, completing clinical documentation, performing a medically appropriate examination, counseling and educating the patient/family/caregiver, ordering medications, tests, or p rocedures, and communicating results to the patient/family/caregiver. documented in this encounterC[facility]01-05-[facility] History of Present illness Narrative* Rose Jamil LPN - 07/01/2022 2:34 PM EST Patient presents for PPD read only. Denies any problems at this time. Rose Jamil LPN documented in this encounterC[facility]12-29-2022 Miscellaneous Notes* Telephone Encounter - Stephanie Arriaga APRN.CNP - 06/24/2022 3:37 PM EST Order placed. Stephanie Arriaga APRN.WALLY * Telephone Encounter - Rose Jamil LPN - 06/24/2022 3:33 PM EST Patient scheduled for nurse visit 06/29/22 to receive PPD. Please place order at this time. Rose Jamil LPN documented in this encounterC[facility]12-27-2022 History of Present illness Narrative* Rose Jamil LPN - 06/22/2022 2:39 PM EST Patient presents for PPD administration only. Denies any problems at this time. Tolerated injectionwell. Rose Jamil LPN documented in this encounterC[facility]12-15-2022 Miscellaneous Notes* Telephone Encounter - Stephanie Arriaga APRN.CNP - 06/10/2022 1:49 PM EST Orders signed. Stephanie Arriaga APRN.WALLY * Telephone Encounter - Rose Jamil LPN - 06/10/2022 11:58 AM EST Patient scheduled for nurse visit 06/22/22 to receive PPD. Please place order at this time. Rose Jamil LPN documented in this encounterC[facility]12-09-2022 History of Present illness Narrative* José Miguel Delcid MD - 06/04/2022 9:46 AM EST Insurance Licensing Supervisor offered: Patient declines. Guerrero is a 26 year old who presents for an annual gynecologic exam without complaints. Menses: cycles every 72 days and 4-5 days of flow. Contraception: combined hormonal contraceptives HPV vaccine: Yes Last Pap: 08/17/2018 normal HPV: N/A History of abnormal pap: No Last mammogram: never Sexually active: Yes Patient concerns for STD exposure: No. OB History T0 L0 SAB0 IAB0 Ectopic0 Multiple0 Live Births0 Paster Hat Lining History LMP: 05/10/2022 (Exact Date), Having periods Age at Menarche: Age at First : Age at Menopause: [place] History Comments: Sexual Activity: Yes; Male Contraception: Pill, Condom PAST MEDICAL HISTORY Diagnosis Date Acne 05/08/2013 Anemia Thyroid enlarged all blood work came back WNL PAST SURGICAL HISTORY Procedure Laterality Date TONSILLECTOMY & ADENOIDECTOMY <AGE 14 FAMILY HISTORY Problem Relation Age of Onset Breast Cancer Mother Thyroid Mother No Known Problems Father Thyroid Sister Thyroid Maternal Grandmother Diabetes Maternal Grandfather Adult on-set Cancer Paternal Grandmother No Known Problems Paternal Grandfather other (schizophrenia) Maternal Aunt SOCIAL HISTORY Social History Tobacco Use Smoking status: Never Smokeless tobacco: Never Vaping Use Vaping Use: Never used Substance Use Topics Alcohol use: No Drug use: No REVIEW OF SYSTEMS Abdomen: No abdominal pain, nausea, vomiting, diarrhea, or constipation. No bloating, early satiety, indigestion, or increased flatulence. Bladder: No dysuria, gross hematuria, urinary frequency, urinary urgency, or incontinence. Breast: No breast lumps, nipple d/c, overlying skin changes, redness or skin retraction. Allergies and current medication updated:Yes EXAM: BP 112/70 Ht 5' 9" (1.75m) Wt 217 lb 6.4 oz (98.6kg) LMP 05/10/2022 BMI 32.09 kg/(m^2). GENERAL: pleasant, female in no apparent distress HEENT: Normocephalic, atraumatic, mucus membranes moist, and no lesions NECK: Supple, full range of motion, no adenopathy, and thyroid normal DERMATOLOGY: Normal, without lesions, non-icteric, and non-hirsute BREAST: soft, non-tender, symmetric, no dominant mass, normal nipple-areolar complex, no lymphadenopathy, and no nipple discharge CHEST: Normal inspiratory effort ABDOMEN: soft, non-tender, and no masses PELVIC: external genitalia normal, normal Bartholin's glands, urethra, [place]'s glands, no vulvar lesions, no cervical lesions, good vaginal support, physiologic discharge present, normal appearing perineal body and perianal region BIMANUAL: uterus normal size, shape and consistency, no adnexal masses, and non-tender RECTOVAGINAL: deferred. NEURO: exam grossly non-focal EXTREMITIES: normal ASSESSMENT/PLAN: 1) Health maintenance: Pap done with reflex HPV. Nutrition, exercise and routine health maintenance exams reviewed. HPV vaccine: completed series 2) Contraception: combined hormonal contraceptives. Contraceptive options reviewed and information provided. 3) STD screening: Accepts full STD screeening including HIV, Syphilis and Hepatitis. 4) Follow up one year or sooner as needed José Miguel Delcid DO [facility] Miscellaneous Notes* Telephone Encounter - Taty Montano LPN - 05/07/2022 11:06 AM EST Pt notified and has yearly exam scheduled for 06/04/22. Taty Montano LPN * Telephone Encounter - Марина Hebert MD - 05/07/2022 10:34 AM EST Patient's request for medication is as follows Requested Prescriptions Signed Prescriptions Disp Refills L-Norgest and E Estradiol-E Estrad 0.15 mg-30 mcg (84)/10 mcg (7) 91 tablet 2 Sig: Take 1 tablet by mouth once daily. Authorizing Provider: МАРИНА HEBERT Order entered - please phone pharmacy and notify patient. Марина Hebert MD. Call to schedule annual. Марина Hebert MD * Telephone Encounter - Taty Montano LPN - 05/06/2022 10:47 AM EST See pharmacy generated refill request and advise. Pt was last seen in the office 04/22/21. Renetta ROJAS documented in this encounterC[facility]04-20-2022 Miscellaneous Notes* Telephone Encounter - Brooklyn Junior Ma - 10/14/2021 4:25 PM EDT Pt notified and verbalized understanding Brooklyn Junior Ma * Telephone Encounter - Franci Herman APRN.CNP - 10/14/2021 4:15 PM EDT Please let Robb know I've received her lab results. Her vitamin D level is low. I recommend she start a daily Vitamin D3 supplement of [id number] international unit(s) daily. This can be found in the vitamin section. Her total and LDL (bad) cholesterol are elevated a bit. No need for medication at this point, but we do need to continue monitoring this. I recommend exercise, weight loss, and a low fat low cholesterol diet. Thyroid-the elevation in the thyroid peroxidase antibody indicates that she's at an increased risk for autoimmune hypothyroidism, which we did already suspect. Currently, her thyroid lab work is still in a normal range, but this is something we'll continue to monitor, as it likely will eventually change. Franci Herman APRN.CNP documented in this encounterC[facility]04-18-2022 History of Present illness Narrative* Franci Herman APRN.CNP - 10/12/2021 11:59 AM EDT Patient presents with: Establish Care HPI: Robb Ulrich is a 26 year old female who presents to the office today for review of health conditions. She is establishing care with Dr. Weber today. Concerns today: Patient's mother, sister, and grandmother all see Dr. Weber as PCP. Denies any complaints or concerns. Last 3 Encounter BP Readings: Date: BP: 10/12/2021 108/74 04/22/2021 110/72 01/01/2020 118/60 PAST MEDICAL HISTORY Diagnosis Date Acne 05/08/2013 Anemia Thyroid enlarged all blood work came back WNL PAST SURGICAL HISTORY Procedure Laterality Date TONSILLECTOMY & ADENOIDECTOMY <AGE 14 Social History Tobacco Use Smoking status: Never Smoker Smokeless tobacco: Never Used Vaping Use Vaping Use: Never used Substance Use Topics Alcohol use: No Drug use: No FAMILY HISTORY Problem Relation Age of Onset Breast Cancer Mother Thyroid Maternal Grandmother Diabetes Maternal Grandfather Adult on-set other (schizophrenia) Maternal Aunt Allergies: ALLERGIES Allergen Reactions Bactrim [Sulfametho* Rash Gabapentin Rash Current Meds: L-Norgest and E Estradiol-E Estrad 0.15 mg-30 mcg (84)/10 mcg (7) TAKE 1 TABLET BY MOUTH EVERY DAY Review of Systems All other systems reviewed and are negative. See HPI PE: 10/12/21 1142 BP: 108/74 BP Site: Left Arm BP Position: Sitting BP Cuff Size: Regular Adult Pulse: 90 Resp: 16 SpO2: 100% Weight: 98.9 kg (218 lb) Height: 176 cm (5' 9.29") Physical Exam Vitals and nursing note reviewed. Constitutional: Appearance: Normal appearance. HENT: Head: Normocephalic and atraumatic. Right Ear: Tympanic membrane, ear canal and external ear normal. Left Ear: Tympanic membrane, ear canal and external ear normal. Nose: Nose normal. Mouth/Throat: Mouth: Mucous membranes are moist. Pharynx: Oropharynx is clear. Eyes: Extraocular Movements: Extraocular movements intact. Conjunctiva/sclera: Conjunctivae normal. Pupils: Pupils are equal, round, and reactive to light. Neck: Thyroid: Thyromegaly present. Cardiovascular: Rate and Rhythm: Normal rate and regular rhythm. Pulses: Normal pulses. Heart sounds: Normal heart sounds. Pulmonary: Effort: Pulmonary effort is normal. Breath sounds: Normal breath sounds. Abdominal: Palpations: Abdomen is soft. Musculoskeletal: General: Normal range of motion. Cervical back: Normal range of motion and neck supple. Skin: General: Skin is warm and dry. Capillary Refill: Capillary refill takes less than 2 seconds. Neurological: General: No focal deficit present. Mental Status: She is oriented to person, place, and time. Psychiatric: Behavior: Behavior normal. ASSESSMENT/PLAN: 1. Well adult exam - ICD9: V70.0, ICD10: Z00.00 (primary diagnosis) - Counseled on healthy diet and regular exercise - Calcium intake with supplements or by diet of 1000 mg/day for under 50, 1200- 1500 mg/day for 50+ - CBC - COMP METABOLIC PANEL - HGB A1C - TSH BLD - T3 BLD - T4 FREE/FREE THYROX - LIPID PANEL BASIC - VITAMIN D 25 HYDROXY - THYROID PEROXIDASE ANTIBODY BLOOD - US THYROID/PARATHYROID - THYROGLOBULIN AB 2. Enlarged thyroid - ICD9: 240.9, ICD10: E04.9 - TSH BLD - T3 BLD - T4 FREE/FREE THYROX - THYROID PEROXIDASE ANTIBODY BLOOD - US THYROID/PARATHYROID - THYROGLOBULIN AB 3. Screening for diabetes mellitus - ICD9: V77.1, ICD10: Z13.1 - CBC - COMP METABOLIC PANEL - HGB A1C 4. Screening for lipid disorders - ICD9: V77.91, ICD10: Z13.220 - LIPID PANEL BASIC 5. Encounter for vitamin deficiency screening - ICD9: V77.99, ICD10: Z13.21 - VITAMIN D 25 HYDROXY Franci Herman APRN.OFFSET PRESS OPERATOR APPRENTICE To ER if develops chest pain, shortness of breath, or severe worsening of symptoms. Discussed risks, benefits, alternatives, and potential side effects of medications. Patient expressed understanding and agreed with the plan. Franci Herman APRN.WALLY [address] [place] [address] documented in this encounterC[facility]11-12-2013 History of Past illness Narrative* Problem Noted Date Resolved Date Acne 05/08/2013 07/27/2017 Dysmenorrhea 05/08/2013 07/27/2017 documented as of this encounter (statuses as of 10/12/2021) [facility] History of Past illness Narrative* Problem Noted Date Resolved Date Acne 05/08/2013 07/27/2017 Dysmenorrhea 05/08/2013 07/27/2017 documented as of this encounter (statuses as of 10/14/2021) [facility] of Past illness Narrative* Problem Noted Date Resolved Date Acne 05/08/2013 07/27/2017 Dysmenorrhea 05/08/2013 07/27/2017 documented as of this encounter (statuses as of 05/07/2022) [facility] of Past illness Narrative* Problem Noted Date Resolved Date Acne 05/08/2013 07/27/2017 Dysmenorrhea 05/08/2013 07/27/2017 documented as of this encounter (statuses as of 05/14/2022) [facility] of Past illness Narrative* Problem Noted Date Resolved Date Acne 05/08/2013 07/27/2017 Dysmenorrhea 05/08/2013 07/27/2017 documented as of this encounter (statuses as of 06/04/2022) [facility] of Past illness Narrative* Problem Noted Date Resolved Date Acne 05/08/2013 07/27/2017 Dysmenorrhea 05/08/2013 07/27/2017 documented as of this encounter (statuses as of 06/10/2022) [facility] of Past illness Narrative* Problem Noted Date Resolved Date Acne 05/08/2013 07/27/2017 Dysmenorrhea 05/08/2013 07/27/2017 documented as of this encounter (statuses as of 06/28/2022) [facility] of Past illness Narrative* Problem Noted Date Resolved Date Acne 05/08/2013 07/27/2017 Dysmenorrhea 05/08/2013 07/27/2017 documented as of this encounter (statuses as of 06/30/2022) [facility] of Past illness Narrative* Problem Noted Date Resolved Date Acne 05/08/2013 07/27/2017 Dysmenorrhea 05/08/2013 07/27/2017 documented as of this encounter (statuses as of 07/02/2022) [facility] CenterDis[facility] summary Author Yosi Oliveira [facility] Note Date/Time September 04, 2024 1:2 0pm [facility] Medical Records Department [address] [place] [address] Emergency Department Summary 09/04/24 MR#: [id number] Acct: [id number] Name: ROBB ULRICH Rep #:[id number] : 1995 29 From: Yosi Oliveira MD PCP: Dr. Judson Weber, DO Status:RE G ER Location: ED HPI History of Present Illness Chief Complaint: Flank Pain Informant: patient and parent Narrative Narrative: 29-year-old female with pain in her right low back/flank that started last nightbut intensified this morning. She states initially it was colicky but now it isjust steady and severe. Associate with nausea and vomiting. She is 17 weeks . She has had no issues with the , has had prior ultrasound documenting IUP. She denies any acute urinary symptoms or fever/chills, cough or congestion or other respiratory symptoms, she denies any abdominal pain rightnow. Earlier in the , she did have some nonspecific urinary issues according to mom that was treated empirically with some antibiotics, it eventually went away and they are concerned maybe that was a kidney stone and that this may be 1 as well. She is never had any that she knows of. No other abdominal surgeries in the past. [facility] Medical History (Updated 09/04/24 @ 13:[address] Yosi Oliveira MD) Medical History no medical history no medical history Home Medications ?Medication ?Instructions ?Recorded ?Last Taken ?Type aspirin 81 mg tablet,delayed 81 mg PO DAILY 09/04/24 0 09/03/24 History release oxycodone-acetaminophen 5 mg-325 1 tab PO Q6H PRN PRN Pain 3 days 09/04/24 Unknown Rx mg tablet #12 TABLETS vit no.95-ferrous 1 tab PO DAILY 09/04/2404/20 History fumarate 28 mg-folic acid 800 mcg tablet () Allergy/AdvReac Type Severity Reaction Status Date / Time gabapentin Allergy Mild Rash Verified 06/26/24 15:18 sulfamethoxazole (From Allergy Mild Rash Verified 06/26/24 15:18 Bactrim) trimethoprim (From Bactrim) Allergy Mild Rash Verified 06/26/24 15:18 Social History Smoking Status: Never smoker ROS ROS ED Constitutional Constitutional ED: Denies chills or fever(s) Eyes Eyes: Denies change in vision or diplopia ENT ENT ED: Denies rhinorrhea or sore throat Cardiovascular Cardiovascular: Denies chest pain or palpitations Respiratory/Chest Respiratory/Chest: Denies cough or dyspnea Gastrointestinal Gastrointestinal: Reports nausea and vomiting; Denies abdominal pain or diarrhea Genitourinary Genitourinary ED: Denies dysuria or hematuria Musculoskeletal Musculoskeletal: Reports back pain; Denies neck pain Integumentary Denies abscess or rash Neurologic Neurologic: Denies headache(s), paresthesias or weakness EXAM Physical Exam Const Vital Signs: 09/04/24 08:07 09/04/24 10:06 09/04/24 12:00 Temperature 97.5 F L Temperature Source Temporal Pulse Rate 85 Respiratory Rate 19 H Blood Pressure 125/83 H 111/61 113/78 Blood Pressure Mean 97 77 89 Pulse Ox 100 100 Oxygen Delivery Method Room Air Room Air Positive well nourished and well developed Constitutional Narrative: Uncomfortable in pain but no distress General Appearance ED: well developed and NAD HEENT Reports moist mucous membranes normocephalic and atraumatic Eyes PERRL and EOMs intact bilaterally Neck full ROM and supple Resp normal respiratory effort and clear to auscultation bilaterally Cardio regular rate, regular rhythm and no murmurs GI non-tender and non-distended Auscultation: normoactive bowel sounds Palpation: soft Back/Spine General Back: CVA tenderness right and other FROM Extremity normal to inspection General Extremety ED: Negative for edema, pulses abnormal or tenderness General Extremity: Negative for edema or pulses abnormal Neuro oriented x3, CN's II-XII intact bilaterally and no sensory deficits noted Sensorium / Orientation: awake and alert Motor Exam: strength 5/5 throughout Skin no rashes or lesions noted and no wounds MDM MDM MDM Narrative Medical decision making narrative: My suspicion is that this is renal colic based on history and exam as opposed tobiliary colic or musculoskeletal back pain. Given that she is , we willobtain an ultrasound of the kidney and bladder, as well as blood work and a urine to evaluate for the possibility of pyelonephritis. Nursing was unable to get an IV in the patient, the patient states she is always been a hard stick so we opted to give the medication to intramuscularly as far as morphine and Zofranwhich initially was going to be given orally but then she was actively vomiting,so was given intramuscularly. She still has significant pain, so then she was given IM Dilaudid and still was in severe pain later. In the meantime, workup shows normal labs and renal function, urine shows blood but no sign of infection, and ultrasound is consistent with nephrolithiasis and mild hydronephrosis both on the right with several stones being seen in the right kidney and the largest being 7 mm. The obstructing stone was not visualized butassumed to be present in the right ureter. I discussed with urology given all of the pain she was in, and ordered an IV along with a second dose of Dilaudid. Dr. Sifuentes advised a CT given the risks and benefits comparison of going to theOR when . I discussed this with the patient and she wanted to hold off on getting a CT at that time, and see if we can get her pain under better control even if being admitted to the hospital was necessary. I think that is reasonable and I discussed getting a KUB which we did, my interpretation there may be a very small punctate UVJ stone, 1 view, however radiology did not interpret this way. A little later, before she got the second dose of Dilaudid,the patient's pain suddenly became almost completely resolved and she did much better for observation in the next 1 to 2 hours without recurrent significant discomfort or need for other medication. Given this, I do not think she needs to be admitted anymore. I had her strain urine but she did not catch a stone, Isuspect she passed it into her bladder. She is given urine strainers to go as well as a prescription for analgesics to use as needed, and to follow-up with urology at some point when she is done with her assuming that she doesnot have any issues with obstructing stones until then. She and family are comfortable with that plan. Lab Data Attestation: I reviewed the patient's lab results. Labs: Laboratory Results - last 24 hr 09/04/24 09/04/24 08:20 09:35 WBC 9.7 RBC 4.32 Hgb 11.5 L Hct 35.9 L MCV 83.1 MCH 26.6 L MCHC 32.0 RDW Std Deviation 42.3 RDW Coeff of Yaritza 13.8 Plt Count 311 MPV 9.0 Immature Gran % (Auto) 0.400 Neut % (Auto) 72.2 H Lymph % (Auto) 19.6 [place] % (Auto) 5.7 Eos % (Auto) 1.7 Baso % (Auto) 0.4 Absolute Neuts (auto) 7.0 Absolute Lymphs (auto) 1.91 Nucleated RBC % 0 Sodium 136 Potassium 3.5 Chloride 104 Carbon Dioxide 17.4 L Anion Gap 15 BUN 7 Creatinine 0.64 L Estim Creat Clear Calc 164.25 Est GFR (MDRD) Non-Af 124 BUN/Creatinine Ratio 11.6 Glucose 92 Calcium 8.8 Urine Color Yellow Urine Clarity Clear Urine pH 6.0 Ur Specific [place] 1.020 Urine Protein 15 H Urine Glucose (UA) Normal Urine Ketones 5 H Urine Occult Blood 50 H Urine Nitrite Negative Urine Bilirubin Negative Urine Urobilinogen Normal Ur Leukocyte Esterase 25 H Urine RBC 0-5 SEEN Urine WBC 0-5 SEEN Ur Squamous Epith Cells 0-5 SEEN Urine Bacteria 3+ Urine Mucus 1+ Radiography Diagnostic Testing: Clinical Impression(s) from Imaging Studies Renal Ultrasound 09/04/24 08:20 IMPRESSION: Right nephrolithiasis with mild hydronephrosis. Reading [facility] KUB X-Ray 09/04/24 11:20 IMPRESSION: Fecal retention in the colon consistent with constipation. Reading [facility] Management Discussion w/another healthcare provider: Fire Marshal (urology) Discharge Plan Triage Chief Complaint: Flank Pain ED Provider: Yosi Oliveira Dx/Rx/DC Orders Clinical Impression: Renal colic on right side, Ureterolithiasis during in second trimester, Right nephrolithiasis Instructions: ED Kidney Stone, Passed, ED Urine Strainer Prescriptions: New oxycodone-acetaminophen 5-325 mg tablet 1 tab PO Q6H PRN PRN (Reason: Pain) 3 Days Qty: 12 0RF No Action aspirin 81 mg tablet,delayed release (DR/EC) 81 mg PO DAILY PNV cmb#95-ferrous fumarate-FA [] 28 mg iron- 800 mcg tablet 1 tab PO DAILY Primary Care Provider: Judson Weber Referrals: Maria M Sifuentes MD [Med Staff - Active Staff] - As Needed Judson Weber DO [Primary Care Provider] - Print Language: Greenlandic Disposition Disposition: Home, Self Care What to do if you have Problems For any increased pain, shortness of breath, bleeding, nausea or vomiting, chestpain, or any unexpected problems, contact your Primary Care Provider. Call [facility] ([phone]) or report to the closest Emergency Room. Call 911 if necessary. 09/04/24 1320 <Electronically signed by Yosi Oliveira MD> Cosigner Signature (if applicable): CC: Dr. Maria M Sifuentes MD; Dr. Judson Weber DO; Dr. Марина Hebert MD ~ Signed [facility] Work Phone: Evaluation note* Diagnosis Well adult exam- Primary Routine general medical examination at a health care facility Enlarged thyroid Goiter, unspecified Screening for diabetes mellitus Screening for lipid disorders Encounter for vitamin deficiency screening Screening for other and unspecified endocrine, nutritional, metabolic, and immunity disorders [facility]* Diagnosis Encounter for gynecological examination (general) (routine) without abnormal findings- Primary Screening for cervical cancer Screening for malignant neoplasm of the cervix Encounter for screening for human papillomavirus (HPV) Special screening examination for human papillomavirus (HPV) Screen for STD (sexually transmitted disease) Screening examination for venereal disease Encounter for surveillance of contraceptive pills Surveillance of previously prescribed contraceptive pill [facility]* Diagnosis Need for vaccination Need for prophylactic vaccination and inoculation against unspecified single disease Screening examination for pulmonary tuberculosis [facility]* Diagnosis Screening examination for pulmonary tuberculosis- Primary [facility]* Diagnosis Screening examination for pulmonary tuberculosis- Primary [facility] Diagnosis Screening examination for pulmonary tuberculosis- Primary [facility]* Diagnosis Urinary tract infection without hematuria, site unspecified- Primary [facility]* Diagnosis Nausea/vomiting in - Primary Unspecified vomiting of , unspecified as to episode of care Pelvic pain in Other specified complication of , unspecified as to episode of care [facility]* Diagnosis Lower abdominal pain- Primary Abdominal pain, other specified site Urinary tract infection without hematuria, site unspecified Less than 8 weeks gestation of state, incidental Nausea and vomiting, unspecified vomiting type [facility]* Diagnosis Lower abdominal pain Abdominal pain, other specified site 8 weeks gestation of - Primary state, incidental [facility]* Diagnosis with uncertain dates, antepartum- Primary state, incidental 8 weeks gestation of state, incidental Nausea/vomiting in Unspecified vomiting of , unspecified as to episode of care Encounter for supervision of normal first in first trimester Supervision of normal first Painful bladder spasm Other symptoms involving urinary system Obesity affecting in first trimester, unspecified obesity type documented in this encounter [facility] note* Diagnosis 12 weeks gestation of - Primary state, incidental related nausea, antepartum Mild hyperemesis gravidarum, antepartum Heartburn during in second trimester Nausea/vomiting in Unspecified vomiting of , unspecified as to episode of care Encounter for supervision of normal first in first trimester Supervision of normal first documented in this encounter [facility] note* Diagnosis Encounter for screening for malformation using ultrasound- Primary 12 weeks gestation of state, incidental documented in this encounter [facility] note* Diagnosis 16 weeks gestation of - Primary state, incidental Nausea/vomiting in Unspecified vomiting of , unspecified as to episode of care Encounter for supervision of other normal in second trimester * Assessment & Plan Note - Марина Hebert MD - 08/30/2024 8:56 AM EST Associated Problem(s): Nausea/vomiting in documented in this encounter [facility] noteNo assessment information availableWMercy Health St. [facility] Work Phone: Evaluation note* Diagnosis 16 weeks gestation of (HCC)- Primary state, incidental Nausea/vomiting in (HCC) Unspecified vomiting of , unspecified as to episode of care Encounter for supervision of other normal in second trimester ([facility]) Encounter for supervision of other normal in second trimester (HCC)- Primary 20 weeks gestation of (HCC) state, incidental documented in this encounter [facility] note* Diagnosis 16 weeks gestation of (HCC)- Primary state, incidental Nausea/vomiting in (HCC) Unspecified vomiting of , unspecified as to episode of care Encounter for supervision of other normal in second trimester (HCC) Encounter for anatomic survey (HCC)- Primary Encounter for anatomic survey 20 weeks gestation of (HCC) state, incidental Obesity affecting in second trimester, unspecified obesity type ([facility]) documented in this encounter [facility] note* Diagnosis 16 weeks gestation of (HCC)- Primary state, incidental Nausea/vomiting in ([facility]) Unspecified vomiting of , unspecified as to episode of care Encounter for supervision of other normal in second trimester ([facility]) Screening for diabetes mellitus- Primary Encounter for supervision of other normal in second trimester ([facility]) 24 weeks gestation of ([facility]) state, incidental documented in this encounter [facility] note* Diagnosis 16 weeks gestation of ([facility])- Primary state, incidental Nausea/vomiting in (FORM[facility]LY [facility]) Unspecified vomiting of , unspecified as to episode of care Encounter for supervision of other normal in second trimester ([facility]) Encounter for supervision of normal first in second trimester ([facility] Primary Supervision of normal first Screening for diabetes mellitus 27 weeks gestation of ([facility]) state, incidental Need for vaccination Need for prophylactic vaccination and inoculation against unspecified single disease documented in this encounter [facility] note* Diagnosis 16 weeks gestation of ([facility] Primary state, incidental Nausea/vomiting in ([facility]) Unspecified vomiting of , unspecified as to episode of care Encounter for supervision of other normal in second trimester ([facility]) 30 weeks gestation of ([facility] Primary state, incidental Anemia during in third trimester ([facility]) Encounter for supervision of normal first in third trimester ([facility]) Supervision of normal first * Assessment & Plan Note - Morena Limon MD - 12/06/2024 1:51 PM EDTAssociated Problem(s): Anemia during in third trimester ([facility]) Continue iron Repeat CBC in 2-4 weeks documented in this encounter [facility] note* Diagnosis 30 weeks gestation of ([facility] Primary state, incidental Anemia during in third trimester ([facility]) Encounter for supervision of normal first in third trimester ([facility]) Supervision of normal first Anemia during in third trimester ([facility] Primary Encounter for supervision of normal first in third trimester ([facility]) Supervision of normal first 32 weeks gestation of ([facility] state, incidental * Assessment & Plan Note - Morena Limon MD - 12/20/2024 10:27 AM EDTAssociated Problem(s): Anemia during in third trimester (HCC) documented in this encounter [facility] note* Diagnosis 30 weeks gestation of (HCC)- Primary state, incidental Anemia during in third trimester ([facility]) Encounter for supervision of normal first in third trimester ([facility]) Supervision of normal first Anemia during in third trimester ([facility] Primary Encounter for supervision of normal first in third trimester ([facility]) Supervision of normal first 32 weeks gestation of ([facility]) state, incidental Encounter for supervision of normal first in third trimester ([facility] Primary Supervision of normal first Anemia during in third trimester ([facility]) 34 weeks gestation of ([facility]) state, incidental * Assessment & Plan Note - Марина Hebert MD - 01/03/2025 8:45 AM EDT Associated Problem(s): Anemia during in third trimester ([facility]) recheck CBC Orders: URINE OB DIP B/O COMPLETE BLOOD COUNT; Future documented in this encounter [facility] note* Diagnosis 30 weeks gestation of ([facility] Primary state, incidental Anemia during in third trimester ([facility]) Encounter for supervision of normal first in third trimester ([facility]) Supervision of normal first Anemia during in third trimester ([facility] Primary Encounter for supervision of normal first in third trimester ([facility]) Supervision of normal first 32 weeks gestation of ([facility]) state, incidental Encounter for supervision of normal first in third trimester ([facility] Primary Supervision of normal first Anemia during in third trimester ([facility]) 34 weeks gestation of ([facility] state, incidental Anemia during in third trimester ([facility] Primary 36 weeks gestation of ([facility]) state, incidental Encounter for supervision of normal first in third trimester ([facility]) Supervision of normal first documented in this encounter [facility] note* Diagnosis Anemia during in third trimester ([facility] Primary 30 weeks gestation of ([facility] Primary state, incidental Anemia during in third trimester ([facility]) Encounter for supervision of normal first in third trimester ([facility]) Supervision of normal first Anemia during in third trimester ([facility] Primary Encounter for supervision of normal first in third trimester ([facility]) Supervision of normal first 32 weeks gestation of ([facility]) state, incidental Encounter for supervision of normal first in third trimester ([facility] Primary Supervision of normal first Anemia during in third trimester ([facility]) 34 weeks gestation of ([facility] state, incidental [facility] Diagnosis 30 weeks gestation of ([facility] Primary state, incidental Anemia during in third trimester ([facility]) Encounter for supervision of normal first in third trimester ([facility]) Supervision of normal first Anemia during in third trimester ([facility] Primary Encounter for supervision of normal first in third trimester ([facility]) Supervision of normal first 32 weeks gestation of ([facility]) state, incidental Encounter for supervision of normal first in third trimester ([facility] Primary Supervision of normal first Anemia during in third trimester ([facility]) 34 weeks gestation of ([facility] state, incidental 37 weeks gestation of ([facility] Primary state, incidental Anemia during in third trimester ([facility]) Encounter for supervision of normal first in third trimester ([facility]) Supervision of normal first documented in this encounter [facility] note* Diagnosis 30 weeks gestation of ([facility] Primary state, incidental Anemia during in third trimester ([facility]) Encounter for supervision of normal first in third trimester ([facility]) Supervision of normal first Anemia during in third trimester ([facility] Primary Encounter for supervision of normal first in third trimester ([facility]) Supervision of normal first 32 weeks gestation of ([facility] state, incidental Encounter for supervision of normal first in third trimester ([facility] Primary Supervision of normal first Anemia during in third trimester ([facility]) 34 weeks gestation of ([facility] state, incidental Encounter for supervision of normal first in third trimester ([facility] Primary Supervision of normal first Elevated blood pressure reading without diagnosis of hypertension 38 weeks gestation of ([facility] state, incidental [facility] Diagnosis 30 weeks gestation of ([facility] Primary state, incidental Anemia during in third trimester ([facility]) Encounter for supervision of normal first in third trimester ([facility]) Supervision of normal first Anemia during in third trimester ([facility] Primary Encounter for supervision of normal first in third trimester ([facility]) Supervision of normal first 32 weeks gestation of ([facility]) state, incidental Encounter for supervision of normal first in third trimester ([facility] Primary Supervision of normal first Anemia during in third trimester ([facility]) 34 weeks gestation of ([facility]) state, incidental Elevated blood pressure reading without diagnosis of hypertension- Primary Anemia during in third trimester ([facility]) 39 weeks gestation of ([facility] state, incidental Supervision of high risk in third trimester ([facility]) Unspecified high-risk [facility] Diagnosis pain ([facility] Primary Other specified complications, condition or complication Vaginal odor Unspecified symptom associated with female genital organs endometritis ([facility]) Puerperal endometritis, condition or complication [facility]* Diagnosis Routine follow-up ([facility] Primary Routine follow-up endometritis ([facility]) Puerperal endometritis, condition or complication documented in this encounter [facility] for referral (narrative)* Diagnostic Procedure Only (Routine) - Authorized Specialty Diagnoses / Procedures Referred By Rene hayes Referred To Contact US IMAGING Diagnoses Enlarged thyroid Well adult exam Procedures US THYROID/PARATHYROID US SOFT TISSUE HEAD & NECK REAL TIME IMGE Franci Gutiérrez APRN.OFFSET PRESS OPERATOR APPRENTICE [address] [place] [address] [facility] Referral ID Status Reason Start Date Expiration Date Visits Requested Visits Authorized [id number] Authorized Auto-Generat ed Referral 10/12/2021 11/11/2022 1 1 [facility] for referral (narrative)* Diagnostic Procedure Only (Routine) - Authorized Specialty Diagnoses / Procedures Referred By Cathleenac t Referred To Contact [facility] IMAGING Diagnoses Lower abdominal pain Procedures US ABDOMEN COMPLETE US ABDOMINAL REAL TIME W/IMAGE DOCUMENTATION Stephanie Tidwell APRN.OFFSET PRESS OPERATOR APPRENTICE [address] [place] [address] [place] [address] Referral ID Status Reason Start Date Expiration Date Visits Requested Visits Authorized [id number] Authorized Auto-Generat ed Referral 07/02/2024 08/01/2025 1 1 [facility] for referral (narrative)* Diagnostic Procedure Only (Routine) - Closed Specialty Diagnoses / Procedures Referred By Contac t Referred To Contact US IMAGING Diagnoses Lower abdominal pain Procedures US ABDOMEN COMPLETE US ABDOMINAL REAL TIME W/IMAGE DOCUMENTATION Stephanie Tidwell APRN.CNP [address] [place] [address] [place] [address] Referral ID Status Reason Start Date Expiration Date V isits Requested Visits Authorized [id number] Closed Auto-Generate d Referral 07/02/2024 08/01/2025 1 1 [facility] for referral (narrative)* Diagnostic Procedure Only (Routine) - Authorized Specialty Diagnoses / Procedures Referred By Contac t Referred To Contact [facility] Diagnoses with uncertain dates, antepartum Procedures NUCHAL TRANSLUCENCY WHI US NUCHAL TRANSLUCENCY 1ST GESTATION Sravani Soria APRN.CNM [address] [place] [address] [facility] [address] [place] [address] Referral ID Status Reason Start Date Expiration Date Visits Requested Visits Authorized [id number] Authorized Auto-Generat ed Referral 07/05/2024 07/05/2025 1 1 * Diagnostic Procedure Only (Routine) - Authorized Specialty Diagnoses / Procedures Referred By Contac t Referred To Contact [facility] Diagnoses with uncertain dates, antepartum Procedures OBSTETRIC ULTRASOUND WHI US PREG UTERUS AFTER 1ST TRIMEST GESTATION Sravani Soria APRN.CNM [address] [place] [address] [facility] [address] [place] [address] Referral ID Status Reason Start Date Expiration Date Visits Requested Visits Authorized [id number] Authorized Auto-Generat ed Referral 07/05/2024 07/05/2025 1 1 [facility])No reason for referral information availableWMercy [facility] Work Phone: Medications Administered Section Administered Medications Medication Order MAR Action Action Date Dose Rate Site PPD ([place]) Intradermal Given 06/22/2022 14:36 EST 0.1 mL Right a rm Summary Purpose Family History No Family History Records FoundNo Family History Records FoundNo Family History Records Found Advance Directives No Advanced Directives Records Found Advance Directive Response Recorded Date/ Time Living Will No June 26 5:43pm Power of Postal Delivery Officer No June 26, 2024 5:43pm Living Will No September 04, 2024 8:41am Power of Postal Delivery Officer No September 04 8:41am Advance Directive Response Recorded Date/ Time Do you have a [facility] Power of Postal Delivery Officer? No February 11, 2025 8:34am Chief Complaint and Reason for Visit Chief Complaint Admit Date back pain, June 26, 2024 3:12pm flank September 04, 2024 8:0 6am Chief Complaint Admit Date OBSERVATION February 05, 2025 11 :40am Chief Complaint Admit Date OBSERVATION February 05, 2025 11 :40am INDUCTION February 11, 2025 7: 23am Reason for Visit Admit Date 38 weeks gestation of January 252024 11:40am Elevated blood pressure read ing without diagnosis of hypertension February 05, 2025 11:40am 39 weeks gestation of January 252024 7:23am Category II heart rate tracing during labor and delivery February 11, 2025 7:23am Elective induction of labor planned Aug2024 7:23am Elevated blood pressure read ing without diagnosis of hypertension February 11, 2025 7:23am Mother currently breast-feeding January 252024 7:23am Obesity affecting February 11, 2025 7:23am Single live February 11, 2025 7: 23am (spontaneous vaginal delivery) Alexus t 2024 7:23am Additional Source Comments Source Comments (unrecognize d section and content) In the event this informatio n is protected by the Federal Confidentiality of Alcohol and Drug Abuse Patient Records regulations: The Federal rules restrict any use of the information to criminally investigate or prosecute any alcohol or drug abuse patient.[facility] the event this information is protected by the Federal Confidentiality of Alcohol and Drug Abuse Patient Records regulations: The Federal rules restrict any use of the information to criminally investigate or prosecute any alcohol or drug abuse patient.[facility] Center[facility] the event this information is protected by the Federal Confidentiality of Alcohol and Drug Abuse Patient Records regulations: The Federal rules restrict any use of the information to criminally investigate or prosecute any alcohol or drug abuse patient.[facility] Center[facility] the event this information is protected by the Federal Confidentiality of Alcohol and Drug Abuse Patient Records regulations: The Federal rules restrict any use of the information to criminally investigate or prosecute any alcohol or drug abuse patient.[facility] CenterIn the event this information is protected by the Federal Confidentiality of Alcohol and Drug Abuse Patient Records regulations: The Federal rules restrict any use of the information to criminally investigate or prosecute any alcohol or drug abuse patient.[facility] Center[facility] the event this information is protected by the Federal Confidentiality of Alcohol and Drug Abuse Patient Records regulations: The Federal rules restrict any use of the information to criminally investigate or prosecute any alcohol or drug abuse patient.[facility] CenterIn the event this information is protected by the Federal Confidentiality of Alcohol and Drug Abuse Patient Records regulations: The Federal rules restrict any use of the information to criminally investigate or prosecute any alcohol or drug abuse patient.[facility] CenterIn the event this information is protected by the Federal Confidentiality of Alcohol and Drug Abuse Patient Records regulations: The Federal rules restrict any use of the information to criminally investigate or prosecute any alcohol or drug abuse patient.[facility] CenterIn the event this information is protected by the Federal Confidentiality of Alcohol and Drug Abuse Patient Records regulations: The Federal rules restrict any use of the information to criminally investigate or prosecute any alcohol or drug abuse patient.[facility] CenterIn the event this information is protected by the Federal Confidentiality of Alcohol and Drug Abuse Patient Records regulations: The Federal rules restrict any use of the information to criminally investigate or prosecute any alcohol or drug abuse patient.[facility] Center[facility] the event this information is protected by the Federal Confidentiality of Alcohol and Drug Abuse Patient Records regulations: The Federal rules restrict any use of the information to criminally investigate or prosecute any alcohol or drug abuse patient.[facility] CenterIn the event this information is protected by the Federal Confidentiality of Alcohol and Drug Abuse Patient Records regulations: The Federal rules restrict any use of the information to criminally investigate or prosecute any alcohol or drug abuse patient.[facility] CenterIn the event this information is protected by the Federal Confidentiality of Alcohol and Drug Abuse Patient Records regulations: The Federal rules restrict any use of the information to criminally investigate or prosecute any alcohol or drug abuse patient.[facility] CenterIn the event this information is protected by the Federal Confidentiality of Alcohol and Drug Abuse Patient Records regulations: The Federal rules restrict any use of the information to criminally investigate or prosecute any alcohol or drug abuse patient.[facility] CenterIn the event this information is protected by the Federal Confidentiality of Alcohol and Drug Abuse Patient Records regulations: The Federal rules restrict any use of the information to criminally investigate or prosecute any alcohol or drug abuse patient.[facility] CenterIn the event this information is protected by the Federal Confidentiality of Alcohol and Drug Abuse Patient Records regulations: The Federal rules restrict any use of the information to criminally investigate or prosecute any alcohol or drug abuse patient.[facility] CenterIn the event this information is protected by the Federal Confidentiality of Alcohol and Drug Abuse Patient Records regulations: The Federal rules restrict any use of the information to criminally investigate or prosecute any alcohol or drug abuse patient.[facility] CenterIn the event this information is protected by the Federal Confidentiality of Alcohol and Drug Abuse Patient Records regulations: The Federal rules restrict any use of the information to criminally investigate or prosecute any alcohol or drug abuse patient.[facility] CenterIn the event this information is protected by the Federal Confidentiality of Alcohol and Drug Abuse Patient Records regulations: The Federal rules restrict any use of the information to criminally investigate or prosecute any alcohol or drug abuse patient.[facility] CenterIn the event this information is protected by the Federal Confidentiality of Alcohol and Drug Abuse Patient Records regulations: The Federal rules restrict any use of the information to criminally investigate or prosecute any alcohol or drug abuse patient.[facility] CenterIn the event this information is protected by the Federal Confidentiality of Alcohol and Drug Abuse Patient Records regulations: The Federal rules restrict any use of the information to criminally investigate or prosecute any alcohol or drug abuse patient.[facility] CenterIn the event this information is protected by the Federal Confidentiality of Alcohol and Drug Abuse Patient Records regulations: The Federal rules restrict any use of the information to criminally investigate or prosecute any alcohol or drug abuse patient.[facility] CenterIn the event this information is protected by the Federal Confidentiality of Alcohol and Drug Abuse Patient Records regulations: The Federal rules restrict any use of the information to criminally investigate or prosecute any alcohol or drug abuse patient.[facility] CenterIn the event this information is protected by the Federal Confidentiality of Alcohol and Drug Abuse Patient Records regulations: The Federal rules restrict any use of the information to criminally investigate or prosecute any alcohol or drug abuse patient.[facility] CenterIn the event this information is protected by the Federal Confidentiality of Alcohol and Drug Abuse Patient Records regulations: The Federal rules restrict any use of the information to criminally investigate or prosecute any alcohol or drug abuse patient.[facility] CenterIn the event this information is protected by the Federal Confidentiality of Alcohol and Drug Abuse Patient Records regulations: The Federal rules restrict any use of the information to criminally investigate or prosecute any alcohol or drug abuse patient.[facility] CenterIn the event this information is protected by the Federal Confidentiality of Alcohol and Drug Abuse Patient Records regulations: The Federal rules restrict any use of the information to criminally investigate or prosecute any alcohol or drug abuse patient.[facility] CenterIn the event this information is protected by the Federal Confidentiality of Alcohol and Drug Abuse Patient Records regulations: The Federal rules restrict any use of the information to criminally investigate or prosecute any alcohol or drug abuse patient.[facility] CenterIn the event this information is protected by the Federal Confidentiality of Alcohol and Drug Abuse Patient Records regulations: The Federal rules restrict any use of the information to criminally investigate or prosecute any alcohol or drug abuse patient.[facility] CenterIn the event this information is protected by the Federal Confidentiality of Alcohol and Drug Abuse Patient Records regulations: The Federal rules restrict any use of the information to criminally investigate or prosecute any alcohol or drug abuse patient.[facility] CenterIn the event this information is protected by the Federal Confidentiality of Alcohol and Drug Abuse Patient Records regulations: The Federal rules restrict any use of the information to criminally investigate or prosecute any alcohol or drug abuse patient.[facility] CenterIn the event this information is protected by the Federal Confidentiality of Alcohol and Drug Abuse Patient Records regulations: The Federal rules restrict any use of the information to criminally investigate or prosecute any alcohol or drug abuse patient.[facility] CenterIn the event this information is protected by the Federal Confidentiality of Alcohol and Drug Abuse Patient Records regulations: The Federal rules restrict any use of the information to criminally investigate or prosecute any alcohol or drug abuse patient.[facility] CenterIn the event this information is protected by the Federal Confidentiality of Alcohol and Drug Abuse Patient Records regulations: The Federal rules restrict any use of the information to criminally investigate or prosecute any alcohol or drug abuse patient.[facility] CenterIn the event this information is protected by the Federal Confidentiality of Alcohol and Drug Abuse Patient Records regulations: The Federal rules restrict any use of the information to criminally investigate or prosecute any alcohol or drug abuse patient.[facility] CenterIn the event this information is protected by the Federal Confidentiality of Alcohol and Drug Abuse Patient Records regulations: The Federal rules restrict any use of the information to criminally investigate or prosecute any alcohol or drug abuse patient.[facility] CenterIn the event this information is protected by the Federal Confidentiality of Alcohol and Drug Abuse Patient Records regulations: The Federal rules restrict any use of the information to criminally investigate or prosecute any alcohol or drug abuse patient.[facility] CenterIn the event this information is protected by the Federal Confidentiality of Alcohol and Drug Abuse Patient Records regulations: The Federal rules restrict any use of the information to criminally investigate or prosecute any alcohol or drug abuse patient.[facility] CenterIn the event this information is protected by the Federal Confidentiality of Alcohol and Drug Abuse Patient Records regulations: The Federal rules restrict any use of the information to criminally investigate or prosecute any alcohol or drug abuse patient.[facility] CenterIn the event this information is protected by the Federal Confidentiality of Alcohol and Drug Abuse Patient Records regulations: The Federal rules restrict any use of the information to criminally investigate or prosecute any alcohol or drug abuse patient.[facility] CenterIn the event this information is protected by the Federal Confidentiality of Alcohol and Drug Abuse Patient Records regulations: The Federal rules restrict any use of the information to criminally investigate or prosecute any alcohol or drug abuse patient.[facility] CenterIn the event this information is protected by the Federal Confidentiality of Alcohol and Drug Abuse Patient Records regulations: The Federal rules restrict any use of the information to criminally investigate or prosecute any alcohol or drug abuse patient.[facility] ClinicIn the event this information is protected by the Federal Confidentiality of Alcohol and Drug Abuse Patient Records regulations: The Federal rules restrict any use of the information to criminally investigate or prosecute any alcohol or drug abuse patient.[facility] CenterIn the event this information is protected by the Federal Confidentiality of Alcohol and Drug Abuse Patient Records regulations: The Federal rules restrict any use of the information to criminally investigate or prosecute any alcohol or drug abuse patient.[facility] CenterIn the event this information is protected by the Federal Confidentiality of Alcohol and Drug Abuse Patient Records regulations: The Federal rules restrict any use of the information to criminally investigate or prosecute any alcohol or drug abuse patient.[facility] CenterIn the event this information is protected by the Federal Confidentiality of Alcohol and Drug Abuse Patient Records regulations: The Federal rules restrict any use of the information to criminally investigate or prosecute any alcohol or drug abuse patient.[facility] CenterIn the event this information is protected by the Federal Confidentiality of Alcohol and Drug Abuse Patient Records regulations: The Federal rules restrict any use of the information to criminally investigate or prosecute any alcohol or drug abuse patient.[facility] CenterIn the event this information is protected by the Federal Confidentiality of Alcohol and Drug Abuse Patient Records regulations: The Federal rules restrict any use of the information to criminally investigate or prosecute any alcohol or drug abuse patient.[facility] CenterIn the event this information is protected by the Federal Confidentiality of Alcohol and Drug Abuse Patient Records regulations: The Federal rules restrict any use of the information to criminally investigate or prosecute any alcohol or drug abuse patient.[facility] Reason for Visit (unrecogniz ed section and content) Reason Comments Establish Care Reason Comments Results Reason Onset Date Comments Refill Request 05/06/2022 Reason Onset Date Comments Refill Request 05/14/2022 Reason Comments Well Woman Reason Comments Orders Reason Comments Imm/Inj Reason Comments PPD Read Reason Comments UTI Uti started Tuesday /Tuesday, frequency, cramping in front and back, urgency, pain level 8/10 feeling like that she is being stabbed, has tried increasing fluids and cranberry juice, nausea/vomiting, pt is also , Reason Comments Nausea & Vomiting Reason Comments Follow Up Abdominal pain, posi tive test, r/o ectopic. Reason Comments Patient Update Reason Comments ED Follow-up STOMACH CRAMPING ON AND OFF VOMITTING SINCE YESTERDAY MORNING. UNABLE TO KEEP ANYTHING JENNIFER Reason Comments Radiology US Specialty Diagnoses / Procedures Referred By Contac t Referred To Contact US IMAGING Diagnoses Lower abdominal pain Procedures US ABDOMEN COMPLETE US ABDOMINAL REAL TIME W/IMAGE DOCUMENTATION Stephanie Tidwell, BOBBIN TRUCKER.OFFSET PRESS OPERATOR APPRENTICE [address] [place] [address] [place] [id number] Referral ID Status Reason Start Date Expiration Date V isits Requested Visits Authorized [id number] Closed Auto-Generate d Referral 07/02/2024 08/01/2025 1 1 Reason Comments Initial OB Visit Reason Onset Date Comments Refill Request 07/26/2024 Reason Onset Date Comments Care 08/02/2024 Reason Comments US Specialty Diagnoses / Procedures Referred By Contac t Referred To Contact [facility] Diagnoses with uncertain dates, antepartum Procedures NUCHAL TRANSLUCENCY WHI US NUCHAL TRANSLUCENCY 1ST GESTATION Sravani Soria APRN.CN [address] [place] [address] [facility] [address] [facility] [place] [place] [address] Referral ID Status Reason Start Date Expiration Date V isits Requested Visits Authorized [id number] Closed Auto-Generate d Referral 07/05/2024 07/05/2025 1 1 Reason Onset Date Comments Care 08/30/2024 Reason Comments Offer 16 week ultrasound Reason Comments ER Visit Reason Onset Date Comments Care 09/27/2024 Specialty Diagnoses / Procedures Referred By Contac t Referred To Contact [facility] Diagnoses with uncertain dates, antepartum (HCC) Procedures OBSTETRIC ULTRASOUND WHI US PREG UTERUS AFTER 1ST TRIMEST GESTATION Sravani Soria APRN.CN [address] [place] [address] Phone: tel: fax: [facility] [address] [place] [address] Referral ID Status Reason Start Date Expiration Date V isits Requested Visits Authorized [id number] Closed Auto-Generate d Referral 07/05/2024 07/05/2025 1 1 Reason Onset Date Comments Care 10/25/2024 Reason Onset Date Comments Care 11/20/2024 Reason Comments Lower right back pain/radiating around t o right front Reason Onset Date Comments Care 12/06/2024 Reason Onset Date Comments Care 12/20/2024 Reason Onset Date Comments Care 01/03/2025 Reason Onset Date Comments Care 01/17/2025 Reason Onset Date Comments Care 01/24/2025 Reason Onset Date Comments Population Health Navigation Outreach 02/05/2025 Ob/peds Reason Onset Date Comments Care 02/05/2025 Reason Onset Date Comments Care 02/08/2025 Reason Comments Ob Delivery Note Reason Comments Early Care Teams (unrecognized sec tion and content) County Tax Assessor Relationship Specialty Start Date End Date Judson Weber, DO [address] [place] [address] PCP - General Family Practice 10/12/21 County Tax Assessor Relationship Specialty Start Date End Date Judson Weber DO [address] [place] [address] PCP - General Family Practice 10/12/21 County Tax Assessor Relationship Specialty Start Date End Date Judson Weber DO [address] [place] [address] PCP - General Family Medicine 10/12/21 County Tax Assessor Relationship Specialty Start Date End Date Judson Weber DO [address] [place] [address] PCP - General Family Medicine 10/12/21 County Tax Assessor Relationship Specialty Start Date End Date Judson Weber DO [address] [place] [address] PCP - General Family Medicine 10/12/21 County Tax Assessor Relationship Specialty Start Date End Date Judson Weber, DO [address] [place] [address] PCP - General Family Medicine 10/12/21 County Tax Assessor Relationship Specialty Start Date End Date Judson Weber, DO [address] [place] [address] PCP - General Family Medicine 10/12/21 County Tax Assessor Relationship Specialty Start Date End Date Judson Weber, DO [address] [place] [address] PCP - General Family Medicine 10/12/21 County Tax Assessor Relationship Specialty Start Date End Date Judson Weber, DO [address] [place] [address] PCP - General Family Medicine 10/12/21 County Tax Assessor Relationship Specialty Start Date End Date Judson Weber DO [address] [place] [address] PCP - General Family Medicine 10/12/21 Stephanie Tidwell, BOBBIN TRUCKER.OFFSET PRESS OPERATOR APPRENTICE [address] [place] [address] [employer] [facility] 06/03/24 Franci Herman, BOBBIN TRUCKER.OFFSET PRESS OPERATOR APPRENTICE [address] [place] [address] [employer] [facility] 06/03/24 County Tax Assessor Relationship Specialty Start Date End Date Judson Weber DO [address] [place] [address] PCP - General Family Medicine 10/12/21 Stephanie Tidwell, BOBBIN TRUCKER.OFFSET PRESS OPERATOR APPRENTICE [address] [place] [address] [employer] [facility] 06/03/24 Franci Herman, BOBBIN TRUCKER.OFFSET PRESS OPERATOR APPRENTICE [address] [place] [address] [employer] [facility] 06/03/24 County Tax Assessor Relationship Specialty Start Date End Date Judson Weber DO [address] [place] [address] PCP - General Family Medicine 10/12/21 Stephanie Tidwell, BOBBIN TRUCKER.OFFSET PRESS OPERATOR APPRENTICE [address] [place] [address] [employer] [facility] 06/03/24 Franci Herman, BOBBIN TRUCKER.OFFSET PRESS OPERATOR APPRENTICE [address] [place] [address] [employer] Family [facility] 06/03/24 County Tax Assessor Relationship Specialty Start Date End Date Judson Weber DO [address] [place] [address] PCP - General Family Medicine 10/12/21 Stephanie Tidwell, BOBBIN TRUCKER.OFFSET PRESS OPERATOR APPRENTICE [address] [place] [address] [employer] [facility] 06/03/24 Franci Herman, BOBBIN TRUCKER.OFFSET PRESS OPERATOR APPRENTICE [address] [place] [address] [employer] [facility] 06/03/24 County Tax Assessor Relationship Specialty Start Date End Date Judson Weber DO [address] [place] [address] PCP - General Family Medicine 10/12/21 Stephanie Tidwell, BOBBIN TRUCKER.OFFSET PRESS OPERATOR APPRENTICE [address] [place] [address] [employer] [facility] 06/03/24 Franci Herman, BOBBIN TRUCKER.OFFSET PRESS OPERATOR APPRENTICE [address] [place] [address] [employer] [facility] 06/03/24 County Tax Assessor Relationship Specialty Start Date End Date Judson Weber DO [address] [place] [address] PCP - General Family Medicine 10/12/21 Stephanie Tidwell, BOBBIN TRUCKER.OFFSET PRESS OPERATOR APPRENTICE [address] [place] [address] [employer] [facility] 06/03/24 Franci Herman, BOBBIN TRUCKER.OFFSET PRESS OPERATOR APPRENTICE [address] [place] [address] [employer] [facility] 06/03/24 County Tax Assessor Relationship Specialty Start Date End Date Judson Weber DO [address] [place] [address] PCP - General Family Medicine 10/12/21 Stephanie Tidwell, BOBBIN TRUCKER.OFFSET PRESS OPERATOR APPRENTICE [address] [place] [address] [employer] [facility] 06/03/24 Franci Herman, BOBBIN TRUCKER.OFFSET PRESS OPERATOR APPRENTICE [address] [facility] [place] [address] [facility] 06/03/24 County Tax Assessor Relationship Specialty Start Date End Date Judson Weber DO [address] [place] [address] PCP - General Family Medicine 10/12/21 Stephanie Tidwell, BOBBIN TRUCKER.OFFSET PRESS OPERATOR APPRENTICE [address] [place] [address] [facility] 06/03/24 [facility] Center[facility], BOBBIN TRUCKER.OFFSET PRESS OPERATOR APPRENTICE [address] [place] [address] [facility] 06/03/24 County Tax Assessor Relationship Specialty Start Date End Date Judson Weber DO [address] [facility] [place] [address] PCP - General Family Medicine 10/12/21 Stephanie Tidwell, BOBBIN TRUCKER.OFFSET PRESS OPERATOR APPRENTICE [address] [facility] [place] [address] [facility] 06/03/24 [facility] Center[facility], BOBBIN TRUCKER.OFFSET PRESS OPERATOR APPRENTICE [address] [facility] [place] [address] [facility] 06/03/24 County Tax Assessor Relationship Specialty Start Date End Date Judson Weber DO [address] [place] [address] PCP - General Family Medicine 10/12/21 Stephanie Tidwell, BOBBIN TRUCKER.OFFSET PRESS OPERATOR APPRENTICE [address] [facility] [place] [address] [facility] 06/03/24 Franci Herman, BOBBIN TRUCKER.OFFSET PRESS OPERATOR APPRENTICE [address] [place], [place] [address] [facility] 06/03/24 County Tax Assessor Relationship Specialty Start Date End Date Judson Weber DO [address] [place], [place] [address] PCP - General Family Medicine 10/12/21 Stephanie Tidwell, BOBBIN TRUCKER.OFFSET PRESS OPERATOR APPRENTICE [address] [place], [place] [address] [facility] 06/03/24 BatshevaFranci, BOBBIN TRUCKER.OFFSET PRESS OPERATOR APPRENTICE [address] [place], [place] [address] [facility] 06/03/24 Team Status: Active Member Role Status Dates Dr. Judson Weber DO Primary Care Provider Active Team Status: Inactive Member Role Status Dates Dr. Judson Weber DO Primary Care Provider Active Start: June 26, 2024 End: June 26, 2024 Dr. Robert Cohn MD Attending Provider Active Sta rt: June 26, 2024 End: June 26, 2024 Dr. Robert Cohn MD Emergency Provider Active Sta rt: June 26, 2024 End: June 26, 2024 Team Status: Inactive Member Role Status Dates Dr. Judson Weber DO Primary Care Provider Active Start: September 04, 2024 End: September 04, 2024 Dr. Yosi Oliveiar MD Emergency Provider Active Start: September 04, 2024 End: September 04, 2024 County Tax Assessor Relationship Specialty Start Date End Date Judson Weber DO [address] [place], [place] [address] PCP - General Family Medicine 10/12/21 Franci Herman, BOBBIN TRUCKER.OFFSET PRESS OPERATOR APPRENTICE [address] [place] [address] [employer] [facility] 06/03/24 County Tax Assessor Relationship Specialty Start Date End Date Judson Weber DO [address] [place] [address] PCP - General Family Medicine 10/12/21 Franci Herman, BOBBIN TRUCKER.OFFSET PRESS OPERATOR APPRENTICE [address] [place] [address] [employer] [facility] 06/03/24 County Tax Assessor Relationship Specialty Start Date End Date Judson Weber DO [address] [place] [address] PCP - General Family Medicine 10/12/21 Stephanie Tidwell, BOBBIN TRUCKER.OFFSET PRESS OPERATOR APPRENTICE [address] [place] [address] [employer] [facility] 06/03/24 09/14/24 Franci Herman, BOBBIN TRUCKER.OFFSET PRESS OPERATOR APPRENTICE [address] [place] [address] [employer] [facility] 06/03/24 County Tax Assessor Relationship Specialty Start Date End Date Judson Weber DO [address] [place] [address] PCP - General Family Medicine 10/12/21 Franci Herman, BOBBIN TRUCKER.OFFSET PRESS OPERATOR APPRENTICE [address] [place] [address] [employer] [facility] 06/03/24 County Tax Assessor Relationship Specialty Start Date End Date Judson Weber DO [address] [place] [address] PCP - General Family Medicine 10/12/21 Franci Herman, BOBBIN TRUCKER.OFFSET PRESS OPERATOR APPRENTICE [address] [place] [address] [employer] Family [facility] 06/03/24 County Tax Assessor Relationship Specialty Start Date End Date Judson Weber DO [address] [place] [address] PCP - General Family Medicine 10/12/21 Franci Herman, BOBBIN TRUCKER.OFFSET PRESS OPERATOR APPRENTICE [address] [place] [address] [employer] [facility] 06/03/24 County Tax Assessor Relationship Specialty Start Date End Date Judson Weber DO [address] [place] [address] PCP - General Family Medicine 10/12/21 Franci Herman, BOBBIN TRUCKER.OFFSET PRESS OPERATOR APPRENTICE [address] [place] [address] [employer] [facility] 06/03/24 Lisette Pham, BOBBIN TRUCKER.OFFSET PRESS OPERATOR APPRENTICE [address] [place] [address] [facility] 12/10/24 County Tax Assessor Relationship Specialty Start Date End Date Judson Weber DO [address] [place] [address] PCP - General Family Medicine 10/12/21 Franci Herman, BOBBIN TRUCKER.OFFSET PRESS OPERATOR APPRENTICE [address] [place] [address] [facility] 06/03/24 Lisette Pham, BOBBIN TRUCKER.OFFSET PRESS OPERATOR APPRENTICE [address] [place], [place] [address] [phone] [facility] 12/10/24 County Tax Assessor Relationship Specialty Start Date End Date Judson Weber DO [address] [place] [address] PCP - General Family Medicine 10/12/21 [facility] CenterFranci, BOBBIN TRUCKER.OFFSET PRESS OPERATOR APPRENTICE [address] [place] [address] [facility] 06/03/24 Lisette Pham, BOBBIN TRUCKER.OFFSET PRESS OPERATOR APPRENTICE [address] [place] [address] [facility] 12/10/24 County Tax Assessor Relationship Specialty Start Date End Date Judson Weber DO [address] [place] [address] PCP - General Family Medicine 10/12/21 BatshevaFranci, BOBBIN TRUCKER.OFFSET PRESS OPERATOR APPRENTICE [address] [place] [address] [facility] 06/03/24 Lisette Pham, BOBBIN TRUCKER.OFFSET PRESS OPERATOR APPRENTICE [address] [place] [address] [facility] 12/10/24 Team Status: Active Member Role/Relationship Status Dates Dr. Judson Weber DO Primary Care Provider Active Team Status: Inactive Member Role/Relationship Status Dates Dr. Judson Weber DO Primary Care Provider Active Start: February 05, 2025 End: February 05, 2025 Dr. Morena Limon MD Attending Provider Active Start: February 05, 2025 End: February 05, 2025 Dr. Morena Limon MD Referring Provider Active Start: February 05, 2025 End: February 05, 2025 County Tax Assessor Relationship Specialty Start Date End Date Judson Weber DO [address] [place] [address] PCP - General Family Medicine 10/12/21 BatshevaFranci, BOBBIN TRUCKER.OFFSET PRESS OPERATOR APPRENTICE [address] [place] [address] [facility] 06/03/24 Lisette Pham, BOBBIN TRUCKER.OFFSET PRESS OPERATOR APPRENTICE [address] [place] [address] [facility] 12/10/24 County Tax Assessor Relationship Specialty Start Date End Date Judson Weber DO [address] [place] [address] PCP - General Family Medicine 10/12/21 BatshevaFranci, BOBBIN TRUCKER.OFFSET PRESS OPERATOR APPRENTICE [address] [place] [address] [facility] 06/03/24 Lisette Pham, BOBBIN TRUCKER.OFFSET PRESS OPERATOR APPRENTICE [address] [place] [address] [facility] 12/10/24 Team Status: Inactive Member Role/Relationship Status Dates Dr. Judson Weber DO Primary Care Provider Active Start: February 11, 2025 End: February 13, 2025 Molly Gallegos CNM Admit Provider Active Start: February 11, 2025 End: February 13, 2025 Dr. Марина Hebert MD Attending Provider Active Start: February 11, 2025 End: February 13, 2025 County Tax Assessor Relationship Specialty Start Date End Date Judson Weber DO [address] [place] [address] PCP - General Family Medicine 10/12/21 Franci Herman, BOBBIN TRUCKER.OFFSET PRESS OPERATOR APPRENTICE [address] [place] [address] [employer] [facility] 06/03/24 Lisette Pham, BOBBIN TRUCKER.OFFSET PRESS OPERATOR APPRENTICE [address] [place] [address] [facility] 12/10/24 County Tax Assessor Relationship Specialty Start Date End Date Judson Weber DO [address] [place] [address] PCP - General Family Medicine 10/12/21 BatshevaFranci, BOBBIN TRUCKER.OFFSET PRESS OPERATOR APPRENTICE [address] [place] [address] [facility] 06/03/24 Lisette Pham, BOBBIN TRUCKER.OFFSET PRESS OPERATOR APPRENTICE [address] [place] [address] [facility] 12/10/24 County Tax Assessor Relationship Specialty Start Date End Date Judson Weber DO [address] [place] [address] PCP - General Family Medicine 10/12/21 Franci Herman, BOBBIN TRUCKER.OFFSET PRESS OPERATOR APPRENTICE [address] [place] [address] [employer] [facility] 06/03/24 Lisette Pham BOBBIN TRUCKER.OFFSET PRESS OPERATOR APPRENTICE [address] [place], [place] [address] [facility] 12/10/24 County Tax Assessor Relationship Specialty Start Date End Date Judson WeberDO [address] [place], [place] [address] PCP - General Family Medicine 10/12/21 Franci Herman APRN.OFFSET PRESS OPERATOR APPRENTICE [address] [place], [place] [address] [facility] 06/03/24 Lisette Pham, BOBBIN TRUCKER.OFFSET PRESS OPERATOR APPRENTICE [address] [place], [place] [id number] [facility] 12/10/24 INFORMATION SOURCE (unrecogn ized section and content) DATE CREATED AUTHOR 07/21/2023 [facility] ([place]) DATE CREATED AUTHOR AUTHOR'S ORGANIZ ATION 02/19/2025 [facility] DATE CREATED AUTHOR AUTHOR'S ORGANIZ ATION 04/12/2025 [facility] Goals (unrecognized section and content) Goals may be documented in a n alternate sectionGoals may be documented in an alternate section FOR RECORDS PERTAINING TO PATIENTS WHO ARE OR HAVE BEEN ENROLLED IN A CHEMICAL DEPENDENCY/SUBSTANCEABUSE PROGRAM, SOME INFORMATION MAY BE OMITTED. This clinical summary was aggregated from multiple sources. Caution should be exercised in using it in the provision of clinical care. This summary normalizes information from multiple sources, and as a consequence, information in this document may materially change the coding, format and clinical context of patient data. In addition, data may be omitted in some cases. CLINICAL DECISIONS SHOULD BE BASED ON THE PRIMARY CLINICAL RECORDS. [employer] provides no warranty or guarantee of the accuracy or completeness of information in this document.
[2025-05-09] MEDS: HYDROmorphone 0.5 MG/0.5 ML SYRINGE IV (07:42)
[2025-05-09 07:52] LABS: Lipase 25 U/L (13-75)
--- NOTE | 2025-05-09 07:58 | ED.RN ---
IV INFILTRATED, NEW IV INITIATED BY THIS RN, DR ABEL
[2025-05-09 08:02] LABS: AST(SGOT) 17 U/L (<=31); Alanine Aminotransfer ALT/SGPT 11 U/L (<=34); Albumin, Serum 4.4 g/dL (3.5-5.0); Alkaline Phosphatase 89 U/L (35-104); Anion Gap 13 (5-15); BUN 14 mg/dL (4-19); BUN/Creat Ratio 15.6 RATIO (10-20); Calcium,Total 9.5 mg/dL (7.6-11.0); Carbon Dioxide 21.0 mmol/L (21.0-32.0); Chloride 105 mmol/L (98-108); Estimated Creatinine Clearance 116.21 ml/min (50-250); Globulin 3.3 g/dL (2.2-4.2); Glucose 150 mg/dL (70-99); Potassium 3.3 mmol/L (3.3-5.1)
--- NOTE | 2025-05-09 08:07 | CT_ITS ---
PROCEDURE: ABDOMEN/PELVIS W IV CONT ONLY 05/09/2025 REASON FOR EXAM: RIGHT LOWER QUADRANT/FLANK PAIN TECHNIQUE: Procedure Code: [id number] Modality: CT Procedure: ABDOMEN/PELVIS W IV CONT ONLY Coronal and Sagittal reconstruction series were provided. CONTRAST: Isovue-300 VOLUME: 97 mL One or more dose reduction techniques were used (e.g., Automated exposure control, adjustment of the mA and/or kV according to patient size, use of iterative reconstruction technique. RADIATION DOSE SUMMARY: CTDlvol: 31 mGy DLP: 1168 mGycm COMPARISON: September 04, 2024 FINDINGS: Lung bases: Clear Liver: Normal Gallbladder: Normal Spleen: Normal Pancreas: Normal Adrenals: Normal Kidneys: Left kidney and collecting system appear normal. However, right kidney shows some congestion, minimal perirenal stranding, hydronephrosis and hydroureter related to a 3 mm calculus located at the ureterovesical junction, UVJ. Additionally, calculi are shown involving the kidney. One of the superior pole is 4.4 x 3.3 mm. 2 adjacent calculi are seen at the lower pole laterally measuring 3 mm round. Bladder: Normal Reproductive Organs: Uterus is anteverted. IUD is in place. Positioning is satisfactory. Ovaries are normal. Bowel: Normal Appendix: Normal Lymph nodes: None appear enlarged Vasculature: Normal Peritoneum / Retroperitoneum: Normal Bones: Normal CT/Abdomen/Pelvis W IV Cont ONLY IMPRESSION: 1. Right upper pole and right lower pole renal calculi. Hydronephrosis and hy droureter on the right side related to a calculus at the ureterovesical junction, UVJ. 2. IUD [address]. Reading Location: [id number]
[2025-05-09 08:29] LABS: Color, Urine Yellow (Yellow); Glucose, Dipstick Normal (Normal); Ketone-Dipstick 5 mg/dl (Negative); Leukocyte Esterase-Dipstick 25 /ul (Negative); Nitrite-Dipstick Negative (Negative); Occult Blood-Urine 50 /ul (Negative); Protein-Dipstick 30 mg/dl (Negative); Specific Gravity, Urine 1.015 (1.002-1.030)
[2025-05-09 08:37] LABS: Squamous Epithelial Cells - UA 5-10 SEEN /hpf (5-10); Urine Bilirubin Dipstick 1 mg/dL (Negative)
[2025-05-09 08:38] LABS: Mucous, Urine 1+ /hpf (<or=2+); Red Blood Cells-Urine 5-10 SEEN /hpf (0-5)
[2025-05-09 08:55] VITALS: BP 125/97; PULSE 88; RESP 18; O2SAT 96
[2025-05-09 09:21] VITALS: BP 125/88; PULSE 88; RESP 18; TEMP 36.6; O2SAT 98
== END 2025-05-09 09:29 | disposition home or self-care (01) ==
PROVIDERS: Emergency Provider Surgery; PCP Student in an Organized Health Care Education/Training Program; Visit Provider Surgery
DX: N13.2 Hydronephrosis with renal and ureteral calculous obstruction (principal); N13.4 Hydroureter; Z97.5 Presence of (intrauterine) contraceptive device
CPT/HCPCS: 74177; 80053; 81001; 83690; 84703; 85025; 96374; 96375; 99283; Q9967; A4216; J2405